=== PATIENT | male | born 1945 | race Asian ===

== ENCOUNTER 2019-07-21 16:15 | Inpatient (IN) | payer OTHER ==
--- NOTE | 2019-07-21 16:26 | PDOC ---
History of Present Illness - General Chief Complaint: Diarrhea Stated Complaint: DIARRHEA Time Seen by Provider: 07/21/19 16:25 Past History - Past Medical History Allergies/Adverse Reactions: Allergies Allergy/AdvReac Type Severity Reaction Status Date / Time No Known Allergies Allergy Verified 07/21/19 18:35 COPD: No CHF: No Dialysis: Yes - Psycho Social/Smoking Cessation Hx Smoking History: Unknown if ever smoked Hx Alcohol Use: No Drug/Substance Use Hx: No *Physical Exam - Vital Signs Last Vital Signs Temp Pulse Resp BP Pulse Ox 98.3 F 69 16 169/74 100 07/21/19 16:19 07/21/19 16:19 07/21/19 16:19 07/21/19 16:19 07/21/19 16:19 Medical Decision Making - Medical Decision Making 07/21/19 16:52 HPI: 73yo M hx DM, HTN, ESRD on HD, CAD s/p open heart surgery, and CVA, on 5 unknown meds, BIBA from home for 1wk decreased PO intake and constipation, and 1 day of diarrhea, vomiting, and abdominal pain, missing dialysis today. Pt knows his name but is otherwise poor historian. Pt seems to understand questions but responds with "I forget" or "I don't know". Endorses abdominal pain and states he needs to go to the bathroom. History per daughter Ros (sp?) at [phone]. Lives at home with pt. States pt speaks lao mostly but understands luxembourgish. States pt does not have dementia and is normally alert and fully oriented and fully conversational. Pt only ate a few spoons of rice today. Due to his poor PO intake and constipation x1wk, she called the PCP who gave him a laxative which he took last PM and this AM. After taking it this AM, he had "lots" of diarrhea and vomiting. Endorses 6mo generalized weakness, using wheelchair. Pt was scheduled for HD today but came here instead, last HD on . HD T//S at ?[facility] in [place] PCP - recent change from Dr Martina Chow to Silvina Shay(unknown last name) ROS: Unable to obtain 2/2 AMS PE: Gen: Alert, NAD, comfortable-appearing. HEENT: PERRL, EOMI, dry MM, NCAT. No conjunctival pallor. Sclera are non- icteric. CV: Regular rate and rhythm. No murmurs, rubs, or gallops. PULM: No resp distress. CTAB, no wheezes, rales, or rhonchi. ABD: soft, protuberant, diffusely tender, ND, no rebound tenderness or guarding, no CVA tenderness, wearing diaper BACK: No TTP of c/t/l-spine. No step-offs or deformities. MSK: No bony deformities. 2+ pulses in all extremities. NEURO: Alert, oriented to name only. PERRL. No gross CN deficits. Strength and sensation grossly intact throughout. EXTREMITIES: No cyanosis. No clubbing. PSYCH: Normal mood. SKIN: Warm and dry. Normal capillary refill. No rashes. No jaundice. MDM: 73yo M hx DM, HTN, ESRD on HD, CAD s/p open heart surgery, and CVA, on 5 unknown meds, BIBA from home for 1wk decreased PO intake and constipation, and 1 day of diarrhea, vomiting, and abdominal pain, missing dialysis today. Hemodynamically stable, afebrile, altered, diffuse abdominal TTP. Ddx: SAH, ICH, stroke, uremia, hyperammonemia, infection, metabolic derangement, anemia, thyroid pathology, ACS/KY, arrhythmia, GI pathology -EKG -CXR -CT head, chest, abdomen -CBC,CMP,Mg,Phos,Cardiac profile,TSH,UA/UC,ammonia,lipase,lact -Dispo: pending workup and reassessment, likely admit 07/21/19 18:32 EKG reviewed: Atrial fibrillation, vent rat 87bpm, QTc 474ms, no e/o acute ischemia CXR reviewed: cardiomegaly and mild bilateral increased interstitial markings. Cannot rule out mild pulmonary venous congestion for any superimposed infiltrates. Discharge - Discharge Information Problems reviewed: Yes Clinical Impression/Diagnosis: Atrial fibrillation, Missed dialysis, Abdominal pain, vomiting, and diarrhea, Altered mental status Condition: Fair - Admission Yes - Follow up/Referral - Patient Discharge Instructions - Post Discharge Activity
--- NOTE | 2019-07-21 17:02 | PDOC ---
Documentation entered by Otilia Tripp SCRIBE, acting as scribe for Mechelle Hua MD. Mechelle Hua MD: This documentation has been prepared by the scribe, Otilia Tripp SCRIBE, under my direction and personally reviewed by me in its entirety. I confirm that the documentation accurately reflects all work, treatment, procedures, and medical decision making performed by me. Attending Attestation - Resident Resident Name: Ashley Chapa - ED Attending Attestation I have performed the following: I have examined & evaluated the patient, The case was reviewed & discussed with the resident, I agree w/resident's findings & plan - HPI HPI: 07/21/19 16:48 Mr. Byrd is a 73 year old male with past medical history significant for DM, HTN, ESRD on HD (// at [facility] in [place]), CAD s/p open heart surgery, stroke on 5 unknown meds presenting with decreased appetite, "not hungry" x 1 week, constipation. Since yesterda, he has barely ate any food. This morning, started having multiple episodes of diarrhea and vomiting. Per Ems, pt took laxative earlier today. Last HD was [facility] [place] Baseline normal, no dementia, 6mo weakness using wheelchair, can't walk. The patients daughters were worried so they called EMS. 07/21/19 18:53 - Physicial Exam PE: 07/21/19 16:43 Agree with the resident's HPI and PE as documented in the electronic medical record. NAD, confused. EOMI, PERRL, dry mucus membranes, nl conjunctiva, anicteric; neck supple. midline sternotomy scar. lungs clear, irregularly irregular, abdomen soft distended, no rebound or guarding. mildy tender to palp. Back nontender. GOMEZ x4, no focal neuro deficits. No peripheral edema. normal color for ethnicity, WWP. no calf tenderness. 07/21/19 18:12 07/21/19 20:49 07/26/19 08:54 - Medical Decision Making 07/21/19 18:13 Vital Signs Temp Pulse Resp BP Pulse Ox 98.3 F 69 16 169/74 100 07/21/19 16:19 07/21/19 16:19 07/21/19 16:19 07/21/19 16:19 07/21/19 16:19 DDx AMS: infection, UTI, metabolic/electrolyte derangement, encephalopathy, dehydration, CVA, ACS, elevated ammonia, hepatic/uremic encephalopathy 07/21/19 18:51 Interpreted by ED Physician: CXR (1 view): Bilateral interstitial markings noted, appearing like pulmonary vascular congestion, cardiomegaly, bones appear intact and structures normal alignment, . no free air under diaphragm, no pneumothorax. labs and lytes covid 19 testing indicated IVF held due to pulmonary vascular congestion and HD dependent. There is significant cardiomegaly, bilateral interstitial thickening without evidence of infiltrates, there is right-sided pleural effusion. Large amount of free fluid/ascites, no evidence of obstruction. CT head encephalomalacia in the right supra lobe compatible with chronic infarct which is consistent with his prior stroke history pt does need HD, as fluid overloaded and altered. 07/21/19 18:52 07/21/19 19:56 Heart Score/ECG Review #1 ECG reviewed & interpreted by me at: 16:45 General ECG Interpretation: Normal Rate Compared to previous ECG there are: Previous ECG unavail 07/21/19 17:02 EKG atrial fibrillation at 87 bpm, no interval abnormalities, narrow QRS, ST and T wave segments and morphology normal. Nonspecific T wave abnormalities Discharge - Discharge Information Problems reviewed: Yes Clinical Impression/Diagnosis: Missed dialysis, Abdominal pain, vomiting, and diarrhea, Encephalopathy, NSTEMI (non-ST elevated myocardial infarction) Atrial fibrillation Qualifiers: Atrial fibrillation type: unspecified Qualified Code(s): I48.91 - Unspecified atrial fibrillation Altered mental status Qualifiers: Altered mental status type: unspecified Qualified Code(s): R41.82 - Altered mental status, unspecified Acute pancreatitis Qualifiers: Pancreatitis type: unspecified pancreatitis type Acute pancreatitis complication: unspecified Qualified Code(s): K85.90 - Acute pancreatitis without necrosis or infection, unspecified Pancreatitis Qualifiers: Chronicity: acute Pancreatitis type: unspecified pancreatitis type Acute pancreatitis complication: unspecified Qualified Code(s): K85.90 - Acute pancreatitis without necrosis or infection, unspecified Condition: Guarded - Admission Yes - Follow up/Referral - Patient Discharge Instructions - Post Discharge Activity
[2019-07-21 18:48] LABS: BASO % 0.2 % (0-2.0); EOS % 8.3 % (0-4.5); HEMATOCRIT 39.4 % (35.4-49); HEMOGLOBIN 13.3 GM/dL (11.7-16.9); LYMPH % 11.6 % (8-40); MCH 33.2 pg (25.7-33.7); MCHC 33.8 g/dl (32.0-35.9); MEAN CELL VOLUME 98.3 fl (80-96); MEAN PLT VOLUME 9.4 fl (7.5-11.1); NEUT % 66.9 % (42.8-82.8); PLATELET COUNT 155 K/MM3 (134-434); RBC 4.01 M/mm3 (4.00-5.60); RDW 15.6 % (11.9-15.9); WHITE BLOOD COUNT 7.6 K/mm3 (4.0-10.0)
[2019-07-21 18:57] LABS: INR 1.13 (0.83-1.09); PROTHROMBIN TIME (PATIENT) 13.4 SEC (9.7-13.0)
[2019-07-21 19:00] LABS: ACTIVATED PTT 32.2 SECONDS (25.2-36.5)
[2019-07-21 19:23] LABS: ALBUMIN 3.3 g/dl (3.4-5.0); BILIRUBIN,TOTAL 0.9 mg/dL (0.2-1); BLOOD UREA NITROGEN 45.7 mg/dL (7-18); CALCIUM 9.2 mg/dL (8.5-10.1); CREATININE 6.8 mg/dL (0.55-1.3); MAGNESIUM 2.1 mg/dL (1.8-2.4); PHOSPHOROUS 5.2 mg/dL (2.5-4.9); POTASSIUM 3.6 mmol/L (3.5-5.1); TOT PROT 7.3 g/dl (6.4-8.2)
[2019-07-21] MEDS ORDERED: ASPIRIN 81 MG CHEWABLE TABLETS PO ONE (19:31)
--- NOTE | 2019-07-21 19:35 | PDOC ---
*Physical Exam - Vital Signs Last Vital Signs Temp Pulse Resp BP Pulse Ox 98.3 F 69 16 169/74 100 07/21/19 16:19 07/21/19 16:19 07/21/19 16:19 07/21/19 16:19 07/21/19 16:19 ED Treatment Course - LABORATORY CBC & Chemistry Diagram: 07/21/19 18:20 07/21/19 18:20 - ADDITIONAL ORDERS Additional order review: Laboratory Results 07/21/19 07/21/19 07/21/19 18:30 18:20 18:20 PT with INR INR PTT (Actin FS) Sodium 137 Potassium 3.6 Chloride 100 Carbon Dioxide 29 Anion Gap 8 BUN 45.7 H Creatinine 6.8 H Est GFR (CKD-EPI)AfAm 8.37 Est GFR (CKD-EPI)NonAf 7.22 POC Glucometer Random Glucose 153 H Lactic Acid 1.4 Calcium 9.2 Phosphorus 5.2 H Magnesium 2.1 Total Bilirubin 0.9 AST 11 L ALT 11 L Alkaline Phosphatase 138 H Ammonia 24.40 Creatine Kinase 43 Troponin I 0.17 H Total Protein 7.3 Albumin 3.3 L Lipase 908 H TSH 3.99 H 07/21/19 07/21/19 18:20 16:39 PT with INR 13.40 H INR 1.13 H PTT (Actin FS) 32.2 Sodium Potassium Chloride Carbon Dioxide Anion Gap BUN Creatinine Est GFR (CKD-EPI)AfAm Est GFR (CKD-EPI)NonAf POC Glucometer 141 Random Glucose Lactic Acid Calcium Phosphorus Magnesium Total Bilirubin AST ALT Alkaline Phosphatase Ammonia Creatine Kinase Troponin I Total Protein Albumin Lipase TSH 07/21/19 07/21/19 18:20 16:39 RBC 4.01 MCV 98.3 H MCHC 33.8 RDW 15.6 MPV 9.4 Neutrophils % 66.9 Lymphocytes % 11.6 Monocytes % 13.0 H Eosinophils % 8.3 H Basophils % 0.2 POC Glucometer 141 Medical Decision Making - Medical Decision Making 07/21/19 19:34 Sign-out received from Dr. Chapa 73yo M hx DM, HTN, ESRD on HD, CAD s/p open heart surgery, and CVA, on 5 unknown meds, BIBA from home for 1wk decreased PO intake and constipation, and 1 day of diarrhea, vomiting, and abdominal pain, missing dialysis today. History limited by AMS, language barrier, daughter unable to provide much collateral, no prior visits here at [facility]. 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 Trace right pleural effusion. S/p cholecystectomy. Large amount of free fluid / ascites in nikki abdomen and pelvis. No SBO. No mass lesions. 07/21/19 20:[address] Goodwin, confirmed new afib on EKG, patient 74kg, 73yo, full dose eliquis eligible Awaiting callback from renal [employer] sent Dispo: Tele, HD bed - Encephalopathy (uremic?) - ?new a fib - NSTEMI - Pancreatitis 07/21/19 20:[address] Wells, renal, will arrange AM HD 07/21/19 21:04 Endorsed to inpatient team, admitted under Dr. Walker Discharge - Discharge Information Problems reviewed: Yes Clinical Impression/Diagnosis: Missed dialysis, Abdominal pain, vomiting, and diarrhea, Encephalopathy, NSTEMI (non-ST elevated myocardial infarction) Atrial fibrillation Qualifiers: Atrial fibrillation type: unspecified Qualified Code(s): I48.91 - Unspecified atrial fibrillation Altered mental status Qualifiers: Altered mental status type: unspecified Qualified Code(s): R41.82 - Altered mental status, unspecified Acute pancreatitis Qualifiers: Pancreatitis type: unspecified pancreatitis type Acute pancreatitis complication: unspecified Qualified Code(s): K85.90 - Acute pancreatitis without necrosis or infection, unspecified Pancreatitis Qualifiers: Chronicity: acute Pancreatitis type: unspecified pancreatitis type Acute pancreatitis complication: unspecified Qualified Code(s): K85.90 - Acute pancreatitis without necrosis or infection, unspecified Condition: Guarded - Admission Yes - Follow up/Referral - Patient Discharge Instructions - Post Discharge Activity
[2019-07-21] MEDS ORDERED: ASPIRIN 81 MG CHEWABLE TABLETS ONE (20:01)
--- NOTE | 2019-07-21 21:31 | HP ---
<Mae Weinstein - Last Filed: 07/22/19 00:14> CHIEF COMPLAINT: Abdominal pain, chest pain PCP: Unknown HISTORY OF PRESENT ILLNESS: History obtained from Daughter Bob [phone] 73M PMH DM, HTN, ESRD (HD T//Tue), CAD s/p open heart surgery, CVA, who presents today after having abdominal pain with vomiting and diarrhea, and subsequently beginning to have chest pain. Patient had 2 episodes of non bloody diarrhea, and one episode of NBNB emesis in the morning. Of note patient was having decreased PO intake and constipation for the entire week; patient was prescribed unknown laxatives by his PCP yesterday and began taking them. Patient described having worsening chest pain to his daughter after his abdominal pain started which prompted them to call EMS. Patient missed his dialysis today, last day he received dialysis was on . Patient currently does not endorse any pain, however he is not responding in coherent sentences to questioning. ER course was notable for: (1) EKG completed: Afib (2) CT Abdomen/Pelvis shows large amount of free fluid/ascites in abdomen (3) BUN/Creatinine of 45.7/6.8 Recent Travel: None PAST MEDICAL HISTORY:DM, HTN, ESRD (HD T//Tue), CAD s/p open heart surgery, CVA, PAST SURGICAL HISTORY: Unable to obtain FAMILY MEDICAL HISTORY: Unable to obtain Social History: Smoking:Unable to obtain Alcohol:Unable to obtain Drugs: Unable to obtain Lives at home with daughter, recently using wheelchair Allergies No Known Allergies Allergy (Verified 07/21/19 18:35) HOME MEDICATIONS: REVIEW OF SYSTEMS Patient not cooperating with ROS. CONSTITUTIONAL: Absent: fever, chills, diaphoresis, generalized weakness, malaise, loss of appetite, weight change HEENT: Absent: rhinorrhea, nasal congestion, throat pain, throat swelling, difficulty swallowing, mouth swelling, ear pain, eye pain, visual changes CARDIOVASCULAR: Absent: chest pain, syncope, palpitations, irregular heart rate, lightheadedness, peripheral edema RESPIRATORY: Absent: cough, shortness of breath, dyspnea with exertion, orthopnea, wheezing, stridor, hemoptysis GASTROINTESTINAL: Absent: abdominal pain, abdominal distension, nausea, vomiting, diarrhea, constipation, melena, hematochezia GENITOURINARY: Absent: dysuria, frequency, urgency, hesitancy, hematuria, flank pain, genital p ain MUSCULOSKELETAL: Absent: myalgia, arthralgia, joint swelling, back pain, neck pain SKIN: Absent: rash, itching, pallor HEMATOLOGIC/IMMUNOLOGIC: Absent: easy bleeding, easy bruising, lymphadenopathy, frequent infections ENDOCRINE: Absent: unexplained weight gain, unexplained weight loss, heat intolerance, cold intolerance NEUROLOGIC: Absent: headache, focal weakness or paresthesias, dizziness, unsteady gait, seizure, mental status changes, bladder or bowel incontinence PSYCHIATRIC: Absent: anxiety, depression, suicidal or homicidal ideation, hallucinations. PHYSICAL EXAMINATION Vital Signs - 24 hr 07/21/19 16:19 Temperature 98.3 F Pulse Rate 69 Respiratory 16 Rate Blood Pressure 169/74 O2 Sat by Pulse 100 Oximetry (%) GENERAL: Awake, alert. Not in distress HEAD: Normal with no signs of trauma. EYES: EOMI. Scleral icterus present b/l EARS, NOSE, THROAT: Moist mucous membranes. NECK: Normal range of motion, supple without lymphadenopathy, JVD, or masses. LUNGS: Breath sounds equal, clear to auscultation bilaterally. No wheezes, and no crackles. No accessory muscle use. HEART: irregularly irregular, S1 and S2 without murmur, rub or gallop. ABDOMEN: Soft, nontender, not distended, normoactive bowel sounds, no guarding, no rebound, no masses. fluid shift present. MUSCULOSKELETAL: Normal range of motion at all joints. No bony deformities or tenderness. No CVA tenderness. UPPER EXTREMITIES: 2+ pulses, warm, well-perfused. No cyanosis. No clubbing. No peripheral edema. LOWER EXTREMITIES: 2+ pulses, warm, well-perfused. No calf tenderness. No peripheral edema. NEUROLOGICAL: Does not follow command PSYCHIATRIC: Cooperative. Good eye contact. Appropriate mood and affect. SKIN: Warm, dry, normal turgor, no rashes or lesions noted, normal capillary refill. Laboratory Results - last 24 hr 07/21/19 07/21/19 07/21/19 16:39 18:20 18:20 WBC 7.6 RBC 4.01 Hgb 13.3 Hct 39.4 MCV 98.3 H MCH 33.2 MCHC 33.8 RDW 15.6 Plt Count 155 MPV 9.4 Absolute Neuts (auto) 5.1 Neutrophils % 66.9 Lymphocytes % 11.6 Monocytes % 13.0 H Eosinophils % 8.3 H Basophils % 0.2 Nucleated RBC % 0 PT with INR 13.40 H INR 1.13 H PTT (Actin FS) 32.2 Sodium Potassium Chloride Carbon Dioxide Anion Gap BUN Creatinine Est GFR (CKD-EPI)AfAm Est GFR (CKD-EPI)NonAf POC Glucometer 141 Random Glucose Lactic Acid Calcium Phosphorus Magnesium Total Bilirubin AST ALT Alkaline Phosphatase Ammonia Creatine Kinase Troponin I Total Protein Albumin Lipase TSH 07/21/19 07/21/19 07/21/19 18:20 18:20 18:30 WBC RBC Hgb Hct MCV MCH MCHC RDW Plt Count MPV Absolute Neuts (auto) Neutrophils % Lymphocytes % Monocytes % Eosinophils % Basophils % Nucleated RBC % PT with INR INR PTT (Actin FS) Sodium 137 Potassium 3.6 Chloride 100 Carbon Dioxide 29 Anion Gap 8 BUN 45.7 H Creatinine 6.8 H Est GFR (CKD-EPI)AfAm 8.37 Est GFR (CKD-EPI)NonAf 7.22 POC Glucometer Random Glucose 153 H Lactic Acid 1.4 Calcium 9.2 Phosphorus 5.2 H Magnesium 2.1 Total Bilirubin 0.9 AST 11 L ALT 11 L Alkaline Phosphatase 138 H Ammonia 24.40 Creatine Kinase 43 Troponin I 0.17 H Total Protein 7.3 Albumin 3.3 L Lipase 908 H TSH 3.99 H ASSESSMENT/PLAN: 73M PMH DM, HTN, ESRD (HD T//Tue), CAD s/p open heart surgery, CVA, who prese nts today after having abdominal pain and chest pain. 1) Chest Pain - Patient reported chest pain at home, no complaints while in ED. - EKG found to be in Afib, no ST changes. No hx of Afib as per daughter - Troponin 0.17, trending. - ASA 324 given in ED - Continue ASA 81 mg daily - Eliquis 5 mg PO BID - Echo ordered - Continuous cardiac monitoring - Cardiology consulted, appreciate recs 2) New onset Afib - Patient shown to be in Afib on EKG - No prior hx as per daughter - Eliquis 5 mg BID started after consulting cardiology - TSH elevated - Telemetry monitoring - Cardiology consulted, appreciate recs 3) Abdominal Pain- likely Pancreatitis - Patient presented with abdominal pain, lipase of 908. No pain on exam by me, however diffusely tender to palpation on ED exam - Tylenol for pain control, can give morphine as needed if patient complains of worsening pain - CT Abdomen shows no bowel obstruction 4) AMS - Patient not at baseline mental status- Daughter describes patient as being able to speak in both Argentine and Norwegian, A&Ox3. Was noted to be normal at home - Patient awake and alert, not coherent - Likely component of uremic encephalopathy as missed dialysis today - Head CT shows encephalomalacia, no acute pathology - Will continue to monitor - Unknown home medications, spoke with daughter about which pharmacy patient uses, however unable to find them on google search. Will follow up in morning 5) HTN - Hypertensive on presentation, unknown home medications. - Start on amlodipine 5mg, titrate as needed - Likely a component of fluid overload leading to HTN 6) ESRD - Missed dialysis today, will need HD tomorrow - Nephrology consulted, appreciate recs 7) TSH elevated - TSH of 3.99 - Free T4 in AM DVT: Eliquis 5 mg BID F: Oral hydration E: Monitor CMP N: NPO Dispo: Admit to telemetry ATTENDING PHYSICIAN STATEMENT I saw and evaluated the patient. I reviewed the resident's note and discussed the case with the resident. I agree with the resident's findings and plan as documented. SUBJECTIVE: OBJECTIVE: ASSESSMENT AND PLAN: <Cyndy Walker - Last Filed: 07/22/19 05:17> CHIEF COMPLAINT: PCP: HISTORY OF PRESENT ILLNESS: ER course was notable for: (1) (2) (3) Recent Travel: PAST MEDICAL HISTORY: PAST SURGICAL HISTORY: Social History: Smoking: Alcohol: Drugs: Allergies No Known Allergies Allergy (Verified 07/21/19 18:35) HOME MEDICATIONS: REVIEW OF SYSTEMS CONSTITUTIONAL: Absent: fever, chills, diaphoresis, generalized weakness, malaise, loss of appetite, weight change HEENT: Absent: rhinorrhea, nasal congestion, throat pain, throat swelling, difficulty swallowing, mouth swelling, ear pain, eye pain, visual changes CARDIOVASCULAR: Absent: chest pain, syncope, palpitations, irregular heart rate, lightheadedness, peripheral edema RESPIRATORY: Absent: cough, shortness of breath, dyspnea with exertion, orthopnea, wheezing, stridor, hemoptysis GASTROINTESTINAL: Absent: abdominal pain, abdominal distension, nausea, vomiting, diarrhea, constipation, melena, hematochezia GENITOURINARY: Absent: dysuria, frequency, urgency, hesitancy, hematuria, flank pain, genital pain MUSCULOSKELETAL: Absent: myalgia, arthralgia, joint swelling, back pain, neck pain SKIN: Absent: rash, itching, pallor HEMATOLOGIC/IMMUNOLOGIC: Absent: easy bleeding, easy bruising, lymphadenopathy, frequent infections ENDOCRINE: Absent: unexplained weight gain, unexplained weight loss, heat intolerance, cold intolerance NEUROLOGIC: Absent: headache, focal weakness or paresthesias, dizziness, unsteady gait, seizure, mental status changes, bladder or bowel incontinence PSYCHIATRIC: Absent: anxiety, depression, suicidal or homicidal ideation, hallucinations. PHYSICAL EXAMINATION Vital Signs - 24 hr 07/21/19 07/21/19 07/21/19 16:19 18:37 20:00 Temperature 98.3 F 97.9 F Pulse Rate 69 78 Pulse Rate [ 84 Right Radial] Respiratory 16 21 H 20 Rate Blood Pressure 169/74 157/70 Blood Pressure 149/74 [Right Arm] O2 Sat by Pulse 100 98 Oximetry (%) 07/21/19 07/22/19 22:41 02:00 Temperature 98.0 F Pulse Rate 78 Pulse Rate [ Right Radial] Respiratory 21 H 21 H Rate Blood Pressure 163/83 Blood Pressure [Right Arm] O2 Sat by Pulse 95 Oximetry (%) GENERAL: Awake, alert, and fully oriented, in no acute distress. HEAD: Normal with no signs of trauma. EYES: Pupils equal, round and reactive to light, extraocular movements intact, sclera anicteric, conjunctiva clear. No lid lag. EARS, NOSE, THROAT: Ears normal, nares patent, oropharynx clear without exudates. Moist mucous membranes. NECK: Normal range of motion, supple without lymphadenopathy, JVD, or masses. LUNGS: Breath sounds equal, clear to auscultation bilaterally. No wheezes, and no crackles. No accessory muscle use. HEART: Regular rate and rhythm, normal S1 and S2 without murmur, rub or gallop. ABDOMEN: Soft, nontender, not distended, normoactive bowel sounds, no guarding, no rebound, no masses. No hepatomegaly or splenomegaly. MUSCULOSKELETAL: Normal range of motion at all joints. No bony deformities or tenderness. No CVA tenderness. UPPER EXTREMITIES: 2+ pulses, warm, well-perfused. No cyanosis. No clubbing. No peripheral edema. LOWER EXTREMITIES: 2+ pulses, warm, well-perfused. No calf tenderness. No peripheral edema. NEUROLOGICAL: Cranial nerves II-XII intact. Normal speech. Normal gait. PSYCHIATRIC: Cooperative. Good eye contact. Appropriate mood and affect. SKIN: Warm, dry, normal turgor, no rashes or lesions noted, normal capillary refill. Laboratory Results - last 24 hr 07/21/19 07/21/19 07/21/19 16:39 18:20 18:20 WBC 7.6 RBC 4.01 Hgb 13.3 Hct 39.4 MCV 98.3 H MCH 33.2 MCHC 33.8 RDW 15.6 Plt Count 155 MPV 9.4 Absolute Neuts (auto) 5.1 Neutrophils % 66.9 Lymphocytes % 11.6 Monocytes % 13.0 H Eosinophils % 8.3 H Basophils % 0.2 Nucleated RBC % 0 PT with INR 13.40 H INR 1.13 H PTT (Actin FS) 32.2 Sodium Potassium Chloride Carbon Dioxide Anion Gap BUN Creatinine Est GFR (CKD-EPI)AfAm Est GFR (CKD-EPI)NonAf POC Glucometer 141 Random Glucose Lactic Acid Calcium Phosphorus Magnesium Total Bilirubin AST ALT Alkaline Phosphatase Ammonia Creatine Kinase Troponin I Total Protein Albumin Lipase TSH 07/21/19 07/21/19 07/21/19 18:20 18:20 18:30 WBC RBC Hgb Hct MCV MCH MCHC RDW Plt Count MPV Absolute Neuts (auto) Neutrophils % Lymphocytes % Monocytes % Eosinophils % Basophils % Nucleated RBC % PT with INR INR PTT (Actin FS) Sodium 137 Potassium 3.6 Chloride 100 Carbon Dioxide 29 Anion Gap 8 BUN 45.7 H Creatinine 6.8 H Est GFR (CKD-EPI)AfAm 8.37 Est GFR (CKD-EPI)NonAf 7.22 POC Glucometer Random Glucose 153 H Lactic Acid 1.4 Calcium 9.2 Phosphorus 5.2 H Magnesium 2.1 Total Bilirubin 0.9 AST 11 L ALT 11 L Alkaline Phosphatase 138 H Ammonia 24.40 Creatine Kinase 43 Troponin I 0.17 H Total Protein 7.3 Albumin 3.3 L Lipase 908 H TSH 3.99 H ASSESSMENT/PLAN: Visit type - Emergency Visit Emergency Visit: Yes ED Registration Date: 07/21/19 Care time: The patient presented to the Emergency Department on the above date and was hospitalized for further evaluation of their emergent condition. - New Patient This patient is new to me today: No - Critical Care Critical Care patient: No ATTENDING PHYSICIAN STATEMENT I saw and evaluated the patient. I reviewed the resident's note and discussed the case with the resident. I agree with the resident's findings and plan as documented. SUBJECTIVE: 73 year old Male with a PMH DM II HTN, ESRD (HD T/Th/Tue), CAD s/p open heart surgery, CVA, who presents today after having abdominal pain and chest pain. OBJECTIVE: CVS: RRR Lungs: CTA Abdomen: NABS ASSESSMENT AND PLAN: Chest pain - Elevated troponin with new onset Afib - trend ttroponin peak - cardiology eval in AM New onset Afib - No prior hx - Eliquis 5 mg BID started after consulting cardiology - TSH elevated
[2019-07-21] MEDS ORDERED: ACETAMINOPHEN 325 MG TABLET (FP) PO PRN (22:41)
[2019-07-21] MEDS: APIXABAN 5 MG TABLET PO SCH (23:49)
[2019-07-22] MEDS ORDERED: amLODIPine BESYLATE 5 MG TABLET (FP) PO ONE (00:13)
[2019-07-22] MEDS ORDERED: RAPID SEQUENCE INTUBATION KIT NR ONE (04:22)
[2019-07-22] MEDS: INSULIN SLIDING SCALE (NOVOLOG) 1 VIAL SQ SCH ×4 (06:54→21:31)
--- NOTE | 2019-07-22 07:43 | PN ---
Progress Note, Physician Chief Complaint: Seen and examined at bedside. Pt speaks minimal canadian. No abd pain reported overnight. On cardiac specialist in rate controlled AF. Hemodynamically stable History of Present Illness: 73M PMH DM, HTN, ESRD (HD T//Tue), CAD s/p open heart surgery, CVA, who presents today after having abdominal pain and chest pain. - Current Medication List Current Medications: Active Medications Acetaminophen (Tylenol -) 650 mg PO Q4H PRN PRN Reason: PAIN LEVEL 4 - 6 Apixaban (Eliquis -) 5 mg PO BID [facility] Last Admin: 07/21/19 23:49 Dose: 5 mg Documented by: Aspirin (Ecotrin -) 81 mg PO DAILY [facility] Insulin Aspart (Novolog Vial Sliding Scale -) 1 vial SQ ACHS [facility]; Protocol Last Admin: 07/22/19 06:54 Dose: Not Given Documented by: - Objective Vital Signs: Vital Signs Temperature 97.7 F 07/22/19 06:00 Pulse Rate 82 07/22/19 06:00 Respiratory Rate 16 07/22/19 06:00 Blood Pressure 165/70 07/22/19 06:00 O2 Sat by Pulse Oximetry (%) 95 07/21/19 22:41 Constitutional: Yes: No Distress, Calm, Thin Eyes: Yes: WNL, Conjunctiva Clear HENT: Yes: WNL, Atraumatic, Normocephalic Neck: Yes: WNL, Supple, Trachea Midline Cardiovascular: Yes: Pulse Irregular Respiratory: Yes: Regular, On Nasal O2, Rales Gastrointestinal: Yes: Soft, Ascites, Hypoactive Bowel Sounds ...Rectal Exam: Yes: Deferred Genitourinary: Yes: Oliguria Breast(s): Yes: WNL Musculoskeletal: Yes: WNL Extremities: Yes: WNL Edema: No Edema: LLE: Trace, RLE: Trace Peripheral Pulses WNL: Yes Peripheral Pulses: Left Radial: 2+, Right Radial: 2+, Left Doralis Pedis: 2+, Right Dorsalis Pedis: 2+, Left Femoral: 2+, Right Femoral: 2+ Integumentary: Yes: Other (AV fistula noted) Neurological: Yes: WNL, Alert ...Motor Strength: WNL Psychiatric: Yes: Alert Labs: INR, PTT INR 1.13 (0.83-1.09) H 07/21/19 18:20 - ....Imaging Cat Scan: Report Reviewed (HCT:chronnic infarcts,no acute pathology Chest CT:no infiltartes, right pleural effusion A/P:lg amt of free floating ascities, no SBO, no masses) Problem List - Problems (1) Acute metabolic encephalopathy Assessment/Plan: not as baseline as per family speaking minimal Croatian (daughter states he is fluent in vietamese/Croatian) no acute finding on HCT mostly likely d/t uremic state plan for HD today neuro checks c/t monitor Code(s): G93.41 - METABOLIC ENCEPHALOPATHY (2) HTN (hypertension) Assessment/Plan: Hypertensive on presentation, unknown home medications as per family c/w amlodipine 5mg, titrate as needed Likely a component of fluid overload leading to HTN Code(s): I10 - ESSENTIAL (PRIMARY) HYPERTENSION (3) Prophylactic measure Assessment/Plan: FEN Fluids: start clear diet, no additional fluids on HD Electrolytes: monitor & replete as needed Nutrition: clear diet DVT moderate risk c/w apixaban, asa Dispo Maintain as inpatient full code discharge planning Code(s): Z29.9 - ENCOUNTER FOR PROPHYLACTIC MEASURES, UNSPECIFIED (4) Hypothyroid Assessment/Plan: c/w synthroid Code(s): E03.9 - HYPOTHYROIDISM, UNSPECIFIED (5) Abdominal pain, vomiting, and diarrhea Assessment/Plan: resolved no finding on CT hep panel pending c/t karishma/lip Code(s): R10.9 - UNSPECIFIED ABDOMINAL PAIN; R11.10 - VOMITING, UNSPECIFIED; R19.7 - DIARRHEA, UNSPECIFIED (6) Atrial fibrillation Assessment/Plan: new onset c/w tele monitoring c/w apixaban c/w toprol c/w asa appreciate cardiology consultation Code(s): I48.91 - UNSPECIFIED ATRIAL FIBRILLATION Qualifiers: Atrial fibrillation type: unspecified Qualified Code(s): I48.91 - Unspecified atrial fibrillation (7) Missed dialysis Assessment/Plan: planned for HD today Code(s): BSW9111 - (8) NSTEMI (non-ST elevated myocardial infarction) Assessment/Plan: EKG with afib rates controlled, nonspecific ST-T abn (no prior) troponin 0.1, 0.1 CKD, trop will likely remain elevated Code(s): I21.4 - NON-ST ELEVATION (NSTEMI) MYOCARDIAL INFARCTION (9) Pancreatitis Assessment/Plan: karishma 903 c/t trend no findings on CT Code(s): K85.90 - ACUTE PANCREATITIS WITHOUT NECROSIS OR INFECTION, UNSP Qualifiers: Chronicity: acute Pancreatitis type: unspecified pancreatitis type Acute pancreatitis complication: unspecified Qualified Code(s): K85.90 - Acute pancreatitis without necrosis or infection, unspecified (10) Suspected COVID-19 virus infection Assessment/Plan: PCR pending no finding on CT will send inflammatory markers strict airborne/droplet precautions maintain SPO2 > 88% Code(s): Z20.828 - CONTACT W AND EXPOSURE TO OTH VIRAL COMMUNICABLE DISEASES Visit type - Emergency Visit Emergency Visit: Yes ED Registration Date: 07/21/19 Care time: The patient presented to the Emergency Department on the above date and was hospitalized for further evaluation of their emergent condition. - New Patient This patient is new to me today: Yes Date on this admission: 07/22/19 - Critical Care Critical Care patient: Yes Total Critical Care Time (in minutes): 45 Critical Care Statement: The care of this patient involved high complexity decision making to prevent further life threatening deterioration of the patient's condition and/or to evaluate & treat vital organ system(s) failure or risk of failure. - Discharge Referral Referred to [facility] Med [facility].: No
[2019-07-22 07:48] LABS: HEMOGLOBIN 12.4 GM/dL (11.7-16.9); MCH 33.5 pg (25.7-33.7); MCHC 34.5 g/dl (32.0-35.9); MEAN PLT VOLUME 9.5 fl (7.5-11.1); PLATELET COUNT 141 K/MM3 (134-434); RBC 3.71 M/mm3 (4.00-5.60); RDW 15.5 % (11.9-15.9); WHITE BLOOD COUNT 6.8 K/mm3 (4.0-10.0)
[2019-07-22 08:16] LABS: ALBUMIN 3.1 g/dl (3.4-5.0); BILIRUBIN,TOTAL 1.1 mg/dL (0.2-1); BLOOD UREA NITROGEN 48.8 mg/dL (7-18); CALCIUM 8.7 mg/dL (8.5-10.1); CREATININE 7.2 mg/dL (0.55-1.3); PHOSPHOROUS 5.3 mg/dL (2.5-4.9); POTASSIUM 3.7 mmol/L (3.5-5.1); TOT PROT 6.8 g/dl (6.4-8.2)
[2019-07-22] MEDS: ASPIRIN COATED 81 MG TABLET.EC PO SCH (09:15)
[2019-07-22] MEDS: APIXABAN 5 MG TABLET PO SCH ×2 (09:15→21:31)
--- NOTE | 2019-07-22 09:20 | CON.CARD ---
Consult Consult Specialty:: cardio - History of Present Illness Chief Complaint: abd pain History of Present Illness: 73M here with abdominal pain with vomiting and diarrhea. pt is poor historian: history obtained from ER notes in d/w family. 2 episodes of non bloody diarrhea, and one episode of NBNB emesis in the morning. has had decreased PO intake and constipation for the entire week--prescribed unknown laxatives by his PCP yesterday and began taking them. Subsequently developed chest pain which prompted them to call EMS. missed HD session on [facility] notable ER course: BP mildly elevated HR stable afebrile, normal sats on RA EKG with afib rates controlled, nonspecific ST-T abn (no prior) troponin 0.1, 0.1 at present: pt denies abd pain or cp denies sob, palp PMH: DM, HTN, ESRD (HD T//Sat), CAD s/p open heart surgery, CVA - Alcohol/Substance Use Hx Alcohol Use: No - Smoking History Smoking history: Unknown if ever smoked Have you smoked in the past 12 months: No Home Medications - Allergies Allergies/Adverse Reactions: Allergies Allergy/AdvReac Type Severity Reaction Status Date / Time No Known Allergies Allergy Verified 07/21/19 18:35 Family Medical History Family History: Unable to Obtain Review of Systems - Review of Systems Constitutional: denies: Chills, Fever Eyes: denies: Eye Pain HENT: denies: Nasal Congestion Neck: denies: Stiffness Cardiovascular: denies: Palpitations Respiratory: denies: Orthopnea, PND Gastrointestinal: denies: Diarrhea, Rectal Bleeding Genitourinary: denies: Burning, Hematuria Musculoskeletal: denies: Muscle Pain Integumentary: denies: Rash Neurological: denies: Numbness, Seizure, Syncope Endocrine: denies: Excessive Sweating Hematology/Lymphatic: denies: Excessive Bleeding Vital Signs: Vital Signs Temperature 97.7 F 07/22/19 06:00 Pulse Rate 82 07/22/19 06:00 Respiratory Rate 16 07/22/19 06:00 Blood Pressure 165/70 07/22/19 06:00 O2 Sat by Pulse Oximetry (%) 95 07/21/19 22:41 Constitutional: Yes: Well Nourished, No Distress Eyes: No: Ptosis, Sclera Icterus HENT: No: Nasal Congestion Neck: No: Decreased ROM Respiratory: No: Accessory Muscle Use Gastrointestinal: Yes: Normal Bowel Sounds. No: Distention, Hepatomegaly, Palpable Mass, Tenderness Cardiovascular: Yes: Regular Rate and Rhythm JVD: No Carotid Bruit: No PMI: Non-Displaced Heart Sounds: Yes: S1, S2. No: Gallop Murmur: No: Systolic Murmur, Diastolic Murmur Musculoskeletal: Yes: Other (No kyphosis) Extremities: No: Cool, Cyanosis Edema: No Peripheral Pulses: 2+ Left Carotid, 2+ Right Carotid, 2+ Left Doralis Pedis, 2+ Right Dorsalis Pedis Integumentary: No: Jaundice Neurological: Yes: Alert. No: Seizure Psychiatric: No: Agitated - Other Data Labs, Other Data: CBC, BMP 07/22/19 06:05 07/22/19 06:05 INR, PTT INR 1.13 (0.83-1.09) H 07/21/19 18:20 Troponin, BNP 07/21/19 07/22/19 18:20 06:05 Troponin I 0.17 H 0.16 H Troponin, BNP 07/21/19 07/22/19 18:20 06:05 Troponin I 0.17 H 0.16 H Assessment/Plan CT head: old infarct R occipital lobe, no blood CT chest (non-con): mild interstitial thickening, trace R effusion, + cardiomega ly. large free fluid/ascites, no other abdominal pathology EKG: afib, nonsp ST-Ts, no q's (no old) tele: AF, rates controlled abdominal pain-->chest pain, elevated troponin: -occurred in setting of taking new laxative -troponin 0.1 x 2 is indeterminate range, with flat trend is not c/w ACS (likely related to ESRD and/or CMP with chronic increased filling pressures given noted cardiomegaly on exam) -no further ischemia eval is warranted unless chest pain recurs -large ascites noted--volume mgmt per renal. -w/u of abd pain/ascites per hospitalist history of CAD, cardiomegaly: -check echo -recommend reconcile home med list re: anti-ischemia regimen including statin Afib: -new, incidental dx here -HR controlled -starting bb low dose -CHADS VASC 7 incl prior CVA--started Eliquis 5 BID here based on pt self- reported weight. bedscale wt is <60 kg--will repeat measurement to confirm not erroneous, and if same result, will need to decr dose to 2.5 mg BID HTN: -home meds need reconciliation -started amlodipine here -add metoprolol 25 qd (for AF and CAD as well) ESRD on HD: -dialysis per renal h/o CVA: -starting AC for AF -statin as above
[2019-07-22] MEDS: metoPROLOL SUCCINATE 25 MG TAB.SR.24H (FP) PO SCH (11:08)
[2019-07-22] MEDS: amLODIPine BESYLATE 5 MG TABLET (FP) PO SCH (11:08)
--- NOTE | 2019-07-22 11:25 | EKG ---
Test Reason : Blood Pressure : / mmHG Vent. Rate : 087 BPM Atrial Rate : 101 BPM P-R Int : 000 ms QRS Dur : 100 ms QT Int : 394 ms P-R-T Axes : 000 040 013 degrees QTc Int : 474 ms ATRIAL FIBRILLATION NONSPECIFIC ST ABNORMALITY ABNORMAL ECG NO PREVIOUS ECGS AVAILABLE Confirmed by MD GLENDA, LEX ([id number]) on 07/22/2019 11:24:57 AM Referred By: Confirmed By:LEX DOSHI MD
[2019-07-22] MEDS ORDERED: SODIUM CHLORIDE 250 ML IV PRN (12:19)
--- NOTE | 2019-07-22 12:27 | CON.NEP ---
Consult Consult Specialty:: NEPHROLOGY Referred by:: DR BENEDICT Reason for Consultation:: ESRD NEEDS HD - History of Present Illness Chief Complaint: ABD PAIN/CHEST PAIN History of Present Illness: ESRD ON HD TTS MISSED HD YESTERDAY NO SOB MILD FLUID OVERLOAD/PL EFFUSIONS AND ASCITES ON IMAGING GETTING CARDIAC EVAL FOR NEW AFIB PMHX MOTED- HTN - History Source History Provided By: Medical Record Limitations to Obtaining History: Language Barrier - Past Medical History REFERRAL RN: Yes: CVA - Alcohol/Substance Use Hx Alcohol Use: No - Smoking History Smoking history: Unknown if ever smoked Have you smoked in the past 12 months: No Home Medications - Allergies Allergies/Adverse Reactions: Allergies Allergy/AdvReac Type Severity Reaction Status Date / Time No Known Allergies Allergy Verified 07/21/19 18:35 Nephrology Consult - Height Height: 5 ft 8 in - Weight Weight: 124 lb 1.6 oz - BMI Body Mass Index (BMI): 18.8 - Lab Results CBC,BMP: CBC, BMP 07/22/19 06:05 07/22/19 06:05 Anion Gap: Anion Gap Anion Gap 11 MMOL/L (8-16) 07/22/19 06:05 - Physical Examination Vital Signs: Vital Signs Temperature 97.7 F 07/22/19 06:00 Pulse Rate 82 07/22/19 11:42 Respiratory Rate 16 07/22/19 11:42 Blood Pressure 139/60 07/22/19 11:42 O2 Sat by Pulse Oximetry (%) 96 07/22/19 09:00 Assessment/Plan ESRD ON HD TTS, LUE AVG ABD/CHEST PAIN BEING W/U HTN CAD AFIB ?NEW ONSET H/O CVA hEMODYNAMICALLY STABLE WILL DIALYZE TODAY ORDERS WRITTEN
[2019-07-23] MEDS: INSULIN SLIDING SCALE (NOVOLOG) 1 VIAL SQ SCH ×4 (06:29→22:37)
--- NOTE | 2019-07-23 07:40 | PN ---
Progress Note, Physician Chief Complaint: Seen and examined at bedside. Pt speech alternating between Burundian and Tanzanian. No abd pain when asked but TTP on exam. HD done yesterday. On bus monitor in rate controlled AF. Hemodynamically stable History of Present Illness: 73M PMH DM, HTN, ESRD (HD T/Th/Tue), CAD s/p open heart surgery, CVA, who presents today after having abdominal pain and chest pain. - Current Medication List Current Medications: Active Medications Acetaminophen (Tylenol -) 650 mg PO Q4H PRN PRN Reason: PAIN LEVEL 4 - 6 Amlodipine Besylate (Norvasc -) 5 mg PO DAILY [facility] Last Admin: 07/22/19 11:08 Dose: 5 mg Documented by: Apixaban (Eliquis -) 5 mg PO BID [facility] Last Admin: 07/22/19 21:31 Dose: 5 mg Documented by: Aspirin (Ecotrin -) 81 mg PO DAILY [facility] Last Admin: 07/22/19 09:15 Dose: 81 mg Documented by: Sodium Chloride (Normal Saline -) 250 mls @ 3,000 mls/hr IV PRN PRN PRN Reason: Hypotension during Dialysis Stop: 07/23/19 12:19 Insulin Aspart (Novolog Vial Sliding Scale -) 1 vial SQ ACHS [facility]; Protocol Last Admin: 07/23/19 06:29 Dose: Not Given Documented by: Metoprolol Succinate (Toprol Xl -) 25 mg PO DAILY [facility] Last Admin: 07/22/19 11:08 Dose: 25 mg Documented by: - Objective Vital Signs: Vital Signs Temperature 97.6 F 07/23/19 06:04 Pulse Rate 79 07/23/19 06:04 Respiratory Rate 21 H 07/23/19 06:04 Blood Pressure 144/68 07/23/19 06:04 O2 Sat by Pulse Oximetry (%) 98 07/22/19 21:00 Additional Findings/Remarks: PE Constitutional: Yes: No Distress, Calm, Thin Eyes: Yes: WNL, Conjunctiva Clear HENT: Yes: WNL, Atraumatic, Normocephalic Neck: Yes: WNL, Supple, Trachea Midline Cardiovascular: Yes: Pulse Irregular Respiratory: Yes: Regular, On Nasal O2, Rales Gastrointestinal: Yes: Soft, Ascites, Hypoactive Bowel Sounds ...Rectal Exam: Yes: Deferred Genitourinary: Yes: Oliguria Breast(s): Yes: WNL Musculoskeletal: Yes: WNL Extremities: Yes: WNL Edema: No Edema: LLE: Trace, RLE: Trace Peripheral Pulses WNL: Yes Peripheral Pulses: Left Radial: 2+, Right Radial: 2+, Left Doralis Pedis: 2+, Right Dorsalis Pedis: 2+, Left Femoral: 2+, Right Femoral: 2+ Integumentary: Yes: Other (AV fistula noted) Neurological: Yes: WNL, Alert ...Motor Strength: WNL Psychiatric: Yes: Alert Labs: CBC, BMP 07/22/19 06:05 07/22/19 06:05 INR, PTT INR 1.13 (0.83-1.09) H 07/21/19 18:20 - ....Imaging Chest X-ray: Image Reviewed Cat Scan: Report Reviewed Problem List - Problems (1) Acute metabolic encephalopathy Assessment/Plan: not as baseline as per family alternating between Tanzanian and Bur[place]ian) no acute finding on HCT mostly likely d/t uremic state c/w HD neuro checks c/t monitor Code(s): G93.41 - METABOLIC ENCEPHALOPATHY (2) HTN (hypertension) Assessment/Plan: Hypertensive on presentation better controlled onernight c/w amlodipine 5mg Likely a component of fluid overload leading to HTN Code(s): I10 - ESSENTIAL (PRIMARY) HYPERTENSION (3) Prophylactic measure Assessment/Plan: FEN Fluids: start clear diet, no additional fluids on HD Electrolytes: monitor & replete as needed Nutrition: clear diet DVT moderate risk c/w apixaban, asa Dispo Maintain as inpatient full code discharge planning Code(s): Z29.9 - ENCOUNTER FOR PROPHYLACTIC MEASURES, UNSPECIFIED (4) Hypothyroid Assessment/Plan: TSH elevated no one known synthroid will confirm with family re meds before starting Code(s): E03.9 - HYPOTHYROIDISM, UNSPECIFIED (5) Abdominal pain, vomiting, and diarrhea Assessment/Plan: resolved no finding on CT hep panel pending c/t karishma/lip Code(s): R10.9 - UNSPECIFIED ABDOMINAL PAIN; R11.10 - VOMITING, UNSPECIFIED; R19.7 - DIARRHEA, UNSPECIFIED (6) Atrial fibrillation Assessment/Plan: new onset c/w tele monitoring c/w apixaban c/w toprol c/w asa appreciate cardiology consultation Code(s): I48.91 - UNSPECIFIED ATRIAL FIBRILLATION Qualifiers: Atrial fibrillation type: unspecified Qualified Code(s): I48.91 - Unspecified atrial fibrillation (7) Missed dialysis Assessment/Plan: c/w T// Code(s): [id number] - (8) NSTEMI (non-ST elevated myocardial infarction) Assessment/Plan: EKG with afib rates controlled, nonspecific ST-T abn (no prior) troponin 0.1, 0.1 CKD, trop will likely remain elevated Code(s): I21.4 - NON-ST ELEVATION (NSTEMI) MYOCARDIAL INFARCTION (9) Pancreatitis Assessment/Plan: karishma 903 c/t trend no findings on CT Code(s): K85.90 - ACUTE PANCREATITIS WITHOUT NECROSIS OR INFECTION, UNSP Qualifiers: Chronicity: acute Pancreatitis type: unspecified pancreatitis type Acute pancreatitis complication: unspecified Qualified Code(s): K85.90 - Acute pancreatitis without necrosis or infection, unspecified (10) Suspected COVID-19 virus infection Assessment/Plan: PCR pending no finding on CT inflammatory markers pending strict airborne/droplet precautions maintain SPO2 > 88% Code(s): Z20.828 - CONTACT W AND EXPOSURE TO OTH VIRAL COMMUNICABLE DISEASES (11) Ascites Assessment/Plan: large amt of ascites in CT consultation for therapeutics/diagnostic paracentesis Code(s): R18.8 - OTHER ASCITES Visit type - Emergency Visit Emergency Visit: Yes ED Registration Date: 07/21/19 Care time: The patient presented to the Emergency Department on the above date and was hospitalized for further evaluation of their emergent condition. - New Patient This patient is new to me today: No - Critical Care Critical Care patient: No - Discharge Referral Referred to [facility] No
[2019-07-23] MEDS: metoPROLOL SUCCINATE 25 MG TAB.SR.24H (FP) PO SCH (10:41)
[2019-07-23] MEDS: amLODIPine BESYLATE 5 MG TABLET (FP) PO SCH (10:41)
[2019-07-23] MEDS: ASPIRIN COATED 81 MG TABLET.EC PO SCH (10:41)
[2019-07-23] MEDS: APIXABAN 5 MG TABLET PO SCH (10:41)
--- NOTE | 2019-07-23 15:27 | PN ---
Progress Note, Physician Chief Complaint: abd pain/cp History of Present Illness: pt not communicating clearly--including not answering if in pain anywhere appears comfortable, calm - Current Medication List Current Medications: Active Medications Acetaminophen (Tylenol -) 650 mg PO Q4H PRN PRN Reason: PAIN LEVEL 4 - 6 Amlodipine Besylate (Norvasc -) 5 mg PO DAILY [facility] Last Admin: 07/23/19 10:41 Dose: 5 mg Documented by: Apixaban (Eliquis -) 5 mg PO BID [facility] Last Admin: 07/23/19 10:41 Dose: 5 mg Documented by: Aspirin (Ecotrin -) 81 mg PO DAILY [facility] Last Admin: 07/23/19 10:41 Dose: 81 mg Documented by: Insulin Aspart (Novolog Vial Sliding Scale -) 1 vial SQ ACHS [facility]; Protocol Last Admin: 07/23/19 06:29 Dose: Not Given Documented by: Metoprolol Succinate (Toprol Xl -) 25 mg PO DAILY [facility] Last Admin: 07/23/19 10:41 Dose: 25 mg Documented by: - Objective Vital Signs: Vital Signs Temperature 97.6 F 07/23/19 06:04 Pulse Rate 79 07/23/19 06:04 Respiratory Rate 21 H 07/23/19 06:04 Blood Pressure 144/68 07/23/19 06:04 O2 Sat by Pulse Oximetry (%) 98 07/22/19 21:00 Constitutional: Yes: Well Nourished, No Distress, Calm Eyes: No: Ptosis, Sclera Icterus Cardiovascular: Yes: Pulse Irregular. No: JVD Respiratory: Yes: Regular. No: Accessory Muscle Use Extremities: No: Cold Edema: No Neurological: Yes: Alert. No: Seizure Psychiatric: No: Agitated Labs: CBC, BMP 07/22/19 06:05 07/22/19 06:05 INR, PTT INR 1.13 (0.83-1.09) H 07/21/19 18:20 Assessment/Plan CT head: old infarct R occipital lobe, no blood CT chest (non-con): mild interstitial thickening, trace R effusion, + cardiomegaly. large free fluid/ascites, no other abdominal pathology EKG: afib, nonsp ST-Ts, no q's (no old) tele: AF, rates controlled abdominal pain-->chest pain, elevated troponin: -occurred in setting of taking new laxative -troponin 0.1 x 2 is indeterminate range, with flat trend is not c/w ACS (likely related to ESRD and/or CMP with chronic increased filling pressures given noted cardiomegaly on exam) -no further ischemia eval is warranted unless chest pain recurs -large ascites noted--volume mgmt per renal. -w/u of abd pain/ascites per hospitalist history of CAD, cardiomegaly: -check echo -recommend reconcile home med list re: anti-ischemia regimen including statin Afib: -new, incidental dx here -HR controlled--cont metopr -CHADS VASC 7 incl prior CVA--started Eliquis 5 BID here based on pt self- reported weight. bedscale wt is <60 kg-- repeat measurement ordered to confirm not erroneous, and if same result, will need to decr dose to 2.5 mg BID HTN: -home meds need reconciliation -started amlodipine here -add metoprolol 25 qd (for AF and CAD as well) ESRD on HD: -dialysis per renal h/o CVA: -starting AC for AF -statin as above
--- NOTE | 2019-07-23 16:45 | PN ---
Progress Note, Physician History of Present Illness: Pt seen and examined at bedside. He appears comfortable. - Current Medication List Current Medications: Active Medications Acetaminophen (Tylenol -) 650 mg PO Q4H PRN PRN Reason: PAIN LEVEL 4 - 6 Amlodipine Besylate (Norvasc -) 5 mg PO DAILY [facility] Last Admin: 07/23/19 10:41 Dose: 5 mg Documented by: Apixaban (Eliquis -) 2.5 mg PO BID [facility] Aspirin (Ecotrin -) 81 mg PO DAILY [facility] Last Admin: 07/23/19 10:41 Dose: 81 mg Documented by: Insulin Aspart (Novolog Vial Sliding Scale -) 1 vial SQ ACHS [facility]; Protocol Last Admin: 07/23/19 06:29 Dose: Not Given Documented by: Metoprolol Succinate (Toprol Xl -) 25 mg PO DAILY [facility] Last Admin: 07/23/19 10:41 Dose: 25 mg Documented by: - Objective Vital Signs: Vital Signs Temperature 97.6 F 07/23/19 06:04 Pulse Rate 79 07/23/19 06:04 Respiratory Rate 21 H 07/23/19 06:04 Blood Pressure 144/68 07/23/19 06:04 O2 Sat by Pulse Oximetry (%) 98 07/22/19 21:00 Constitutional: Yes: Calm Eyes: Yes: Conjunctiva Clear HENT: Yes: Atraumatic Cardiovascular: Yes: S1, S2 Respiratory: Yes: CTA Bilaterally Gastrointestinal: Yes: Soft Edema: No Labs: CBC, BMP 07/22/19 06:05 07/22/19 06:05 INR, PTT INR 1.13 (0.83-1.09) H 07/21/19 18:20 Assessment/Plan Current Medications Generic Name Dose Route Start Last Admin Trade Name Freq PRN Reason Stop Dose Admin Acetaminophen 650 mg 07/21/19 22:41 Tylenol - PO Q4H PRN PAIN LEVEL 4 - 6 Amlodipine Besylate 5 mg 07/22/19 10:00 07/23/19 10:41 Norvasc - PO 5 mg DAILY [facility] Administration Apixaban 2.5 mg 07/24/19 10:00 Eliquis - PO BID [facility] Aspirin 81 mg 07/22/19 10:00 07/23/19 10:41 Ecotrin - PO 81 mg DAILY [facility] Administration Insulin Aspart 1 vial 07/22/19 07:00 07/23/19 06:29 Novolog Vial Sliding Scale - SQ Not Given ACHS [facility] Protocol Metoprolol Succinate 25 mg 07/22/19 10:00 07/23/19 10:41 Toprol Xl - PO 25 mg DAILY [facility] Administration Impression 1. esrd 2. r/o acs 3. htn 4. cad 5. a-fib 6. hx of cva Plan - HD tomorrow - cardio workup - renal diet - monitor bp - will follow
[2019-07-24 06:11] LABS: BASO % 0.4 % (0-2.0); EOS % 8.8 % (0-4.5); HEMATOCRIT 34.7 % (35.4-49); HEMOGLOBIN 11.9 GM/dL (11.7-16.9); LYMPH % 8.7 % (8-40); MCHC 34.4 g/dl (32.0-35.9); MEAN CELL VOLUME 95.7 fl (80-96); MEAN PLT VOLUME 8.7 fl (7.5-11.1); MONO % 10.3 % (3.8-10.2); NEUT % 71.8 % (42.8-82.8); PLATELET COUNT 149 K/MM3 (134-434); RBC 3.62 M/mm3 (4.00-5.60); WHITE BLOOD COUNT 9.3 K/mm3 (4.0-10.0)
[2019-07-24] MEDS: INSULIN SLIDING SCALE (NOVOLOG) 1 VIAL SQ SCH ×4 (06:21→21:47)
[2019-07-24] MEDS ORDERED: SODIUM CHLORIDE 250 ML IV PRN (06:35)
[2019-07-24 06:40] LABS: BLOOD UREA NITROGEN 37.4 mg/dL (7-18); CALCIUM 7.9 mg/dL (8.5-10.1); CREATININE 6.8 mg/dL (0.55-1.3); MAGNESIUM 1.7 mg/dL (1.8-2.4); PHOSPHOROUS 5.7 mg/dL (2.5-4.9); POTASSIUM 3.3 mmol/L (3.5-5.1)
[2019-07-24 06:42] LABS: TOT PROT 6.7 g/dl (6.4-8.2)
[2019-07-24] MEDS ORDERED: POTASSIUM CHLORIDE TABS 20 MEQ TABLET.ER (FP) PO ONE (08:08)
[2019-07-24] MEDS ORDERED: APIXABAN 5 MG TABLET PO SCH (10:00)
[2019-07-24] MEDS: metoPROLOL SUCCINATE 25 MG TAB.SR.24H (FP) PO SCH (10:39)
[2019-07-24] MEDS: amLODIPine BESYLATE 5 MG TABLET (FP) PO SCH (10:39)
[2019-07-24] MEDS: ASPIRIN COATED 81 MG TABLET.EC PO SCH (10:39)
--- NOTE | 2019-07-24 14:19 | PN ---
Progress Note (short form) - Note Progress Note: Chief Complaint: abd pain/cp History of Present Illness: appears comfortable, no chest pain,dyspnea Current Medications Generic Name Dose Route Start Last Admin Trade Name Dorian PRN Reason Stop Dose Admin Acetaminophen 650 mg 07/21/19 22:41 Tylenol - PO Q4H PRN PAIN LEVEL 4 - 6 Amlodipine Besylate 5 mg 07/22/19 10:00 07/24/19 10:39 Norvasc - PO 5 mg DAILY [facility] Administration Apixaban 2.5 mg 07/24/19 10:00 07/24/19 10:40 Eliquis - PO 2.5 mg BID [facility] Administration Aspirin 81 mg 07/22/19 10:00 07/24/19 10:39 Ecotrin - PO 81 mg DAILY [facility] Administration Sodium Chloride 250 mls @ 3,000 mls/hr 07/24/19 06:35 Normal Saline - IV 07/25/19 06:34 PRN PRN Hypotension during Dialysis Insulin Aspart 1 vial 07/22/19 07:00 07/24/19 11:06 Novolog Vial Sliding Scale - SQ Not Given ACHS [facility] Protocol Metoprolol Succinate 25 mg 07/22/19 10:00 07/24/19 10:39 Toprol Xl - PO 25 mg DAILY [facility] Administration Vital Signs Period Temp Pulse Resp BP Sys/Hicks Pulse Ox Last 24 Hr 97.6 F-98.6 F 79-104 17-25 130-158/57-80 86-98 Constitutional: Yes: Well Nourished, No Distress, Calm Eyes: No: Ptosis, Sclera Icterus Cardiovascular: Yes: Pulse Irregular. No: JVD Respiratory: Yes: Regular. No: Accessory Muscle Use Extremities: No: Cold Edema: No Neurological: Yes: Alert. No: Seizure Psychiatric: No: Agitated Assessment/Plan CT head: old infarct R occipital lobe, no blood CT chest (non-con): mild interstitial thickening, trace R effusion, + cardiomegaly. large free fluid/ascites, no other abdominal pathology EKG: afib, nonsp ST-Ts, no q's (no old) tele: AF, rates controlled abdominal pain-->chest pain, elevated troponin: -occurred in setting of taking new laxative -troponin 0.1 x 2 is indeterminate range, with flat trend is not c/w ACS (likely related to ESRD and/or CMP with chronic increased filling pressures given noted cardiomegaly on exam) -no further ischemia eval is warranted unless chest pain recurs -large ascites noted--volume mgmt per renal, on HD today -w/u of abd pain/ascites per hospitalist history of CAD, cardiomegaly: -check echo -recommend reconcile home med list re: anti-ischemia regimen including statin Afib: -new, incidental dx here -HR controlled--cont metopr -CHADS VASC 7 incl prior CVA - on low dose eliquis 2.5 mg BID for wt <60 kg, ESRD HTN: -home meds need reconciliation -started amlodipine here -add metoprolol 25 qd (for AF and CAD as well) ESRD on HD: -dialysis per renal h/o CVA: -starting AC for AF -statin as above
--- NOTE | 2019-07-24 16:38 | PN ---
Progress Note, Physician History of Present Illness: Pt seen and examined at bedside. He is awake and appears comfortable. - Current Medication List Current Medications: Active Medications Acetaminophen (Tylenol -) 650 mg PO Q4H PRN PRN Reason: PAIN LEVEL 4 - 6 Amlodipine Besylate (Norvasc -) 5 mg PO DAILY [facility] Last Admin: 07/24/19 10:39 Dose: 5 mg Documented by: Apixaban (Eliquis -) 2.5 mg PO BID [facility] Aspirin (Ecotrin -) 81 mg PO DAILY [facility] Last Admin: 07/24/19 10:39 Dose: 81 mg Documented by: Sodium Chloride (Normal Saline -) 250 mls @ 3,000 mls/hr IV PRN PRN PRN Reason: Hypotension during Dialysis Stop: 07/25/19 06:34 Insulin Aspart (Novolog Vial Sliding Scale -) 1 vial SQ ACHS [facility]; Protocol Last Admin: 07/24/19 11:06 Dose: Not Given Documented by: Metoprolol Succinate (Toprol Xl -) 25 mg PO DAILY [facility] Last Admin: 07/24/19 10:39 Dose: 25 mg Documented by: - Objective Vital Signs: Vital Signs Temperature 98.6 F 07/24/19 14:00 Pulse Rate 97 H 07/24/19 14:00 Respiratory Rate 23 H 07/24/19 14:00 Blood Pressure 136/71 07/24/19 14:41 O2 Sat by Pulse Oximetry (%) 98 07/24/19 14:00 Constitutional: Yes: Calm Eyes: Yes: Conjunctiva Clear HENT: Yes: Atraumatic Neck: Yes: Supple Cardiovascular: Yes: S1, S2 Respiratory: Yes: CTA Bilaterally Gastrointestinal: Yes: Soft Musculoskeletal: Yes: WNL Edema: No Integumentary: Yes: WNL Neurological: Yes: Oriented Labs: CBC, BMP 07/24/19 05:15 07/24/19 05:15 INR, PTT INR 1.13 (0.83-1.09) H 07/21/19 18:20 Assessment/Plan Current Medications Generic Name Dose Route Start Last Admin Trade Name Freq PRN Reason Stop Dose Admin Acetaminophen 650 mg 07/21/19 22:41 Tylenol - PO Q4H PRN PAIN LEVEL 4 - 6 Amlodipine Besylate 5 mg 07/22/19 10:00 07/24/19 10:39 Norvasc - PO 5 mg DAILY [facility] Administration Apixaban 2.5 mg 07/24/19 15:05 Eliquis - PO BID [facility] Aspirin 81 mg 07/22/19 10:00 07/24/19 10:39 Ecotrin - PO 81 mg DAILY [facility] Administration Sodium Chloride 250 mls @ 3,000 mls/hr 07/24/19 06:35 Normal Saline - IV 07/25/19 06:34 PRN PRN Hypotension during Dialysis Insulin Aspart 1 vial 07/22/19 07:00 07/24/19 11:06 Novolog Vial Sliding Scale - SQ Not Given ACHS [facility] Protocol Metoprolol Succinate 25 mg 07/22/19 10:00 07/24/19 10:39 Toprol Xl - PO 25 mg DAILY [facility] Administration Impression 1. esrd 2. r/o acs 3. htn 4. cad 5. a-fib 6. hx of cva Plan - HD today - cont renal diet - discussed with cardio at bedside - bp is stable - will follow
[2019-07-24 17:09] LABS: HEP B CORE AB, TOT Positive (Negative)
--- NOTE | 2019-07-24 17:57 | PN ---
Physical Exam: SUBJECTIVE: Patient seen and examined at the bedside. In no acute distress. primarily speaks viatenamese OBJECTIVE: Seen and examined at bedside. Pt speaks primarily [place]. No abd pain when asked, calm at rest. On secured entrance monitor in rate controlled AF. Hemodynamically stable. patient for paracentesis today. ------- Patient is a 73 year old male with a significant past medical history of diabetes, hypertension, ESRD (HD T//Tue), CAD s/p open heart surgery, CVA. Patient presents to the ED on 07/21/2019 with abdominal pain and chest pain. Vital Signs Period Temp Pulse Resp BP Sys/Hicks Pulse Ox Last 24 Hr 97.6 F-98.6 F 79-104 17-25 130-158/56-80 86-98 GENERAL: The patient is awake, alert, in no acute distress. thin appearing HEAD: Normal with no signs of trauma. EYES: PERRL, extraocular movements intact, sclera anicteric, conjunctiva clear. No ptosis. ENT: Ears normal, nares patent, oropharynx clear without exudates NECK: Trachea midline, full range of motion, supple. LUNGS: Breath sounds equal, clear to auscultation bilaterally HEART: Regular rate and rhythm ABDOMEN: Soft, nontender, nondistended, normoactive bowel sounds EXTREMITIES: no edema. NEUROLOGICAL: gait not observed. PSYCH: Normal mood, normal affect. SKIN: Warm, dry, normal turgor, no rashes or lesions noted Laboratory Results - last 24 hr 07/21/19 07/22/19 07/23/19 20:10 13:30 22:32 WBC RBC Hgb Hct MCV MCH MCHC RDW Plt Count MPV Absolute Neuts (auto) Neutrophils % Lymphocytes % Monocytes % Eosinophils % Basophils % Nucleated RBC % D-Dimer Sodium Potassium Chloride Carbon Dioxide Anion Gap BUN Creatinine Est GFR (CKD-EPI)AfAm Est GFR (CKD-EPI)NonAf POC Glucometer 158 Random Glucose Calcium Phosphorus Magnesium Ferritin Total Bilirubin AST ALT Alkaline Phosphatase LD Total C-Reactive Protein Total Protein Albumin COVID-19 ([facility]) Not detected Hep A IgM Ab Confirm Negative Hepatitis A Ab Total Positive H Hep Bs Antigen Negative Hep Bs Antibody Reactive Hep B Core Total Ab Positive H Hep B Core IgM Ab Negative Hepatitis Be Antibody Positive H Hepatitis Be Antigen Negative Hep C Ab Diagnostic 0.1 07/24/19 07/24/19 07/24/19 05:15 05:15 05:15 WBC 9.3 RBC 3.62 L Hgb 11.9 Hct 34.7 L MCV 95.7 MCH 33.0 MCHC 34.4 RDW 15.0 Plt Count 149 MPV 8.7 Absolute Neuts (auto) 6.7 Neutrophils % 71.8 Lymphocytes % 8.7 D Monocytes % 10.3 H Eosinophils % 8.8 H Basophils % 0.4 Nucleated RBC % 0 D-Dimer 8107 H Sodium 133 L Potassium 3.3 L Chloride 95 L Carbon Dioxide 27 Anion Gap 12 BUN 37.4 H Creatinine 6.8 H Est GFR (CKD-EPI)AfAm 8.37 Est GFR (CKD-EPI)NonAf 7.22 POC Glucometer Random Glucose 102 Calcium 7.9 L Phosphorus 5.7 H Magnesium 1.7 L Ferritin Total Bilirubin 1.0 AST 10 L ALT 8 L Alkaline Phosphatase 125 H LD Total 143 C-Reactive Protein Total Protein 6.7 Albumin 3.0 L COVID-19 ([facility]) Hep A IgM Ab Confirm Hepatitis A Ab Total Hep Bs Antigen Hep Bs Antibody Hep B Core Total Ab Hep B Core IgM Ab Hepatitis Be Antibody Hepatitis Be Antigen Hep C Ab Diagnostic 07/24/19 07/24/19 07/24/19 06:00 06:17 11:00 WBC RBC Hgb Hct MCV MCH MCHC RDW Plt Count MPV Absolute Neuts (auto) Neutrophils % Lymphocytes % Monocytes % Eosinophils % Basophils % Nucleated RBC % D-Dimer Sodium Potassium Chloride Carbon Dioxide Anion Gap BUN Creatinine Est GFR (CKD-EPI)AfAm Est GFR (CKD-EPI)NonAf POC Glucometer 100 81 Random Glucose Calcium Phosphorus Magnesium Ferritin 908.1 H Total Bilirubin AST ALT Alkaline Phosphatase LD Total C-Reactive Protein 5.9 H Total Protein Albumin COVID-19 ([facility]) Hep A IgM Ab Confirm Hepatitis A Ab Total Hep Bs Antigen Hep Bs Antibody Hep B Core Total Ab Hep B Core IgM Ab Hepatitis Be Antibody Hepatitis Be Antigen Hep C Ab Diagnostic 07/24/19 17:03 WBC RBC Hgb Hct MCV MCH MCHC RDW Plt Count MPV Absolute Neuts (auto) Neutrophils % Lymphocytes % Monocytes % Eosinophils % Basophils % Nucleated RBC % D-Dimer Sodium Potassium Chloride Carbon Dioxide Anion Gap BUN Creatinine Est GFR (CKD-EPI)AfAm Est GFR (CKD-EPI)NonAf POC Glucometer 195 Random Glucose Calcium Phosphorus Magnesium Ferritin Total Bilirubin AST ALT Alkaline Phosphatase LD Total C-Reactive Protein Total Protein Albumin COVID-19 ([facility]) Hep A IgM Ab Confirm Hepatitis A Ab Total Hep Bs Antigen Hep Bs Antibody Hep B Core Total Ab Hep B Core IgM Ab Hepatitis Be Antibody Hepatitis Be Antigen Hep C Ab Diagnostic Active Medications Generic Name Dose Route Start Last Admin Trade Name Freq PRN Reason Stop Dose Admin Acetaminophen 650 mg 07/21/19 22:41 Tylenol - PO Q4H PRN PAIN LEVEL 4 - 6 Amlodipine Besylate 5 mg 07/22/19 10:00 07/24/19 10:39 Norvasc - PO 5 mg DAILY [facility]G Administration Apixaban 2.5 mg 07/24/19 15:05 Eliquis - PO BID TRUNG Aspirin 81 mg 07/22/19 10:00 07/24/19 10:39 Ecotrin - PO 81 mg DAILY [facility]G Administration Sodium Chloride 250 mls @ 3,000 mls/hr 07/24/19 06:35 Normal Saline - IV 07/25/19 06:34 PRN PRN Hypotension during Dialysis Insulin Aspart 1 vial 07/22/19 07:00 07/24/19 17:22 Novolog Vial Sliding Scale - SQ 2 units ACHS TRUNG Administration Protocol Metoprolol Succinate 25 mg 07/22/19 10:00 07/24/19 10:39 Toprol Xl - PO 25 mg DAILY TR[facility]G Administration ASSESSMENT/PLAN: Problem List - Problems (1) Abdominal pain, vomiting, and diarrhea Assessment/Plan: resolved no finding on CT hep panel pending c/t karishma/lipase Code(s): R10.9 - UNSPECIFIED ABDOMINAL PAIN; R11.10 - VOMITING, UNSPECIFIED; R19.7 - DIARRHEA, UNSPECIFIED (2) Acute metabolic encephalopathy Assessment/Plan: not as baseline as per family alternating between Par[place]ayan and Syriac) no acute finding on HCT mostly likely d/t uremic state c/w HD neuro checks c/t monitor Code(s): G93.41 - METABOLIC ENCEPHALOPATHY (3) Acute pancreatitis Assessment/Plan: karishma 903 c/t trend no findings on CT Code(s): K85.90 - ACUTE PANCREATITIS WITHOUT NECROSIS OR INFECTION, UNSP Qualifiers: Pancreatitis type: unspecified pancreatitis type Acute pancreatitis complication: unspecified Qualified Code(s): K85.90 - Acute pancreatitis without necrosis or infection, unspecified (4) Ascites Assessment/Plan: large amt of ascites in CT s/p 3 liter removal per IR Code(s): R18.8 - OTHER ASCITES (5) Atrial fibrillation Assessment/Plan: new onset c/w tele monitoring c/w apixaban c/w toprol c/w asa Code(s): I48.91 - UNSPECIFIED ATRIAL FIBRILLATION Qualifiers: Atrial fibrillation type: unspecified Qualified Code(s): I48.91 - Unspecified atrial fibrillation (6) Encephalopathy Code(s): G93.40 - ENCEPHALOPATHY, UNSPECIFIED (7) HTN (hypertension) Assessment/Plan: controlled on toprol 25 xl Code(s): I10 - ESSENTIAL (PRIMARY) HYPERTENSION (8) Hyperkalemia Assessment/Plan: within normal limits. monitor daily Code(s): E87.5 - HYPERKALEMIA (9) Hypothyroid Assessment/Plan: TSH/t4 to be repeated Code(s): E03.9 - HYPOTHYROIDISM, UNSPECIFIED (10) Missed dialysis Assessment/Plan: dialysis on t, th, sat Code(s): QDY9198 - (11) NSTEMI (non-ST elevated myocardial infarction) Assessment/Plan: EKG with afib rates controlled, nonspecific ST-T abn (no prior) troponin 0.1, 0.1 CKD, trop will likely remain elevated cardiology following Code(s): I21.4 - NON-ST ELEVATION (NSTEMI) MYOCARDIAL INFARCTION (12) Pancreatitis Code(s): K85.90 - ACUTE PANCREATITIS WITHOUT NECROSIS OR INFECTION, UNSP Qualifiers: Chronicity: acute Pancreatitis type: unspecified pancreatitis type Acute pancreatitis complication: unspecified Qualified Code(s): K85.90 - Acute pancreatitis without necrosis or infection, unspecified (13) Suspected COVID-19 virus infection Assessment/Plan: not detected Code(s): Z20.828 - CONTACT W AND EXPOSURE TO OTH VIRAL COMMUNICABLE DISEASES (14) Prophylactic measure Assessment/Plan: FEN Fluids: start clear diet, no additional fluids on HD Electrolytes: monitor & replete as needed Nutrition: clear diet DVT moderate risk c/w apixaban, asa Dispo Maintain as inpatient full code Code(s): Z29.9 - ENCOUNTER FOR PROPHYLACTIC MEASURES, UNSPECIFIED Visit type - Emergency Visit Emergency Visit: Yes ED Registration Date: 07/21/19 Care time: The patient presented to the Emergency Department on the above date and was hospitalized for further evaluation of their emergent condition. - New Patient This patient is new to me today: No - Critical Care Critical Care patient: No - Discharge Referral Referred to [facility] No
[2019-07-24] MEDS: APIXABAN 2.5 MG TABLET PO SCH (21:47)
[2019-07-25 06:37] LABS: BASO % 0.4 % (0-2.0); EOS % 14.8 % (0-4.5); HEMATOCRIT 32.7 % (35.4-49); HEMOGLOBIN 11.3 GM/dL (11.7-16.9); LYMPH % 12.6 % (8-40); MCH 33.2 pg (25.7-33.7); MCHC 34.5 g/dl (32.0-35.9); MEAN CELL VOLUME 96.5 fl (80-96); MEAN PLT VOLUME 9.9 fl (7.5-11.1); MONO % 13.3 % (3.8-10.2); NEUT % 58.9 % (42.8-82.8); PLATELET COUNT 167 K/MM3 (134-434); RBC 3.39 M/mm3 (4.00-5.60); RDW 15.4 % (11.9-15.9); WHITE BLOOD COUNT 7.7 K/mm3 (4.0-10.0)
[2019-07-25] MEDS: INSULIN SLIDING SCALE (NOVOLOG) 1 VIAL SQ SCH ×4 (06:53→21:16)
[2019-07-25 07:07] LABS: ALBUMIN 2.6 g/dl (3.4-5.0); BLOOD UREA NITROGEN 22.5 mg/dL (7-18); MAGNESIUM 1.6 mg/dL (1.8-2.4); PHOSPHOROUS 4.4 mg/dL (2.5-4.9); POTASSIUM 4.4 mmol/L (3.5-5.1); TOT PROT 6.3 g/dl (6.4-8.2)
[2019-07-25 09:03] LABS: BF WBC & OTHER NUCLEATED CELLS 988 /mm3
--- NOTE | 2019-07-25 09:30 | ECHO ---
Version: 1 Name: LELE HUSTON Exam: Adult Echocardiogram Study Date: 07/25/2019, 7:51 AM Age: 73 Years MMode/2D Measurements & Calculations IVSd: 1.31 cm LVIDs: 3.1 cm LVIDd: 4.1 cm LVPWd: 1.23 cm LAV (MOD-bp): 69.8 ml LVOT diam: 2.04 cm Ao root diam: 3.2 cm LA dimension: 3.3 cm Doppler Measurements & Calculations MV E max nj: 138.0 cm/sec Med E/e': 17.9 MV A max nj: 25.7 cm/sec Med Peak E' Nj: 7.7 cm/sec MV E/A: 5.4 Lat E/e': 11.8 Lat Peak E' Nj: 11.7 cm/sec MR max P.5 mmHg Ao max P.9 mmHg KAREN(I,D): 0.80 cm Ao mean P.7 mmHg LV V1 mean: 48.8 cm/sec Ao V2 max: 249.6 cm/sec LV V1 mean P.09 mmHg TR max nj: 223.7 cm/sec TR max P.1 mmHg Left Ventricle There is mild concentric left ventricular hypertrophy. The left ventricular ejection fraction is nor mal. Ejection Fraction = 65%. The transmitral spectral Doppler flow pattern is suggestive of impaired LV relaxation. Right Ventricle The right ventricle is normal in size and function. Atria The left atrial size is normal. The right atrium is moderately dilated. Mitral Valve There is mild mitral annular calcification. There is mild to moderate mitral regurgitation. Tricuspid Valve There is moderate tricuspid valve thickening. The tricuspid regurgitant jet is eccentrically directe d. There is severe tricuspid regurgitation. Aortic Valve Moderate to severe valvular aortic stenosis. Mild aortic regurgitation. Pulmonic Valve The pulmonic valve is not well seen, but is grossly normal. Mild pulmonic valvular regurgitation. Great Vessels The aortic root is normal size. Normal aortic arch, descending and ascending aorta. Pericardium/Pleura There is no pericardial effusion. Summary Statements The left ventricular ejection fraction is normal. Ejection Fraction = 65%. There is mild concentric left ventricular hypertrophy. The transmitral spectral Doppler flow pattern is suggestive of impaired LV relaxation. The right ventricle is normal in size and function. The left atrial size is normal. The right atrium is moderately dilated. There is mild mitral annular calcification. There is mild to moderate mitral regurgitation. There is moderate tricuspid valve thickening. The tricuspid regurgitant jet is eccentrically directed. There is severe tricuspid regurgitation. Moderate to severe valvular aortic stenosis. Mild aortic regurgitation. The pulmonic valve is not well seen, but is grossly normal. Mild pulmonic valvular regurgitation. The aortic root is normal size. Normal aortic arch, descending and ascending aorta There is no pericardial effusion. Dewey Mujicaemberg 07/25/2019, 9:29 AM Ordering Physician: Mae Weinstein Performed By: Amanda Saini
[2019-07-25] MEDS ORDERED: MAGNESIUM OXIDE 400 MG TABLET (FP) PO ONE (09:53)
[2019-07-25] MEDS: metoPROLOL SUCCINATE 25 MG TAB.SR.24H (FP) PO SCH (10:30)
[2019-07-25] MEDS: APIXABAN 2.5 MG TABLET PO SCH ×2 (10:30→21:16)
[2019-07-25] MEDS: ASPIRIN COATED 81 MG TABLET.EC PO SCH (10:30)
[2019-07-25] MEDS: amLODIPine BESYLATE 5 MG TABLET (FP) PO SCH (10:30)
[2019-07-25 11:39] LABS: BODY FLUID MACROPHAGES 50 %; BODY FLUID MONOCYTE 20 %
--- NOTE | 2019-07-25 13:46 | PN ---
Progress Note (short form) - Note Progress Note: Chief Complaint: abd pain/cp History of Present Illness: appears comfortable, no chest pain, palps, dyspnea Current Medications Generic Name Dose Route Start Last Admin Trade Name Dorian PRN Reason Stop Dose Admin Acetaminophen 650 mg 07/21/19 22:41 Tylenol - PO Q4H PRN PAIN LEVEL 4 - 6 Amlodipine Besylate 5 mg 07/22/19 10:00 07/25/19 10:30 Norvasc - PO 5 mg DAILY TRUNG Administration Apixaban 2.5 mg 07/24/19 15:05 07/25/19 10:30 Eliquis - PO 2.5 mg BID TRUNG Administration Aspirin 81 mg 07/22/19 10:00 07/25/19 10:30 Ecotrin - PO 81 mg DAILY TRUNG Administration Insulin Aspart 1 vial 07/22/19 07:00 07/25/19 11:14 Novolog Vial Sliding Scale - SQ 2 units ACHS TRUNG Administration Protocol Metoprolol Succinate 25 mg 07/22/19 10:00 07/25/19 10:30 Toprol Xl - PO 25 mg DAILY TRUNG Administration Vital Signs Period Temp Pulse Resp BP Sys/Hicks Pulse Ox Last 24 Hr 97.8 F-98.7 F 74-97 19-26 119-145/52-96 98-99 Constitutional: Yes: Well Nourished, No Distress, Calm Eyes: No: Ptosis, Sclera Icterus Cardiovascular: Yes: Pulse Irregular. No: JVD Respiratory: Yes: Regular. No: Accessory Muscle Use Extremities: No: Cold Edema: No Neurological: Yes: Alert. No: Seizure Psychiatric: No: Agitated Assessment/Plan CT head: old infarct R occipital lobe, no blood CT chest (non-con): mild interstitial thickening, trace R effusion, + cardiomegaly. large free fluid/ascites, no other abdominal pathology EKG: afib, nonsp ST-Ts, no q's (no old) echo 06/2019 nl LV function, mild conc LVH, impaired relaxation, RV nl,, RA mod dilated, mild to mod MR, mod TR, severe TR, mod to severe , mild AR tele: AF, rates controlled abdominal pain, chest pain, elevated troponin: -occurred in setting of taking new laxative -troponin 0.1 x 2 is indeterminate range, with flat trend is not c/w ACS (likely related to ESRD and/or CMP with chronic increased filling pressures given noted cardiomegaly on exam) -no further ischemia eval is warranted unless chest pain recurs -large ascites noted--volume mgmt per renal, on HD today -w/u of abd pain/ascites per hospitalist history of CAD, cardiomegaly: - cont aspirin, bb -recommend reconcile home med list re: anti-ischemia regimen including statin Afib: -new, incidental dx here -HR controlled--cont metoprolol -CHADS VASC 7 incl prior CVA - on low dose eliquis 2.5 mg BID for wt <60 kg, ESRD HTN: -home meds need reconciliation -started amlodipine here -add metoprolol 25 qd (for AF and CAD as well) ESRD on HD: -dialysis per renal h/o CVA: -starting AC for AF -statin as above - moderate to severe on echo here - outpatient follow up
[2019-07-25] MEDS ORDERED: SODIUM CHLORIDE 250 ML IV PRN (13:59)
--- NOTE | 2019-07-25 13:59 | PN ---
Progress Note, Physician History of Present Illness: Pt seen and examined at bedside. He is awake and appears comfortable. - Current Medication List Current Medications: Active Medications Acetaminophen (Tylenol -) 650 mg PO Q4H PRN PRN Reason: PAIN LEVEL 4 - 6 Amlodipine Besylate (Norvasc -) 5 mg PO DAILY [facility] Last Admin: 07/25/19 10:30 Dose: 5 mg Documented by: Apixaban (Eliquis -) 2.5 mg PO BID [facility] Last Admin: 07/25/19 10:30 Dose: 2.5 mg Documented by: Aspirin (Ecotrin -) 81 mg PO DAILY [facility] Last Admin: 07/25/19 10:30 Dose: 81 mg Documented by: Insulin Aspart (Novolog Vial Sliding Scale -) 1 vial SQ ACHS [facility]; Protocol Last Admin: 07/25/19 11:14 Dose: 2 units Documented by: Metoprolol Succinate (Toprol Xl -) 25 mg PO DAILY [facility] Last Admin: 07/25/19 10:30 Dose: 25 mg Documented by: - Objective Vital Signs: Vital Signs Temperature 98.4 F 07/25/19 13:16 Pulse Rate 74 07/25/19 13:16 Respiratory Rate 19 07/25/19 13:16 Blood Pressure 139/83 07/25/19 13:16 O2 Sat by Pulse Oximetry (%) 99 07/24/19 21:00 Constitutional: Yes: Calm Eyes: Yes: Conjunctiva Clear HENT: Yes: Atraumatic Cardiovascular: Yes: S1, S2 Respiratory: Yes: CTA Bilaterally Gastrointestinal: Yes: Soft Genitourinary: Yes: WNL Musculoskeletal: Yes: WNL Edema: No Labs: CBC, BMP 07/25/19 05:30 07/25/19 05:30 INR, PTT INR 1.13 (0.83-1.09) H 07/21/19 18:20 Assessment/Plan Current Medications Generic Name Dose Route Start Last Admin Trade Name Freq PRN Reason Stop Dose Admin Acetaminophen 650 mg 07/21/19 22:41 Tylenol - PO Q4H PRN PAIN LEVEL 4 - 6 Amlodipine Besylate 5 mg 07/22/19 10:00 07/25/19 10:30 Norvasc - PO 5 mg DAILY [facility] Administration Apixaban 2.5 mg 07/24/19 15:05 07/25/19 10:30 Eliquis - PO 2.5 mg BID TRUNG Administration Aspirin 81 mg 07/22/19 10:00 07/25/19 10:30 Ecotrin - PO 81 mg DAILY TRUNG Administration Insulin Aspart 1 vial 07/22/19 07:00 07/25/19 11:14 Novolog Vial Sliding Scale - SQ 2 units ACHS TRUNG Administration Protocol Metoprolol Succinate 25 mg 07/22/19 10:00 07/25/19 10:30 Toprol Xl - PO 25 mg DAILY TRUNG Administration Impression 1. esrd 2. r/o acs 3. htn 4. cad 5. a-fib 6. hx of cva Plan - will arrange for HD tomorrow - orders written - renal diet - monitor bp - cardio follow up - will follow
[2019-07-25 15:05] VITALS: BMI 18.7
--- NOTE | 2019-07-25 16:42 | PN ---
Progress Note (short form) - Note Progress Note: GI CONSULT DICTATED - MRCP - HBV QUANT - F/U ASCITES FLUID CHEMISTRY AND CULTURE - ADVANCE DIET TO LOW FAT DIET SEE FULL CONSULT DICTATED
--- NOTE | 2019-07-25 18:24 | CONS ---
DATE OF CONSULTATION: DATE OF DICTATION: 07/25/2019 GASTROENTEROLOGY CONSULTATION HISTORY OF PRESENT ILLNESS: The patient is a 73-year-old male with a past medical history of diabetes, hypertension, end-stage renal disease on hemodialysis, CAD status post open heart surgery, CVA, who was admitted to the hospital on the with complaints of abdominal pain, nausea, vomiting, with associated loose bowel movements. At the time, he developed also some chest pain. Apparently, he had decreased p.o. intake during the week prior to this hospitalization and was prescribed laxatives by his primary care doctor for constipation. His symptoms worsened, prompting him to come to the emergency room for further evaluation. He was admitted to the hospital with the diagnosis of new-onset atrial fibrillation, also with abnormal pancreatic enzymes with lipase of 900 and new onset ascites. Patient denies any abdominal pain, nausea, or vomiting at this time, and is doing better. He has not had a recent endoscopic evaluation. There is no history of any liver disease. PAST MEDICAL AND SURGICAL HISTORY: As listed in the HPI. ALLERGIES: No known drug allergies. HOME MEDICATIONS: Reviewed. FAMILY HISTORY: No history of GI or gynecological malignancy. SOCIAL HISTORY: No smoking, drinking, or drug abuse. PHYSICAL EXAMINATION: Vital Signs: Temperature 98, pulse 70, blood pressure 116/56, respiratory rate 12, oxygen saturation 99% on room air. General: In no acute distress. HEENT: Anicteric sclerae. Cardiovascular: S1, S2, regular rate and rhythm. Lungs: Bilaterally clear to auscultation. Abdomen: Soft, nontender. Extremities: Without edema. LABORATORY: White blood cell count 7.7, hemoglobin and hematocrit 11/32, MCV 96, platelet count 167. INR 1.1, D-dimer 8107. Chemistry: sodium 136, potassium 4.4, BUN over creatinine 22/5, glucose 98, total bilirubin 1, AST 17, ALT 10, alkaline phosphatase 116. Pancreatic lipase was 900 on admission and not repeated. Ascites fluid is pending result. Serology for COVID-19 is negative. Serologies for hepatitis B core antibody is positive. Core IGM is negative. Hepatitis B e-antibodies positive. He had CT scan of the abdomen and pelvis which was without contrast and revealed significant cardiomegaly, mild bilateral interstitial thickening without gross evidence of infiltrates, right pleural effusion status post cholecystectomy, large amount of free ascites, no bowel obstruction, and no discrete mass. IMPRESSION: 1. Abdominal pain and diarrhea most likely secondary to his laxative prior to coming to the hospital. Resolving pancreatitis is also included in the differential diagnosis considering his abnormal lipase. Noncontrast imaging studies do not reveal any abnormality in the pancreas. 2. New-onset ascites and serologies which may indicate chronic hepatitis B. RECOMMENDATION: 1. Follow up ascites fluid chemistry and cultures to further evaluate the etiology of the ascites. 2. MRCP to further reevaluate the biliary tree/pancreas. 3. Hepatitis B virus DNA quant to further evaluate his chronic HBV. 4. Bowel regimen. 5. Diet can be advanced as tolerated to a fat controlled diet. 6. Repeat lipase level. Will follow. DO DEMARCUS GIBSON/[id number] MTDD
--- NOTE | 2019-07-25 18:40 | PN ---
Physical Exam: SUBJECTIVE: Patient seen and examined at the bedside. In no acute distress. primarily speaks viatenamese OBJECTIVE: Seen and examined at bedside. Pt speaks primarily Syrian. No abd pain when asked, calm at rest. On sleeve wheel maker in rate controlled AF. Hemodynamically stable. patient s/p paracentesis on 07/24/2019 ------- Patient is a 73 year old male with a significant past medical history of diabetes, hypertension, ESRD (HD T//Tue), CAD s/p open heart surgery, CVA. Patient presents to the ED on 07/21/2019 with abdominal pain and chest pain. Vital Signs Period Temp Pulse Resp BP Sys/Hicks Pulse Ox Last 24 Hr 97.8 F-98.7 F 70-92 19-25 116-139/52-83 99-99 GENERAL: The patient is awake, alert, in no acute distress. thin appearing HEAD: Normal with no signs of trauma. EYES: PERRL, extraocular movements intact, sclera anicteric, conjunctiva clear. No ptosis. ENT: Ears normal, nares patent, oropharynx clear without exudates NECK: Trachea midline, full range of motion, supple. LUNGS: Breath sounds equal, clear to auscultation bilaterally HEART: Regular rate and rhythm ABDOMEN: Soft, nontender, nondistended, normoactive bowel sounds EXTREMITIES: no edema. NEUROLOGICAL: gait not observed. PSYCH: Normal mood, normal affect. SKIN: Warm, dry, normal turgor, no rashes or lesions noted Laboratory Results - last 24 hr 07/24/19 07/24/19 07/25/19 13:40 21:29 05:30 WBC 7.7 RBC 3.39 L Hgb 11.3 L Hct 32.7 L MCV 96.5 H MCH 33.2 MCHC 34.5 RDW 15.4 Plt Count 167 MPV 9.9 D Absolute Neuts (auto) 4.6 Neutrophils % 58.9 Lymphocytes % 12.6 D Monocytes % 13.3 H Eosinophils % 14.8 H Basophils % 0.4 Nucleated RBC % 0 Sodium Potassium Chloride Carbon Dioxide Anion Gap BUN Creatinine Est GFR (CKD-EPI)AfAm Est GFR (CKD-EPI)NonAf POC Glucometer 155 Random Glucose Calcium Phosphorus Magnesium Total Bilirubin AST ALT Alkaline Phosphatase LD Total Total Protein Albumin TSH Free T4 Fluid Source Peritoneal Fluid WBC 988 Fluid RBC 2357 Fluid Neutrophils 13 Fluid Lymphocytes 12 Pleural Monocytes 20 Pleural Macrophages 50 07/25/19 07/25/19 07/25/19 05:30 06:25 10:25 WBC RBC Hgb Hct MCV MCH MCHC RDW Plt Count MPV Absolute Neuts (auto) Neutrophils % Lymphocytes % Monocytes % Eosinophils % Basophils % Nucleated RBC % Sodium 136 Potassium 4.4 Chloride 97 L Carbon Dioxide 30 Anion Gap 9 BUN 22.5 H Creatinine 5.0 H Est GFR (CKD-EPI)AfAm 12.14 Est GFR (CKD-EPI)NonAf 10.47 POC Glucometer 98 161 Random Glucose 98 Calcium 8.0 L Phosphorus 4.4 Magnesium 1.6 L Total Bilirubin 1.0 AST 17 ALT 10 L Alkaline Phosphatase 116 LD Total 229 Total Protein 6.3 L Albumin 2.6 L TSH 2.64 D Free T4 1.38 H Fluid Source Fluid WBC Fluid RBC Fluid Neutrophils Fluid Lymphocytes Pleural Monocytes Pleural Macrophages 07/25/19 17:38 WBC RBC Hgb Hct MCV MCH MCHC RDW Plt Count MPV Absolute Neuts (auto) Neutrophils % Lymphocytes % Monocytes % Eosinophils % Basophils % Nucleated RBC % Sodium Potassium Chloride Carbon Dioxide Anion Gap BUN Creatinine Est GFR (CKD-EPI)AfAm Est GFR (CKD-EPI)NonAf POC Glucometer 126 Random Glucose Calcium Phosphorus Magnesium Total Bilirubin AST ALT Alkaline Phosphatase LD Total Total Protein Albumin TSH Free T4 Fluid Source Fluid WBC Fluid RBC Fluid Neutrophils Fluid Lymphocytes Pleural Monocytes Pleural Macrophages Active Medications Generic Name Dose Route Start Last Admin Trade Name Freq PRN Reason Stop Dose Admin Acetaminophen 650 mg 07/21/19 22:41 Tylenol - PO Q4H PRN PAIN LEVEL 4 - 6 Amlodipine Besylate 5 mg 07/22/19 10:00 07/25/19 10:30 Norvasc - PO 5 mg DAILY [facility] Administration Apixaban 2.5 mg 07/24/19 15:05 07/25/19 10:30 Eliquis - PO 2.5 mg BID [facility] Administration Aspirin 81 mg 07/22/19 10:00 07/25/19 10:30 Ecotrin - PO 81 mg DAILY [facility] Administration Sodium Chloride 250 mls @ 3,000 mls/hr 07/25/19 13:59 Normal Saline - IV 07/26/19 14:00 PRN PRN Hypotension during Dialysis Insulin Aspart 1 vial 07/22/19 07:00 07/25/19 17:56 Novolog Vial Sliding Scale - SQ Not Given ACHS [facility] Protocol Metoprolol Succinate 25 mg 07/22/19 10:00 07/25/19 10:30 Toprol Xl - PO 25 mg DAILY [facility] Administration ASSESSMENT/PLAN: Problem List - Problems (1) Abdominal pain, vomiting, and diarrhea Assessment/Plan: resolved no finding on CT hep panel results noted Code(s): R10.9 - UNSPECIFIED ABDOMINAL PAIN; R11.10 - VOMITING, UNSPECIFIED; R19.7 - DIARRHEA, UNSPECIFIED (2) Acute metabolic encephalopathy Assessment/Plan: not as baseline as per family alternating between Syrian and Greek no acute finding on HCT mostly likely d/t uremic state c/w HD neuro checks c/t monitor Code(s): G93.41 - METABOLIC ENCEPHALOPATHY (3) Acute pancreatitis Assessment/Plan: amylase 903 c/t trend no findings on CT Code(s): K85.90 - ACUTE PANCREATITIS WITHOUT NECROSIS OR INFECTION, UNSP Qualifiers: Pancreatitis type: unspecified pancreatitis type Acute pancreatitis complication: unspecified Qualified Code(s): K85.90 - Acute pancreatitis without necrosis or infection, unspecified (4) Ascites Assessment/Plan: large amt of ascites in CT s/p 3 liter removal per IR Code(s): R18.8 - OTHER ASCITES (5) Atrial fibrillation Assessment/Plan: new onset c/w tele monitoring c/w apixaban c/w toprol c/w asa Code(s): I48.91 - UNSPECIFIED ATRIAL FIBRILLATION Qualifiers: Atrial fibrillation type: unspecified Qualified Code(s): I48.91 - Unspecified atrial fibrillation (6) Encephalopathy Code(s): G93.40 - ENCEPHALOPATHY, UNSPECIFIED (7) HTN (hypertension) Assessment/Plan: controlled on toprol 25 xl Code(s): I10 - ESSENTIAL (PRIMARY) HYPERTENSION (8) Hyperkalemia Assessment/Plan: within normal limits. monitor daily Code(s): E87.5 - HYPERKALEMIA (9) Hypothyroid Assessment/Plan: TSH normalized, t4 slightly elevated. Code(s): E03.9 - HYPOTHYROIDISM, UNSPECIFIED (10) Missed dialysis Assessment/Plan: dialysis on t, , sat Code(s): VRI7840 - (11) NSTEMI (non-ST elevated myocardial infarction) Assessment/Plan: EKG with afib rates controlled, nonspecific ST-T abn (no prior) troponin 0.1, 0.1 CKD, trop will likely remain elevated cardiology following Code(s): I21.4 - NON-ST ELEVATION (NSTEMI) MYOCARDIAL INFARCTION (12) Pancreatitis Assessment/Plan: GI consulted Code(s): K85.90 - ACUTE PANCREATITIS WITHOUT NECROSIS OR INFECTION, UNSP Qualifiers: Chronicity: acute Pancreatitis type: unspecified pancreatitis type Acute pancreatitis complication: unspecified Qualified Code(s): K85.90 - Acute pancreatitis without necrosis or infection, unspecified (13) Suspected COVID-19 virus infection Assessment/Plan: not detected Code(s): Z20.828 - CONTACT W AND EXPOSURE TO OTH VIRAL COMMUNICABLE DISEASES (14) Prophylactic measure Assessment/Plan: FEN Fluids: start clear diet, no additional fluids on HD Electrolytes: monitor & replete as needed Nutrition: clear diet DVT moderate risk c/w apixaban, asa Dispo Maintain as inpatient full code Code(s): Z29.9 - ENCOUNTER FOR PROPHYLACTIC MEASURES, UNSPECIFIED Visit type - Emergency Visit Emergency Visit: Yes ED Registration Date: 07/21/19 Care time: The patient presented to the Emergency Department on the above date and was hospitalized for further evaluation of their emergent condition. - New Patient This patient is new to me today: No - Critical Care Critical Care patient: No - Discharge Referral Referred to [facility] Med P.C.: No
[2019-07-26] MEDS: INSULIN SLIDING SCALE (NOVOLOG) 1 VIAL SQ SCH ×4 (06:10→22:17)
[2019-07-26] MEDS: ASPIRIN COATED 81 MG TABLET.EC PO SCH (09:36)
[2019-07-26] MEDS: APIXABAN 2.5 MG TABLET PO SCH ×2 (09:36→22:17)
[2019-07-26 12:07] LABS: BODY FLUID ALBUMIN 2.2 g/dL (Not Estab.)
--- NOTE | 2019-07-26 12:41 | PN ---
Progress Note (short form) - Note Progress Note: Chief Complaint: abd pain/cp History of Present Illness: appears comfortable, no chest pain, palps, dyspnea Current Medications Generic Name Dose Route Start Last Admin Trade Name Dorian PRN Reason Stop Dose Admin Acetaminophen 650 mg 07/21/19 22:41 Tylenol - PO Q4H PRN PAIN LEVEL 4 - 6 Amlodipine Besylate 5 mg 07/22/19 10:00 07/25/19 10:30 Norvasc - PO 5 mg DAILY [facility] Administration Apixaban 2.5 mg 07/24/19 15:05 07/26/19 09:36 Eliquis - PO 2.5 mg BID [facility] Administration Aspirin 81 mg 07/22/19 10:00 07/26/19 09:36 Ecotrin - PO 81 mg DAILY [facility] Administration Sodium Chloride 250 mls @ 3,000 mls/hr 07/25/19 13:59 Normal Saline - IV 07/26/19 14:00 PRN PRN Hypotension during Dialysis Insulin Aspart 1 vial 07/22/19 07:00 07/26/19 06:10 Novolog Vial Sliding Scale - SQ Not Given ACHS [facility] Protocol Metoprolol Succinate 25 mg 07/22/19 10:00 07/25/19 10:30 Toprol Xl - PO 25 mg DAILY [facility] Administration Vital Signs Period Temp Pulse Resp BP Sys/Hicks Pulse Ox Last 24 Hr 97.4 F-98.6 F 70-95 19-24 116-139/52-83 96-98 Constitutional: Yes: Well Nourished, No Distress, Calm Eyes: No: Ptosis, Sclera Icterus Cardiovascular: Yes: Pulse Irregular. No: JVD Respiratory: Yes: Regular. No: Accessory Muscle Use Extremities: No: Cold Edema: No Neurological: Yes: Alert. No: Seizure Psychiatric: No: Agitated Assessment/Plan CT head: old infarct R occipital lobe, no blood CT chest (non-con): mild interstitial thickening, trace R effusion, + cardiomegaly. large free fluid/ascites, no other abdominal pathology EKG: afib, nonsp ST-Ts, no q's (no old) echo 06/2019 nl LV function, mild conc LVH, impaired relaxation, RV nl,, RA mod dilated, mild to mod MR, mod TR, severe TR, mod to severe , mild AR tele: AF, rates controlled abdominal pain, chest pain, elevated troponin: -occurred in setting of taking new laxative -troponin 0.1 x 2 is indeterminate range, with flat trend is not c/w ACS (likely related to ESRD and/or CMP with chronic increased filling pressures given noted cardiomegaly on exam) -no further ischemia eval is warranted unless chest pain recurs -large ascites noted--volume mgmt per renal -w/u of abd pain/ascites per hospitalist history of CAD, cardiomegaly: -cont aspirin, bb Afib: -new, incidental dx here -HR controlled--cont metoprolol -CHADS VASC 7 incl prior CVA - on low dose eliquis 2.5 mg BID for wt <60 kg, ESRD HTN: -cont current meds ESRD on HD: -dialysis per renal h/o CVA: -started AC for AF - moderate to severe on echo here - outpatient follow up
--- NOTE | 2019-07-26 14:03 | PN.GI ---
GI Progress Note Subjective: No acute events No abdominal pain - Objective Vital Signs: Vital Signs Temperature 97.6 F 07/26/19 12:00 Pulse Rate 90 07/26/19 12:00 Respiratory Rate 14 07/26/19 12:00 Blood Pressure 142/56 L 07/26/19 12:00 O2 Sat by Pulse Oximetry (%) 100 07/26/19 12:00 Constitutional: Calm Eyes: No: Sclera Icterus Cardiovascular: Yes: Regular Rate and Rhythm Respiratory: Yes: Diminished (at bases bilaterally, poor insp. effort) Gastrointestinal Inspection: No: Distention ...Auscultate: Yes: Normoactive Bowel Sounds ...Palpate: Yes: Soft. No: Hepatomegaly, Splenomegaly, Tenderness ...Percussion: No: Tympanitic Edema: No (No LE) Neurological: Yes: Alert Labs: CBC, BMP 07/25/19 05:30 07/25/19 05:30 INR, PTT INR 1.13 (0.83-1.09) H 07/21/19 18:20 Laboratory Tests 07/24/19 07/24/19 13:40 13:40 Fluid Source Peritoneal Fluid WBC 988 Fluid RBC 2357 Fluid Neutrophils 13 Fluid Lymphocytes 12 Fluid Glucose 177 Fluid Total Protein 4.1 Fluid Albumin 2.2 Body Fluid LDH Source 130 Fluid Amylase 53 Fluid Cholesterol Pending Fluid Triglycerides 30 Pleural Monocytes 20 Pleural Macrophages 50 SAA.4 Problem List - Problems (1) Ascites Assessment/Plan: Low SAAG 0.4 and high total fluid protein not c/w portal hypertensive etiology. High SAAG high protein picture would be more consistent with cardiac etiology. Will need to consider alternate etiologies: Renal disease, malignancy. Patient with Abnormal thyroid labs findings. ? hypothyroidism Further evaluation per primary team Await cytology Evaluation of macrocytosis per primary team Code(s): R18.8 - OTHER ASCITES
[2019-07-26] MEDS: amLODIPine BESYLATE 5 MG TABLET (FP) PO SCH (16:37)
[2019-07-26] MEDS: metoPROLOL SUCCINATE 25 MG TAB.SR.24H (FP) PO SCH (16:37)
--- NOTE | 2019-07-26 17:04 | PN ---
Progress Note, Physician History of Present Illness: Pt seen and examined at bedside. He tolerated HD. - Current Medication List Current Medications: Active Medications Acetaminophen (Tylenol -) 650 mg PO Q4H PRN PRN Reason: PAIN LEVEL 4 - 6 Amlodipine Besylate (Norvasc -) 5 mg PO DAILY [facility] Last Admin: 07/26/19 16:37 Dose: 5 mg Documented by: Apixaban (Eliquis -) 2.5 mg PO BID [facility] Last Admin: 07/26/19 09:36 Dose: 2.5 mg Documented by: Aspirin (Ecotrin -) 81 mg PO DAILY [facility] Last Admin: 07/26/19 09:36 Dose: 81 mg Documented by: Sodium Chloride (Normal Saline -) 250 mls @ 3,000 mls/hr IV PRN PRN PRN Reason: Hypotension during Dialysis Stop: 07/26/19 14:00 Insulin Aspart (Novolog Vial Sliding Scale -) 1 vial SQ ACHS [facility]; Protocol Last Admin: 07/26/19 16:38 Dose: Not Given Documented by: Metoprolol Succinate (Toprol Xl -) 25 mg PO DAILY [facility] Last Admin: 07/26/19 16:37 Dose: 25 mg Documented by: - Objective Vital Signs: Vital Signs Temperature 97.7 F 07/26/19 15:15 Pulse Rate 103 H 07/26/19 15:30 Respiratory Rate 19 07/26/19 15:30 Blood Pressure 151/59 L 07/26/19 15:30 O2 Sat by Pulse Oximetry (%) 100 07/26/19 14:00 Constitutional: Yes: Calm Eyes: Yes: Conjunctiva Clear HENT: Yes: Atraumatic Cardiovascular: Yes: S1, S2 Respiratory: Yes: CTA Bilaterally Gastrointestinal: Yes: Soft Genitourinary: Yes: Incontinence Musculoskeletal: Yes: WNL Edema: No Integumentary: Yes: WNL Labs: CBC, BMP 07/25/19 05:30 07/25/19 05:30 INR, PTT INR 1.13 (0.83-1.09) H 07/21/19 18:20 Assessment/Plan Current Medications Generic Name Dose Route Start Last Admin Trade Name Freq PRN Reason Stop Dose Admin Acetaminophen 650 mg 07/21/19 22:41 Tylenol - PO Q4H PRN PAIN LEVEL 4 - 6 Amlodipine Besylate 5 mg 07/22/19 10:00 07/26/19 16:37 Norvasc - PO 5 mg DAILY [facility] Administration Apixaban 2.5 mg 07/24/19 15:05 07/26/19 09:36 Eliquis - PO 2.5 mg BID [facility] Administration Aspirin 81 mg 07/22/19 10:00 07/26/19 09:36 Ecotrin - PO 81 mg DAILY [facility] Administration Sodium Chloride 250 mls @ 3,000 mls/hr 07/25/19 13:59 Normal Saline - IV 07/26/19 14:00 PRN PRN Hypotension during Dialysis Insulin Aspart 1 vial 07/22/19 07:00 07/26/19 16:38 Novolog Vial Sliding Scale - SQ Not Given ACHS [facility] Protocol Metoprolol Succinate 25 mg 07/22/19 10:00 07/26/19 16:37 Toprol Xl - PO 25 mg DAILY [facility] Administration Impression 1. esrd 2. r/o acs 3. htn 4. cad 5. a-fib 6. hx of cva Plan - HD today - renal diet - monitor bp - cardio follow up - will follow
--- NOTE | 2019-07-26 18:14 | PN ---
Physical Exam: SUBJECTIVE: Patient seen and examined. in no acute distress. getting dialysis. OBJECTIVE: Seen and examined at bedside. Pt speaks primarily Georgian. No abd pain when asked, calm at rest. getting dialysis. bp stable. patient s/p paracentesis on 07/24/2019 ------- Patient is a 73 year old male with a significant past medical history of diabetes, hypertension, ESRD (HD T//Tue), CAD s/p open heart surgery, CVA. Patient presents to the ED on 07/21/2019 with abdominal pain and chest pain. Vital Signs Period Temp Pulse Resp BP Sys/Hicks Pulse Ox Last 24 Hr 97.4 F-98.6 F 72-107 14-27 116-154/50-74 94-100 GENERAL: The patient is awake, alert, in no acute distress. thin appearing HEAD: Normal with no signs of trauma. EYES: PERRL, extraocular movements intact, sclera anicteric, conjunctiva clear. No ptosis. ENT: Ears normal, nares patent, oropharynx clear without exudates NECK: Trachea midline, full range of motion, supple. LUNGS: Breath sounds equal, clear to auscultation bilaterally HEART: Regular rate and rhythm ABDOMEN: Soft, nontender, nondistended, normoactive bowel sounds EXTREMITIES: no edema. NEUROLOGICAL: gait not observed. PSYCH: Normal mood, normal affect. SKIN: Warm, dry, normal turgor, no rashes or lesions noted Laboratory Results - last 24 hr 07/24/19 07/25/19 07/26/19 13:40 21:08 05:30 POC Glucometer 242 113 Fluid Glucose 177 Fluid Total Protein 4.1 Fluid Albumin 2.2 Body Fluid LDH Source 130 Fluid Amylase 53 Fluid Triglycerides 30 07/26/19 07/26/19 11:23 16:42 POC Glucometer 124 121 Fluid Glucose Fluid Total Protein Fluid Albumin Body Fluid LDH Source Fluid Amylase Fluid Triglycerides Active Medications Generic Name Dose Route Start Last Admin Trade Name Freq PRN Reason Stop Dose Admin Acetaminophen 650 mg 07/21/19 22:41 Tylenol - PO Q4H PRN PAIN LEVEL 4 - 6 Amlodipine Besylate 5 mg 07/22/19 10:00 07/26/19 16:37 Norvasc - PO 5 mg DAILY [facility] Administration Apixaban 2.5 mg 07/24/19 15:05 07/26/19 09:36 Eliquis - PO 2.5 mg BID [facility] Administration Aspirin 81 mg 07/22/19 10:00 07/26/19 09:36 Ecotrin - PO 81 mg DAILY [facility] Administration Sodium Chloride 250 mls @ 3,000 mls/hr 07/25/19 13:59 Normal Saline - IV 07/26/19 14:00 PRN PRN Hypotension during Dialysis Insulin Aspart 1 vial 07/22/19 07:00 07/26/19 16:38 Novolog Vial Sliding Scale - SQ Not Given ACHS [facility] Protocol Metoprolol Succinate 25 mg 07/22/19 10:00 07/26/19 16:37 Toprol Xl - PO 25 mg DAILY [facility] Administration ASSESSMENT/PLAN: Problem List - Problems (1) Abdominal pain, vomiting, and diarrhea Assessment/Plan: resolved no finding on CT hep panel results noted Code(s): R10.9 - UNSPECIFIED ABDOMINAL PAIN; R11.10 - VOMITING, UNSPECIFIED; R19.7 - DIARRHEA, UNSPECIFIED (2) Acute metabolic encephalopathy Assessment/Plan: not as baseline as per family alternating between Georgian and Maltese no acute finding on HCT mostly likely d/t uremic state c/w HD neuro checks c/t monitor Code(s): G93.41 - METABOLIC ENCEPHALOPATHY (3) Acute pancreatitis Assessment/Plan: amylase 903 c/t trend no findings on CT Code(s): K85.90 - ACUTE PANCREATITIS WITHOUT NECROSIS OR INFECTION, UNSP Qualifiers: Pancreatitis type: unspecified pancreatitis type Acute pancreatitis complication: unspecified Qualified Code(s): K85.90 - Acute pancreatitis without necrosis or infection, unspecified (4) Ascites Assessment/Plan: large amt of ascites in CT s/p 3 liter removal per IR, primary cause of abdominal ascites renal vs cardiac cause? Code(s): R18.8 - OTHER ASCITES (5) Atrial fibrillation Assessment/Plan: new onset. heart rate controlled on metoprolol. on eliquis 2.5mg bid. Code(s): I48.91 - UNSPECIFIED ATRIAL FIBRILLATION Qualifiers: Atrial fibrillation type: unspecified Qualified Code(s): I48.91 - Unspecified atrial fibrillation (6) Encephalopathy Code(s): G93.40 - ENCEPHALOPATHY, UNSPECIFIED (7) HTN (hypertension) Assessment/Plan: controlled on toprol 25 xl Code(s): I10 - ESSENTIAL (PRIMARY) HYPERTENSION (8) Hyperkalemia Assessment/Plan: within normal limits. monitor daily Code(s): E87.5 - HYPERKALEMIA (9) Hypothyroid Assessment/Plan: TSH normalized, t4 slightly elevated. awaiting re peat t 4 Code(s): E03.9 - HYPOTHYROIDISM, UNSPECIFIED (10) Missed dialysis Assessment/Plan: dialysis on t, th, sat Code(s): [id number] - (11) NSTEMI (non-ST elevated myocardial infarction) Assessment/Plan: EKG with afib rates controlled, nonspecific ST-T abn (no prior) troponin 0.1, 0.1 CKD, trop will likely remain elevated cardiology following Code(s): I21.4 - NON-ST ELEVATION (NSTEMI) MYOCARDIAL INFARCTION (12) Pancreatitis Assessment/Plan: GI consulted Code(s): K85.90 - ACUTE PANCREATITIS WITHOUT NECROSIS OR INFECTION, UNSP Qualifiers: Chronicity: acute Pancreatitis type: unspecified pancreatitis type Acute pancreatitis complication: unspecified Qualified Code(s): K85.90 - Acute pancreatitis without necrosis or infection, unspecified (13) Suspected COVID-19 virus infection Assessment/Plan: not detected Code(s): Z20.828 - CONTACT W AND EXPOSURE TO OTH VIRAL COMMUNICABLE DISEASES (14) Prophylactic measure Assessment/Plan: FEN Fluids: start clear diet, no additional fluids on HD Electrolytes: monitor & replete as needed Nutrition: clear diet DVT moderate risk c/w apixaban, asa Dispo Maintain as inpatient full code Code(s): Z29.9 - ENCOUNTER FOR PROPHYLACTIC MEASURES, UNSPECIFIED Visit type - Emergency Visit Emergency Visit: Yes ED Registration Date: 07/21/19 Care time: The patient presented to the Emergency Department on the above date and was hospitalized for further evaluation of their emergent condition. - New Patient This patient is new to me today: No - Critical Care Critical Care patient: No - Discharge Referral Referred to [facility] Med P.C.: No
[2019-07-26] MEDS ORDERED: PT OWN MED DRAWER 7, Y5N ONE (22:07)
[2019-07-27] MEDS: INSULIN SLIDING SCALE (NOVOLOG) 1 VIAL SQ SCH ×4 (06:56→22:11)
[2019-07-27] MEDS: metoPROLOL SUCCINATE 25 MG TAB.SR.24H (FP) PO SCH (10:27)
[2019-07-27] MEDS: amLODIPine BESYLATE 5 MG TABLET (FP) PO SCH (10:27)
[2019-07-27] MEDS: APIXABAN 2.5 MG TABLET PO SCH ×2 (10:27→22:11)
[2019-07-27] MEDS: ASPIRIN COATED 81 MG TABLET.EC PO SCH (10:27)
[2019-07-27 10:37] LABS: BASO % 0.7 % (0-2.0); EOS % 21.2 % (0-4.5); HEMATOCRIT 37.4 % (35.4-49); HEMOGLOBIN 12.5 GM/dL (11.7-16.9); MCH 32.9 pg (25.7-33.7); MCHC 33.5 g/dl (32.0-35.9); MEAN CELL VOLUME 98.2 fl (80-96); MEAN PLT VOLUME 8.9 fl (7.5-11.1); MONO % 11.3 % (3.8-10.2); NEUT % 51.8 % (42.8-82.8); PLATELET COUNT 187 K/MM3 (134-434); RDW 14.9 % (11.9-15.9); WHITE BLOOD COUNT 7.3 K/mm3 (4.0-10.0)
--- NOTE | 2019-07-27 10:39 | PN ---
Physical Exam: SUBJECTIVE: Patient seen and examined. spoke to his daughter who informed me that patient is mostly turkmen speaking and speaks very little serbian. daughter updated on POC. meds reconciled with her as noted below. OBJECTIVE: reconciled home med list: atorvastain 40mg qd metoprolol 100 qd januvia 25mg daily montelukast 10mg plavix 75mg qd Seen and examined at bedside. Pt speaks primarily Armenian. No abd pain when asked, calm at rest. bp stable. more awake and alert. patient s/p paracentesis on 07/24/2019 ------- Patient is a 73 year old male with a significant past medical history of diabetes, hypertension, ESRD (HD //Tue), CAD s/p open heart surgery - 7 years ago, CVA. Patient presents to the ED on 07/21/2019 with abdominal pain and chest pain. Vital Signs Period Temp Pulse Resp BP Sys/Hicks Pulse Ox Last 24 Hr 97 F-98 F 76-107 14-27 116-154/50-73 94-100 GENERAL: The patient is awake, alert, in no acute distress. thin appearing HEAD: Normal with no signs of trauma. EYES: PERRL, extraocular movements intact, sclera anicteric, conjunctiva clear. No ptosis. ENT: Ears normal, nares patent, oropharynx clear without exudates NECK: Trachea midline, full range of motion, supple. LUNGS: Breath sounds equal, clear to auscultation bilaterally HEART: Regular rate and rhythm ABDOMEN: Soft, nontender, nondistended, normoactive bowel sounds EXTREMITIES: no edema. NEUROLOGICAL: gait not observed. PSYCH: Normal mood, normal affect. SKIN: Warm, dry, normal turgor, no rashes or lesions noted Laboratory Results - last 24 hr 07/24/19 07/26/19 07/26/19 13:40 11:23 16:42 POC Glucometer 124 121 Fluid Glucose 177 Fluid Total Protein 4.1 Fluid Albumin 2.2 Body Fluid LDH Source 130 Fluid Amylase 53 Fluid Triglycerides 30 07/26/19 07/27/19 22:14 06:54 POC Glucometer 165 98 Fluid Glucose Fluid Total Protein Fluid Albumin Body Fluid LDH Source Fluid Amylase Fluid Triglycerides Active Medications Generic Name Dose Route Start Last Admin Trade Name Freq PRN Reason Stop Dose Admin Acetaminophen 650 mg 07/21/19 22:41 Tylenol - PO Q4H PRN PAIN LEVEL 4 - 6 Amlodipine Besylate 5 mg 07/22/19 10:00 07/27/19 10:27 Norvasc - PO 5 mg DAILY [facility]UNG Administration Apixaban 2.5 mg 07/24/19 15:05 07/27/19 10:27 Eliquis - PO 2.5 mg BID TRUNG Administration Aspirin 81 mg 07/22/19 10:00 07/27/19 10:27 Ecotrin - PO 81 mg DAILY TRUNG Administration Sodium Chloride 250 mls @ 3,000 mls/hr 07/25/19 13:59 Normal Saline - IV 07/26/19 14:00 PRN PRN Hypotension during Dialysis Insulin Aspart 1 vial 07/22/19 07:00 07/27/19 06:56 Novolog Vial Sliding Scale - SQ Not Given ACHS [facility] Protocol Metoprolol Succinate 25 mg 07/22/19 10:00 07/27/19 10:27 Toprol Xl - PO 25 mg DAILY TRUNG Administration ASSESSMENT/PLAN: Problem List - Problems (1) Abdominal pain, vomiting, and diarrhea Assessment/Plan: resolved no finding on CT hep panel results noted Code(s): R10.9 - UNSPECIFIED ABDOMINAL PAIN; R11.10 - VOMITING, UNSPECIFIED; R19.7 - DIARRHEA, UNSPECIFIED (2) Acute metabolic encephalopathy Assessment/Plan: not as baseline as per family on admission. patient more awake and alert. alternating between Armenian and Divehi no acute finding on HCT mostly likely d/t uremic state c/w HD neuro checks c/t monitor Code(s): G93.41 - METABOLIC ENCEPHALOPATHY (3) Acute pancreatitis Assessment/Plan: amylase [address] Code(s): K85.90 - ACUTE PANCREATITIS WITHOUT NECROSIS OR INFECTION, UNSP Qualifiers: Pancreatitis type: unspecified pancreatitis type Acute pancreatitis complication: unspecified Qualified Code(s): K85.90 - Acute pancreatitis without necrosis or infection, unspecified (4) Ascites Assessment/Plan: large amt of ascites in CT s/p 3 liter removal per IR, primary cause of abdominal ascites renal vs cardiac cause? Code(s): R18.8 - OTHER ASCITES (5) Atrial fibrillation Assessment/Plan: new onset. heart rate controlled on metoprolol. on eliquis 2.5mg bid. Code(s): I48.91 - UNSPECIFIED ATRIAL FIBRILLATION Qualifiers: Atrial fibrillation type: unspecified Qualified Code(s): I48.91 - Unspecified atrial fibrillation (6) Encephalopathy Code(s): G93.40 - ENCEPHALOPATHY, UNSPECIFIED (7) HTN (hypertension) Assessment/Plan: controlled on toprol 25 xl Code(s): I10 - ESSENTIAL (PRIMARY) HYPERTENSION (8) Hyperkalemia Assessment/Plan: within normal limits. monitor daily Code(s): E87.5 - HYPERKALEMIA (9) Hypothyroid Assessment/Plan: TSH normalized, t4 slightly elevated. awaiting re peat t 4 Code(s): E03.9 - HYPOTHYROIDISM, UNSPECIFIED (10) Missed dialysis Assessment/Plan: dialysis on t, th, sat Code(s): [id number] - (11) NSTEMI (non-ST elevated myocardial infarction) Assessment/Plan: EKG with afib rates controlled, nonspecific ST-T abn (no prior) troponin 0.1, 0.1 CKD, trop will likely remain elevated cardiology following Code(s): I21.4 - NON-ST ELEVATION (NSTEMI) MYOCARDIAL INFARCTION (12) Pancreatitis Assessment/Plan: GI consulted Code(s): K85.90 - ACUTE PANCREATITIS WITHOUT NECROSIS OR INFECTION, UNSP Qualifiers: Chronicity: acute Pancreatitis type: unspecified pancreatitis type Acute pancreatitis complication: unspecified Qualified Code(s): K85.90 - Acute pancreatitis without necrosis or infection, unspecified (13) Suspected COVID-19 virus infection Assessment/Plan: not detected Code(s): Z20.828 - CONTACT W AND EXPOSURE TO OTH VIRAL COMMUNICABLE DISEASES (14) Subclinical hypothyroidism Assessment/Plan: tsh normal, mildly increased T4. per daughter, patient not on synthoid at home. TSH to be repeated as an outpatient. Code(s): E03.9 - HYPOTHYROIDISM, UNSPECIFIED (15) Prophylactic measure Assessment/Plan: FEN Fluids: start clear diet, no additional fluids on HD Electrolytes: monitor & replete as needed Nutrition: clear diet DVT moderate risk c/w apixaban, asa Dispo Maintain as inpatient full code Code(s): Z29.9 - ENCOUNTER FOR PROPHYLACTIC MEASURES, UNSPECIFIED Visit type - Emergency Visit Emergency Visit: Yes ED Registration Date: 07/21/19 Care time: The patient presented to the Emergency Department on the above date and was hospitalized for further evaluation of their emergent condition. - New Patient This patient is new to me today: No - Critical Care Critical Care patient: No - Discharge Referral Referred to [facility] Med P.C.: No
[2019-07-27 11:03] LABS: ALBUMIN 2.7 g/dl (3.4-5.0); BILIRUBIN,TOTAL 0.6 mg/dL (0.2-1); BLOOD UREA NITROGEN 17.9 mg/dL (7-18); CALCIUM 8.1 mg/dL (8.5-10.1); CREATININE 4.9 mg/dL (0.55-1.3); MAGNESIUM 1.9 mg/dL (1.8-2.4); POTASSIUM 3.7 mmol/L (3.5-5.1); TOT PROT 6.8 g/dl (6.4-8.2)
--- NOTE | 2019-07-27 11:12 | PN ---
Progress Note, Physician Chief Complaint: TELE: AF, controlled, PVCS no acute events History of Present Illness: Ascites New AF ESRD Moderate - Current Medication List Current Medications: Active Medications Acetaminophen (Tylenol -) 650 mg PO Q4H PRN PRN Reason: PAIN LEVEL 4 - 6 Amlodipine Besylate (Norvasc -) 5 mg PO DAILY [facility] Last Admin: 07/27/19 10:27 Dose: 5 mg Documented by: Apixaban (Eliquis -) 2.5 mg PO BID [facility] Last Admin: 07/27/19 10:27 Dose: 2.5 mg Documented by: Aspirin (Ecotrin -) 81 mg PO DAILY [facility] Last Admin: 07/27/19 10:27 Dose: 81 mg Documented by: Sodium Chloride (Normal Saline -) 250 mls @ 3,000 mls/hr IV PRN PRN PRN Reason: Hypotension during Dialysis Stop: 07/26/19 14:00 Insulin Aspart (Novolog Vial Sliding Scale -) 1 vial SQ [facility]; Protocol Last Admin: 07/27/19 06:56 Dose: Not Given Documented by: Metoprolol Succinate (Toprol Xl -) 25 mg PO DAILY [facility] Last Admin: 07/27/19 10:27 Dose: 25 mg Documented by: - Objective Vital Signs: Vital Signs Temperature 97.2 F L 07/27/19 06:00 Pulse Rate 82 07/27/19 06:00 Respiratory Rate 16 07/27/19 06:00 Blood Pressure 140/66 07/27/19 06:00 O2 Sat by Pulse Oximetry (%) 97 07/26/19 20:28 Constitutional: Yes: No Distress, Calm Eyes: Yes: Conjunctiva Clear Cardiovascular: Yes: Pulse Irregular Respiratory: Yes: CTA Bilaterally (no wheezing or rales) Gastrointestinal: Yes: Soft (NT) Edema: No Labs: CBC, BMP 07/27/19 10:00 07/27/19 10:00 INR, PTT INR 1.13 (0.83-1.09) H 07/21/19 18:20 - ....Imaging EKG: Image Reviewed Assessment/Plan Assessment/Plan CT head: old infarct R occipital lobe, no blood CT chest (non-con): mild interstitial thickening, trace R effusion, + cardiomegaly. large free fluid/ascites, no other abdominal pathology EKG: afib, nonsp ST-Ts, no q's (no old) echo 06/2019 nl LV function, mild conc LVH, impaired relaxation, RV nl,, RA mod dilated, mild to mod MR, mod TR, severe TR, mod to severe , mild AR tele: AF, rates controlled abdominal pain, chest pain, elevated troponin: -occurred in setting of taking new laxative -troponin 0.1 x 2 is indeterminate range, with flat trend is not c/w ACS (likely related to ESRD and/or CMP with chronic increased filling pressures given noted cardiomegaly on exam) -no further ischemia eval is warranted unless chest pain recurs -large ascites noted--volume mgmt per renal -w/u of abd pain/ascites per hospitalist history of CAD, cardiomegaly: -cont bb Afib: -new, incidental dx here -HR controlled--cont metoprolol -CHADS VASC 7 incl prior CVA - on low dose eliquis 2.5 mg BID for wt <60 kg, ESRD HTN: -cont current meds ESRD on HD: -dialysis per renal h/o CVA: -started AC for AF - moderate to severe on echo here - outpatient follow up
[2019-07-27 12:04] LABS: ANISOCYTOSIS 1+; MACROCYTOSIS 0; OVALOCYTE 1+; PLATELET ESTIMATE NORMAL
--- NOTE | 2019-07-27 13:13 | PN.GI ---
GI Progress Note Subjective: No acute events overnight Appears comfortable - Objective Vital Signs: Vital Signs Temperature 97.4 F L 07/27/19 10:00 Pulse Rate 94 H 07/27/19 10:00 Respiratory Rate 20 07/27/19 10:00 Blood Pressure 125/62 07/27/19 10:00 O2 Sat by Pulse Oximetry (%) 97 07/26/19 20:28 Constitutional: Calm Eyes: No: Sclera Icterus Cardiovascular: Yes: Regular Rate and Rhythm, Murmur (2/6 Systolic murmur) Respiratory: Yes: CTA Bilaterally Gastrointestinal Inspection: Yes: Ascites (softly protuberant) ...Auscultate: Yes: Normoactive Bowel Sounds ...Palpate: No: Tenderness (No grimacing upon palpation) ...Percussion: No: Tympanitic Edema: No (No LE edema) Neurological: Yes: Alert Labs: CBC, BMP 07/27/19 10:00 07/27/19 10:00 INR, PTT INR 1.13 (0.83-1.09) H 07/21/19 18:20 Hepatic Panel Total Bilirubin 0.6 mg/dL (0.2-1) 07/27/19 10:00 AST 10 U/L (15-37) L 07/27/19 10:00 ALT 9 U/L (13-61) L 07/27/19 10:00 Alkaline Phosphatase 131 U/L (45-117) H 07/27/19 10:00 Albumin 2.7 g/dl (3.4-5.0) L 07/27/19 10:00 Problem List - Problems (1) Ascites Assessment/Plan: Fluid not consistent with portal hypertensive etiology. ? if related to renal disease. No SBP noted on fluid analysis. Hepatitis B surface, core and e antobody +, antigen negative. serologies c/w previous exposure with conversion to e antibody and with immunity. Can check HBV DNA ID to f/u regarding leukocytosis in peritoneal fluid Await cytology F/U AFB Culture/Smear Abnormal thyroid blood work on admission. Further eval. per primary team Further evaluation of Low SAAG / High Protein ascites per primary team Peripheral Eosinophilia. Unclear etiology: Heme evaluation. Strongyloides IgG Ab / Stool for O&P x 3 ordered Code(s): R18.8 - OTHER ASCITES
--- NOTE | 2019-07-27 15:18 | CON.ID ---
Consult Consult Specialty:: infectious diseases Referred by:: Reason for Consultation:: sbp,and increasing eosinophis - History of Present Illness Chief Complaint: abd pain History of Present Illness: 73M PMH DM, HTN, ESRD (HD //Tue), CAD s/p open heart surgery, CVA, admitted because of abdominal pain with vomiting and diarrhea, and subsequently beginning to have chest pain. Patient had 2 episodes of non bloody diarrhea, and one episode of NBNB emesis in the morning. Of note patient was having decreased PO intake and constipation for the entire week; patient was prescribed unknown laxatives by his PCP yesterday and began taking them. Patient described having worsening chest pain to his daughter after his abdominal pain started which prompted them to call EMS. Patient missed his dialysis today, last day he received dialysis was on . currently patient is awake but slightly lethargic,but according to the nursing staff has been doing well hernandez not look to be in obvious discomfort patient also has ascites and underwent diagnostic abd tap and pleural fluid - History Source History Provided By: Medical Record, Caregiver (daughter) Limitations to Obtaining History: Language Barrier - Past Medical History PAY PER CLICK STRATEGIST: Yes: CVA - Alcohol/Substance Use Hx Alcohol Use: No - Smoking History Smoking history: Unknown if ever smoked Have you smoked in the past 12 months: No Home Medications - Allergies Allergies/Adverse Reactions: Allergies Allergy/AdvReac Type Severity Reaction Status Date / Time No Known Allergies Allergy Verified 07/21/19 18:35 Review of Systems - Review of Systems Constitutional: reports: No Symptoms Eyes: reports: No Symptoms HENT: reports: No Symptoms Neck: reports: No Symptoms Cardiovascular: reports: No Symptoms Respiratory: reports: No Symptoms Gastrointestinal: reports: Abdominal Pain Genitourinary: reports: No Symptoms Musculoskeletal: reports: No Symptoms Integumentary: reports: No Symptoms Neurological: reports: No Symptoms Endocrine: reports: No Symptoms Hematology/Lymphatic: reports: No Symptoms Psychiatric: reports: No Symptoms Physical Exam Vital Signs: Vital Signs Temperature 97.4 F L 07/27/19 10:00 Pulse Rate 94 H 07/27/19 10:00 Respiratory Rate 07/27/19 10:00 Blood Pressure 125/62 07/27/19 10:00 O2 Sat by Pulse Oximetry (%) 97 07/26/19 20:28 Constitutional: Yes: Well Nourished, No Distress, Calm Eyes: Yes: Conjunctiva Clear HENT: Yes: Atraumatic, Normocephalic Neck: Yes: Supple, Trachea Midline Cardiovascular: Yes: Regular Rate and Rhythm Respiratory: Yes: Regular, CTA Bilaterally Gastrointestinal: Yes: Normal Bowel Sounds, Soft, Ascites Musculoskeletal: Yes: WNL Extremities: Yes: WNL Neurological: Yes: Alert Psychiatric: Yes: Alert Labs: CBC, BMP 07/27/19 10:00 07/27/19 10:00 Imaging - Results Chest X-ray: Report Reviewed Cat Scan: Report Reviewed, Image Reviewed Assessment/Plan Problem List - Problems (1) Abdominal pain, vomiting, and diarrhea Code(s): R10.9 - UNSPECIFIED ABDOMINAL PAIN; R11.10 - VOMITING, UNSPECIFIED; R19.7 - DIARRHEA, UNSPECIFIED (2) Acute metabolic encephalopathy Code(s): G93.41 - METABOLIC ENCEPHALOPATHY (3) Acute pancreatitis Code(s): K85.90 - ACUTE PANCREATITIS WITHOUT NECROSIS OR INFECTION, UNSP Qualifiers: Pancreatitis type: unspecified pancreatitis type Acute pancreatitis com plication: unspecified Qualified Code(s): K85.90 - Acute pancreatitis without necrosis or infection, unspecified (4) Ascites Code(s): R18.8 - OTHER ASCITES (5) Atrial fibrillation Code(s): I48.91 - UNSPECIFIED ATRIAL FIBRILLATION Qualifiers: Atrial fibrillation type: unspecified Qualified Code(s): I48.91 - Unspecified atrial fibrillation (6) Encephalopathy Code(s): G93.40 - ENCEPHALOPATHY, UNSPECIFIED (7) HTN (hypertension) Code(s): I10 - ESSENTIAL (PRIMARY) HYPERTENSION (8) Hyperkalemia Code(s): E87.5 - HYPERKALEMIA (9) Hypothyroid Code(s): E03.9 - HYPOTHYROIDISM, UNSPECIFIED (10) Missed dialysis Code(s): [id number] - (11) NSTEMI (non-ST elevated myocardial infarction) Code(s): I21.4 - NON-ST ELEVATION (NSTEMI) MYOCARDIAL INFARCTION (12) Pancreatitis Code(s): K85.90 - ACUTE PANCREATITIS WITHOUT NECROSIS OR INFECTION, UNSP Qualifiers: Chronicity: acute Pancreatitis type: unspecified pancreatitis type Acute pancreatitis complication: unspecified Qualified Code(s): K85.90 - Acute pancreatitis without necrosis or infection, unspecified (13) Suspected COVID-19 virus infection Code(s): Z20.828 - CONTACT W AND EXPOSURE TO H VIRAL COMMUNICABLE DISEASES plan stool for ova and parasite strongylodosis work up peritoneal fluid findings noted rest as per the team
[2019-07-27] MEDS ORDERED: SODIUM CHLORIDE 250 ML IV PRN (18:22)
--- NOTE | 2019-07-27 18:22 | PN ---
Progress Note, Physician History of Present Illness: Pt seen and examined at bedside. He appears comfortable. - Current Medication List Current Medications: Active Medications Acetaminophen (Tylenol -) 650 mg PO Q4H PRN PRN Reason: PAIN LEVEL 4 - 6 Amlodipine Besylate (Norvasc -) 5 mg PO DAILY [facility] Last Admin: 07/27/19 10:27 Dose: 5 mg Documented by: Apixaban (Eliquis -) 2.5 mg PO BID [facility] Last Admin: 07/27/19 10:27 Dose: 2.5 mg Documented by: Aspirin (Ecotrin -) 81 mg PO DAILY [facility] Last Admin: 07/27/19 10:27 Dose: 81 mg Documented by: Sodium Chloride (Normal Saline -) 250 mls @ 3,000 mls/hr IV PRN PRN PRN Reason: Hypotension during Dialysis Stop: 07/26/19 14:00 Insulin Aspart (Novolog Vial Sliding Scale -) 1 vial SQ ACHS [facility]; Protocol Last Admin: 07/27/19 17:44 Dose: 2 units Documented by: Metoprolol Succinate (Toprol Xl -) 25 mg PO DAILY [facility] Last Admin: 07/27/19 10:27 Dose: 25 mg Documented by: - Objective Vital Signs: Vital Signs Temperature 97.4 F L 07/27/19 10:00 Pulse Rate 35 L 07/27/19 14:00 Respiratory Rate 21 H 07/27/19 14:00 Blood Pressure 128/72 07/27/19 14:00 O2 Sat by Pulse Oximetry (%) 97 07/26/19 20:28 Constitutional: Yes: Calm Eyes: Yes: Conjunctiva Clear HENT: Yes: Atraumatic Cardiovascular: Yes: S1, S2 Respiratory: Yes: CTA Bilaterally Gastrointestinal: Yes: Soft Genitourinary: Yes: WNL Musculoskeletal: Yes: WNL Edema: No Integumentary: Yes: WNL Labs: CBC, BMP 07/27/19 10:00 07/27/19 10:00 INR, PTT INR 1.13 (0.83-1.09) H 07/21/19 18:20 Assessment/Plan Current Medications Generic Name Dose Route Start Last Admin Trade Name Freq PRN Reason Stop Dose Admin Acetaminophen 650 mg 07/21/19 22:41 Tylenol - PO Q4H PRN PAIN LEVEL 4 - 6 Amlodipine Besylate 5 mg 07/22/19 10:00 07/27/19 10:27 Norvasc - PO 5 mg DAILY [facility] Administration Apixaban 2.5 mg 07/24/19 15:05 07/27/19 10:27 Eliquis - PO 2.5 mg BID [facility] Administration Aspirin 81 mg 07/22/19 10:00 07/27/19 10:27 Ecotrin - PO 81 mg DAILY [facility] Administration Sodium Chloride 250 mls @ 3,000 mls/hr 07/25/19 13:59 Normal Saline - IV 07/26/19 14:00 PRN PRN Hypotension during Dialysis Insulin Aspart 1 vial 07/22/19 07:00 07/27/19 17:44 Novolog Vial Sliding Scale - SQ 2 units ACHS [facility] Administration Protocol Metoprolol Succinate 25 mg 07/22/19 10:00 07/27/19 10:27 Toprol Xl - PO 25 mg DAILY [facility] Administration Impression 1. esrd 2. r/o acs 3. htn 4. cad 5. a-fib 6. hx of cva Plan - will arrange for HD tomorrow - renal diet - monitor bp - cardio follow up - will follow
[2019-07-28] MEDS: INSULIN SLIDING SCALE (NOVOLOG) 1 VIAL SQ SCH ×4 (06:20→21:42)
--- NOTE | 2019-07-28 08:03 | PN.GI ---
GI Progress Note Subjective: NO NEW COMPLAINTS STATUS UNCHANGED - Objective Vital Signs: Vital Signs Temperature 97.4 F L 07/28/19 06:00 Pulse Rate 84 07/28/19 06:00 Respiratory Rate 18 07/28/19 06:00 Blood Pressure 110/72 07/28/19 06:00 O2 Sat by Pulse Oximetry (%) 94 L 07/27/19 20:22 Constitutional: No Distress Cardiovascular: Yes: WNL Respiratory: Yes: WNL, Regular, CTA Bilaterally Gastrointestinal Inspection: Yes: WNL ...Auscultate: Yes: Normoactive Bowel Sounds Musculoskeletal: Yes: WNL Extremities: Yes: WNL Labs: CBC, BMP 07/27/19 10:00 07/27/19 10:00 INR, PTT INR 1.13 (0.83-1.09) H 07/21/19 18:20 Problem List - Problems (1) Abdominal pain, vomiting, and diarrhea Assessment/Plan: - F/U HBV DNA - FURTHER EVALUATION OF ASCITES PER PRIMARY MEDICAL TEAM -- SAAG IS NOT CONSISTENT WITH PORTAL HTN -STRONGLOIDES IGG PENDING - F/U CULTURES Code(s): R10.9 - UNSPECIFIED ABDOMINAL PAIN; R11.10 - VOMITING, UNSPECIFIED; R19.7 - DIARRHEA, UNSPECIFIED (2) Ascites Code(s): R18.8 - OTHER ASCITES
[2019-07-28 08:48] LABS: BASO % 0.7 % (0-2.0); EOS % 23.7 % (0-4.5); HEMATOCRIT 34.4 % (35.4-49); HEMOGLOBIN 11.7 GM/dL (11.7-16.9); LYMPH % 12.2 % (8-40); MEAN PLT VOLUME 8.8 fl (7.5-11.1); MONO % 12.8 % (3.8-10.2); NEUT % 50.6 % (42.8-82.8); PLATELET COUNT 185 K/MM3 (134-434); RBC 3.55 M/mm3 (4.00-5.60); RDW 14.8 % (11.9-15.9); WHITE BLOOD COUNT 7.4 K/mm3 (4.0-10.0)
[2019-07-28 08:51] LABS: ALBUMIN 2.6 g/dl (3.4-5.0); BILIRUBIN,TOTAL 0.6 mg/dL (0.2-1); BLOOD UREA NITROGEN 29.8 mg/dL (7-18); CALCIUM 7.9 mg/dL (8.5-10.1); CREATININE 6.3 mg/dL (0.55-1.3); MAGNESIUM 1.8 mg/dL (1.8-2.4); POTASSIUM 3.9 mmol/L (3.5-5.1); TOT PROT 6.3 g/dl (6.4-8.2)
--- NOTE | 2019-07-28 09:52 | PN ---
Physical Exam: SUBJECTIVE: Patient seen and examined at the bedside. getting dialysis. comfortable and awake. tolerating room air. OBJECTIVE: Seen and examined at bedside. Pt speaks primarily Estonian. No abd pain when asked, calm at rest. bp stable. patient s/p paracentesis on 07/24/2019, abdomen soft, non distended. ------- Patient is a 73 year old male with a significant past medical history of diabetes, hypertension, ESRD (HD T//Tue), CAD s/p open heart surgery - 7 years ago, CVA. Patient presents to the ED on 07/21/2019 with abdominal pain and chest pain. patient on plavix 75mg at home. continue here? per cardiology. Vital Signs Period Temp Pulse Resp BP Sys/Hicks Pulse Ox Last 24 Hr 97.4 F-97.9 F 35-97 18-24 110-145/52-72 94-97 GENERAL: The patient is awake, alert, in no acute distress. thin appearing HEAD: Normal with no signs of trauma. EYES: PERRL, extraocular movements intact, sclera anicteric, conjunctiva clear. No ptosis. ENT: Ears normal, nares patent, oropharynx clear without exudates NECK: Trachea midline, full range of motion, supple. LUNGS: Breath sounds equal, clear to auscultation bilaterally HEART: Regular rate and rhythm ABDOMEN: Soft, nontender, nondistended, normoactive bowel sounds EXTREMITIES: no edema. NEUROLOGICAL: gait not observed. PSYCH: Normal mood, normal affect. SKIN: Warm, dry, normal turgor, no rashes or lesions noted Laboratory Results - last 24 hr 07/27/19 07/27/19 07/27/19 10:00 10:00 10:58 WBC 7.3 RBC 3.80 L Hgb 12.5 Hct 37.4 MCV 98.2 H MCH 32.9 MCHC 33.5 RDW 14.9 Plt Count 187 MPV 8.9 D Absolute Neuts (auto) 3.8 Neutrophils % 51.8 Neutrophils % (Manual) 55.0 Band Neutrophils % 0.0 Lymphocytes % 15.0 Lymphocytes % (Manual) 17.0 Monocytes % 11.3 H Monocytes % (Manual) 8 Eosinophils % 21.2 H* Eosinophils % (Manual) 20.0 H Basophils % 0.7 Basophils % (Manual) 0.0 Myelocytes % (Man) 0 Promyelocytes % (Man) 0 Blast Cells % (Manual) 0 Nucleated RBC % 1 H Metamyelocytes 0 Hypochromia 0 Platelet Estimate Normal Polychromasia 1+ Poikilocytosis 1+ Anisocytosis 1+ Microcytosis 1+ Macrocytosis 0 Ovalocytes 1+ Stringer Cells 1+ Sodium 137 Potassium 3.7 Chloride 98 Carbon Dioxide 29 Anion Gap 9 BUN 17.9 Creatinine 4.9 H Est GFR (CKD-EPI)AfAm 12.44 Est GFR (CKD-EPI)NonAf 10.73 POC Glucometer 229 Random Glucose 203 H Calcium 8.1 L Magnesium 1.9 Total Bilirubin 0.6 AST 10 L ALT 9 L Alkaline Phosphatase 131 H Total Protein 6.8 Albumin 2.7 L Free T4 1.29 H 07/27/19 07/27/19 07/28/19 16:34 22:06 06:15 WBC 7.4 RBC 3.55 L Hgb 11.7 Hct 34.4 L MCV 97.0 H MCH 33.0 MCHC 34.0 RDW 14.8 Plt Count 185 MPV 8.8 Absolute Neuts (auto) 3.8 Neutrophils % 50.6 Neutrophils % (Manual) Band Neutrophils % Lymphocytes % 12.2 Lymphocytes % (Manual) Monocytes % 12.8 H Monocytes % (Manual) Eosinophils % 23.7 H* Eosinophils % (Manual) Basophils % 0.7 Basophils % (Manual) Myelocytes % (Man) Promyelocytes % (Man) Blast Cells % (Manual) Nucleated RBC % 0 Metamyelocytes Hypochromia Platelet Estimate Polychromasia Poikilocytosis Anisocytosis Microcytosis Macrocytosis Ovalocytes Se Cells Sodium Potassium Chloride Carbon Dioxide Anion Gap BUN Creatinine Est GFR (CKD-EPI)AfAm Est GFR (CKD-EPI)NonAf POC Glucometer 159 123 Random Glucose Calcium Magnesium Total Bilirubin AST ALT Alkaline Phosphatase Total Protein Albumin Free T4 07/28/19 07/28/19 06:15 06:19 WBC RBC Hgb Hct MCV MCH MCHC RDW Plt Count MPV Absolute Neuts (auto) Neutrophils % Neutrophils % (Manual) Band Neutrophils % Lymphocytes % Lymphocytes % (Manual) Monocytes % Monocytes % (Manual) Eosinophils % Eosinophils % (Manual) Basophils % Basophils % (Manual) Myelocytes % (Man) Promyelocytes % (Man) Blast Cells % (Manual) Nucleated RBC % Metamyelocytes Hypochromia Platelet Estimate Polychromasia Poikilocytosis Anisocytosis Microcytosis Macrocytosis Ovalocytes Stringer Cells Sodium 136 Potassium 3.9 Chloride 99 Carbon Dioxide 27 Anion Gap 10 BUN 29.8 H Creatinine 6.3 H Est GFR (CKD-EPI)AfAm 9.18 Est GFR (CKD-EPI)NonAf 7.92 POC Glucometer 110 Random Glucose 114 H Calcium 7.9 L Magnesium 1.8 Total Bilirubin 0.6 AST 11 L ALT 11 L Alkaline Phosphatase 127 H Total Protein 6.3 L Albumin 2.6 L Free T4 Active Medications Generic Name Dose Route Start Last Admin Trade Name Freq PRN Reason Stop Dose Admin Acetaminophen 650 mg 07/21/19 22:41 Tylenol - PO Q4H PRN PAIN LEVEL 4 - 6 Amlodipine Besylate 5 mg 07/22/19 10:00 07/27/19 10:27 Norvasc - PO 5 mg DAILY [facility] Administration Apixaban 2.5 mg 07/24/19 15:05 07/27/19 22:11 Eliquis - PO 2.5 mg BID [facility] Administration Aspirin 81 mg 07/22/19 10:00 07/27/19 10:27 Ecotrin - PO 81 mg DAILY [facility] Administration Sodium Chloride 250 mls @ 3,000 mls/hr 07/27/19 18:22 Normal Saline - IV 07/28/19 18:22 PRN PRN Hypotension during Dialysis Insulin Aspart 1 vial 07/22/19 07:00 07/28/19 06:20 Novolog Vial Sliding Scale - SQ Not Given ACHS [facility] Protocol Metoprolol Succinate 25 mg 07/22/19 10:00 07/27/19 10:27 Toprol Xl - PO 25 mg DAILY TRUNG Administration ASSESSMENT/PLAN: Problem List - Problems (1) Abdominal pain, vomiting, and diarrhea Assessment/Plan: resolved no finding on CT hep panel results noted Code(s): R10.9 - UNSPECIFIED ABDOMINAL PAIN; R11.10 - VOMITING, UNSPECIFIED; R19.7 - DIARRHEA, UNSPECIFIED (2) Acute metabolic encephalopathy Assessment/Plan: not as baseline as per family on admission. patient more awake and alert. alternating between Estonian and Luxembourgish no acute finding on HCT mostly likely d/t uremic state c/w HD neuro checks c/t monitor Code(s): G93.41 - METABOLIC ENCEPHALOPATHY (3) Acute pancreatitis Assessment/Plan: amylase [address] Code(s): K85.90 - ACUTE PANCREATITIS WITHOUT NECROSIS OR INFECTION, UNSP Qualifiers: Pancreatitis type: unspecified pancreatitis type Acute pancreatitis complication: unspecified Qualified Code(s): K85.90 - Acute pancreatitis without necrosis or infection, unspecified (4) Ascites Assessment/Plan: large amt of ascites in CT s/p 3 liter removal per IR, primary cause of abdominal ascites renal vs cardiac cause? Code(s): R18.8 - OTHER ASCITES (5) Atrial fibrillation Assessment/Plan: new onset. heart rate controlled on metoprolol. on eliquis 2.5mg bid. Code(s): I48.91 - UNSPECIFIED ATRIAL FIBRILLATION Qualifiers: Atrial fibrillation type: unspecified Qualified Code(s): I48.91 - Unspecified atrial fibrillation (6) Encephalopathy Code(s): G93.40 - ENCEPHALOPATHY, UNSPECIFIED (7) HTN (hypertension) Assessment/Plan: controlled on toprol 25 xl Code(s): I10 - ESSENTIAL (PRIMARY) HYPERTENSION (8) Hyperkalemia Assessment/Plan: within normal limits. monitor daily Code(s): E87.5 - HYPERKALEMIA (9) Hypothyroid Assessment/Plan: TSH normalized, t4 slightly elevated. awaiting re peat t 4 Code(s): E03.9 - HYPOTHYROIDISM, UNSPECIFIED (10) Missed dialysis Assessment/Plan: dialysis on t, th, sat Code(s): [id number] - (11) NSTEMI (non-ST elevated myocardial infarction) Assessment/Plan: EKG with afib rates controlled, nonspecific ST-T abn (no prior) troponin 0.1, 0.1 CKD, trop will likely remain elevated cardiology following Code(s): I21.4 - NON-ST ELEVATION (NSTEMI) MYOCARDIAL INFARCTION (12) Pancreatitis Assessment/Plan: GI consulted Code(s): K85.90 - ACUTE PANCREATITIS WITHOUT NECROSIS OR INFECTION, UNSP Qualifiers: Chronicity: acute Pancreatitis type: unspecified pancreatitis type Acute pancreatitis complication: unspecified Qualified Code(s): K85.90 - Acute pancreatitis without necrosis or infection, unspecified (13) Suspected COVID-19 virus infection Assessment/Plan: not detected Code(s): Z20.828 - CONTACT W AND EXPOSURE TO OTH VIRAL COMMUNICABLE DISEASES (14) Subclinical hypothyroidism Assessment/Plan: tsh normal, mildly increased T4. per daughter, patient not on synthoid at home. TSH to be repeated as an outpatient. Code(s): E03.9 - HYPOTHYROIDISM, UNSPECIFIED (15) Prophylactic measure Assessment/Plan: FEN Fluids: start clear diet, no additional fluids on HD Electrolytes: monitor & replete as needed Nutrition: renal diet DVT moderate risk c/w apixaban, asa Dispo Maintain as inpatient full code Code(s): Z29.9 - ENCOUNTER FOR PROPHYLACTIC MEASURES, UNSPECIFIED Visit type - Emergency Visit Emergency Visit: Yes ED Registration Date: 07/21/19 Care time: The patient presented to the Emergency Department on the above date and was hospitalized for further evaluation of their emergent condition. - New Patient This patient is new to me today: No - Critical Care Critical Care patient: No - Discharge Referral Referred to [facility] No
[2019-07-28] MEDS: amLODIPine BESYLATE 5 MG TABLET (FP) PO SCH (10:39)
[2019-07-28] MEDS: APIXABAN 2.5 MG TABLET PO SCH ×2 (10:39→21:42)
[2019-07-28] MEDS: ASPIRIN COATED 81 MG TABLET.EC PO SCH (10:39)
[2019-07-28] MEDS: metoPROLOL SUCCINATE 25 MG TAB.SR.24H (FP) PO SCH (10:39)
--- NOTE | 2019-07-28 13:50 | PN ---
Progress Note, Physician History of Present Illness: stable s/p paracentesis eosino has increased - Current Medication List Current Medications: Active Medications Acetaminophen (Tylenol -) 650 mg PO Q4H PRN PRN Reason: PAIN LEVEL 4 - 6 Amlodipine Besylate (Norvasc -) 5 mg PO DAILY [facility] Last Admin: 07/28/19 10:39 Dose: 5 mg Documented by: Apixaban (Eliquis -) 2.5 mg PO BID [facility] Last Admin: 07/28/19 10:39 Dose: 2.5 mg Documented by: Aspirin (Ecotrin -) 81 mg PO DAILY [facility] Last Admin: 07/28/19 10:39 Dose: 81 mg Documented by: Sodium Chloride (Normal Saline -) 250 mls @ 3,000 mls/hr IV PRN PRN PRN Reason: Hypotension during Dialysis Stop: 07/28/19 18:22 Insulin Aspart (Novolog Vial Sliding Scale -) 1 vial SQ ACHS [facility]; Protocol Last Admin: 07/28/19 12:00 Dose: Not Given Documented by: Metoprolol Succinate (Toprol Xl -) 25 mg PO DAILY [facility] Last Admin: 07/28/19 10:39 Dose: 25 mg Documented by: - Objective Vital Signs: Vital Signs Temperature 98.8 F 07/28/19 12:00 Pulse Rate 98 H 07/28/19 12:00 Respiratory Rate 20 07/28/19 12:00 Blood Pressure 138/78 07/28/19 12:00 O2 Sat by Pulse Oximetry (%) 97 07/28/19 12:00 Constitutional: Yes: No Distress, Calm Cardiovascular: Yes: S1, S2 Respiratory: Yes: Regular, CTA Bilaterally Gastrointestinal: Yes: Normal Bowel Sounds, Soft Musculoskeletal: Yes: WNL Extremities: Yes: WNL Neurological: Yes: Alert Psychiatric: Yes: Alert Labs: CBC, BMP 07/28/19 06:15 07/28/19 06:15 INR, PTT INR 1.13 (0.83-1.09) H 07/21/19 18:20 Assessment/Plan roblem List - Problems (1) Abdominal pain, vomiting, and diarrhea Code(s): R10.9 - UNSPECIFIED ABDOMINAL PAIN; R11.10 - VOMITING, UNSPECIFIED; R19.7 - DIARRHEA, UNSPECIFIED (2) Acute metabolic encephalopathy Code(s): G93.41 - METABOLIC ENCEPHALOPATHY (3) Acute pancreatitis Code(s): K85.90 - ACUTE PANCREATITIS WITHOUT NECROSIS OR INFECTION, UNSP Qualifiers: Pancreatitis type: unspecified pancreatitis type Acute pancreatitis complication: unspecified Qualified Code(s): K85.90 - Acute pancreatitis without necrosis or infection, unspecified (4) Ascites Code(s): R18.8 - OTHER ASCITES (5) Atrial fibrillation Code(s): I48.91 - UNSPECIFIED ATRIAL FIBRILLATION Qualifiers: Atrial fibrillation type: unspecified Qualified Code(s): I48.91 - Unspecified atrial fibrillation (6) Encephalopathy Code(s): G93.40 - ENCEPHALOPATHY, UNSPECIFIED (7) HTN (hypertension) Code(s): I10 - ESSENTIAL (PRIMARY) HYPERTENSION (8) Hyperkalemia Code(s): E87.5 - HYPERKALEMIA (9) Hypothyroid Code(s): E03.9 - HYPOTHYROIDISM, UNSPECIFIED (10) Missed dialysis Code(s): [id number] - (11) NSTEMI (non-ST elevated myocardial infarction) Assessment/Plan: Code(s): I21.4 - NON-ST ELEVATION (NSTEMI) MYOCARDIAL INFARCTION (12) Pancreatitis Code(s): K85.90 - ACUTE PANCREATITIS WITHOUT NECROSIS OR INFECTION, UNSP Qualifiers: Chronicity: acute Pancreatitis type: unspecified pancreatitis type Acute pancreatitis complication: unspecified Qualified Code(s): K85.90 - Acute pancreatitis without necrosis or infection, unspecified (14) Subclinical hypothyroidism Assessment/Plan: tsh normal, mildly increased T4. per daughter, patient not on synthoid at home. TSH to be repeated as an outpatient. Code(s): E03.9 - HYPOTHYROIDISM, UNSPECIFIED eosiniphilia plan awaiting for results follow results of strongylo awaiting urine cx rest as per the team
[2019-07-28 14:44] LABS: ANISOCYTOSIS 1+; MACROCYTOSIS 1+; PLATELET ESTIMATE NORMAL
--- NOTE | 2019-07-28 14:48 | PN ---
Progress Note (short form) - Note Progress Note: cc: abd pain HPI: no chest pain, palps, dizziness, dyspnea Current Medications Generic Name Dose Route Start Last Admin Trade Name Dorian PRN Reason Stop Dose Admin Acetaminophen 650 mg 07/21/19 22:41 Tylenol - PO Q4H PRN PAIN LEVEL 4 - 6 Amlodipine Besylate 5 mg 07/22/19 10:00 07/28/19 10:39 Norvasc - PO 5 mg DAILY [facility] Administration Apixaban 2.5 mg 07/24/19 15:05 07/28/19 10:39 Eliquis - PO 2.5 mg BID [facility] Administration Aspirin 81 mg 07/22/19 10:00 07/28/19 10:39 Ecotrin - PO 81 mg DAILY [facility] Administration Sodium Chloride 250 mls @ 3,000 mls/hr 07/27/19 18:22 Normal Saline - IV 07/28/19 18:22 PRN PRN Hypotension during Dialysis Insulin Aspart 1 vial 07/22/19 07:00 07/28/19 12:00 Novolog Vial Sliding Scale - SQ Not Given ACHS [facility] Protocol Metoprolol Succinate 25 mg 07/22/19 10:00 07/28/19 10:39 Toprol Xl - PO 25 mg DAILY [facility] Administration Vital Signs Period Temp Pulse Resp BP Sys/Hicks Pulse Ox Last 24 Hr 97.4 F-98.8 F 83-104 18-24 110-159/52-78 94-97 Constitutional: Yes: No Distress, Calm Eyes: Yes: Conjunctiva Clear Cardiovascular: Yes: Pulse Irregular, nl s1 s2 Respiratory: Yes: CTA Bilaterally (no wheezing or rales) Gastrointestinal: Yes: Soft (NT) Edema: No no jaundice, diaphoresis not agitated alert Assessment/Plan CT head: old infarct R occipital lobe, no blood CT chest (non-con): mild interstitial thickening, trace R effusion, + cardiomegaly. large free fluid/ascites, no other abdominal pathology EKG: afib, nonsp ST-Ts, no q's (no old) echo 06/2019 nl LV function, mild conc LVH, impaired relaxation, RV nl,, RA mod dilated, mild to mod MR, mod TR, severe TR, mod to severe , mild AR tele: AF, rates controlled abdominal pain, chest pain, elevated troponin: -occurred in setting of taking new laxative -troponin 0.1 x 2 is indeterminate range, with flat trend is not c/w ACS (likely related to ESRD and/or CMP with chronic increased filling pressures given noted cardiomegaly on exam) -no further ischemia eval is warranted unless chest pain recurs -large ascites noted--volume mgmt per renal -w/u of abd pain/ascites per hospitalist history of CAD, cardiomegaly: -cont bb Afib: -new, incidental dx here -HR controlled--cont metoprolol -CHADS VASC 7 incl prior CVA - on low dose eliquis 2.5 mg BID for wt <60 kg, ESRD HTN: -cont current meds ESRD on HD: -dialysis per renal h/o CVA: -started AC for AF - moderate to severe on echo here - outpatient follow up
--- NOTE | 2019-07-28 15:54 | PN ---
Progress Note, Physician History of Present Illness: Pt seen and examined at bedside. He tolerated HD. - Current Medication List Current Medications: Active Medications Acetaminophen (Tylenol -) 650 mg PO Q4H PRN PRN Reason: PAIN LEVEL 4 - 6 Amlodipine Besylate (Norvasc -) 5 mg PO DAILY [facility] Last Admin: 07/28/19 10:39 Dose: 5 mg Documented by: Apixaban (Eliquis -) 2.5 mg PO BID [facility] Last Admin: 07/28/19 10:39 Dose: 2.5 mg Documented by: Aspirin (Ecotrin -) 81 mg PO DAILY [facility] Last Admin: 07/28/19 10:39 Dose: 81 mg Documented by: Sodium Chloride (Normal Saline -) 250 mls @ 3,000 mls/hr IV PRN PRN PRN Reason: Hypotension during Dialysis Stop: 07/28/19 18:22 Insulin Aspart (Novolog Vial Sliding Scale -) 1 vial SQ ACHS [facility]; Protocol Last Admin: 07/28/19 12:00 Dose: Not Given Documented by: Metoprolol Succinate (Toprol Xl -) 25 mg PO DAILY [facility] Last Admin: 07/28/19 10:39 Dose: 25 mg Documented by: - Objective Vital Signs: Vital Signs Temperature 98.2 F 07/28/19 14:00 Pulse Rate 92 H 07/28/19 14:00 Respiratory Rate 18 07/28/19 14:00 Blood Pressure 116/54 L 07/28/19 14:00 O2 Sat by Pulse Oximetry (%) 96 07/28/19 14:00 Constitutional: Yes: Calm Eyes: Yes: Conjunctiva Clear HENT: Yes: Atraumatic Cardiovascular: Yes: S1, S2 Respiratory: Yes: CTA Bilaterally Gastrointestinal: Yes: Soft Genitourinary: Yes: WNL Musculoskeletal: Yes: WNL Edema: No Integumentary: Yes: WNL Labs: CBC, BMP 07/28/19 06:15 07/28/19 06:15 INR, PTT INR 1.13 (0.83-1.09) H 07/21/19 18:20 Assessment/Plan Current Medications Generic Name Dose Route Start Last Admin Trade Name Freq PRN Reason Stop Dose Admin Acetaminophen 650 mg 07/21/19 22:41 Tylenol - PO Q4H PRN PAIN LEVEL 4 - 6 Amlodipine Besylate 5 mg 07/22/19 10:00 07/28/19 10:39 Norvasc - PO 5 mg DAILY [facility] Administration Apixaban 2.5 mg 07/24/19 15:05 07/28/19 10:39 Eliquis - PO 2.5 mg BID [facility] Administration Aspirin 81 mg 07/22/19 10:00 07/28/19 10:39 Ecotrin - PO 81 mg DAILY [facility] Administration Sodium Chloride 250 mls @ 3,000 mls/hr 07/27/19 18:22 Normal Saline - IV 07/28/19 18:22 PRN PRN Hypotension during Dialysis Insulin Aspart 1 vial 07/22/19 07:00 07/28/19 12:00 Novolog Vial Sliding Scale - SQ Not Given ACHS [facility] Protocol Metoprolol Succinate 25 mg 07/22/19 10:00 07/28/19 10:39 Toprol Xl - PO 25 mg DAILY [facility] Administration Impression 1. esrd 2. r/o acs 3. htn 4. cad 5. a-fib 6. hx of cva 7. ascites Plan - HD today - monitor volume status - cont UF with HD as tolerated - renal diet - monitor bp - cardio follow up - will follow
[2019-07-29] MEDS: INSULIN SLIDING SCALE (NOVOLOG) 1 VIAL SQ SCH ×4 (06:15→21:56)
--- NOTE | 2019-07-29 06:50 | PN.GI ---
GI Progress Note Subjective: NO NEW COMPLAINTS - STATUS UNCHANGED - Objective Vital Signs: Vital Signs Temperature 98.4 F 07/28/19 22:00 Pulse Rate 95 H 07/29/19 02:00 Respiratory Rate 23 H 07/29/19 02:00 Blood Pressure 137/49 L 07/29/19 02:00 O2 Sat by Pulse Oximetry (%) 97 07/28/19 21:00 Constitutional: No Distress, Calm Eyes: Yes: WNL Cardiovascular: Yes: WNL, Regular Rate and Rhythm Respiratory: Yes: WNL, Regular, CTA Bilaterally Gastrointestinal Inspection: Yes: WNL ...Auscultate: Yes: Normoactive Bowel Sounds Edema: No Labs: CBC, BMP 07/28/19 06:15 07/28/19 06:15 INR, PTT INR 1.13 (0.83-1.09) H 07/21/19 18:20 Problem List - Problems (1) Abdominal pain, vomiting, and diarrhea Assessment/Plan: - F/U HBV DNA - FURTHER EVALUATION OF ASCITES PER PRIMARY MEDICAL TEAM -- SAAG IS NOT CONSISTENT WITH PORTAL HTN -STRONGLOIDES IGG PENDING - F/U CULTURES Code(s): R10.9 - UNSPECIFIED ABDOMINAL PAIN; R11.10 - VOMITING, UNSPECIFIED; R19.7 - DIARRHEA, UNSPECIFIED (2) Ascites Code(s): R18.8 - OTHER ASCITES
[2019-07-29 08:32] LABS: BASO % 0.7 % (0-2.0); HEMATOCRIT 37.2 % (35.4-49); HEMOGLOBIN 12.6 GM/dL (11.7-16.9); LYMPH % 18.4 % (8-40); MCHC 33.9 g/dl (32.0-35.9); MEAN CELL VOLUME 97.3 fl (80-96); MEAN PLT VOLUME 8.3 fl (7.5-11.1); MONO % 12.8 % (3.8-10.2); NEUT % 47.1 % (42.8-82.8); PLATELET COUNT 182 K/MM3 (134-434); RBC 3.83 M/mm3 (4.00-5.60); RDW 14.9 % (11.9-15.9); WHITE BLOOD COUNT 7.8 K/mm3 (4.0-10.0)
[2019-07-29 08:58] LABS: ALBUMIN 2.8 g/dl (3.4-5.0); BILIRUBIN,TOTAL 0.7 mg/dL (0.2-1); BLOOD UREA NITROGEN 29.6 mg/dL (7-18); CALCIUM 8.2 mg/dL (8.5-10.1); CREATININE 5.5 mg/dL (0.55-1.3); MAGNESIUM 1.8 mg/dL (1.8-2.4); POTASSIUM 4.4 mmol/L (3.5-5.1); TOT PROT 6.9 g/dl (6.4-8.2)
[2019-07-29] MEDS: APIXABAN 2.5 MG TABLET PO SCH ×2 (09:21→21:57)
[2019-07-29] MEDS: ASPIRIN COATED 81 MG TABLET.EC PO SCH (09:21)
[2019-07-29] MEDS: amLODIPine BESYLATE 5 MG TABLET (FP) PO SCH (09:22)
[2019-07-29] MEDS: metoPROLOL SUCCINATE 25 MG TAB.SR.24H (FP) PO SCH (09:22)
--- NOTE | 2019-07-29 11:27 | PN ---
Progress Note (short form) - Note Progress Note: Chief Complaint: abd pain/cp History of Present Illness: appears comfortable, no chest pain, palps, dyspnea Current Medications Generic Name Dose Route Start Last Admin Trade Name Dorian PRN Reason Stop Dose Admin Acetaminophen 650 mg 07/21/19 22:41 Tylenol - PO Q4H PRN PAIN LEVEL 4 - 6 Amlodipine Besylate 5 mg 07/22/19 10:00 07/29/19 09:22 Norvasc - PO 5 mg DAILY [facility] Administration Apixaban 2.5 mg 07/24/19 15:05 07/29/19 09:21 Eliquis - PO 2.5 mg BID [facility] Administration Aspirin 81 mg 07/22/19 10:00 07/29/19 09:21 Ecotrin - PO 81 mg DAILY [facility] Administration Sodium Chloride 250 mls @ 3,000 mls/hr 07/27/19 18:22 Normal Saline - IV 07/28/19 18:22 PRN PRN Hypotension during Dialysis Insulin Aspart 1 vial 07/22/19 07:00 07/29/19 06:15 Novolog Vial Sliding Scale - SQ Not Given ACHS [facility] Protocol Metoprolol Succinate 25 mg 07/22/19 10:00 07/29/19 09:22 Toprol Xl - PO 25 mg DAILY [facility] Administration Vital Signs Period Temp Pulse Resp BP Sys/Hicks Pulse Ox Last 24 Hr 98.2 F-98.8 F 82-98 18-25 116-138/47-78 92-97 Constitutional: Yes: Well Nourished, No Distress, Calm Eyes: No: Ptosis, Sclera Icterus Cardiovascular: Yes: Pulse Irregular. No: JVD Respiratory: Yes: Regular. No: Accessory Muscle Use Extremities: No: Cold Edema: No Neurological: Yes: Alert. No: Seizure Psychiatric: No: Agitated CBC, BMP 07/29/19 08:05 07/29/19 08:05 Assessment/Plan CT head: old infarct R occipital lobe, no blood CT chest (non-con): mild interstitial thickening, trace R effusion, + cardiomegaly. large free fluid/ascites, no other abdominal pathology EKG: afib, nonsp ST-Ts, no q's (no old) echo 06/2019 nl LV function, mild conc LVH, impaired relaxation, RV nl,, RA mod dilated, mild to mod MR, mod TR, severe TR, mod to severe , mild AR tele: AF, rates controlled abdominal pain, chest pain, elevated troponin: -occurred in setting of taking new laxative -troponin 0.1 x 2 is indeterminate range, with flat trend is not c/w ACS (likely related to ESRD and/or CMP with chronic increased filling pressures given noted cardiomegaly on exam) -no further ischemia eval is warranted unless chest pain recurs -large ascites noted--volume mgmt per renal -w/u of abd pain/ascites per hospitalist history of CAD, cardiomegaly: -cont bb Afib: -new, incidental dx here -HR controlled--cont metoprolol -CHADS VASC 7 incl prior CVA - on low dose eliquis 2.5 mg BID for wt <60 kg, ESRD HTN: -cont current meds ESRD on HD: -dialysis per renal h/o CVA: -started AC for AF - moderate to severe on echo here - outpatient follow up
[2019-07-29 12:25] LABS: ANISOCYTOSIS 1+; MACROCYTOSIS 0; OVALOCYTE 1+; PLATELET ESTIMATE NORMAL
--- NOTE | 2019-07-29 13:09 | PN ---
Progress Note, Physician History of Present Illness: stable eosinophisl still high trending down - Current Medication List Current Medications: Active Medications Acetaminophen (Tylenol -) 650 mg PO Q4H PRN PRN Reason: PAIN LEVEL 4 - 6 Amlodipine Besylate (Norvasc -) 5 mg PO DAILY [facility] Last Admin: 07/29/19 09:22 Dose: 5 mg Documented by: Apixaban (Eliquis -) 2.5 mg PO BID [facility] Last Admin: 07/29/19 09:21 Dose: 2.5 mg Documented by: Aspirin (Ecotrin -) 81 mg PO DAILY [facility] Last Admin: 07/29/19 09:21 Dose: 81 mg Documented by: Sodium Chloride (Normal Saline -) 250 mls @ 3,000 mls/hr IV PRN PRN PRN Reason: Hypotension during Dialysis Stop: 07/28/19 18:22 Insulin Aspart (Novolog Vial Sliding Scale -) 1 vial SQ ACHS [facility]; Protocol Last Admin: 07/29/19 11:38 Dose: Not Given Documented by: Metoprolol Succinate (Toprol Xl -) 25 mg PO DAILY [facility] Last Admin: 07/29/19 09:22 Dose: 25 mg Documented by: - Objective Vital Signs: Vital Signs Temperature 98.6 F 07/29/19 12:00 Pulse Rate 82 07/29/19 12:00 Respiratory Rate 18 07/29/19 12:00 Blood Pressure 124/52 L 07/29/19 12:00 O2 Sat by Pulse Oximetry (%) 97 07/29/19 07:58 Constitutional: Yes: No Distress, Calm Cardiovascular: Yes: S1, S2 Respiratory: Yes: Regular, CTA Bilaterally Gastrointestinal: Yes: Normal Bowel Sounds, Soft Musculoskeletal: Yes: WNL Extremities: Yes: WNL Neurological: Yes: Alert Labs: CBC, BMP 07/29/19 08:05 07/29/19 08:05 INR, PTT INR 1.13 (0.83-1.09) H 07/21/19 18:20 Assessment/Plan roblem List - Problems (1) Abdominal pain, vomiting, and diarrhea Code(s): R10.9 - UNSPECIFIED ABDOMINAL PAIN; R11.10 - VOMITING, UNSPECIFIED; R19 .7 - DIARRHEA, UNSPECIFIED (2) Acute metabolic encephalopathy Code(s): G93.41 - METABOLIC ENCEPHALOPATHY (3) Acute pancreatitis Code(s): K85.90 - ACUTE PANCREATITIS WITHOUT NECROSIS OR INFECTION, UNSP Qualifiers: Pancreatitis type: unspecified pancreatitis type Acute pancreatitis complication: unspecified Qualified Code(s): K85.90 - Acute pancreatitis without necrosis or infection, unspecified (4) Ascites Code(s): R18.8 - OTHER ASCITES (5) Atrial fibrillation Code(s): I48.91 - UNSPECIFIED ATRIAL FIBRILLATION Qualifiers: Atrial fibrillation type: unspecified Qualified Code(s): I48.91 - Unspecified atrial fibrillation (6) Encephalopathy Code(s): G93.40 - ENCEPHALOPATHY, UNSPECIFIED (7) HTN (hypertension) Code(s): I10 - ESSENTIAL (PRIMARY) HYPERTENSION (8) Hyperkalemia Code(s): E87.5 - HYPERKALEMIA (9) Hypothyroid Code(s): E03.9 - HYPOTHYROIDISM, UNSPECIFIED (10) Missed dialysis Code(s): [id number] - (11) NSTEMI (non-ST elevated myocardial infarction) Assessment/Plan: Code(s): I21.4 - NON-ST ELEVATION (NSTEMI) MYOCARDIAL INFARCTION (12) Pancreatitis Code(s): K85.90 - ACUTE PANCREATITIS WITHOUT NECROSIS OR INFECTION, UNSP Qualifiers: Chronicity: acute Pancreatitis type: unspecified pancreatitis type Acute pancreatitis complication: unspecified Qualified Code(s): K85.90 - Acute pancreatitis without necrosis or infection, unspecified (14) Subclinical hypothyroidism Assessment/Plan: tsh normal, mildly increased T4. per daughter, patient not on synthoid at home. TSH to be repeated as an outpatient. Code(s): E03.9 - HYPOTHYROIDISM, UNSPECIFIED eosiniphilia plan awaiting for results continue current mgmt
--- NOTE | 2019-07-29 15:22 | PN ---
Progress Note, Physician History of Present Illness: Pt seen and examined at bedside. He is awake and appears comfortable. - Current Medication List Current Medications: Active Medications Acetaminophen (Tylenol -) 650 mg PO Q4H PRN PRN Reason: PAIN LEVEL 4 - 6 Amlodipine Besylate (Norvasc -) 5 mg PO DAILY [facility] Last Admin: 07/29/19 09:22 Dose: 5 mg Documented by: Apixaban (Eliquis -) 2.5 mg PO BID [facility] Last Admin: 07/29/19 09:21 Dose: 2.5 mg Documented by: Aspirin (Ecotrin -) 81 mg PO DAILY [facility] Last Admin: 07/29/19 09:21 Dose: 81 mg Documented by: Sodium Chloride (Normal Saline -) 250 mls @ 3,000 mls/hr IV PRN PRN PRN Reason: Hypotension during Dialysis Stop: 07/28/19 18:22 Insulin Aspart (Novolog Vial Sliding Scale -) 1 vial SQ [facility]; Protocol Last Admin: 07/29/19 11:38 Dose: Not Given Documented by: Metoprolol Succinate (Toprol Xl -) 25 mg PO DAILY [facility] Last Admin: 07/29/19 09:22 Dose: 25 mg Documented by: - Objective Vital Signs: Vital Signs Temperature 98.6 F 07/29/19 12:00 Pulse Rate 82 07/29/19 12:00 Respiratory Rate 18 07/29/19 12:00 Blood Pressure 124/52 L 07/29/19 12:00 O2 Sat by Pulse Oximetry (%) 97 07/29/19 07:58 Constitutional: Yes: Calm Eyes: Yes: Conjunctiva Clear HENT: Yes: Atraumatic Neck: Yes: Supple Cardiovascular: Yes: S1, S2 Respiratory: Yes: CTA Bilaterally Gastrointestinal: Yes: Soft Genitourinary: Yes: WNL Musculoskeletal: Yes: WNL Edema: No Labs: CBC, BMP 07/29/19 08:05 07/29/19 08:05 INR, PTT INR 1.13 (0.83-1.09) H 07/21/19 18:20 Assessment/Plan Current Medications Generic Name Dose Route Start Last Admin Trade Name Freq PRN Reason Stop Dose Admin Acetaminophen 650 mg 07/21/19 22:41 Tylenol - PO Q4H PRN PAIN LEVEL 4 - 6 Amlodipine Besylate 5 mg 07/22/19 10:00 07/29/19 09:22 Norvasc - PO 5 mg DAILY [facility] Administration Apixaban 2.5 mg 07/24/19 15:05 07/29/19 09:21 Eliquis - PO 2.5 mg BID [facility] Administration Aspirin 81 mg 07/22/19 10:00 07/29/19 09:21 Ecotrin - PO 81 mg DAILY [facility] Administration Sodium Chloride 250 mls @ 3,000 mls/hr 07/27/19 18:22 Normal Saline - IV 07/28/19 18:22 PRN PRN Hypotension during Dialysis Insulin Aspart 1 vial 07/22/19 07:00 07/29/19 11:38 Novolog Vial Sliding Scale - SQ Not Given ACHS [facility] Protocol Metoprolol Succinate 25 mg 07/22/19 10:00 07/29/19 09:22 Toprol Xl - PO 25 mg DAILY [facility] Administration Impression 1. esrd 2. r/o acs 3. htn 4. cad 5. a-fib 6. hx of cva 7. ascites Plan - pt tolerated HD yesterday - repeat labs in am - next HD on Tuesday - renal diet - monitor bp - cardio follow up - will follow
--- NOTE | 2019-07-29 16:34 | PN ---
Physical Exam: SUBJECTIVE: Patient seen and examined at the bedside. tells me that he wants to go home. OBJECTIVE: Seen and examined at bedside. Pt speaks primarily [place]. No abd pain when asked, calm at rest. bp stable. patient s/p paracentesis on 07/24/2019, abdomen soft, non distended. ------- Patient is a 73 year old male with a significant past medical history of diabetes, hypertension, ESRD (HD T//Tue), CAD s/p open heart surgery - 7 years ago, CVA. Patient presents to the ED on 07/21/2019 with abdominal pain and chest pain. Vital Signs Period Temp Pulse Resp BP Sys/Hicks Pulse Ox Last 24 Hr 98.4 F-98.6 F 78-95 18-25 118-137/47-77 97-97 GENERAL: The patient is awake, alert, in no acute distress. thin appearing HEAD: Normal with no signs of trauma. EYES: PERRL, extraocular movements intact, sclera anicteric, conjunctiva clear. No ptosis. ENT: Ears normal, nares patent, oropharynx clear without exudates NECK: Trachea midline, full range of motion, supple. LUNGS: Breath sounds equal, clear to auscultation bilaterally HEART: Regular rate and rhythm ABDOMEN: Soft, nontender, nondistended, normoactive bowel sounds EXTREMITIES: no edema. NEUROLOGICAL: gait not observed. PSYCH: Normal mood, normal affect. SKIN: Warm, dry, normal turgor, no rashes or lesions noted Laboratory Results - last 24 hr 07/28/19 07/28/19 07/29/19 17:06 21:35 06:09 WBC RBC Hgb Hct MCV MCH MCHC RDW Plt Count MPV Absolute Neuts (auto) Neutrophils % Neutrophils % (Manual) Band Neutrophils % Lymphocytes % Lymphocytes % (Manual) Monocytes % Monocytes % (Manual) Eosinophils % Eosinophils % (Manual) Basophils % Basophils % (Manual) Myelocytes % (Man) Promyelocytes % (Man) Blast Cells % (Manual) Nucleated RBC % Metamyelocytes Hypochromia Platelet Estimate Polychromasia Poikilocytosis Anisocytosis Microcytosis Macrocytosis Ovalocytes Sodium Potassium Chloride Carbon Dioxide Anion Gap BUN Creatinine Est GFR (CKD-EPI)AfAm Est GFR (CKD-EPI)NonAf POC Glucometer 171 198 117 Random Glucose Calcium Magnesium Total Bilirubin AST ALT Alkaline Phosphatase Total Protein Albumin 07/29/19 07/29/19 08:05 08:05 WBC 7.8 RBC 3.83 L Hgb 12.6 Hct 37.2 MCV 97.3 H MCH 33.0 MCHC 33.9 RDW 14.9 Plt Count 182 MPV 8.3 Absolute Neuts (auto) 3.7 Neutrophils % 47.1 Neutrophils % (Manual) 55.0 Band Neutrophils % 0.0 Lymphocytes % 18.4 D Lymphocytes % (Manual) 17.0 D Monocytes % 12.8 H Monocytes % (Manual) 9 Eosinophils % 21.0 H* Eosinophils % (Manual) 19.0 H Basophils % 0.7 Basophils % (Manual) 0.0 Myelocytes % (Man) 0 Promyelocytes % (Man) 0 Blast Cells % (Manual) 0 Nucleated RBC % 0 Metamyelocytes 0 Hypochromia 0 Platelet Estimate Normal Polychromasia 1+ Poikilocytosis 0 Anisocytosis 1+ Microcytosis 1+ Macrocytosis 0 Ovalocytes 1+ Sodium 138 Potassium 4.4 Chloride 100 Carbon Dioxide 30 Anion Gap 8 BUN 29.6 H Creatinine 5.5 H Est GFR (CKD-EPI)AfAm 10.82 Est GFR (CKD-EPI)NonAf 9.33 POC Glucometer Random Glucose 115 H Calcium 8.2 L Magnesium 1.8 Total Bilirubin 0.7 AST 11 L ALT 10 L Alkaline Phosphatase 138 H Total Protein 6.9 Albumin 2.8 L Active Medications Generic Name Dose Route Start Last Admin Trade Name Freq PRN Reason Stop Dose Admin Acetaminophen 650 mg 07/21/19 22:41 Tylenol - PO Q4H PRN PAIN LEVEL 4 - 6 Amlodipine Besylate 5 mg 07/22/19 10:00 07/29/19 09:22 Norvasc - PO 5 mg DAILY [facility] Administration Apixaban 2.5 mg 07/24/19 15:05 07/29/19 09:21 Eliquis - PO 2.5 mg BID [facility] Administration Aspirin 81 mg 07/22/19 10:00 07/29/19 09:21 Ecotrin - PO 81 mg DAILY [facility] Administration Sodium Chloride 250 mls @ 3,000 mls/hr 07/27/19 18:22 Normal Saline - IV 07/28/19 18:22 PRN PRN Hypotension during Dialysis Insulin Aspart 1 vial 07/22/19 07:00 07/29/19 11:38 Novolog Vial Sliding Scale - SQ Not Given ACHS [facility] Protocol Metoprolol Succinate 25 mg 07/22/19 10:00 07/29/19 09:22 Toprol Xl - PO 25 mg DAILY [facility] Administration ASSESSMENT/PLAN: Problem List - Problems (1) Abdominal pain, vomiting, and diarrhea Assessment/Plan: resolved no finding on CT hep panel results noted Code(s): R10.9 - UNSPECIFIED ABDOMINAL PAIN; R11.10 - VOMITING, UNSPECIFIED; R19.7 - DIARRHEA, UNSPECIFIED (2) Acute metabolic encephalopathy Assessment/Plan: not as baseline as per family on admission. patient more awake and alert. alternating between [place] and [place]an no acute finding on HCT mostly likely d/t uremic state c/w HD neuro checks c/t monitor Code(s): G93.41 - METABOLIC ENCEPHALOPATHY (3) Acute pancreatitis Assessment/Plan: amylase [address] Code(s): K85.90 - ACUTE PANCREATITIS WITHOUT NECROSIS OR INFECTION, UNSP Qualifiers: Pancreatitis type: unspecified pancreatitis type Acute pancreatitis complication: unspecified Qualified Code(s): K85.90 - Acute pancreatitis without necrosis or infection, unspecified (4) Ascites Assessment/Plan: large amt of ascites in CT s/p 3 liter removal per IR, primary cause of abdominal ascites renal vs cardiac cause? Code(s): R18.8 - OTHER ASCITES (5) Atrial fibrillation Assessment/Plan: new onset. heart rate controlled on metoprolol. on eliquis 2.5mg bid. Code(s): I48.91 - UNSPECIFIED ATRIAL FIBRILLATION Qualifiers: Atrial fibrillation type: unspecified Qualified Code(s): I48.91 - Unspecified atrial fibrillation (6) Encephalopathy Code(s): G93.40 - ENCEPHALOPATHY, UNSPECIFIED (7) HTN (hypertension) Assessment/Plan: controlled on toprol 25 xl Code(s): I10 - ESSENTIAL (PRIMARY) HYPERTENSION (8) Hyperkalemia Assessment/Plan: within normal limits. monitor daily Code(s): E87.5 - HYPERKALEMIA (9) Missed dialysis Assessment/Plan: dialysis on t, th, sat Code(s): [id number] - (10) NSTEMI (non-ST elevated myocardial infarction) Assessment/Plan: EKG with afib rates controlled, nonspecific ST-T abn (no prior) troponin 0.1, 0.1 CKD, trop will likely remain elevated cardiology following Code(s): I21.4 - NON-ST ELEVATION (NSTEMI) MYOCARDIAL INFARCTION (11) Pancreatitis Assessment/Plan: GI consulted Code(s): K85.90 - ACUTE PANCREATITIS WITHOUT NECROSIS OR INFECTION, UNSP Qualifiers: Chronicity: acute Pancreatitis type: unspecified pancreatitis type Acute pancreatitis complication: unspecified Qualified Code(s): K85.90 - Acute pancreatitis without necrosis or infection, unspecified (12) Suspected COVID-19 virus infection Assessment/Plan: not detected Code(s): Z20.828 - CONTACT W AND EXPOSURE TO OTH VIRAL COMMUNICABLE DISEASES (13) Subclinical hypothyroidism Assessment/Plan: tsh normal, mildly increased T4. per daughter, patient not on synthoid at home. TSH to be repeated as an outpatient. Code(s): E03.9 - HYPOTHYROIDISM, UNSPECIFIED (14) Prophylactic measure Assessment/Plan: FEN Fluids: start clear diet, no additional fluids on HD Electrolytes: monitor & replete as needed Nutrition: renal diet DVT moderate risk c/w apixaban, asa Dispo Maintain as inpatient full code Code(s): Z29.9 - ENCOUNTER FOR PROPHYLACTIC MEASURES, UNSPECIFIED Visit type - Emergency Visit Emergency Visit: Yes ED Registration Date: 07/21/19 Care time: The patient presented to the Emergency Department on the above date and was hospitalized for further evaluation of their emergent condition. - New Patient This patient is new to me today: No - Critical Care Critical Care patient: No - Discharge Referral Referred to [facility] No
[2019-07-30] MEDS: INSULIN SLIDING SCALE (NOVOLOG) 1 VIAL SQ SCH ×3 (06:28→16:29)
[2019-07-30 09:18] LABS: BASO % 0.6 % (0-2.0); EOS % 19.3 % (0-4.5); HEMATOCRIT 37.9 % (35.4-49); HEMOGLOBIN 12.8 GM/dL (11.7-16.9); LYMPH % 18.6 % (8-40); MCH 33.2 pg (25.7-33.7); MCHC 33.9 g/dl (32.0-35.9); MEAN CELL VOLUME 97.9 fl (80-96); MEAN PLT VOLUME 8.7 fl (7.5-11.1); MONO % 10.5 % (3.8-10.2); PLATELET COUNT 204 K/MM3 (134-434); RBC 3.87 M/mm3 (4.00-5.60); RDW 15.3 % (11.9-15.9); WHITE BLOOD COUNT 8.8 K/mm3 (4.0-10.0)
[2019-07-30 09:46] LABS: BILIRUBIN,TOTAL 0.6 mg/dL (0.2-1); BLOOD UREA NITROGEN 48.5 mg/dL (7-18); CALCIUM 8.5 mg/dL (8.5-10.1); MAGNESIUM 1.9 mg/dL (1.8-2.4); POTASSIUM 4.3 mmol/L (3.5-5.1); TOT PROT 7.3 g/dl (6.4-8.2)
[2019-07-30 09:54] LABS: CREATININE 7.4 mg/dL (0.55-1.3)
[2019-07-30] MEDS: ASPIRIN COATED 81 MG TABLET.EC PO SCH (10:02)
[2019-07-30] MEDS: APIXABAN 2.5 MG TABLET PO SCH (10:03)
[2019-07-30] MEDS: metoPROLOL SUCCINATE 25 MG TAB.SR.24H (FP) PO SCH (10:03)
[2019-07-30] MEDS: amLODIPine BESYLATE 5 MG TABLET (FP) PO SCH (10:03)
--- NOTE | 2019-07-30 12:20 | PN ---
Progress Note (short form) - Note Progress Note: Chief Complaint: abd pain/cp History of Present Illness: appears comfortable, not communicating much, asking to go home Current Medications Generic Name Dose Route Start Last Admin Trade Name Dorian PRN Reason Stop Dose Admin Acetaminophen 650 mg 07/21/19 22:41 Tylenol - PO Q4H PRN PAIN LEVEL 4 - 6 Amlodipine Besylate 5 mg 07/22/19 10:00 07/30/19 10:03 Norvasc - PO 5 mg DAILY [facility] Administration Apixaban 2.5 mg 07/24/19 15:05 07/30/19 10:03 Eliquis - PO 2.5 mg BID [facility] Administration Aspirin 81 mg 07/22/19 10:00 07/30/19 10:02 Ecotrin - PO 81 mg DAILY [facility] Administration Sodium Chloride 250 mls @ 3,000 mls/hr 07/27/19 18:22 Normal Saline - IV 07/28/19 18:22 PRN PRN Hypotension during Dialysis Insulin Aspart 1 vial 07/22/19 07:00 07/30/19 06:28 Novolog Vial Sliding Scale - SQ Not Given ACHS [facility] Protocol Metoprolol Succinate 25 mg 07/22/19 10:00 07/30/19 10:03 Toprol Xl - PO 25 mg DAILY [facility] Administration Vital Signs Period Temp Pulse Resp BP Sys/Hicks Pulse Ox Last 24 Hr 97.4 F-98.1 F 78-98 16-29 121-147/62-77 83-99 Constitutional: Yes: Well Nourished, No Distress, Calm Eyes: No: Ptosis, Sclera Icterus Cardiovascular: Yes: Pulse Irregular. No: JVD Respiratory: Yes: Regular. No: Accessory Muscle Use Extremities: No: Cold Edema: No Neurological: Yes: Alert. No: Seizure Psychiatric: No: Agitated CBC, BMP 07/30/19 08:50 07/30/19 08:50 Assessment/Plan CT head: old infarct R occipital lobe, no blood CT chest (non-con): mild interstitial thickening, trace R effusion, + cardiomegaly. large free fluid/ascites, no other abdominal pathology EKG: afib, nonsp ST-Ts, no q's (no old) echo 06/2019 nl LV function, mild conc LVH, impaired relaxation, RV nl,, RA mod dilated, mild to mod MR, mod TR, severe TR, mod to severe , mild AR tele: AF, rates controlled abdominal pain, chest pain, elevated troponin: -occurred in setting of taking new laxative -troponin 0.1 x 2 is indeterminate range, with flat trend is not c/w ACS (likely related to ESRD and/or CMP with chronic increased filling pressures given noted cardiomegaly on exam) -no further ischemia eval is warranted unless chest pain recurs -large ascites noted--volume mgmt per renal -w/u of abd pain/ascites per hospitalist history of CAD, cardiomegaly: -cont bb Afib: -new, incidental dx here -HR controlled--cont metoprolol -CHADS VASC 7 incl prior CVA - on low dose eliquis 2.5 mg BID for wt <60 kg, ESRD HTN: -cont current meds ESRD on HD: -dialysis per renal h/o CVA: -started AC for AF - moderate to severe on echo here - outpatient follow up
--- NOTE | 2019-07-30 14:49 | PN ---
Progress Note, Physician History of Present Illness: stable eosinophisl still high trending down - Current Medication List Current Medications: Active Medications Acetaminophen (Tylenol -) 650 mg PO Q4H PRN PRN Reason: PAIN LEVEL 4 - 6 Amlodipine Besylate (Norvasc -) 5 mg PO DAILY [facility] Last Admin: 07/30/19 10:03 Dose: 5 mg Documented by: Apixaban (Eliquis -) 2.5 mg PO BID [facility] Last Admin: 07/30/19 10:03 Dose: 2.5 mg Documented by: Aspirin (Ecotrin -) 81 mg PO DAILY [facility] Last Admin: 07/30/19 10:02 Dose: 81 mg Documented by: Sodium Chloride (Normal Saline -) 250 mls @ 3,000 mls/hr IV PRN PRN PRN Reason: Hypotension during Dialysis Stop: 07/28/19 18:22 Insulin Aspart (Novolog Vial Sliding Scale -) 1 vial SQ ACHS [facility]; Protocol Last Admin: 07/30/19 12:33 Dose: Not Given Documented by: Metoprolol Succinate (Toprol Xl -) 25 mg PO DAILY [facility] Last Admin: 07/30/19 10:03 Dose: 25 mg Documented by: - Objective Vital Signs: Vital Signs Temperature 97.4 F L 07/30/19 12:00 Pulse Rate 88 07/30/19 12:00 Respiratory Rate 17 07/30/19 12:00 Blood Pressure 147/70 07/30/19 12:00 O2 Sat by Pulse Oximetry (%) 99 07/30/19 12:00 Constitutional: Yes: No Distress, Calm Cardiovascular: Yes: S1, S2 Respiratory: Yes: Regular, CTA Bilaterally Gastrointestinal: Yes: Normal Bowel Sounds, Soft, Ascites Musculoskeletal: Yes: WNL Extremities: Yes: WNL Neurological: Yes: Alert Psychiatric: Yes: Alert Labs: CBC, BMP 07/30/19 08:50 07/30/19 08:50 INR, PTT INR 1.13 (0.83-1.09) H 07/21/19 18:20 Assessment/Plan roble List - Problems (1) Abdominal pain, vomiting, and diarrhea Code(s): R10.9 - UNSPECIFIED ABDOMINAL PAIN; R11.10 - VOMITING, UNSPECIFIED; R19.7 - DIARRHEA, UNSPECIFIED (2) Acute metabolic encephalopathy Code(s): G93.41 - METABOLIC ENCEPHALOPATHY (3) Acute pancreatitis Code(s): K85.90 - ACUTE PANCREATITIS WITHOUT NECROSIS OR INFECTION, UNSP Qualifiers: Pancreatitis type: unspecified pancreatitis type Acute pancreatitis complication: unspecified Qualified Code(s): K85.90 - Acute pancreatitis without necrosis or infection, unspecified (4) Ascites Code(s): R18.8 - OTHER ASCITES (5) Atrial fibrillation Code(s): I48.91 - UNSPECIFIED ATRIAL FIBRILLATION Qualifiers: Atrial fibrillation type: unspecified Qualified Code(s): I48.91 - Unspecified atrial fibrillation (6) Encephalopathy Code(s): G93.40 - ENCEPHALOPATHY, UNSPECIFIED (7) HTN (hypertension) Code(s): I10 - ESSENTIAL (PRIMARY) HYPERTENSION (8) Hyperkalemia Code(s): E87.5 - HYPERKALEMIA (9) Hypothyroid Code(s): E03.9 - HYPOTHYROIDISM, UNSPECIFIED (10) Missed dialysis Code(s): [id number] - (11) NSTEMI (non-ST elevated myocardial infarction) Assessment/Plan: Code(s): I21.4 - NON-ST ELEVATION (NSTEMI) MYOCARDIAL INFARCTION (12) Pancreatitis Code(s): K85.90 - ACUTE PANCREATITIS WITHOUT NECROSIS OR INFECTION, UNSP Qualifiers: Chronicity: acute Pancreatitis type: unspecified pancreatitis type Acute pancreatitis complication: unspecified Qualified Code(s): K85.90 - Acute pancreatitis without necrosis or infection, unspecified (14) Subclinical hypothyroidism Assessment/Plan: tsh normal, mildly increased T4. per daughter, patient not on synthoid at home. TSH to be repeated as an outpatient. Code(s): E03.9 - HYPOTHYROIDISM, UNSPECIFIED eosiniphilia plan awaiting for results follow results of strongylo awaiting urine cx rest as per the team results need to be followed
--- NOTE | 2019-07-30 15:58 | DS ---
Physical Exam: SUBJECTIVE: Patient seen and examined. asking to go home. OBJECTIVE: Seen and examined at bedside. Pt speaks primarily Swiss. No abd pain when asked, calm at rest. bp stable. patient s/p paracentesis on 07/24/2019, abdomen soft, non distended. ------- Patient is a 73 year old male with a significant past medical history of diabetes, hypertension, ESRD (HD T//Tue), CAD s/p open heart surgery - 7 years ago, CVA. Patient presents to the ED on 07/21/2019 with abdominal pain and chest pain. Vital Signs Period Temp Pulse Resp BP Sys/Hicks Pulse Ox Last 24 Hr 97.4 F-98.1 F 78-98 16-29 121-147/62-77 83-99 PHYSICAL EXAM GENERAL: The patient is awake, alert, in no acute distress. thin appearing HEAD: Normal with no signs of trauma. EYES: PERRL, extraocular movements intact, sclera anicteric, conjunctiva clear. No ptosis. ENT: Ears normal, nares patent, oropharynx clear without exudates NECK: Trachea midline, full range of motion, supple. LUNGS: Breath sounds equal, clear to auscultation bilaterally HEART: Regular rate and rhythm ABDOMEN: Soft, nontender, nondistended, normoactive bowel sounds EXTREMITIES: no edema. NEUROLOGICAL: gait not observed. PSYCH: Normal mood, normal affect. SKIN: Warm, dry, normal turgor, no rashes or lesions noted LABS Laboratory Results - last 24 hr 07/29/19 07/29/19 07/29/19 11:31 16:36 21:49 WBC RBC Hgb Hct MCV MCH MCHC RDW Plt Count MPV Absolute Neuts (auto) Neutrophils % Lymphocytes % Monocytes % Eosinophils % Basophils % Nucleated RBC % Sodium Potassium Chloride Carbon Dioxide Anion Gap BUN Creatinine Est GFR (CKD-EPI)AfAm Est GFR (CKD-EPI)NonAf POC Glucometer 126 146 117 Random Glucose Calcium Magnesium Total Bilirubin AST ALT Alkaline Phosphatase Total Protein Albumin 07/30/19 07/30/19 07/30/19 06:25 08:50 08:50 WBC 8.8 RBC 3.87 L Hgb 12.8 Hct 37.9 MCV 97.9 H MCH 33.2 MCHC 33.9 RDW 15.3 Plt Count 204 MPV 8.7 Absolute Neuts (auto) 4.5 Neutrophils % 51.0 Lymphocytes % 18.6 Monocytes % 10.5 H Eosinophils % 19.3 H Basophils % 0.6 Nucleated RBC % 0 Sodium 138 Potassium 4.3 Chloride 100 Carbon Dioxide 28 Anion Gap 10 BUN 48.5 H Creatinine 7.4 H* Est GFR (CKD-EPI)AfAm 7.56 Est GFR (CKD-EPI)NonAf 6.52 POC Glucometer 120 Random Glucose 132 H Calcium 8.5 Magnesium 1.9 Total Bilirubin 0.6 AST 11 L ALT 12 L Alkaline Phosphatase 167 H Total Protein 7.3 Albumin 3.0 L 07/30/19 12:32 WBC RBC Hgb Hct MCV MCH MCHC RDW Plt Count MPV Absolute Neuts (auto) Neutrophils % Lymphocytes % Monocytes % Eosinophils % Basophils % Nucleated RBC % Sodium Potassium Chloride Carbon Dioxide Anion Gap BUN Creatinine Est GFR (CKD-EPI)AfAm Est GFR (CKD-EPI)NonAf POC Glucometer 139 Random Glucose Calcium Magnesium Total Bilirubin AST ALT Alkaline Phosphatase Total Protein Albumin HOSPITAL COURSE: Date of Admission:07/21/19 Date of Discharge: 07/30/19 Minutes to complete discharge: 45 Discharge Summary Problems reviewed: Yes Reason For Visit: MISSED DIALYSIS, ATRIAL FIBRILLATION, COMBINED Current Active Problems Abdominal pain, vomiting, and diarrhea (Acute) Acute metabolic encephalopathy (Acute) Acute pancreatitis (Acute) Altered mental status (Acute) Ascites (Acute) Ascites (Acute) Atrial fibrillation (Acute) Encephalopathy (Acute) HTN (hypertension) (Acute) Hyperkalemia (Acute) Hypothyroid (Acute) Missed dialysis (Acute) Missed dialysis (Acute) NSTEMI (non-ST elevated myocardial infarction) (Acute) Pancreatitis (Acute) Prophylactic measure (Acute) Subclinical hypothyroidism (Acute) Suspected COVID-19 virus infection (Acute) Condition: Improved - Instructions Diet, Activity, Other Instructions: Mr. Byrd: You were admitted to [facility] for abdominal pain and chest pain. During your stay, you were evaluated by internal audit manager and by a assistant program director. Here are our discharge instructions. Abdominal pain You are tolerating your diet and you have had no further pain in your abdomen. We have removed 3 liters of fluid from your abdomen. This fluid is called ascites. Please follow up with the internal audit manager by calling their office to make an appointment for the results of the ascites fluid test as we sent samples to the lab. Atrial fibrillation What is atrial fibrillation? During your stay, we found that you have an irregular heart rate called atrial fibrillation. This heart rate puts you at risk for strokes. We have controlled your heart rate with a medication called metoprolol. Please take this medication along with a medication called Eliquis. Eliquis is a blood thinner that will prevent strokes. Dialysis Continue your dialysis as your we doing in your home dialysis center. Diabetes: Continue your home Januvia medications and keep track of your blood sugars. FOLLOW UPS: It is important that you follow up with your primary care doctor on discharge for post hospital follow up and to repeat your blood work including your thyroid function tests as your tests here were elevated. We have not started you on medications for this during your hospital stay. You will need a repeat of your thyroid blood tests with your primary care doctor. Please follow up with the assistant program director as you will need further workup for your heart. HERE IS YOUR NEW MEDICATION LIST CONTINUE TAKING atorvastain 40mg ONCE PER DAY STOP TAKING metoprolol 100 MG ONCE PER DAY AND START METOPROLOL 25MG ONCE PER DAY CONTINUE TAKING THE januvia 25mg daily CONTINUE TAKING montelukast 10mg STOP TAKING plavix 75mg qd BUT FIRST CHECK WITH YOUR PRIMARY CARE DOCTOR START TAKING Eliquis 2.5mg TWICE PER DAY START TAKING Amlodopine 5mg once per day Referrals: Selwyn Goodwin MD [Staff Physician] - Callie Burgos DO [Staff Physician] - Disposition: HOME - Home Medications Comprehensive Discharge Medication List: Ambulatory Orders Amlodipine Besylate [Norvasc -] 5 mg PO DAILY #90 tablet 07/30/19 Apixaban [Eliquis -] 2.5 mg PO BID #90 tablet 07/30/19 Aspirin Coated [Ecotrin -] 81 mg PO DAILY #90 tablet.ec 07/30/19 Metoprolol Succinate [Toprol XL -] 25 mg PO DAILY #90 tab.sr.24h 07/30/19 Problem List - Problems (1) Abdominal pain, vomiting, and diarrhea Assessment/Plan: resolved no finding on CT hep panel results noted Code(s): R10.9 - UNSPECIFIED ABDOMINAL PAIN; R11.10 - VOMITING, UNSPECIFIED; R19.7 - DIARRHEA, UNSPECIFIED (2) Acute metabolic encephalopathy Assessment/Plan: resolved. patient more awake and alert. alternating between Swiss and Czech no acute finding on HCT mostly likely d/t uremic state c/w HD neuro checks c/t monitor Code(s): G93.41 - METABOLIC ENCEPHALOPATHY (3) Acute pancreatitis Assessment/Plan: amylase [address] Code(s): K85.90 - ACUTE PANCREATITIS WITHOUT NECROSIS OR INFECTION, UNSP Qualifiers: Pancreatitis type: unspecified pancreatitis type Acute pancreatitis complication: unspecified Qualified Code(s): K85.90 - Acute pancreatitis without necrosis or infection, unspecified (4) Ascites Assessment/Plan: large amt of ascites in CT s/p 3 liter removal per IR as per GI, ascites likely secondary to chronic hepatitis b. Code(s): R18.8 - OTHER ASCITES (5) Atrial fibrillation Assessment/Plan: new onset. heart rate controlled on metoprolol. on eliquis 2.5mg bid. Code(s): I48.91 - UNSPECIFIED ATRIAL FIBRILLATION Qualifiers: Atrial fibrillation type: unspecified Qualified Code(s): I48.91 - Unspecified atrial fibrillation (6) Encephalopathy Code(s): G93.40 - ENCEPHALOPATHY, UNSPECIFIED (7) HTN (hypertension) Assessment/Plan: controlled on toprol 25 xl Code(s): I10 - ESSENTIAL (PRIMARY) HYPERTENSION (8) Hyperkalemia Assessment/Plan: within normal limits. Code(s): E87.5 - HYPERKALEMIA (9) Missed dialysis Assessment/Plan: dialysis on t, th, sat Code(s): QTG8553 - (10) NSTEMI (non-ST elevated myocardial infarction) Assessment/Plan: EKG with afib rates controlled, nonspecific ST-T abn (no prior) troponin 0.1, 0.1 CKD, trop will likely remain elevated cardiology following Code(s): I21.4 - NON-ST ELEVATION (NSTEMI) MYOCARDIAL INFARCTION (11) Pancreatitis Assessment/Plan: GI consulted Code(s): K85.90 - ACUTE PANCREATITIS WITHOUT NECROSIS OR INFECTION, UNSP Qualifiers: Chronicity: acute Pancreatitis type: unspecified pancreatitis type Acute pancreatitis complication: unspecified Qualified Code(s): K85.90 - Acute pancreatitis without necrosis or infection, unspecified (12) Suspected COVID-19 virus infection Assessment/Plan: not detected Code(s): Z20.828 - CONTACT W AND EXPOSURE TO OTH VIRAL COMMUNICABLE DISEASES (13) Subclinical hypothyroidism Assessment/Plan: tsh normal, mildly increased T4. per daughter, patient not on synthoid at home. TSH to be repeated as an outpatient. Code(s): E03.9 - HYPOTHYROIDISM, UNSPECIFIED (14) Prophylactic measure Assessment/Plan: Code(s): Z29.9 - ENCOUNTER FOR PROPHYLACTIC MEASURES, UNSPECIFIED This patient is new to me today: Yes Date on this admission: 08/07/19 Emergency Visit: Yes ED Registration Date: 07/21/19 Care time: The patient presented to the Emergency Department on the above date and was hospitalized for further evaluation of their emergent condition. Critical Care patient: No - Discharge Referral Referred to [facility] No
[2019-07-30 16:23] VITALS: BP 119/58; PULSE 76; TEMP 97.5
--- NOTE | 2019-07-30 17:44 | PN ---
Progress Note, Physician History of Present Illness: Pt seen and examined at bedside. He is awake and appears comfortable. - Current Medication List Current Medications: Active Medications Acetaminophen (Tylenol -) 650 mg PO Q4H PRN PRN Reason: PAIN LEVEL 4 - 6 Amlodipine Besylate (Norvasc -) 5 mg PO DAILY [facility] Last Admin: 07/30/19 10:03 Dose: 5 mg Documented by: Apixaban (Eliquis -) 2.5 mg PO BID [facility] Last Admin: 07/30/19 10:03 Dose: 2.5 mg Documented by: Aspirin (Ecotrin -) 81 mg PO DAILY [facility] Last Admin: 07/30/19 10:02 Dose: 81 mg Documented by: Sodium Chloride (Normal Saline -) 250 mls @ 3,000 mls/hr IV PRN PRN PRN Reason: Hypotension during Dialysis Stop: 07/28/19 18:22 Insulin Aspart (Novolog Vial Sliding Scale -) 1 vial SQ [facility]; Protocol Last Admin: 07/30/19 16:29 Dose: 2 units Documented by: Metoprolol Succinate (Toprol Xl -) 25 mg PO DAILY [facility] Last Admin: 07/30/19 10:03 Dose: 25 mg Documented by: - Objective Vital Signs: Vital Signs Temperature 97.5 F L 07/30/19 16:00 Pulse Rate 76 07/30/19 16:00 Respiratory Rate 17 07/30/19 16:00 Blood Pressure 119/58 L 07/30/19 16:00 O2 Sat by Pulse Oximetry (%) 99 07/30/19 12:00 Constitutional: Yes: Calm Eyes: Yes: Conjunctiva Clear HENT: Yes: Atraumatic Neck: Yes: Supple Cardiovascular: Yes: S1, S2 Respiratory: Yes: CTA Bilaterally Gastrointestinal: Yes: Soft Musculoskeletal: Yes: Muscle Weakness Edema: No Integumentary: Yes: WNL Labs: CBC, BMP 07/30/19 08:50 07/30/19 08:50 INR, PTT INR 1.13 (0.83-1.09) H 07/21/19 18:20 Assessment/Plan Current Medications Generic Name Dose Route Start Last Admin Trade Name Freq PRN Reason Stop Dose Admin Acetaminophen 650 mg 07/21/19 22:41 Tylenol - PO Q4H PRN PAIN LEVEL 4 - 6 Amlodipine Besylate 5 mg 07/22/19 10:00 07/30/19 10:03 Norvasc - PO 5 mg DAILY TRUNG Administration Apixaban 2.5 mg 07/24/19 15:05 07/30/19 10:03 Eliquis - PO 2.5 mg BID TRUNG Administration Aspirin 81 mg 07/22/19 10:00 07/30/19 10:02 Ecotrin - PO 81 mg DAILY TRUNG Administration Sodium Chloride 250 mls @ 3,000 mls/hr 07/27/19 18:22 Normal Saline - IV 07/28/19 18:22 PRN PRN Hypotension during Dialysis Insulin Aspart 1 vial 07/22/19 07:00 07/30/19 16:29 Novolog Vial Sliding Scale - SQ 2 units ACHS TRUNG Administration Protocol Metoprolol Succinate 25 mg 07/22/19 10:00 07/30/19 10:03 Toprol Xl - PO 25 mg DAILY TRUNG Administration Impression 1. esrd 2. r/o acs 3. htn 4. cad 5. a-fib 6. hx of cva 7. ascites Plan - next HD tomorrow - cont current meds - d/c planning per primary team - cont renal diet - monitor bp - cardio follow up - will follow
--- NOTE | 2019-08-02 11:42 | PATH ---
Cytology Non-Gynecological Report Patient Name: LELE HUSTON Med. Rec. 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 NEGATIVE FOR MALIGNANT CELLS. MESOTHELIAL CELLS, MACROPHAGES AND LYMPHOCYTES PRESENT. Electronically Signed Lenora Oliver M.D. Gross Description A. Approximately 50cc of yellow fluid received fixed in 50% alcohol. One cytospin and one cellblock prepared. B. Approximately 3000cc of yellow fluid received fresh. One cytospin and one cellblock prepared.
== END 2019-07-30 17:50 | disposition home or self-care (01) | DRG 441 ==
LOC: JER 16:15 → JERBED 18:37 → JICU 23:27
PROVIDERS: ADMIT Internal Medicine; ATTEND Nurse Practitioner Family
PROC: 0W9G3ZX Drainage of Peritoneal Cavity, Percutaneous Approach, Diagnostic (ICD-10-PCS; principal; 2019-07-24)
DX: B18.1 Chronic viral hepatitis B without delta-agent (principal); N18.6 End stage renal disease; I21.4 Non-ST elevation (NSTEMI) myocardial infarction; K85.90 Acute pancreatitis without necrosis or infection, unspecified; G93.41 Metabolic encephalopathy; K52.1 Toxic gastroenteritis and colitis; R18.8 Other ascites; I12.0 Hypertensive chronic kidney disease with stage 5 chronic kidney disease or end stage renal disease; J90 Pleural effusion, not elsewhere classified; I25.10 Atherosclerotic heart disease of native coronary artery without angina pectoris; R41.82 Altered mental status, unspecified; E13.22 Other specified diabetes mellitus with diabetic chronic kidney disease; I48.91 Unspecified atrial fibrillation; R07.9 Chest pain, unspecified; R10.9 Unspecified abdominal pain; I51.7 Cardiomegaly; T47.4X5A Adverse effect of other laxatives, initial encounter; E03.9 Hypothyroidism, unspecified; R11.10 Vomiting, unspecified; E87.5 Hyperkalemia; I35.0 Nonrheumatic aortic (valve) stenosis; Z99.2 Dependence on renal dialysis; Z95.1 Presence of aortocoronary bypass graft; Z86.73 Personal history of transient ischemic attack (TIA), and cerebral infarction without residual deficits
CPT/HCPCS: 36415; 70450-TC; 71045-TC-FY; 71250-TC; 74176-TC; 76942-TC; 80053; 82042; 82140; 82150; 82465; 82550; 82728; 82945; 82962; 83605; 83615; 83690; 83735; 84100; 84157; 84439; 84443; 84478; 84484; 85025; 85027; 85379; 85610; 85730; 86140; 86682; 86704; 86706; 86707; 86708; 86709; 86803; 87070; 87075; 87102; 87116; 87177; 87205; 87206; 87209; 87210; 87340; 88108; 88305-TC; 93005; 93010; 93306-TC; 97116-GP; 97162-GP; 99285-25; U0003

== ENCOUNTER 2019-10-21 16:47 | Inpatient (IN) | payer OTHER ==
--- NOTE | 2019-10-21 17:23 | PDOC ---
History of Present Illness - General Chief Complaint: Pain Stated Complaint: GENERALIZED WEAKNESS Time Seen by Provider: 10/21/19 17:21 Past History - Medical History Allergies/Adverse Reactions: Allergies Allergy/AdvReac Type Severity Reaction Status Date / Time No Known Allergies Allergy Verified 10/21/19 17:09 Home Medications: Ambulatory Orders Amlodipine Besylate [Norvasc -] 5 mg PO DAILY #90 tablet 07/30/19 Apixaban [Eliquis -] 2.5 mg PO BID #90 tablet 07/30/19 Aspirin Coated [Ecotrin -] 81 mg PO DAILY #90 tablet.ec 07/30/19 Metoprolol Succinate [Toprol XL -] 25 mg PO DAILY #90 tab.sr.24h 07/30/19 Anemia: No Asthma: No Cancer: No Cardiac Disorders: Yes CVA: Yes COPD: No CHF: No Dementia: No Diabetes: Yes Dialysis: Yes GI Disorders: No Disorders: No HTN: Yes Hypercholesterolemia: No Liver Disease: No Seizures: No Thyroid Disease: No - Surgical History Abdominal Surgery: No Appendectomy: No Cardiac Surgery: Yes Cholecystectomy: Yes Lung Surgery: No Neurologic Surgery: No Orthopedic Surgery: No - Psycho-Social/Smoking History Smoking History: Never smoked Have you smoked in the past 12 months: No Information on smoking cessation initiated: No - Substance Abuse Hx (Audit-C & DAST Scrn) How often the patient has a drink containing alcohol: Never Score: In Men: 4 or > Positive; In Women: 3 or > Positive: 0 Screen Result (Pos requires Nsg. Audit-10AR): Negative In the last yr the pt used illegal drug/Rx for NonMed reason: No Score: Yes response is considered Positive: 0 Screen Result (Positive result requires Nsg. DAST-10): Negative *Physical Exam - Vital Signs Last Vital Signs Temp Pulse Resp BP Pulse Ox 99.0 F 77 16 117/55 L 100 10/21/19 17:00 10/21/19 17:00 10/21/19 17:00 10/21/19 17:00 10/21/19 17:00 ED Treatment Course - LABORATORY CBC & Chemistry Diagram: 10/26/19 06:34 10/26/19 06:34 Medical Decision Making - Medical Decision Making 10/21/19 17:38 HPI: 74yo M hx diabetes, hypertension, ESRD (HD T/Th/Sat; hx ascites and paracentesis), Afib, CAD s/p open heart surgery 7 years ago, and CVA presents to ED c/o constipation (LBM 1 wk ago), abdominal pain and distension, decreased PO intake, and generalized weakness x1wk. Pt's abdomen increasing in size despite decreased PO intake, so daughter believes not enough fluid being taken off. Pt speaks sri lankan only and is significantly hard of hearing so cannot even hear phone for translation. Pt states "pain" and points to distended abdomen. Remaining hx and complaints per daughter on phone. Last HD yesterday. ROS: Constitutional: Positive for generalized weakness. Negative for chills, fever, diaphoresis. HENT: Negative for sore throat, rhinorrhea, congestion. Eyes: Negative for visual disturbance. Respiratory: Negative for shortness of breath, cough, and wheezing. Cardiovascular: Negative for chest pain, palpitations, and leg swelling. Gastrointestinal: Positive for constipation, abdominal pain, decreased PO intake. Negative for blood in stool, diarrhea, nausea, and vomiting. Genitourinary: Negative for dysuria, flank pain, and hematuria. Musculoskeletal: Negative for myalgias, back pain, and neck pain. Skin: Negative for rash. Neurological: Negative for light-headedness, dizziness, vertigo, syncope, weakness, numbness and headaches. Psychiatric/Behavioral: Negative for behavioral problems and confusion. PE: Gen: Alert, NAD, comfortable-appearing. HEENT: PERRL, EOMI, MMM, NCAT. No conjunctival pallor. Sclera are non-icteric. Oropharynx is clear. CV: Regular rate and rhythm. No murmurs, rubs, or gallops. PULM: No resp distress. +crackles diffuse b/l lungs, no wheezes, or rhonchi. ABD: soft, nontender ascites, no rebound tenderness or guarding, no CVA tenderne ss. BACK: No TTP of c/t/l-spine. No step-offs or deformities. MSK: No bony deformities. 2+ pulses in all extremities. NEURO: AAOx3. PERRL. No gross CN deficits. Strength and sensation grossly intact throughout. EXTREMITIES: No cyanosis. No clubbing. No edema. No calf tenderness. PSYCH: Normal mood and thought pattern. SKIN: Warm and dry. Normal capillary refill. No rashes. No jaundice. MDM: 74yo M hx diabetes, hypertension, ESRD (HD T/Th/Sat; hx ascites and paracentesis), Afib, CAD s/p open heart surgery 7 years ago, and CVA presents to ED c/o constipation (LBM 1 wk ago), abdominal pain and distension, decreased PO intake, and generalized weakness x1wk. Hemodynamically stable, afebrile, neurologically intact. Ddx: Afib, ACS/CA, ARF/CKD, constipation, gastritis, UTI, SBP, infection, metab olic derangement, anemia -Consult called to [facility] EKG: Afib w/PVCs, vent rate 72bpm, QTc 440ms, new TWIs in III/V3, new TW flattening in II/V6 CXR: large heart, vascular congestion Labs. CKD, no concerning findings 10/21/19 18:57 Trop 6.32 Pt denies chest pain. -Aspirin 325 -Consult called to [facility] -Repeat EKG 10/21/19 19:[address] De La Vega. -Give home doses of metoprolol and eliquis -No heparin protocol -Admit tele 10/21/19 19:09 Dr Lacy spoke with Renal - wants admission for immediate dialysis. -Admit tele 10/21/19 19:23 CTAP reviewed: abdominal pelvic ascites, no acute pathology Signed out to night team. []urine, lact, repeat EKG, admit dialysis Discharge - Discharge Information Problems reviewed: Yes Clinical Impression/Diagnosis: Ascites, Abdominal pain, Elevated troponin Atrial fibrillation Qualifiers: Atrial fibrillation type: longstanding persistent Qualified Code(s): I48.11 - Longstanding persistent atrial fibrillation Condition: Stable Disposition: HOME - Admission Yes - Follow up/Referral - Patient Discharge Instructions - Post Discharge Activity
[2019-10-21 17:42] LABS: BASO % 0.7 % (0-2.0); EOS % 15.4 % (0-4.5); HEMATOCRIT 32.8 % (35.4-49); HEMOGLOBIN 11.1 GM/dL (11.7-16.9); MCH 32.5 pg (25.7-33.7); MCHC 33.9 g/dl (32.0-35.9); MEAN CELL VOLUME 96.1 fl (80-96); MEAN PLT VOLUME 7.9 fl (7.5-11.1); MONO % 13.6 % (3.8-10.2); NEUT % 57.3 % (42.8-82.8); PLATELET COUNT 262 K/MM3 (134-434); RBC 3.42 M/mm3 (4.00-5.60); RDW 14.8 % (11.9-15.9)
[2019-10-21 17:55] LABS: INR 1.14 (0.83-1.09); PROTHROMBIN TIME (PATIENT) 13.5 SEC (9.7-13.0)
[2019-10-21 17:58] LABS: ACTIVATED PTT 33.7 SECONDS (25.2-36.5)
[2019-10-21 18:26] LABS: BILIRUBIN,TOTAL 0.5 mg/dL (0.2-1); BLOOD UREA NITROGEN 37.1 mg/dL (7-18); CALCIUM 8.9 mg/dL (8.5-10.1); CREATININE 4.8 mg/dL (0.55-1.3); MAGNESIUM 2.1 mg/dL (1.8-2.4); PHOSPHOROUS 2.5 mg/dL (2.5-4.9); TOT PROT 7.9 g/dl (6.4-8.2)
--- NOTE | 2019-10-21 18:46 | PDOC ---
Documentation entered by Anders Fine SCRIBE, acting as scribe for Beth Lacy MD. Beth Lacy MD: This documentation has been prepared by the Deisi saez inAndesr SCRIBE, under my direction and personally reviewed by me in its entirety. I confirm that the documentation accurately reflects all work, treatment, procedures, and medical decision making performed by me. Attending Attestation - Resident Resident Name: Ashley Chapa - ED Attending Attestation I have performed the following: I have examined & evaluated the patient, The case was reviewed & discussed with the resident, I agree w/resident's findings & plan, Exceptions are as noted - HPI HPI: 10/21/19 18:49 The patient is a 74 year old male with a significant past medical history of DM, HTN, ESRD (HD T//Tue), CAD s/p open heart surgery - 7 years ago, CVA who presents to ED for evaluation of constipation that began one week ago. The patient reports his LBM was one week ago. He endorses abdominal pain and distension, decreased appetite, and generalized weakness. Last HD yesterday. The patient denies chest/back pain, cough, and shortness of breath. Denies fever, chills, nausea, vomiting, and/or any symptoms. Denies any other symptoms. Allergies: NKDA - Physicial Exam PE: 10/21/19 18:49 GENERAL: Awake, alert, and fully oriented, in no acute distress HEAD: No signs of trauma EYES: PERRLA, EOMI, sclera anicteric, conjunctiva clear ENT: Auricles normal inspection, hearing grossly normal, nares patent, oropharynx clear without exudates. Moist mucosa NECK: Normal ROM, supple, no lymphadenopathy, JVD, or masses LUNGS: Breath sounds equal, clear to auscultation bilaterally. No wheezes, and no crackles HEART: Regular rate and rhythm, normal S1 and S2, no murmurs, rubs or gallops ABDOMEN: +abdominal distension with ascites. Soft, nontender, normoactive bowel sounds. No guarding, no rebound. No masses EXTREMITIES: Normal range of motion, no edema. No clubbing or cyanosis. No cords, erythema, or tenderness NEUROLOGICAL: Cranial nerves II through XII grossly intact. Normal speech, normal gait SKIN: Warm, Dry, normal turgor, no rashes or lesions noted. - Medical Decision Making 10/23/19 08:53 Pt presents to the ED with increasing abdominal distention, constipation and decreased appetite. Troponin 6. Patient speaks only telugu and is extremely hard of hearing, so communication is difficult, but seems to deny chest pain. EKG shows flattened t waves but no evidence of acute ischemia. Cardiology recommends home meds and serial enzymes. Will admit to medicine. Given abdominal pain, will check CT abdomen pelvis. Discharge - Discharge Information Problems reviewed: Yes Clinical Impression/Diagnosis: Atrial fibrillation, Ascites, Abdominal pain, Elevated troponin Condition: Stable - Follow up/Referral - Patient Discharge Instructions - Post Discharge Activity
[2019-10-21] MEDS ORDERED: ASPIRIN 81 MG CHEWABLE TABLETS PO ONE (18:56)
[2019-10-21] MEDS ORDERED: APIXABAN 2.5 MG TABLET PO ONE (19:07)
[2019-10-21] MEDS ORDERED: metoPROLOL SUCCINATE 25 MG TAB.SR.24H (FP) PO ONE (19:07)
--- NOTE | 2019-10-21 19:24 | PDOC ---
*Physical Exam - Vital Signs Last Vital Signs Temp Pulse Resp BP Pulse Ox 99.0 F 77 16 117/55 L 100 10/21/19 17:00 10/21/19 17:00 10/21/19 17:00 10/21/19 17:00 10/21/19 17:00 ED Treatment Course - LABORATORY CBC & Chemistry Diagram: 10/24/19 06:25 10/24/19 06:25 - ADDITIONAL ORDERS Additional order review: Laboratory Results 10/21/19 10/21/19 10/21/19 17:01 17:01 17:01 PT with INR 13.50 H INR 1.14 H PTT (Actin FS) 33.7 Sodium 137 Potassium 4.0 Chloride 100 Carbon Dioxide 27 Anion Gap 9 BUN 37.1 H Creatinine 4.8 H Est GFR (CKD-EPI)AfAm 12.66 Est GFR (CKD-EPI)NonAf 10.93 Random Glucose 158 H Calcium 8.9 Phosphorus 2.5 Magnesium 2.1 Total Bilirubin 0.5 AST 16 ALT 12 L Alkaline Phosphatase 171 H Creatine Kinase 49 Troponin I 6.32 H* Total Protein 7.9 Albumin 3.0 L Lipase 345 TSH 3.52 D Free T4 1.37 H 10/21/19 17:01 RBC 3.42 L MCV 96.1 H MCHC 33.9 RDW 14.8 MPV 7.9 Neutrophils % 57.3 Lymphocytes % 13.0 D Monocytes % 13.6 H Eosinophils % 15.4 H Basophils % 0.7 Medical Decision Making - Medical Decision Making Pt signed out by day team - Dr. Chapa 74yo M hx diabetes, hypertension, ESRD (HD T//Tue; hx ascites and paracentesis), Afib, CAD s/p open heart surgery 7 years ago, and CVA presents to ED c/o constipation (LBM 1 wk ago), abdominal pain and distension, decreased PO intake, and generalized weakness x1wk. PE notable for crackles diffuse b/l lungs, nontender ascites Trop 6.32, given aspirin, discussed case w/ Dr De La Vega, given home doses of metoprolol and eliquis, No heparin protocol Dr Lacy spoke with Renal - wants admission for immediate dialysis. CTAP: abdominal pelvic ascites, no acute pathology pending urine, lact, repeat EKG, admit dialysis EKG: Afib, HR 73bpm, QRS 98ms, QTc 464ms Lactate: 6.32 Disposition Admit Spoke with Renal who stated that patient will not be dialyzed until tomorrow. Discharge - Discharge Information Problems reviewed: Yes Clinical Impression/Diagnosis: Ascites, Abdominal pain, Elevated troponin Atrial fibrillation Qualifiers: Atrial fibrillation type: longstanding persistent Qualified Code(s): I48.11 - Longstanding persistent atrial fibrillation Condition: Stable - Follow up/Referral - Patient Discharge Instructions - Post Discharge Activity
[2019-10-21] MEDS ORDERED: ASPIRIN 81 MG CHEWABLE TABLETS ONE (19:26)
[2019-10-21] MEDS ORDERED: APIXABAN 2.5 MG TABLET ONE (19:26)
[2019-10-21] MEDS ORDERED: metoPROLOL SUCCINATE 25 MG TAB.SR.24H (FP) ONE (19:26)
--- NOTE | 2019-10-21 19:43 | PN ---
<Rosario Fuchs - Last Filed: 10/23/19 17:18> Teaching Attending Note ATTENDING PHYSICIAN STATEMENT I saw and evaluated the patient. I reviewed the resident's note and discussed the case with the resident. I agree with the resident's findings and plan as documented. SUBJECTIVE: OBJECTIVE: ASSESSMENT AND PLAN: <Sy Keita - Last Filed: 10/24/19 19:29> Teaching Attending Note Name of Resident: Rosario Fuchs ATTENDING PHYSICIAN STATEMENT I saw and evaluated the patient. I reviewed the resident's note and discussed the case with the resident. I agree with the resident's findings and plan as documented. SUBJECTIVE: Patient is a 74 year old man with a PMH of NIDDM, Hypertension, Hearing impairment, Pancreatitis, ESRD on hemodialysis (//Tue), Ascites (s/p paracentesis), Afib (on Eliquis), CVA and CAD (s/p open heart surgery 7 years ago) presents to ER with complaint of constipation for 1 week, abdominal pain and distension. He has associated decreased oral intake and generalized weakness for 1 week. Patient's abdomen has been increasing in size despite decreased PO intake, so daughter believes not enough fluid is being taken off during dialysis. Most of the information was obtained from the daughter. Patient is hearing impaired and speaks German only so cannot even use the phone for translation. Patient states "pain" and points to distended abdomen. Patient was hemodialyzed yesterday. There is no reported chest pain, shortness of breath, headache, palpitations, dizziness, fever, chills, nausea, vomiting, diarrhea, dysuria, frequency, urgency, melena, hematochezia or hematuria. No reported history of alcohol, tobacco or illicit drug use. No sick contacts or recent travels. Family history is unremarkable. OBJECTIVE: Alert Vital Signs Period Temp Pulse Resp BP Sys/Hicks Pulse Ox Last 24 Hr 99.0 F 77 16 117/55 100-100 HEENT: No Jaundice, eye redness or discharge, PERRLA, EOMI. Normocephalic, atraumatic. External ears are normal and hearing is impaired. No nasal discharge. Neck: Supple, nontender. No palpable adenopathy or thyromegaly. No JVD Chest: Good effort. Clear to auscultation and percussion. Heart: Regular. No S3, rub or murmur Abdomen: Distended, +Ascites; soft, nontender and no HSM. No rebound or guarding. Normal bowel sounds. Ext: Peripheral pulses intact. No leg edema. Left upper arm AV fistula. Skin: Warm and dry. No petechiae, rash or ecchymosis. Neuro: Alert. Oriented to person. No tremors or asterexis; CN 2-12 grossly intact. Sensation grossly intact in all four extremities and DTR are symmetric. Psych: Appropriate mood and affect. Good insight. Home Medications Medication Instructions Recorded Amlodipine Besylate [Norvasc -] 5 mg PO DAILY #90 tablet 07/30/19 Apixaban [Eliquis -] 2.5 mg PO BID #90 tablet 07/30/19 Aspirin Coated [Ecotrin -] 81 mg PO DAILY #90 tablet.ec 07/30/19 Metoprolol Succinate [Toprol XL -] 25 mg PO DAILY #90 tab.sr.24h 07/30/19 Abnormal Lab Results 10/21/19 10/21/19 10/21/19 17:01 17:01 17:01 RBC 3.42 L Hgb 11.1 L Hct 32.8 L MCV 96.1 H Monocytes % 13.6 H Eosinophils % 15.4 H PT with INR 13.50 H INR 1.14 H BUN 37.1 H Creatinine 4.8 H Random Glucose 158 H ALT 12 L Alkaline Phosphatase 171 H Troponin I 6.32 H* Albumin 3.0 L Free T4 10/21/19 10/21/19 17:01 21:10 RBC Hgb Hct MCV Monocytes % Eosinophils % PT with INR INR BUN Creatinine Random Glucose ALT Alkaline Phosphatase Troponin I 6.75 H* Albumin Free T4 1.37 H Current Medications Generic Name Dose Route Start Last Admin Trade Name Freq PRN Reason Stop Dose Admin Acetaminophen 1,000 mg 10/21/19 21:42 Ofirmev Injection - IVPB Q8H PRN PAIN LEVEL 1-5 Sodium Chloride 250 mls @ 3,000 mls/hr 10/21/19 20:11 Normal Saline - IV 10/22/19 20:11 PRN PRN Hypotension during Dialysis Cefotaxime Sodium 2,000 mg/ 50 mls @ 100 mls/hr 10/21/19 22:15 Dextrose IVPB Q8H TRUNG Protocol Insulin Aspart 1 vial 10/22/19 07:00 Novolog Vial Sliding Scale - SQ ACHS [facility] Protocol ASSESSMENT AND PLAN: 1. NSTEMI/Rule out Peritonitis/ESRD - No active chest pain. EKG shows Afib at 73/minute and QTc 464 with new T wave inversion in III, V3 and T wave flattening in II and V6. Changed compared to prior EKG from 07/21/2019. Initial troponin is 6.32. CXR shows thoracotomy kimberli, cardiomegaly with no evidence of acute lung disease but obscured left costophrenic angle. CT abdomen/pelvis shows ascites but no other acute abnormality. ER staff prescribed Eliquis, Toprol XL, Aspirin 324 mg and IV NS for the patient. Cardiology being consulted. Will admit to telemetry, trend troponin, repeat EKG, get ECHO, fasting lipids, diagnostic/therapeutic paracentesis, treat empirically for peritonitis with IV Cefotaxime 2 gm q 8hrs, give saline enema and consult Nephrology for ESRD care. Consult ID. If peritonitis is ruled out will explore portal vein thrombosis. Viral testing for COVID-19 ordered and patient placed on airborne, droplet and contact isolation. Will continue comprehensive care for all of patients comorbid conditions. 2. DM For now, we will hold the home diabetes drugs and implement sliding scale insulin regimen. Provide comprehensive diabetes care with patient teaching and counseling about the importance of adherence to prescribed diabetes regimen, euglycemia, eye care and foot care. 3. Anemia Likely partly due to ESRD. Will do basic anemia work up including serial stool guaiacs, reticulocyte count and iron studies. 4. Hypoalbuminemia - Possibly due to combined effects of malnutrition and inflammation associated with comorbid conditions. Will ensure adequate dietary protein intake and also consult pharmaceutical sales representative. Urinalysis pending. 5. Hypertension Will restart suitable outpatient antihypertensive drugs when clinically appropriate. Subsequently, will revise regimen to ensure [id number] excellent BP control. Patient counseled on the injurious effects of uncontrolled hypertension. Nonpharmacologic measures to control hypertension like weight loss, salt restriction and exercise stressed. Importance of adherence to treatment regimen and attainment of normotension emphasized. 6. DVT prophylaxis - On Eliquis. 7. Advance directives - Full code
--- NOTE | 2019-10-21 19:51 | HP ---
CHIEF COMPLAINT: Constipation and abdominal pain x 03/06 Informant: Daughter by phone PCP: HISTORY OF PRESENT ILLNESS: The patient is a 74 year old male with a significant past medical history of DM, HTN, ESRD on dialysis 3x weekly, CAD with CABG, CVA who presents to ED for evaluation of constipation that began about one week ago. Patient's LBM was a week ago. He also has abdominal pain of similar duration with loss of appetite, early satiety, generalized weakness and SOB only on ambulation and is able take only about 10-15 steps daily. He denies nausea, vomiting, diarrhea, fever,chills chest pain, wheezing, cough, dysuria, urgency and hematuria. Last HD yesterday. ER course was notable for: (1)N/S (2)Apixaban, Aspirin,, metoprolol (3) REVIEW OF SYSTEMS Negative except as above Recent Travel:None PAST SURGICAL HISTORY:CABG, Cholecystectomy Social History: Smoking: Stopped more than 15yrs ago. Smoked 1/2PPD for more than 30yrs Alcohol:Occasionally previously, none anymore Drugs: None Allergies: No Known Allergies Allergy (Verified 10/21/19 17:09) HOME MEDICATIONS: Home Medications Medication Instructions Recorded Amlodipine Besylate [Norvasc -] 5 mg PO DAILY #90 tablet 07/30/19 Apixaban [Eliquis -] 2.5 mg PO BID #90 tablet 07/30/19 Aspirin Coated [Ecotrin -] 81 mg PO DAILY #90 tablet.ec 07/30/19 Metoprolol Succinate [Toprol XL -] 25 mg PO DAILY #90 tab.sr.24h 07/30/19 HEENT: Mildly pale. Normocephalic, atraumatic. Neck: Supple, nontender. No palpable adenopathy. No JVD Chest: Vesicular breathsounds on all lung zone Heart: S1 S2, Systolic murmur, no rub or gallop Abdomen: Distended, +Ascites; soft, nontender and no HSM. No rebound or guarding. Ext: A-V shunt on medial Rt arm. Peripheral pulses intact. No pedal edema. Skin: Warm and dry. No petechiae, rash or ecchymosis. Neuro: Alert and oriented to person. No tremors or asterexis; Sensation grossly intact in all four extremities and DTR are symmetric. Psych: Appropriate mood and affect. Laboratory Results - last 24 hr 10/21/19 10/21/19 10/21/19 17:01 17:01 17:01 WBC 7.0 RBC 3.42 L Hgb 11.1 L Hct 32.8 L MCV 96.1 H MCH 32.5 MCHC 33.9 RDW 14.8 Plt Count 262 D MPV 7.9 Absolute Neuts (auto) 4.0 Neutrophils % 57.3 Lymphocytes % 13.0 D Monocytes % 13.6 H Eosinophils % 15.4 H Basophils % 0.7 Nucleated RBC % 0 PT with INR 13.50 H INR 1.14 H PTT (Actin FS) 33.7 Sodium 137 Potassium 4.0 Chloride 100 Carbon Dioxide 27 Anion Gap 9 BUN 37.1 H Creatinine 4.8 H Est GFR (CKD-EPI)AfAm 12.66 Est GFR (CKD-EPI)NonAf 10.93 Random Glucose 158 H Calcium 8.9 Phosphorus 2.5 Magnesium 2.1 Total Bilirubin 0.5 AST 16 ALT 12 L Alkaline Phosphatase 171 H Creatine Kinase 49 Troponin I 6.32 H* Total Protein 7.9 Albumin 3.0 L Lipase 345 TSH Free T4 10/21/19 17:01 WBC RBC Hgb Hct MCV MCH MCHC RDW Plt Count MPV Absolute Neuts (auto) Neutrophils % Lymphocytes % Monocytes % Eosinophils % Basophils % Nucleated RBC % PT with INR INR PTT (Actin FS) Sodium Potassium Chloride Carbon Dioxide Anion Gap BUN Creatinine Est GFR (CKD-EPI)AfAm Est GFR (CKD-EPI)NonAf Random Glucose Calcium Phosphorus Magnesium Total Bilirubin AST ALT Alkaline Phosphatase Creatine Kinase Troponin I Total Protein Albumin Lipase TSH 3.52 D Free T4 1.37 H ASSESSMENT/PLAN: The patient is a 74 year old male with a significant past medical history of DM, HTN, ESRD on dialysis 3x weekly, CAD with CABG, CVA who presents to ED for evaluation of constipation that began about one week ago. Patient's LBM was a week ago. #ABDOMINAL PAIN/DISTENTION -Dialysis dependent ESRD -Ascites with + shifting dullness -Renal consulted for dialysis in AM -Paracentesis for peritoneal drain and SAAG assessment; Patient has history of SAAG < 1.1 with unknown cause likely due to ESRD vs maligancy -Patient has hx of Hep B exposure 2/2 to blood product -Daily weight -Strict I/O with water restriction -UA if patient makes urine -Ceftriaxone 2g daily for SBP prophylaxis - No indication for albumin at this time given low suspicion for SBP #NSTEMI: -Troponin 6.32 -Left arm pain but of 3 weeks -Hx of NM with CABG -Consult [employer] [facility] who recommended that we continue patient on Metoprolol, aspirin, eliquis and repeat/trend troponins. The machine erector also said there thre is no need for transfer or plavix at this time as and she is not worried about the ekg and troponin since troponin can be inflated in ESRD. #Afib, rate controlled: -Patient was diagnosed of Afib recently -On Metoprolol for rate control -On Eliquis for clot prevention #LEFT HAND PAIN: -Painful cord btw left thumb and index finger -Ofirmev IV prescribed #THYROID: -Raised T4 -Normal TSH -F/U with fingerprint expert #FEN: -Implement strict I/O -Monitor and Replete Electrolyte prn -Sodium restricted #DISPOSITION: -Admit and monitor in Tele -Continue meds as prescribed -Follow cardiology recommendation -DVT: On patient eliquis Family Medical History Family History: Unremarkable Visit type - Medication Review Med list reviewed for High Risk Meds patients 65 and older: Yes - Emergency Visit Emergency Visit: Yes ED Registration Date: 10/21/19 Care time: The patient presented to the Emergency Department on the above date and was hospitalized for further evaluation of their emergent condition. - New Patient This patient is new to me today: Yes Date on this admission: 10/21/19 - Critical Care Critical Care patient: No ATTENDING PHYSICIAN STATEMENT I saw and evaluated the patient. I reviewed the resident's note and discussed the case with the resident. I agree with the resident's findings and plan as documented. SUBJECTIVE: OBJECTIVE: ASSESSMENT AND PLAN:
[2019-10-21] MEDS ORDERED: SODIUM CHLORIDE 250 ML IV PRN (20:11)
--- NOTE | 2019-10-21 20:16 | CON.NEP ---
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: CVA - Alcohol/Substance Use Hx Alcohol Use: No - Smoking History Smoking history: Never smoked Have you smoked in the past 12 months: No Home Medications - Allergies Allergies/Adverse Reactions: Allergies Allergy/AdvReac Type Severity Reaction Status Date / Time No Known Allergies Allergy Verified 10/21/19 17:09 - Home Medications Home Medications: Ambulatory Orders Amlodipine Besylate [Norvasc -] 5 mg PO DAILY #90 tablet 07/30/19 Apixaban [Eliquis -] 2.5 mg PO BID #90 tablet 07/30/19 Aspirin Coated [Ecotrin -] 81 mg PO DAILY #90 tablet.ec 07/30/19 Metoprolol Succinate [Toprol XL -] 25 mg PO DAILY #90 tab.sr.24h 07/30/19 Nephrology Consult - Height Height: 5 ft 8 in - Weight Weight: 185 lb - BMI Body Mass Index (BMI): 28.1 - Lab Results CBC,BMP: CBC, BMP 10/21/19 17:01 10/21/19 17:01 Anion Gap: Anion Gap Anion Gap 9 MMOL/L (8-16) 10/21/19 17:01 - Physical Examination Vital Signs: Vital Signs Temperature 99.0 F 10/21/19 17:00 Pulse Rate 77 10/21/19 17:00 Respiratory Rate 16 10/21/19 17:00 Blood Pressure 117/55 L 10/21/19 17:00 O2 Sat by Pulse Oximetry (%) 100 10/21/19 17:00 Constitutional: Yes: Well Nourished, No Distress, Calm Eyes: Yes: WNL, Conjunctiva Clear, EOM Intact HENT: Yes: WNL, Atraumatic, Normocephalic Neck: Yes: WNL, Supple, Trachea Midline Cardiovascular: Yes: WNL, Regular Rate and Rhythm Respiratory: Yes: WNL, Regular, CTA Bilaterally, Rales (left base) Gastrointestinal: Yes: WNL, Normal Bowel Sounds Renal/: Yes: WNL Access for Hemodialysis: AV Fistula Musculoskeletal: Yes: WNL Extremities: Yes: WNL Edema: No Peripheral Pulses WNL: No Integumentary: Yes: WNL Neurological: Yes: Alert Psychiatric: Yes: WNL, Alert Assessment/Plan ESRD ON HD TTS S/P ABD CT W CONTRAST NO SYMPTOM OF PULM CONGESTION PENDING ADMISSION TO MONITORED BED FOR ELEVATED TNI PLAN- HD ORDERS ENTERED
[2019-10-21] MEDS ORDERED: ACETAMINOPHEN 1000 MG/100 ML VIAL (NON FORMULARY) IVPB PRN (21:42)
[2019-10-21] MEDS ORDERED: CEFOTAXIME SODIUM 2,000 MG in DEXTROSE 5%-WATER - 50 ML IVPB SCH (22:15)
[2019-10-22 00:50] LABS: N-TERMINAL BNP 46893.7 pg/ml (5-450)
[2019-10-22] MEDS ORDERED: cefTRIAXone 2 GM/100 ML BAG (PRE-DOCKED) IVPB SCH (01:15)
[2019-10-22] MEDS ORDERED: CEFTRIAXONE 2 GM/100 ML BAG IVPB ONE (01:39)
[2019-10-22] MEDS ORDERED: METOPROLOL TARTRATE 25 MG TABLET (FP) PO ONE (05:30)
[2019-10-22] MEDS: INSULIN SLIDING SCALE (NOVOLOG) 1 VIAL SQ SCH ×4 (06:14→21:54)
[2019-10-22 07:32] LABS: BASO % 0.7 % (0-2.0); EOS % 15.5 % (0-4.5); HEMATOCRIT 30.4 % (35.4-49); HEMOGLOBIN 10.5 GM/dL (11.7-16.9); LYMPH % 15.4 % (8-40); MCH 32.5 pg (25.7-33.7); MCHC 34.5 g/dl (32.0-35.9); MEAN CELL VOLUME 94.2 fl (80-96); MEAN PLT VOLUME 8.1 fl (7.5-11.1); MONO % 12.4 % (3.8-10.2); PLATELET COUNT 254 K/MM3 (134-434); RBC 3.23 M/mm3 (4.00-5.60); RDW 14.7 % (11.9-15.9); WHITE BLOOD COUNT 7.4 K/mm3 (4.0-10.0)
[2019-10-22 07:54] LABS: ALBUMIN 2.7 g/dl (3.4-5.0); BLOOD UREA NITROGEN 41.2 mg/dL (7-18); CALCIUM 8.6 mg/dL (8.5-10.1); CREATININE 5.1 mg/dL (0.55-1.3); MAGNESIUM 1.9 mg/dL (1.8-2.4); POTASSIUM 3.7 mmol/L (3.5-5.1)
[2019-10-22 07:58] LABS: BILIRUBIN,TOTAL 0.4 mg/dL (0.2-1); PHOSPHOROUS 2.9 mg/dL (2.5-4.9)
[2019-10-22 09:29] LABS: ALBUMIN 2.7 g/dl (3.4-5.0); BILIRUBIN,TOTAL 0.6 mg/dL (0.2-1); BLOOD UREA NITROGEN 43.3 mg/dL (7-18); CALCIUM 8.4 mg/dL (8.5-10.1); CREATININE 5.3 mg/dL (0.55-1.3); MAGNESIUM 1.9 mg/dL (1.8-2.4); POTASSIUM 3.7 mmol/L (3.5-5.1)
--- NOTE | 2019-10-22 09:52 | CON.CARD ---
Consult Consult Specialty:: Cardiology Referred by:: Hospitalist Service Reason for Consultation:: Cardiac evaluation - History of Present Illness Chief Complaint: Generalized weakness, abdominal discomfort, constipation and elevated troponin History of Present Illness: Patient is a 74 year old male ([place] descent) with underlying history of ESRD on HD, HTN, Diabetes Mellitus, CAD s/p CABG, angina pectoris, CVA and AF on DOAC/Eliquis who presented with complaints of constipation, decreased PO intake, abdominal pain and generalized weakness. Currently he is awake with language barrier and is being dialyzed this morning. He does not appear to be having chest pain, shortness of breath or palpitations. No fever or chills. Troponin was elevated and peaked at 7.0 and now 6.29. He has not complained of chest pain or other heart symptoms according to his daughter. No headache. 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: CVA Cardio/Vascular: Yes: AFIB, CAD (CABG), HTN Renal/: Yes: Renal Failure (HD) Endocrine: Yes: Diabetes Mellitus - Past Surgical History Past Surgical History: Yes: CABG - Alcohol/Substance Use Hx Alcohol Use: Yes (Previously) - Smoking History Smoking history: Former smoker Have you smoked in the past 12 months: No If you are a former smoker, when did you quit?: about 15 years ago Home Medications - Allergies Allergies/Adverse Reactions: Allergies Allergy/AdvReac Type Severity Reaction Status Date / Time No Known Allergies Allergy Verified 10/21/19 17:09 - Home Medications Home Medications: Ambulatory Orders Amlodipine Besylate [Norvasc -] 5 mg PO DAILY #90 tablet 07/30/19 Apixaban [Eliquis -] 2.5 mg PO BID #90 tablet 07/30/19 Aspirin Coated [Ecotrin -] 81 mg PO DAILY #90 tablet.ec 07/30/19 Metoprolol Succinate [Toprol XL -] 25 mg PO DAILY #90 tab.sr.24h 07/30/19 Family Medical History Family History: Unable to Obtain Review of Systems - Review of Systems Cardiovascular: denies: Chest Pain, Palpitations, Shortness of Breath Gastrointestinal: reports: Abdominal Pain, Constipation Neurological: denies: Headache, Seizure, Syncope Vital Signs: Vital Signs Temperature 98.4 F 10/22/19 07:45 Pulse Rate 68 10/22/19 08:15 Respiratory Rate 18 10/22/19 08:15 Blood Pressure 115/55 L 10/22/19 08:15 O2 Sat by Pulse Oximetry (%) 96 10/22/19 06:00 Neck: Yes: Supple Respiratory: Yes: Diminished Gastrointestinal: Yes: Normal Bowel Sounds, Soft. No: Tenderness Cardiovascular: Yes: Pulse Irregular JVD: No PMI: Non-Displaced Heart Sounds: Yes: S1, S2 Murmur: Yes: Systolic Murmur, Grade 1 Edema: No - Other Data Labs, Other Data: CBC, BMP 10/22/19 05:48 10/22/19 07:45 INR, PTT INR 1.14 (0.83-1.09) H 10/21/19 17:01 Troponin, BNP 10/21/19 10/21/19 10/21/19 17:01 21:10 23:44 Troponin I 6.32 H* 6.75 H* B-Natriuretic Peptide 27347.7 H 10/22/19 10/22/19 02:41 05:48 Troponin I 7.02 H* 6.29 H* B-Natriuretic Peptide Troponin, BNP Laboratory Results - last 24 hr 10/21/19 10/21/19 10/21/19 17:01 17:01 17:01 WBC 7.0 RBC 3.42 L Hgb 11.1 L Hct 32.8 L MCV 96.1 H MCH 32.5 MCHC 33.9 RDW 14.8 Plt Count 262 D MPV 7.9 Absolute Neuts (auto) 4.0 Neutrophils % 57.3 Lymphocytes % 13.0 D Monocytes % 13.6 H Eosinophils % 15.4 H Basophils % 0.7 Nucleated RBC % 0 Retic Count PT with INR 13.50 H INR 1.14 H PTT (Actin FS) 33.7 Sodium 137 Potassium 4.0 Chloride 100 Carbon Dioxide 27 Anion Gap 9 BUN 37.1 H Creatinine 4.8 H Est GFR (CKD-EPI)AfAm 12.66 Est GFR (CKD-EPI)NonAf 10.93 POC Glucometer Random Glucose 158 H Hemoglobin A1c % Lactic Acid Calcium 8.9 Phosphorus 2.5 Magnesium 2.1 Iron TIBC Iron Saturation Unsaturated IBC Ferritin Total Bilirubin 0.5 AST 16 ALT 12 L Alkaline Phosphatase 171 H Creatine Kinase 49 Troponin I 6.32 H* B-Natriuretic Peptide Total Protein 7.9 Albumin 3.0 L Triglycerides Cholesterol Total LDL Cholesterol HDL Cholesterol Lipase 345 Vitamin B12 Serum Folate TSH Free T4 10/21/19 10/21/19 10/21/19 17:01 19:50 21:08 WBC RBC Hgb Hct MCV MCH MCHC RDW Plt Count MPV Absolute Neuts (auto) Neutrophils % Lymphocytes % Monocytes % Eosinophils % Basophils % Nucleated RBC % Retic Count PT with INR INR PTT (Actin FS) Sodium Potassium Chloride Carbon Dioxide Anion Gap BUN Creatinine Est GFR (CKD-EPI)AfAm Est GFR (CKD-EPI)NonAf POC Glucometer 124 Random Glucose Hemoglobin A1c % Lactic Acid 1.1 Calcium Phosphorus Magnesium Iron TIBC Iron Saturation Unsaturated IBC Ferritin Total Bilirubin AST ALT Alkaline Phosphatase Creatine Kinase Troponin I B-Natriuretic Peptide Total Protein Albumin Triglycerides Cholesterol Total LDL Cholesterol HDL Cholesterol Lipase Vitamin B12 Serum Folate TSH 3.52 D Free T4 1.37 H 10/21/19 10/21/19 10/22/19 21:10 23:44 02:41 WBC RBC Hgb Hct MCV MCH MCHC RDW Plt Count MPV Absolute Neuts (auto) Neutrophils % Lymphocytes % Monocytes % Eosinophils % Basophils % Nucleated RBC % Retic Count PT with INR INR PTT (Actin FS) Sodium Potassium Chloride Carbon Dioxide Anion Gap BUN Creatinine Est GFR (CKD-EPI)AfAm Est GFR (CKD-EPI)NonAf POC Glucometer Random Glucose Hemoglobin A1c % Lactic Acid Calcium Phosphorus Magnesium Iron 42 L TIBC Iron Saturation Unsaturated IBC Ferritin Total Bilirubin AST ALT Alkaline Phosphatase Creatine Kinase Troponin I 6.75 H* 7.02 H* B-Natriuretic Peptide 28848.7 H Total Protein Albumin Triglycerides Cholesterol Total LDL Cholesterol HDL Cholesterol Lipase Vitamin B12 771 Serum Folate 6 TSH 3.28 D Free T4 1.48 H 10/22/19 10/22/19 10/22/19 05:39 05:48 05:48 WBC 7.4 RBC 3.23 L Hgb 10.5 L Hct 30.4 L MCV 94.2 MCH 32.5 MCHC 34.5 RDW 14.7 Plt Count 254 MPV 8.1 Absolute Neuts (auto) 4.2 Neutrophils % 56.0 Lymphocytes % 15.4 Monocytes % 12.4 H Eosinophils % 15.5 H Basophils % 0.7 Nucleated RBC % 0 Retic Count PT with INR INR PTT (Actin FS) Sodium 136 Potassium 3.7 Chloride 100 Carbon Dioxide 25 Anion Gap 11 BUN 41.2 H Creatinine 5.1 H Est GFR (CKD-EPI)AfAm 11.77 Est GFR (CKD-EPI)NonAf 10.15 POC Glucometer 111 Random Glucose 116 H Hemoglobin A1c % Lactic Acid Calcium 8.6 Phosphorus 2.9 Magnesium 1.9 Iron TIBC Iron Saturation Unsaturated IBC Ferritin Total Bilirubin 0.4 AST 10 L ALT 10 L Alkaline Phosphatase 149 H Creatine Kinase Troponin I B-Natriuretic Peptide Total Protein 7.0 Albumin 2.7 L Triglycerides 72 Cholesterol 69 Total LDL Cholesterol 35 HDL Cholesterol 22 L Lipase Vitamin B12 Serum Folate TSH Free T4 10/22/19 10/22/19 10/22/19 05:48 05:48 05:48 WBC RBC Hgb Hct MCV MCH MCHC RDW Plt Count MPV Absolute Neuts (auto) Neutrophils % Lymphocytes % Monocytes % Eosinophils % Basophils % Nucleated RBC % Retic Count 1.39 PT with INR INR PTT (Actin FS) Sodium Potassium Chloride Carbon Dioxide Anion Gap BUN Creatinine Est GFR (CKD-EPI)AfAm Est GFR (CKD-EPI)NonAf POC Glucometer Random Glucose Hemoglobin A1c % 5.8 Lactic Acid Calcium Phosphorus Magnesium Iron 42 L TIBC 139 L Iron Saturation 30 Unsaturated IBC 97 L Ferritin 1252.3 H Total Bilirubin AST ALT Alkaline Phosphatase Creatine Kinase Troponin I B-Natriuretic Peptide Total Protein Albumin Triglycerides Cholesterol Total LDL Cholesterol HDL Cholesterol Lipase Vitamin B12 Serum Folate TSH Free T4 10/22/19 10/22/19 05:48 07:45 WBC RBC Hgb Hct MCV MCH MCHC RDW Plt Count MPV Absolute Neuts (auto) Neutrophils % Lymphocytes % Monocytes % Eosinophils % Basophils % Nucleated RBC % Retic Count PT with INR INR PTT (Actin FS) Sodium 136 Potassium 3.7 Chloride 101 Carbon Dioxide 22 Anion Gap 13 BUN 43.3 H Creatinine 5.3 H Est GFR (CKD-EPI)AfAm 11.23 Est GFR (CKD-EPI)NonAf 9.69 POC Glucometer Random Glucose 118 H Hemoglobin A1c % Lactic Acid Calcium 8.4 L Phosphorus Magnesium 1.9 Iron TIBC Iron Saturation Unsaturated IBC Ferritin Total Bilirubin 0.6 AST 11 L ALT 11 L Alkaline Phosphatase 147 H Creatine Kinase Troponin I 6.29 H* B-Natriuretic Peptide Total Protein 7.0 Albumin 2.7 L Triglycerides Cholesterol Total LDL Cholesterol HDL Cholesterol Lipase Vitamin B12 Serum Folate TSH Free T4 Atrial fibrillation, T abnormality, ?anterior infarct Imaging - Results Chest X-ray: Report Reviewed (Elevated right hemidiaphram) Cat Scan: Report Reviewed (Abdominal CT shows large volume ascites, pleural effusion and cardiomegaly) EKG: Report Reviewed Problem List - Problems (1) Ascites Code(s): R18.8 - OTHER ASCITES (2) Atrial fibrillation Code(s): I48.91 - UNSPECIFIED ATRIAL FIBRILLATION Qualifiers: Atrial fibrillation type: longstanding persistent Qualified Code(s): I48.11 - Longstanding persistent atrial fibrillation (3) Elevated troponin Code(s): R79.89 - OTHER SPECIFIED ABNORMAL FINDINGS OF BLOOD CHEMISTRY (4) HTN (hypertension) Code(s): I10 - ESSENTIAL (PRIMARY) HYPERTENSION Qualifiers: Hypertension type: essential hypertension Qualified Code(s): I10 - Essential (primary) hypertension (5) Hypothyroid Code(s): E03.9 - HYPOTHYROIDISM, UNSPECIFIED (6) NSTEMI (non-ST elevated myocardial infarction) Code(s): I21.4 - NON-ST ELEVATION (NSTEMI) MYOCARDIAL INFARCTION (7) Diabetes mellitus Code(s): E11.9 - TYPE 2 DIABETES MELLITUS WITHOUT COMPLICATIONS Qualifiers: Diabetes mellitus type: type 2 Diabetes mellitus alf insulin use: without alf use Diabetes mellitus complication status: without complication Qualified Code(s): E11.9 - Type 2 diabetes mellitus without complications Assessment/Plan 1. Generalized weakness 2. ESRD on HD 3. Elevated troponin suggests NSTEMI in the presence of CAD s/p CABG, angina pectoris 4. HTN 5. DM 6. Persistent AF on DOAC/Eliquis 7. CVA PLAN: 1. Continue Metoprolol Succinate 25 mg QD and Amlodipine 5 mg QD 2. Eliquis 2.5 mg BID and ASA 81 mg QD 3. HD as per Renal service and monitor renal function and electrolytes 4. Trend troponin (peaked at 7.02) 5. Echocardiography to assess LV/RV and valvular function 6. Further cardiac evaluation to follow Engagement Mgr: Judd Hernandez MD at [facility] Roni Mack MD, [facility]
--- NOTE | 2019-10-22 10:36 | PN ---
Physical Exam: SUBJECTIVE: Patient seen and examined, he is primarily welsh speaking, can say some words in ukrainian. He points to his left hand and appears that he is having pain of this left hand. hand xray ordered. OBJECTIVE: Seen and examined at bedside. Pt speaks primarily Korean. No abd pain when asked, calm at rest. bp stable. patient s/p paracentesis on 07/24/2019 on last admission. abdomen soft, non distended. for a paracentesis tomorrow 10/22 for large amt of ascites found on ct/abdomen. patient does not have to be NPO for paracentesis. ------- Patient is a 74 year old male with a significant past medical history of diabetes, hypertension, ESRD (HD T//Tue), CAD s/p open heart surgery - 7 years ago, CVA. Patient presents to the ED on 10/21/2019 with constipation that began about one week ago. Patient's LBM was a week ago. He also has abdominal pain of similar duration with loss of appetite, early satiety, generalized weakness and SOB only on ambulation and is able take only about 10-15 steps daily. He denies nausea, vomiting, diarrhea, fever,chills chest pain, wheezing, cough, dysuria, urgency and hematuria. HD today at the bedside. Period Temp Pulse Resp BP Sys/Hicks Pulse Ox Last 24 Hr 97.5 F-99.0 F 66-83 16-18 115-137/55-68 96-100 GENERAL: The patient is awake, alert, in no acute distress. thin appearing HEAD: Normal with no signs of trauma. EYES: PERRL, extraocular movements intact, sclera anicteric, conjunctiva clear. No ptosis. ENT: Ears normal, nares patent, oropharynx clear without exudates NECK: Trachea midline, full range of motion, supple. LUNGS: Breath sounds equal, clear to auscultation bilaterally HEART: Regular rate and rhythm ABDOMEN: Soft, nontender, nondistended, normoactive bowel sounds EXTREMITIES: no edema. left hand pain on soft tissue between thumb and 2nd digit - for hand xray NEUROLOGICAL: gait not observed. PSYCH: Normal mood, normal affect. SKIN: Warm, dry, normal turgor, no rashes or lesions noted Laboratory Results - last 24 hr 10/21/19 10/21/1920 17:01 17:01 17:01 WBC 7.0 RBC 3.42 L Hgb 11.1 L Hct 32.8 L MCV 96.1 H MCH 32.5 MCHC 33.9 RDW 14.8 Plt Count 262 D MPV 7.9 Absolute Neuts (auto) 4.0 Neutrophils % 57.3 Lymphocytes % 13.0 D Monocytes % 13.6 H Eosinophils % 15.4 H Basophils % 0.7 Nucleated RBC % 0 Retic Count PT with INR 13.50 H INR 1.14 H PTT (Actin FS) 33.7 Sodium 137 Potassium 4.0 Chloride 100 Carbon Dioxide 27 Anion Gap 9 BUN 37.1 H Creatinine 4.8 H Est GFR (CKD-EPI)AfAm 12.66 Est GFR (CKD-EPI)NonAf 10.93 POC Glucometer Random Glucose 158 H Hemoglobin A1c % Lactic Acid Calcium 8.9 Phosphorus 2.5 Magnesium 2.1 Iron TIBC Iron Saturation Unsaturated IBC Ferritin Total Bilirubin 0.5 AST 16 ALT 12 L Alkaline Phosphatase 171 H Creatine Kinase 49 Troponin I 6.32 H* B-Natriuretic Peptide Total Protein 7.9 Albumin 3.0 L Triglycerides Cholesterol Total LDL Cholesterol HDL Cholesterol Lipase 345 Vitamin B12 Serum Folate TSH Free T4 10/21/19 10/21/19 10/21/19 17:01 19:50 21:08 WBC RBC Hgb Hct MCV MCH MCHC RDW Plt Count MPV Absolute Neuts (auto) Neutrophils % Lymphocytes % Monocytes % Eosinophils % Basophils % Nucleated RBC % Retic Count PT with INR INR PTT (Actin FS) Sodium Potassium Chloride Carbon Dioxide Anion Gap BUN Creatinine Est GFR (CKD-EPI)AfAm Est GFR (CKD-EPI)NonAf POC Glucometer 124 Random Glucose Hemoglobin A1c % Lactic Acid 1.1 Calcium Phosphorus Magnesium Iron TIBC Iron Saturation Unsaturated IBC Ferritin Total Bilirubin AST ALT Alkaline Phosphatase Creatine Kinase Troponin I B-Natriuretic Peptide Total Protein Albumin Triglycerides Cholesterol Total LDL Cholesterol HDL Cholesterol Lipase Vitamin B12 Serum Folate TSH 3.52 D Free T4 1.37 H 10/21/19 10/21/19 10/22/19 21:10 23:44 02:41 WBC RBC Hgb Hct MCV MCH MCHC RDW Plt Count MPV Absolute Neuts (auto) Neutrophils % Lymphocytes % Monocytes % Eosinophils % Basophils % Nucleated RBC % Retic Count PT with INR INR PTT (Actin FS) Sodium Potassium Chloride Carbon Dioxide Anion Gap BUN Creatinine Est GFR (CKD-EPI)AfAm Est GFR (CKD-EPI)NonAf POC Glucometer Random Glucose Hemoglobin A1c % Lactic Acid Calcium Phosphorus Magnesium Iron 42 L TIBC Iron Saturation Unsaturated IBC Ferritin Total Bilirubin AST ALT Alkaline Phosphatase Creatine Kinase Troponin I 6.75 H* 7.02 H* B-Natriuretic Peptide 26857.7 H Total Protein Albumin Triglycerides Cholesterol Total LDL Cholesterol HDL Cholesterol Lipase Vitamin B12 771 Serum Folate 6 TSH 3.28 D Free T4 1.48 H 10/22/19 10/22/19 10/22/19 05:39 05:48 05:48 WBC 7.4 RBC 3.23 L Hgb 10.5 L Hct 30.4 L MCV 94.2 MCH 32.5 MCHC 34.5 RDW 14.7 Plt Count 254 MPV 8.1 Absolute Neuts (auto) 4.2 Neutrophils % 56.0 Lymphocytes % 15.4 Monocytes % 12.4 H Eosinophils % 15.5 H Basophils % 0.7 Nucleated RBC % 0 Retic Count PT with INR INR PTT (Actin FS) Sodium 136 Potassium 3.7 Chloride 100 Carbon Dioxide 25 Anion Gap 11 BUN 41.2 H Creatinine 5.1 H Est GFR (CKD-EPI)AfAm 11.77 Est GFR (CKD-EPI)NonAf 10.15 POC Glucometer 111 Random Glucose 116 H Hemoglobin A1c % Lactic Acid Calcium 8.6 Phosphorus 2.9 Magnesium 1.9 Iron TIBC Iron Saturation Unsaturated IBC Ferritin Total Bilirubin 0.4 AST 10 L ALT 10 L Alkaline Phosphatase 149 H Creatine Kinase Troponin I B-Natriuretic Peptide Total Protein 7.0 Albumin 2.7 L Triglycerides 72 Cholesterol 69 Total LDL Cholesterol 35 HDL Cholesterol 22 L Lipase Vitamin B12 Serum Folate TSH Free T4 10/22/19 10/22/19 10/22/19 05:48 05:48 05:48 WBC RBC Hgb Hct MCV MCH MCHC RDW Plt Count MPV Absolute Neuts (auto) Neutrophils % Lymphocytes % Monocytes % Eosinophils % Basophils % Nucleated RBC % Retic Count 1.39 PT with INR INR PTT (Actin FS) Sodium Potassium Chloride Carbon Dioxide Anion Gap BUN Creatinine Est GFR (CKD-EPI)AfAm Est GFR (CKD-EPI)NonAf POC Glucometer Random Glucose Hemoglobin A1c % 5.8 Lactic Acid Calcium Phosphorus Magnesium Iron 42 L TIBC 139 L Iron Saturation 30 Unsaturated IBC 97 L Ferritin 1252.3 H Total Bilirubin AST ALT Alkaline Phosphatase Creatine Kinase Troponin I B-Natriuretic Peptide Total Protein Albumin Triglycerides Cholesterol Total LDL Cholesterol HDL Cholesterol Lipase Vitamin B12 Serum Folate TSH Free T4 10/22/19 10/22/19 05:48 07:45 WBC RBC Hgb Hct MCV MCH MCHC RDW Plt Count MPV Absolute Neuts (auto) Neutrophils % Lymphocytes % Monocytes % Eosinophils % Basophils % Nucleated RBC % Retic Count PT with INR INR PTT (Actin FS) Sodium 136 Potassium 3.7 Chloride 101 Carbon Dioxide 22 Anion Gap 13 BUN 43.3 H Creatinine 5.3 H Est GFR (CKD-EPI)AfAm 11.23 Est GFR (CKD-EPI)NonAf 9.69 POC Glucometer Random Glucose 118 H Hemoglobin A1c % Lactic Acid Calcium 8.4 L Phosphorus Magnesium 1.9 Iron TIBC Iron Saturation Unsaturated IBC Ferritin Total Bilirubin 0.6 AST 11 L ALT 11 L Alkaline Phosphatase 147 H Creatine Kinase Troponin I 6.29 H* B-Natriuretic Peptide Total Protein 7.0 Albumin 2.7 L Triglycerides Cholesterol Total LDL Cholesterol HDL Cholesterol Lipase Vitamin B12 Serum Folate TSH Free T4 Active Medications Generic Name Dose Route Start Last Admin Trade Name Freq PRN Reason Stop Dose Admin Acetaminophen 1,000 mg 10/21/19 21:42 Ofirmev Injection - IVPB Q8H PRN PAIN LEVEL 1-5 Amlodipine Besylate 5 mg 10/22/19 10:00 Norvasc - PO DAILY [facility] Apixaban 2.5 mg 10/22/19 10:00 Eliquis - PO BID [facility] Aspirin 81 mg 10/22/19 10:00 Ecotrin - PO DAILY [facility] Ceftriaxone Sodium 2 gm 10/22/19 01:15 10/22/19 01:46 Rocephin 2gm Ivpb (Pre-Docked) IVPB 2 gm DAILY [facility] Administration Sodium Chloride 250 mls @ 3,000 mls/hr 10/21/19 20:11 Normal Saline - IV 10/22/19 20:11 PRN PRN Hypotension during Dialysis Insulin Aspart 1 vial 10/22/19 07:00 10/22/19 06:14 Novolog Vial Sliding Scale - SQ Not Given ACHS [facility] Protocol Metoprolol Succinate 25 mg 10/22/19 10:00 Toprol Xl - PO DAILY [facility] ASSESSMENT/PLAN: Problem List - Problems (1) NSTEMI (non-ST elevated myocardial infarction) Assessment/Plan: troponins elevated and peaked at 7.02 patient with a history of MA with CABG Cardiology following continue on Metoprolol, aspirin, eliquis and trend troponinsm to document peak Monitor on tele Code(s): I21.4 - NON-ST ELEVATION (NSTEMI) MYOCARDIAL INFARCTION (2) Abdominal pain Assessment/Plan: large volume ascites seen on abd/pelvis CT, no abdominal pain for parcentesis tomorrow 10/23/2019, unknown cause of large amt of ascites, but can be due to ESRD s/p paracentesis on 07/24/2019 where 3100 cc was removed Patient has hx of Hep B exposure 2/2 to blood product Daily weight, monitor intake/output Strict I/O with water restriction Ceftriaxone 2g daily for SBP prophylaxis Code(s): R10.9 - UNSPECIFIED ABDOMINAL PAIN (3) Atrial fibrillation Assessment/Plan: rate controlled patient diagnosed with afib on last admission 06/2019 on Metoprolol and eliquis Code(s): I48.91 - UNSPECIFIED ATRIAL FIBRILLATION Qualifiers: Atrial fibrillation type: longstanding persistent Qualified Code(s): I48.11 - Longstanding persistent atrial fibrillation (4) Diabetes mellitus Assessment/Plan: monitor bgms, maintain fasting glucose<180 BGMs currently not elevated Code(s): E11.9 - TYPE 2 DIABETES MELLITUS WITHOUT COMPLICATIONS Qualifiers: Diabetes mellitus type: type 2 Diabetes mellitus senior care insulin use: without termite helper use Diabetes mellitus complication status: without complication Qualified Code(s): E11.9 - Type 2 diabetes mellitus without complications (5) ESRD (end stage renal disease) Assessment/Plan: had dialysis today via left arm fistula Code(s): N18.6 - END STAGE RENAL DISEASE (6) Elevated troponin Assessment/Plan: peaked at 7.02 NSTEMI on metoprolol, asa, eliquis bid cardiology following Code(s): R79.89 - OTHER SPECIFIED ABNORMAL FINDINGS OF BLOOD CHEMISTRY (7) Pain in left hand Assessment/Plan: hand xray show small foreign metallic object in soft tissue between thumb and 2nd digit for ortho evaluation Code(s): M79.642 - PAIN IN LEFT HAND (8) HTN (hypertension) Assessment/Plan: bp stable, monitor on beta luz maria Code(s): I10 - ESSENTIAL (PRIMARY) HYPERTENSION Qualifiers: Hypertension type: essential hypertension Qualified Code(s): I10 - Essential (primary) hypertension (9) Prophylactic measure Assessment/Plan: on eliquis Code(s): Z29.9 - ENCOUNTER FOR PROPHYLACTIC MEASURES, UNSPECIFIED Visit type - Emergency Visit Emergency Visit: Yes ED Registration Date: 10/21/19 Care time: The patient presented to the Emergency Department on the above date and was hospitalized for further evaluation of their emergent condition. - New Patient This patient is new to me today: Yes Date on this admission: 10/22/19 - Critical Care Critical Care patient: No - Discharge Referral Referred to [facility] No - Medication Review Med list reviewed for High Risk Meds patients 65 and older: Yes
[2019-10-22] MEDS: ASPIRIN COATED 81 MG TABLET.EC PO SCH (11:40)
[2019-10-22] MEDS: metoPROLOL SUCCINATE 25 MG TAB.SR.24H (FP) PO SCH (11:40)
[2019-10-22] MEDS: amLODIPine BESYLATE 5 MG TABLET (FP) PO SCH (11:41)
[2019-10-22] MEDS: APIXABAN 2.5 MG TABLET PO SCH ×2 (11:41→21:48)
--- NOTE | 2019-10-22 12:17 | EKG ---
Test Reason : Blood Pressure : / mmHG Vent. Rate : 073 BPM Atrial Rate : 087 BPM P-R Int : 000 ms QRS Dur : 098 ms QT Int : 422 ms P-R-T Axes : 000 031 -36 degrees QTc Int : 464 ms ATRIAL FIBRILLATION POSSIBLE ANTERIOR INFARCT , AGE UNDETERMINED ABNORMAL ECG WHEN COMPARED WITH ECG OF 21-OCT-2019 17:15, PREMATURE VENTRICULAR COMPLEX IS NOT SEEN Confirmed by SULEMAN TUCKER MD ([id number]) on 10/22/2019 12:16:25 PM Referred By: Confirmed By:SULEMAN TUCKER MD
--- NOTE | 2019-10-22 14:25 | CON.GI ---
Consult Consult Specialty:: GI Referred by:: Hospitalist Service Reason for Consultation:: Ascites - History of Present Illness Chief Complaint: Ascites History of Present Illness: History obtained from daughter 74M admitted for evaluation of shortness of breath. Noted to have ascites. Noted to have ascites /20 during his last admission. has an elevated tropinin. Had significant tricuspid regurgitation from echo on previous admission. Had a paracentesis then. At that time, it was noted that the Low SAAG/High protein ascites Fluid analysis was not consistent with portal hypertensive etiology. I questioned if it was related to renal disease. Cytology was negatrive as well. Advised further evaluation of ascites per primary team. Ascites cytology and AFB culture/smear were negative. He also has a persistent peripheral eosinophilia of unclear etiology. Strongyloides Ab was negative last admission. Per his daughter, Mr. Byrd was a social drinker when he was younger. On last admission he was noted Hepatitis B surface, core and e antobody +, antigen negative. I felt this serologic pattern was c/w prior exposure with conversion to e antibody with immunity. Has never had EGD or colonoscopy. 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: CVA Cardio/Vascular: Yes: AFIB, CAD (CABG), HTN Renal/: Yes: Renal Failure (HD) Endocrine: Yes: Diabetes Mellitus - Past Surgical History Past Surgical History: Yes: CABG Additional Surgical History: AV fistula - Alcohol/Substance Use Hx Alcohol Use: Yes (Previously, social) History of Substance Use: reports: None - Smoking History Smoking history: Former smoker Have you smoked in the past 12 months: No If you are a former smoker, when did you quit?: about 15 years ago - Social History Usual Living Arrangement: With Child ADL: Independent Occupation: Retired: worked in [employer] Place of : Other ([place]) Came to [place]year[place] 1992 History of Recent Travel: No Home Medications - Allergies Allergies/Adverse Reactions: Allergies Allergy/AdvReac Type Severity Reaction Status Date / Time No Known Allergies Allergy Verified 10/21/19 17:09 - Home Medications Home Medications: Ambulatory Orders Amlodipine Besylate [Norvasc -] 5 mg PO DAILY #90 tablet 07/30/19 Apixaban [Eliquis -] 2.5 mg PO BID #90 tablet 07/30/19 Aspirin Coated [Ecotrin -] 81 mg PO DAILY #90 tablet.ec 07/30/19 Metoprolol Succinate [Toprol XL -] 25 mg PO DAILY #90 tab.sr.24h 07/30/19 Family Medical History Family History: Unable to Obtain Other Family History: No family history of cancer Review of Systems - Review of Systems Constitutional: denies: Chills Cardiovascular: denies: Chest Pain Respiratory: reports: SOB Gastrointestinal: reports: Bloating Physical Exam-GI Vital Signs: Vital Signs Temperature 97.7 F 10/22/19 11:35 Pulse Rate 81 10/22/19 11:35 Respiratory Rate 18 10/22/19 11:35 Blood Pressure 139/70 10/22/19 11:35 O2 Sat by Pulse Oximetry (%) 99 10/22/19 11:35 Constitutional: Yes: Calm Eyes: No: Sclera Icterus Cardiovascular: Yes: Regular Rate and Rhythm, Murmur (2/6 holosystolic murmur at the LSB) Respiratory: Yes: CTA Bilaterally Gastrointestinal Inspection: Yes: Distention. No: Scars ...Auscultate: Yes: Normoactive Bowel Sounds ...Palpate: Yes: Soft. No: Hepatomegaly, Splenomegaly, Tenderness ...Percussion: No: Tympanitic Extremities: Yes: Other (Left arm AV-Fistula) Edema: No (No LE edema) Neurological: Yes: Alert Labs: CBC, BMP 10/22/19 05:48 10/22/19 07:45 INR, PTT INR 1.14 (0.83-1.09) H 10/21/19 17:01 Hepatic Panel Total Bilirubin 0.6 mg/dL (0.2-1) 10/22/19 07:45 AST 11 U/L (15-37) L 10/22/19 07:45 ALT 11 U/L (13-61) L 10/22/19 07:45 Alkaline Phosphatase 147 U/L (45-117) H 10/22/19 07:45 Albumin 2.7 g/dl (3.4-5.0) L 10/22/19 07:45 Problem List - Problems (1) Ascites Assessment/Plan: Had a paracentesis 07/17. At that time, it was noted that he had a Low SAAG/High protein ascites. This fluid analysis was not consistent with portal hypertensive etiology / cardiac etiology. I questioned if it was related to renal disease / mixed with component of cardiac dysfunction or alternate etiology. Cytology was negative as well. Advise further evaluation of ascites per primary team. Having repeat diagnostic/therapeutic paracentesis. Fluid should be sent for total protein, albumin, fluid cell count with differential, AFB culture/smear, cytology. Check hepatic panel same day of paracentesis Renal evaluating Consider heme evaluation to assess etiology of persistent eosinophilia Code(s): R18.8 - OTHER ASCITES
--- NOTE | 2019-10-22 15:34 | PN ---
Progress Note, Physician History of Present Illness: Pt seen and examined at bedside. He tolerated HD. I called and discussed his care with his family. - Current Medication List Current Medications: Active Medications Acetaminophen (Ofirmev Injection -) 1,000 mg IVPB Q8H PRN PRN Reason: PAIN LEVEL 1-5 Amlodipine Besylate (Norvasc -) 5 mg PO DAILY [facility] Last Admin: 10/22/19 11:41 Dose: 5 mg Documented by: Apixaban (Eliquis -) 2.5 mg PO BID [facility] Last Admin: 10/22/19 11:41 Dose: 2.5 mg Documented by: Aspirin (Ecotrin -) 81 mg PO DAILY [facility] Last Admin: 10/22/19 11:40 Dose: 81 mg Documented by: Ceftriaxone Sodium (Rocephin 2gm Ivpb (Pre-Docked)) 2 gm IVPB DAILY [facility] Last Admin: 10/22/19 01:46 Dose: 2 gm Documented by: Sodium Chloride (Normal Saline -) 250 mls @ 3,000 mls/hr IV PRN PRN PRN Reason: Hypotension during Dialysis Stop: 10/22/19 20:11 Insulin Aspart (Novolog Vial Sliding Scale -) 1 vial SQ ACHS [facility]; Protocol Last Admin: 10/22/19 11:41 Dose: Not Given Documented by: Metoprolol Succinate (Toprol Xl -) 25 mg PO DAILY [facility] Last Admin: 10/22/19 11:40 Dose: 25 mg Documented by: - Objective Vital Signs: Vital Signs Temperature 97.7 F 10/22/19 11:35 Pulse Rate 81 10/22/19 11:35 Respiratory Rate 18 10/22/19 11:35 Blood Pressure 139/70 10/22/19 11:35 O2 Sat by Pulse Oximetry (%) 99 10/22/19 11:35 Constitutional: Yes: Calm Eyes: Yes: Conjunctiva Clear HENT: Yes: Atraumatic Cardiovascular: Yes: S1, S2 Respiratory: Yes: CTA Bilaterally Gastrointestinal: Yes: Ascites Genitourinary: Yes: WNL Extremities: Yes: Other Edema: No Neurological: Yes: Oriented Labs: CBC, BMP 10/22/19 05:48 10/22/19 07:45 INR, PTT INR 1.14 (0.83-1.09) H 10/21/19 17:01 Problem List - Problems (1) ESRD (end stage renal disease) Code(s): N18.6 - END STAGE RENAL DISEASE (2) Ascites Code(s): R18.8 - OTHER ASCITES Assessment/Plan Current Medications Generic Name Dose Route Start Last Admin Trade Name Dorian PRN Reason Stop Dose Admin Acetaminophen 1,000 mg 10/21/19 21:42 Ofirmev Injection - IVPB Q8H PRN PAIN LEVEL 1-5 Amlodipine Besylate 5 mg 10/22/19 10:00 10/22/19 11:41 Norvasc - PO 5 mg DAILY [facility] Administration Apixaban 2.5 mg 10/22/19 10:00 10/22/19 11:41 Eliquis - PO 2.5 mg BID [facility] Administration Aspirin 81 mg 10/22/19 10:00 10/22/19 11:40 Ecotrin - PO 81 mg DAILY [facility] Administration Ceftriaxone Sodium 2 gm 10/22/19 01:15 10/22/19 01:46 Rocephin 2gm Ivpb (Pre-Docked) IVPB 2 gm DAILY [facility] Administration Sodium Chloride 250 mls @ 3,000 mls/hr 10/21/19 20:11 Normal Saline - IV 10/22/19 20:11 PRN PRN Hypotension during Dialysis Insulin Aspart 1 vial 10/22/19 07:00 10/22/19 11:41 Novolog Vial Sliding Scale - SQ Not Given ACHS [facility] Protocol Metoprolol Succinate 25 mg 10/22/19 10:00 10/22/19 11:40 Toprol Xl - PO 25 mg DAILY [facility] Administration Impression 1. esrd 2. r/o acs 3. htn 4. cad 5. a-fib 6. hx of cva 7. ascites Plan - HD today - GI workup in progress - cont renal diet - monitor bp - cardio follow up - will follow
--- NOTE | 2019-10-22 15:42 | ECHO ---
Name: LELE HUSTON Exam:Adult Echocardiogram Study Date: 10/22/2019 02:23 PM Age: 74 yrs Reason For Study: NSTEVA Height: 64 in Weight: 122 lb BSA: 1.6 m2 MMode/2D Measurements & Calculations RVDd: 4.4 cm Ao root diam: 3.1 cm IVSd: 1.1 cm LA dimension: 4.3 cm LVIDd: 4.6 cm ACS: 1.2 cm LVIDs: 2.9 cm LVPWd: 1.0 cm EDV(Teich): 97.9 ml LVOT diam: 2.0 cm ESV(Teich): 33.6 ml LAV (MOD-bp): 99.0 ml TAPSE: 2.0 cm RV S Nj: 13.1 cm/sec Doppler Measurements & Calculations MV E max nj: 99.7 cm/sec Ao V2 max: 248.4 cm/sec MV dec time: 0.17 sec Ao max P.1 mmHg Ao V2 mean: 164.7 cm/sec Ao mean P.4 mmHg Ao V2 VTI: 49.1 cm KAREN(I,D): 1.00 cm2 KAREN(V,D): 1.1 cm2 LV V1 max P.3 mmHg MR max nj: 443.8 cm/sec LV V1 mean P.5 mmHg MR max P.9 mmHg LV V1 max: 90.7 cm/sec LV V1 mean: 55.9 cm/sec LV V1 VTI: 16.3 cm SV(LVOT): 48.9 ml TR max nj: 200.5 cm/sec TR max P.3 mmHg PA V2 max: 93.7 cm/sec PI end-d nj: 126.4 cm/sec PA max P.5 mmHg PA acc slope: 560.7 cm/sec2 PA acc time: 0.08 sec Med Peak E' Nj: 6.5 cm/sec PA pr(Accel): 41.0 mmHg Med E/e': 15.3 Lat Peak E' Nj: 16.4 cm/sec Lat E/e': 6.1 Pulm Sys Nj: 72.1 cm/sec Pulm Hicks Nj: 36.5 cm/sec Pulm S/D: 2.0 Procedure A complete two-dimensional transthoracic echocardiogram was performed (2D, M-mode, Doppler and color flow Doppler). Left Ventricle The left ventricle is normal in size. Left ventricular systolic function is normal. Ejection Fraction = 55- 60%. There is mid inferoseptal wall mild hypokinesis. There is apical septal wall mild hypokinesis. T here are regional wall motion abnormalities as specified. Right Ventricle The right ventricle is normal size. The right ventricular systolic function is normal. Atria The left atrium is mildly dilated. The right atrium is mildly dilated. Mitral Valve There is mild to moderate mitral annular calcification. There is moderate mitral regurgitation. Tricuspid Valve The tricuspid valve is normal in structure and function. There is moderate to severe tricuspid regurg itation. Aortic Valve There is mild aortic valve thickening. There is mild to moderate aortic sclerosis.;. Mild to moderate valvular aortic stenosis. The calculated aortic valve area using the continuity equation is 0.9 cm2. Aortic me an pressure gradient= 15 mmHg. DI (dimensionless index) is 0.29. Mild aortic regurgitation. Pulmonic Valve The pulmonic valve is not well seen, but is grossly normal. Mild pulmonic valvular regurgitation. Great Vessels The aortic root is normal size. Pericardium/Pleura There is no pericardial effusion. Interpretation Summary The left ventricle is normal in size. Left ventricular systolic function is normal. There are regional wall motion abnormalities as specified. Ejection Fraction = 55-60%. The right ventricular systolic function is normal. The left atrium is mildly dilated. The right atrium is mildly dilated. There is mild to moderate mitral annular calcification. There is moderate mitral regurgitation. There is moderate to severe tricuspid regurgitation. There is mild aortic valve thickening. There is mild to moderate aortic sclerosis. Mild to moderate valvular aortic stenosis. The calculated aortic valve area using the continuity equation is 0.9 cm2. Aortic mean pressure gradient= 15 mmHg DI (dimensionless index) is 0.29 LVOT VTI 16.4 cm, AV VTI 57 cm) Mild aortic regurgitation. Mild pulmonic valvular regurgitation. There is no pericardial effusion. Roni Mack MD 10/22/2019 03:41 PM
[2019-10-22] MEDS ORDERED: ACETAMINOPHEN 500 MG TABLET (FP) PO PRN (16:33)
[2019-10-22] MEDS ORDERED: DEXTROSE 5%-WATER 100 ML IVPB ONE (17:52)
[2019-10-22] MEDS: CEFTRIAXONE 2 GM in DEXTROSE 5%-WATER 100 ML IVPB SCH (17:53)
--- NOTE | 2019-10-22 18:24 | EKG ---
Test Reason : Blood Pressure : / mmHG Vent. Rate : 072 BPM Atrial Rate : 089 BPM P-R Int : 000 ms QRS Dur : 094 ms QT Int : 402 ms P-R-T Axes : 000 028 -38 degrees QTc Int : 440 ms ATRIAL FIBRILLATION WITH PREMATURE VENTRICULAR OR ABERRANTLY CONDUCTED COMPLEXES NONSPECIFIC T WAVE ABNORMALITY ABNORMAL ECG WHEN COMPARED WITH ECG OF 21-JUL-2019 16:45, SINUS RHYTHM IS NOW T WAVE VARIATION Confirmed by SULEMAN TUCKER MD ([id number]) on 10/22/2019 6:23:50 PM Referred By: Confirmed By:SULEMAN TUCKER MD
--- NOTE | 2019-10-23 06:30 | PN ---
Progress Note (short form) - Note Progress Note: Chief Complaint: Events noted, notes reviewed, resting in bed, in no distress, patient is hard of hearing and able to communicate History of Present Illness: Seen and examined on telemetry. Events noted, notes reviewed, resting in bed, in no distress, patient is hard of hearing and able to communicate Echocardiography study noted, normal left ventricle size and systolic function, LVEF between 55-60%, bi-atrial dilatation, moderate mitral valve regurgitation, moderate to severe tricuspid valve regurgitation, mild to moderate aortic valve stenosis with calculated aortic valve area of 0.9 cm with a mean transvalvular gradient of 15 mmHg Medications: Current Medications Generic Name Dose Route Start Last Admin Trade Name Freq PRN Reason Stop Dose Admin Amlodipine Besylate 5 mg 10/22/19 10:00 10/22/19 11:41 Norvasc - PO 5 mg DAILY TRUNG Administration Apixaban 2.5 mg 10/22/19 10:00 10/22/19 21:48 Eliquis - PO 2.5 mg BID TRUNG Administration Aspirin 81 mg 10/22/19 10:00 10/22/19 11:40 Ecotrin - PO 81 mg DAILY TRUNG Administration Sodium Chloride 250 mls @ 3,000 mls/hr 10/21/19 20:11 Normal Saline - IV 10/22/19 20:11 PRN PRN Hypotension during Dialysis Ceftriaxone Sodium 2 gm/ 100 mls @ 200 mls/hr 10/22/19 17:15 10/22/19 17:53 Dextrose IVPB 10/27/19 10:29 200 mls/hr DAILY TRUNG Administration Insulin Aspart 1 vial 10/22/19 07:00 10/22/19 21:54 Novolog Vial Sliding Scale - SQ Not Given ACHS [facility] Protocol Metoprolol Succinate 25 mg 10/22/19 10:00 10/22/19 11:40 Toprol Xl - PO 25 mg DAILY TRUNG Administration Review of Systems Unable to obtain/communication issue as noted above Vital Signs: Last Vital Signs Temp Pulse Resp BP Pulse Ox 97.8 F 87 18 121/54 L 95 10/23/19 03:28 10/23/19 03:28 10/23/19 03:28 10/23/19 03:28 10/23/19 03:28 Intake & Output 10/20/19 10/21/19 10/22/19 10/23/19 23:59 23:59 23:59 23:59 Intake Total 1050 Output Total 6508 Balance -5458 Weight 185 lb 122 lb 8 oz Neck: Supple Negative JVD Respiratory: Diminished Breath Sounds at the Bases Cardiovascular: S1 S2 Irregularly irregular, grade 2-3/6 systolic ejection murmur, grade 3/6 systolic apical murmur Gastrointestinal: Soft Benign Normal Bowel Sounds Ext: Negative Edema Labs: Troponin, BNP 10/22/19 05:48 Troponin I 6.29 H* CBC, BMP 10/22/19 05:48 10/22/19 07:45 Hepatic Panel Total Bilirubin 0.6 mg/dL (0.2-1) 10/22/19 07:45 AST 11 U/L (15-37) L 10/22/19 07:45 ALT 11 U/L (13-61) L 10/22/19 07:45 Alkaline Phosphatase 147 U/L (45-117) H 10/22/19 07:45 Albumin 2.7 g/dl (3.4-5.0) L 10/22/19 07:45 INR, PTT INR 1.14 (0.83-1.09) H 10/21/19 17:01 Assessment/Plan ASSESSMENT: 1. Coronary artery disease post coronary artery bypass grafting with evidence of non-ST segment elevation myocardial infarction angina pectoris 2. Diastolic left ventricular dysfunction with clinical class 0-I [place] [employer] classification left ventricular failure, clinically compensated/euvolemic 3. Persistent atrial fibrillation [id number] score of 6 on anticoagulation t herapy with DOAC's/Eliquis 4. Aortic stenosis, moderate in severity 5. Mitral valve regurgitation/moderate in severity 6. Tricuspid valve regurgitation moderate to severe in severity 7. Hypertensive cardiovascular disease 8. Diabetes mellitus 9. Hypercholesterolemia 10. History of cerebrovascular disease 11. End-stage renal disease on hemodialysis 12. Anemia PLAN: 1. Continue Toprol-XL therapy and dose titration hemodynamics permitting 2. Continue Norvasc therapy 3. Ideally recommend the addition of EMILE inhibitor or angiotensin receptor luz maria therapy unless it is absolutely contraindicated 4. Continue Eliquis and ASA therapies with caution and close monitoring of hemoglobin level 5. Recommend the addition of statin therapy unless it is absolutely contraindicated 6. Plan is to optimize patient's medical therapy and additional evaluation can be performed on outpatient basis with his corporate quality manager at [facility] 7. Hemodialysis as per the renal service Kathryn Ames MD
[2019-10-23] MEDS: INSULIN SLIDING SCALE (NOVOLOG) 1 VIAL SQ SCH ×4 (07:07→21:59)
--- NOTE | 2019-10-23 08:06 | PN ---
Progress Note, Physician History of Present Illness: Patient is a 74 year old male with a significant past medical history of diabetes, hypertension, ESRD (HD T//Tue), CAD s/p open heart surgery - 7 years ago, CVA. Patient presents to the ED on 10/21/2019 with constipation that began about one week ago. Patient's last BM was a week ago. He also has abdominal pain of similar duration with loss of appetite, early satiety, generalized weakness and SOB only on ambulation and is able take only about 10-15 steps daily. He denies nausea, vomiting, diarrhea, fever,chills chest pain, wheezing, cough, dysuria, urgency and hematuria. - Current Medication List Current Medications: Active Medications Amlodipine Besylate (Norvasc -) 5 mg PO DAILY COUNTS INCLUDE 234 BEDS AT THE [facility] Last Admin: 10/22/19 11:41 Dose: 5 mg Documented by: Apixaban (Eliquis -) 2.5 mg PO BID COUNTS INCLUDE 234 BEDS AT THE [facility] Last Admin: 10/22/19 21:48 Dose: 2.5 mg Documented by: Aspirin (Ecotrin -) 81 mg PO DAILY COUNTS INCLUDE 234 BEDS AT THE [facility] Last Admin: 10/22/19 11:40 Dose: 81 mg Documented by: Sodium Chloride (Normal Saline -) 250 mls @ 3,000 mls/hr IV PRN PRN PRN Reason: Hypotension during Dialysis Stop: 10/22/19 20:11 Ceftriaxone Sodium 2 gm/ (Dextrose) 100 mls @ 200 mls/hr IVPB DAILY COUNTS INCLUDE 234 BEDS AT THE [facility] Stop: 10/27/19 10:29 Last Admin: 10/22/19 17:53 Dose: 200 mls/hr Documented by: Insulin Aspart (Novolog Vial Sliding Scale -) 1 vial SQ ACHS COUNTS INCLUDE 234 BEDS AT THE [facility]; Protocol Last Admin: 10/23/19 07:07 Dose: Not Given Documented by: Metoprolol Succinate (Toprol Xl -) 25 mg PO DAILY COUNTS INCLUDE 234 BEDS AT THE [facility] Last Admin: 10/22/19 11:40 Dose: 25 mg Documented by: - Objective Vital Signs: Vital Signs Temperature 97.6 F 10/23/19 06:00 Pulse Rate 54 L 10/23/19 06:00 Respiratory Rate 18 10/23/19 06:00 Blood Pressure 184/71 H 10/23/19 06:00 O2 Sat by Pulse Oximetry (%) 100 10/23/19 06:00 Constitutional: Yes: Well Nourished, No Distress, Calm Eyes: Yes: WNL, Conjunctiva Clear HENT: Yes: WNL, Atraumatic, Normocephalic Neck: Yes: WNL, Supple, Trachea Midline Cardiovascular: Yes: WNL, Regular Rate and Rhythm Respiratory: Yes: WNL, Regular, CTA Bilaterally Gastrointestinal: Yes: Normal Bowel Sounds, Soft, Ascites ...Rectal Exam: Yes: Deferred Genitourinary: Yes: WNL Breast(s): Yes: WNL Musculoskeletal: Yes: WNL Extremities: Yes: WNL, Other (left AVF) Edema: No Peripheral Pulses WNL: Yes Peripheral Pulses: Left Radial: 2+, Right Radial: 2+, Left Doralis Pedis: 2+, Right Dorsalis Pedis: 2+, Left Femoral: 2+, Right Femoral: 2+ Integumentary: Yes: WNL Neurological: Yes: WNL, Alert, Oriented ...Motor Strength: LLE, RLE (generalized weakness) Labs: CBC, BMP 10/22/19 05:48 10/22/19 07:45 INR, PTT INR 1.14 (0.83-1.09) H 10/21/19 17:01 - ....Imaging X-ray: Report Reviewed (right hand xray revealed metallic foreign body at web space of left hand on imaging) Other: Report Reviewed (TTE: normal left ventricle size and systolic function, LVEF between 55-60%, bi-atrial dilatation, moderate mitral valve regurgitation, moderate to severe tricuspid valve regurgitation, mild to moderate aortic valve stenosis with calculated aortic valve area of 0.9 cm with a mean transvalvular gradient of 15 mmHg) Problem List - Problems (1) ESRD on hemodialysis Assessment/Plan: HD as per renal Code(s): N18.6 - END STAGE RENAL DISEASE; Z99.2 - DEPENDENCE ON RENAL DIALYSIS (2) Abdominal pain Code(s): R10.9 - UNSPECIFIED ABDOMINAL PAIN (3) Ascites Assessment/Plan: recent paracentesis 07/17 seen by GI and noted to have Low SAAG/High protein ascites. fluid analysis was not consistent with portal hypertensive etiology / cardiac etiology. pending repeat paracentesis with IR Fluid should be sent for total protein, albumin, fluid cell count with differential, AFB culture/smear, cytology. Code(s): R18.8 - OTHER ASCITES (4) Atrial fibrillation Assessment/Plan: rate controlled patient diagnosed with afib on last admission 06/2019 on Metoprolol and eliquis Code(s): I48.91 - UNSPECIFIED ATRIAL FIBRILLATION Qualifiers: Atrial fibrillation type: longstanding persistent Qualified Code(s): I48.11 - Longstanding persistent atrial fibrillation (5) Diabetes mellitus Assessment/Plan: BGM AC/HS with novolog sliding scale diabetic diet Code(s): E11.9 - TYPE 2 DIABETES MELLITUS WITHOUT COMPLICATIONS Qualifiers: Diabetes mellitus type: type 2 Diabetes mellitus predatory animal exterminator insulin use: without predatory animal exterminator use Diabetes mellitus complication status: without complication Qualified Code(s): E11.9 - Type 2 diabetes mellitus without complications (6) Pain in left hand Assessment/Plan: right hand xray revealed metallic foreign body at web space of left hand on imaging family states no know trauma to hand seen by ortho no acute intervention recommend patient be seen as outpatient for present issue elevate and warm conmpressess Code(s): M79.642 - PAIN IN LEFT HAND (7) HTN (hypertension) Assessment/Plan: normotensive c/w metoprolol, norvasc Code(s): I10 - ESSENTIAL (PRIMARY) HYPERTENSION Qualifiers: Hypertension type: essential hypertension Qualified Code(s): I10 - Essential (primary) hypertension (8) NSTEMI (non-ST elevated myocardial infarction) Assessment/Plan: troponins remain elevated elevated 8.24 given ESRD troponins will remain high patient with a history of SC with CABG Cardiology following continue on Metoprolol, aspirin, eliquis and trend troponins Monitor on tele Code(s): I21.4 - NON-ST ELEVATION (NSTEMI) MYOCARDIAL INFARCTION (9) Prophylactic measure Assessment/Plan: FEN Fluids: adequate PO intake Electrolytes: monitor & replete as needed Nutrition: renal diet DVT moderate risk c/w apixaban, asa Dispo Maintain as inpatient full code discharge planning Code(s): Z29.9 - ENCOUNTER FOR PROPHYLACTIC MEASURES, UNSPECIFIED (10) Troponin level elevated Assessment/Plan: remains elevated c/t trend Code(s): R79.89 - OTHER SPECIFIED ABNORMAL FINDINGS OF BLOOD CHEMISTRY (11) Foreign body Assessment/Plan: right hand xray revealed metallic foreign body at web space of left hand on imaging Ortho following no acute interventioon elevate and warm compresses Code(s): DSQ3163 - (12) COVID-19 ruled out by laboratory testing Assessment/Plan: negative PCR Code(s): Z03.818 - ENCNTR FOR OBS FOR SUSP EXPSR TO OTH BIOLG AGENTS RULED OUT (13) Acquired eosinophilia Assessment/Plan: pending heme evaluation trend cbc Code(s): D72.1 - EOSINOPHILIA Visit type - Emergency Visit Emergency Visit: Yes ED Registration Date: 10/21/19 Care time: The patient presented to the Emergency Department on the above date and was hospitalized for further evaluation of their emergent condition. - New Patient This patient is new to me today: Yes Date on this admission: 10/23/19 - Critical Care Critical Care patient: No - Discharge Referral Referred to [facility] Med [facility] No - Medication Review Med list reviewed for High Risk Meds patients 65 and older: Yes
[2019-10-23 08:12] LABS: ALBUMIN 2.8 g/dl (3.4-5.0); BILIRUBIN,DIRECT 0.3 mg/dL (0.0-0.2); BILIRUBIN,TOTAL 0.7 mg/dL (0.2-1); TOT PROT 7.2 g/dl (6.4-8.2)
--- NOTE | 2019-10-23 08:35 | CON.ORTH ---
Consult Consult Specialty:: Orthopedic Surgery Reason for Consultation:: Foreign body found on imaging of left hand - History of Present Illness History of Present Illness: This is a 74 year old male with a PMHx of DM, HTN, ESRD, CAD and CVA who was admitted on 10/21/19 for evaluation of constipation. Patient is primarily Hebrew speaking and hard of hearing, wears hearing aids at home but does not have them with him. During his stay, patient began pointing to left hand. Rad iographs of left hand taken yesterday, 10/22/19, showed metallic foreign body at web space. Use of donor services technician phone was attempted (donor services technician#: [phone]), however, patient was unable to hear donor services technician through headset. Spoke with patient's daughter over the phone who stated she does not know of any previous injury or complaint of left hand pain. Notes patient was complaining of left upper arm pain after most recent dialysis treatment 3 weeks ago but has not had any complaints since. - History Source History Provided By: Patient, Family Member, Medical Record Limitations to Obtaining History: Language Barrier - Past Medical History DIRECTOR SCRIPT: Yes: CVA Cardio/Vascular: Yes: AFIB, CAD (CABG), HTN Renal/: Yes: Renal Failure (HD) Endocrine: Yes: Diabetes Mellitus - Past Surgical History Past Surgical History: Yes: CABG Additional Surgical History: AV fistula - Alcohol/Substance Use Hx Alcohol Use: Yes (Previously, social) History of Substance Use: reports: None - Smoking History Smoking history: Former smoker Have you smoked in the past 12 months: No If you are a former smoker, when did you quit?: about 15 years ago - Social History Usual Living Arrangement: With Child ADL: Independent Occupation: Retired: worked in [employer] History of Recent Travel: No Home Medications - Allergies Allergies/Adverse Reactions: Allergies Allergy/AdvReac Type Severity Reaction Status Date / Time No Known Allergies Allergy Verified 10/21/19 17:09 - Home Medications Home Medications: Ambulatory Orders Amlodipine Besylate [Norvasc -] 5 mg PO DAILY #90 tablet 07/30/19 Apixaban [Eliquis -] 2.5 mg PO BID #90 tablet 07/30/19 Aspirin Coated [Ecotrin -] 81 mg PO DAILY #90 tablet.ec 07/30/19 Metoprolol Succinate [Toprol XL -] 25 mg PO DAILY #90 tab.sr.24h 07/30/19 Family Medical History Family History: Unable to Obtain Other Family History: No family history of cancer Review of Systems - Review of Systems Musculoskeletal: reports: Other (Left hand discomfort) Physical Exam for Ortho Vital Signs: Vital Signs Temperature 97.6 F 10/23/19 06:00 Pulse Rate 54 L 10/23/19 06:00 Respiratory Rate 18 10/23/19 06:00 Blood Pressure 184/71 H 10/23/19 06:00 O2 Sat by Pulse Oximetry (%) 100 10/23/19 06:00 Labs: CBC, BMP 10/22/19 05:48 10/22/19 07:45 INR, PTT INR 1.14 (0.83-1.09) H 10/21/19 17:01 - Upper Extremity Hand: Yes: Left (No erythema, swelling, increased warmth or lesion. Small nonmobile hard bump palpated at dorsal aspect of web space. Patient groans when palpating bump. Full painfree ROM of fingers and wrist. NVID. 2+ radial pulses. Dialysis fistula on same arm.) Imaging - Results X-ray: Report Reviewed, Image Reviewed (3 views of left hand shows metallic foriegn body seen in soft tissue seen at distal end of first metacarpal.) Assessment/Plan 74 year old male with a PMHx of DM, HTN, ESRD, CAD and CVA who was admitted on 10/21/19 for evaluation of constipation found to have metallic foreign body at web space of left hand on imaging. -area of retained foreign body does not show any lesion, erythema or swelling -no evidence of acute infection to same area -there is little indication for any inpatient intervention at this time -recommend patient be seen as outpatient for present issue -please re-consult as needed
[2019-10-23] MEDS ORDERED: DEXTROSE 5%-WATER 100 ML IVPB ONE (10:35)
[2019-10-23] MEDS: metoPROLOL SUCCINATE 25 MG TAB.SR.24H (FP) PO SCH (10:37)
[2019-10-23] MEDS: APIXABAN 2.5 MG TABLET PO SCH (10:37)
[2019-10-23] MEDS: ASPIRIN COATED 81 MG TABLET.EC PO SCH (10:37)
[2019-10-23] MEDS: amLODIPine BESYLATE 5 MG TABLET (FP) PO SCH (10:37)
[2019-10-23] MEDS: CEFTRIAXONE 2 GM in DEXTROSE 5%-WATER 100 ML IVPB SCH (10:37)
[2019-10-23] MEDS ORDERED: SODIUM CHLORIDE 250 ML IV PRN (11:57)
--- NOTE | 2019-10-23 11:57 | PN ---
Progress Note, Physician History of Present Illness: Pt seen and examined at bedside. He is awake and appears comfortable. - Current Medication List Current Medications: Active Medications Amlodipine Besylate (Norvasc -) 5 mg PO DAILY [facility] Last Admin: 10/23/19 10:37 Dose: 5 mg Documented by: Apixaban (Eliquis -) 2.5 mg PO BID [facility] Last Admin: 10/23/19 10:37 Dose: 2.5 mg Documented by: Aspirin (Ecotrin -) 81 mg PO DAILY [facility] Last Admin: 10/23/19 10:37 Dose: 81 mg Documented by: Sodium Chloride (Normal Saline -) 250 mls @ 3,000 mls/hr IV PRN PRN PRN Reason: Hypotension during Dialysis Stop: 10/22/19 20:11 Ceftriaxone Sodium 2 gm/ (Dextrose) 100 mls @ 200 mls/hr IVPB DAILY [facility] Stop: 10/27/19 10:29 Last Admin: 10/23/19 10:37 Dose: 200 mls/hr Documented by: Insulin Aspart (Novolog Vial Sliding Scale -) 1 vial SQ ACHS [facility]; Protocol Last Admin: 10/23/19 07:07 Dose: Not Given Documented by: Metoprolol Succinate (Toprol Xl -) 25 mg PO DAILY [facility] Last Admin: 10/23/19 10:37 Dose: 25 mg Documented by: - Objective Vital Signs: Vital Signs Temperature 98 F 10/23/19 09:45 Pulse Rate 96 H 10/23/19 09:45 Respiratory Rate 18 10/23/19 09:45 Blood Pressure 118/70 10/23/19 09:45 O2 Sat by Pulse Oximetry (%) 97 10/23/19 09:45 Constitutional: Yes: Calm Eyes: Yes: Conjunctiva Clear HENT: Yes: Atraumatic Neck: Yes: Supple Cardiovascular: Yes: S1, S2 Respiratory: Yes: CTA Bilaterally Gastrointestinal: Yes: Ascites Genitourinary: Yes: WNL Musculoskeletal: Yes: WNL Edema: No Neurological: Yes: Oriented Labs: CBC, BMP 10/22/19 05:48 10/22/19 07:45 INR, PTT INR 1.14 (0.83-1.09) H 10/21/19 17:01 Problem List - Problems (1) ESRD (end stage renal disease) Code(s): N18.6 - END STAGE RENAL DISEASE (2) Ascites Code(s): R18.8 - OTHER ASCITES Assessment/Plan Current Medications Generic Name Dose Route Start Last Admin Trade Name Freq PRN Reason Stop Dose Admin Amlodipine Besylate 5 mg 10/22/19 10:00 10/23/19 10:37 Norvasc - PO 5 mg DAILY TRUNG Administration Apixaban 2.5 mg 10/22/19 10:00 10/23/19 10:37 Eliquis - PO 2.5 mg BID TRUNG Administration Aspirin 81 mg 10/22/19 10:00 10/23/19 10:37 Ecotrin - PO 81 mg DAILY TRUNG Administration Sodium Chloride 250 mls @ 3,000 mls/hr 10/21/19 20:11 Normal Saline - IV 10/22/19 20:11 PRN PRN Hypotension during Dialysis Ceftriaxone Sodium 2 gm/ 100 mls @ 200 mls/hr 10/22/19 17:15 10/23/19 10:37 Dextrose IVPB 10/27/19 10:29 200 mls/hr DAILY TRUNG Administration Insulin Aspart 1 vial 10/22/19 07:00 10/23/19 07:07 Novolog Vial Sliding Scale - SQ Not Given ACHS [facility] Protocol Metoprolol Succinate 25 mg 10/22/19 10:00 10/23/19 10:37 Toprol Xl - PO 25 mg DAILY TRUNG Administration Impression 1. esrd 2. r/o acs 3. htn 4. cad 5. a-fib 6. hx of cva 7. ascites Plan - pt had HD yesterday - will arrange for HD tomorrow - repeat labs in am - GI follow up - cont renal diet - monitor bp - cardio follow up
--- NOTE | 2019-10-23 12:55 | CONSULT ---
Consultation: Heme Onc Resident note CONSULT REQUEST: We have been asked to medically evaluate this patient for eosinophilia. HISTORY OF PRESENT ILLNESS: Patient is a 74 year old male with past medical history of DM, HTN, ESRD, CAD s/p CABG, CVA, Afib, was admitted to the hospital for constipation. 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 Patient keeps on pointing to his left hand. No redness, swelling or TTP noted. We were consulted for further evaluation of persistent eosinophilia. Patient was admitted back in June for abdominal pain. He was found to have ascites, underwent paracentesis which showed low SAAG/high protein. At that time, patient was already noted to have eosinophilia. Strongyloides Ab was negative. Patient's daughter provided, that patient does not take any over the counter medications or supplements. Has not had any recent illness where he had to take antibiotics. She also reported that patient underwent LHC and CABG 7 years ago for CAD, and soon after was started on dialysis. She is not sure about the cause of the renal failure, follows up with Dr. Binh Tirado. Patient also noted to have HBV Ab on previous admission. CT AP done showed large ascites, trace right pleural effusion, aortocaval adenopathy. PMHx:DM, HTN, ESRD, CAD s/p CABG, CVA, Afib PSHx:CABG, Cholecystectomy Allergies:NKDA SHx: previous smoker and etoh drinker, denies illicit drug use REVIEW OF SYSTEMS: CONSTITUTIONAL: Absent: fever, chills, diaphoresis, generalized weakness, malaise, loss of appetite, weight change HEENT: Absent: rhinorrhea, nasal congestion, throat pain, throat swelling, difficulty swallowing, mouth swelling, ear pain, eye pain, visual changes CARDIOVASCULAR: Absent: chest pain, syncope, palpitations, irregular heart rate, lightheadedness, peripheral edema RESPIRATORY: Absent: cough, shortness of breath, dyspnea with exertion, orthopnea, wheezing, stridor, hemoptysis GASTROINTESTINAL: Absent: abdominal pain, abdominal distension, nausea, vomiting, diarrhea, constipation, melena, hematochezia GENITOURINARY: Absent: dysuria, frequency, urgency, hesitancy, hematuria, flank pain, genital pain MUSCULOSKELETAL: Left hand pain Absent: myalgia, arthralgia, joint swelling, back pain, neck pain SKIN: Absent: rash, itching, pallor HEMATOLOGIC/IMMUNOLOGIC: Absent: easy bleeding, easy bruising, lymphadenopathy, frequent infections ENDOCRINE: Absent: unexplained weight gain, unexplained weight loss, heat intolerance, cold intolerance NEUROLOGIC: Absent: headache, focal weakness or paresthesias, dizziness, unsteady gait, seizure, mental status changes, bladder or bowel incontinence PSYCHIATRIC: Absent: anxiety, depression, suicidal or homicidal ideation, hallucinations. PHYSICAL EXAMINATION Vital Signs - 24 hr 10/22/19 10/22/19 10/22/19 18:00 21:00 22:00 Temperature 98.2 F 98.4 F Pulse Rate 65 83 Respiratory 18 18 Rate Blood Pressure 140/65 137/57 L O2 Sat by Pulse 97 96 96 Oximetry (%) 10/23/19 10/23/19 10/23/19 03:28 06:00 09:45 Temperature 97.8 F 97.6 F 98 F Pulse Rate 87 54 L 96 H Respiratory 18 18 18 Rate Blood Pressure 121/54 L 184/71 H 118/70 O2 Sat by Pulse 95 100 97 Oximetry (%) GENERAL: Awake, alert, and fully oriented, in no acute distress. NECK: Normal range of motion, supple LUNGS: decreased breath sounds on bilateral bases HEART: irregularly irregular, +holosystolic murmur ABDOMEN: Soft, nontender, + distended, normoactive bowel sounds. UPPER EXTREMITIES: 2+ pulses, warm, well-perfused. LUE : no tenderness, erythema or swelling LOWER EXTREMITIES: 2+ pulses, warm, well-perfused. No calf tenderness. No peripheral edema. SKIN: Warm, dry, normal turgor Laboratory Results - last 24 hr 10/23/19 10/23/19 05:41 05:41 Total Bilirubin 0.7 Direct Bilirubin 0.3 H AST 15 ALT 11 L Alkaline Phosphatase 154 H Creatine Kinase 86 Troponin I 8.64 H* Total Protein 7.2 Albumin 2.8 L Active Medications Generic Name Dose Route Start Last Admin Trade Name Freq PRN Reason Stop Dose Admin Amlodipine Besylate 5 mg 10/22/19 10:00 10/23/19 10:37 Norvasc - PO 5 mg DAILY TRUNG Administration Apixaban 2.5 mg 10/22/19 10:00 10/23/19 10:37 Eliquis - PO 2.5 mg BID TRUNG Administration Aspirin 81 mg 10/22/19 10:00 10/23/19 10:37 Ecotrin - PO 81 mg DAILY TRUNG Administration Sodium Chloride 250 mls @ 3,000 mls/hr 10/21/19 20:11 Normal Saline - IV 10/22/19 20:11 PRN PRN Hypotension during Dialysis Ceftriaxone Sodium 2 gm/ 100 mls @ 200 mls/hr 10/22/19 17:15 10/23/19 10:37 Dextrose IVPB 10/27/19 10:29 200 mls/hr DAILY TRUNG Administration Insulin Aspart 1 vial 10/22/19 07:00 10/23/19 07:07 Novolog Vial Sliding Scale - SQ Not Given ACHS TRUNG Protocol Metoprolol Succinate 25 mg 10/22/19 10:00 10/23/19 10:37 Toprol Xl - PO 25 mg DAILY TRUNG Administration ASSESSMENT/PLAN: Patient is a 74 year old male with past medical history of DM, HTN, ESRD, CAD s/p CABG, CVA, Afib, was admitted to the hospital for constipation. We were consulted for further evaluation of persistent eosinophilia. 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 -can benefit from a bone marrow biopsy and aspirate to investigate these mutations as well and to rule out primary hematologic disorders like AML,CML, MDS/MPN, Chronic eosinophilic leukemia (elevated B12), lymphomas or other #Anemia -likely 2/2 anemia of chronic disease in setting of ESRD -iron studies, B12, folate, TSH normal Dispo: We will continue to follow the patient. Thank you for this consultative opportunity. Visit type - Medication Review Med list reviewed for High Risk Meds patients 65 and older: Yes - Emergency Visit Emergency Visit: Yes ED Registration Date: 10/21/19 Care time: The patient presented to the Emergency Department on the above date and was hospitalized for further evaluation of their emergent condition. - New Patient This patient is new to me today: Yes Date on this admission: 10/23/19 - Critical Care Critical Care patient: No ATTENDING PHYSICIAN STATEMENT I saw and evaluated the patient. I reviewed the resident's note and discussed the case with the resident. I agree with the resident's findings and plan as documented. SUBJECTIVE: OBJECTIVE: ASSESSMENT AND PLAN:
[2019-10-23 15:21] VITALS: BMI 19.6
--- NOTE | 2019-10-23 17:22 | PN ---
Teaching Attending Note Name of Resident: Lian Arreaga ATTENDING PHYSICIAN STATEMENT I saw and evaluated the patient. I reviewed the resident's note and discussed the case with the resident. I agree with the resident's findings and plan as documented. SUBJECTIVE: Pt seen and examined. Complained of pain in L hand OBJECTIVE: 10/22/19 05:48 10/22/19 07:45 ASSESSMENT AND PLAN: 74 year old gentleman with past medical history of DM, HTN, ESRD, CAD s/p CABG, CVA, Afib, was admitted to the hospital for constipation. We were consulted for further evaluation of persistent eosinophilia. 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 Has 2 values of AEC above 1500 at least one month apart (last one in June), however is unclear if there is a reactive component. Elevated troponin may also indicate end organ damage if true HES (at the same time pt on HD, etc) 2) Recommend ID evaluation to r/o parasitic infections, other unique infections that need investigation. 3) Consider Rheumatology evaluation for autoimmune disorders evaluation 4) Hematologic malignancy cannot be ruled out. Will obtain Flow cytometry analysis, peripheral blood pathology review, serum tryptase, mutational analysis to evaluate for: [id number] fusion by FISH to the CHIC2 locus (or as indicated by [facility] pathology team), BCR-ABL, JAK2 V617F, KIT D816V, T Cell Receptor clonality studies. He can benefit from a bone marrow biopsy and aspirate to investigate these mutations as well and to rule out primary hematologic disorders like AML,CML, MDS/MPN, Chronic eosinophilic leukemia (elevated B12), lymphomas or other 5) Thank you very much for this consultation.
[2019-10-23 19:06] LABS: HEP B CORE AB, TOT Positive (Negative)
[2019-10-24 01:01] LABS: HEMATOCRIT 29.8 % (35.4-49); HEMOGLOBIN 10.1 GM/dL (11.7-16.9); MCH 32.4 pg (25.7-33.7); MCHC 33.8 g/dl (32.0-35.9); MEAN CELL VOLUME 95.7 fl (80-96); PLATELET COUNT 248 K/MM3 (134-434); RBC 3.11 M/mm3 (4.00-5.60); RDW 14.8 % (11.9-15.9); WHITE BLOOD COUNT 8.5 K/mm3 (4.0-10.0)
--- NOTE | 2019-10-24 06:24 | PN ---
Progress Note (short form) - Note Progress Note: Chief Complaint: Events noted, notes reviewed, resting in bed, in no distress, no reported chest discomfort or dyspnea History of Present Illness: Seen and examined on telemetry. Events noted, notes reviewed, resting in bed, in no distress, no reported chest discomfort or dyspnea Echocardiography revealed normal left ventricle size and systolic function, LVEF between 55-60%, bi-atrial dilatation, moderate mitral valve regurgitation, moderate to severe tricuspid valve regurgitation, mild to moderate aortic valve stenosis with calculated aortic valve area of 0.9 cm with a mean transvalvular gradient of 15 mmHg Medications: Current Medications Generic Name Dose Route Start Last Admin Trade Name Freq PRN Reason Stop Dose Admin Amlodipine Besylate 5 mg 10/22/19 10:00 10/23/19 10:37 Norvasc - PO 5 mg DAILY TRUNG Administration Apixaban 2.5 mg 10/22/19 10:00 10/23/19 10:37 Eliquis - PO 2.5 mg BID TRUNG Administration Aspirin 81 mg 10/22/19 10:00 10/23/19 10:37 Ecotrin - PO 81 mg DAILY TRUNG Administration Ceftriaxone Sodium 2 gm/ 100 mls @ 200 mls/hr 10/22/19 17:15 10/23/19 10:37 Dextrose IVPB 10/27/19 10:29 200 mls/hr DAILY TRUNG Administration Sodium Chloride 250 mls @ 3,000 mls/hr 10/23/19 11:57 Normal Saline - IV 10/24/19 11:57 PRN PRN Hypotension during Dialysis Insulin Aspart 1 vial 10/22/19 07:00 10/23/19 21:59 Novolog Vial Sliding Scale - SQ 2 units ACHS TRUNG Administration Protocol Metoprolol Succinate 25 mg 10/22/19 10:00 10/23/19 10:37 Toprol Xl - PO 25 mg DAILY TRUNG Administration Review of Systems Unable to obtain/communication issue as noted above Vital Signs: Last Vital Signs Temp Pulse Resp BP Pulse Ox 98.1 F 91 H 19 103/68 96 10/24/19 02:00 10/24/19 02:00 10/24/19 02:00 10/24/19 02:00 10/23/19 21:00 Intake & Output 10/21/19 10/22/19 10/23/19 10/24/19 23:59 23:59 23:59 23:59 Intake Total 1050 430 Output Total 6502 Balance -5458 430 Weight 185 lb 122 lb 8 oz 118 lb Neck: Supple Negative JVD Respiratory: Diminished Breath Sounds at the Bases Cardiovascular: S1 S2 Irregularly irregular, grade 2-3/6 systolic ejection murmur, grade 3/6 systolic apical murmur Gastrointestinal: Soft Benign Normal Bowel Sounds Ext: Negative Edema Labs: CBC, BMP 10/24/19 00:40 10/22/19 07:45 Hepatic Panel Total Bilirubin 0.7 mg/dL (0.2-1) 10/23/19 05:41 Direct Bilirubin 0.3 mg/dL (0.0-0.2) H 10/23/19 05:41 AST 15 U/L (15-37) 10/23/19 05:41 ALT 11 U/L (13-61) L 10/23/19 05:41 Alkaline Phosphatase 154 U/L (45-117) H 10/23/19 05:41 Albumin 2.8 g/dl (3.4-5.0) L 10/23/19 05:41 INR, PTT INR 1.14 (0.83-1.09) H 10/21/19 17:01 Assessment/Plan ASSESSMENT: 1. Coronary artery disease post coronary artery bypass grafting with evidence of non-ST segment elevation myocardial infarction angina pectoris 2. Diastolic left ventricular dysfunction with clinical class 0-I [place] [employer] classification left ventricular failure, clinically compen sated/euvolemic 3. Persistent atrial fibrillation [id number] score of 6 on anticoagulation therapy with DOAC's/Eliquis 4. Aortic stenosis, moderate in severity 5. Mitral valve regurgitation/moderate in severity 6. Tricuspid valve regurgitation moderate to severe in severity 7. Hypertensive cardiovascular disease 8. Diabetes mellitus 9. Hypercholesterolemia 10. History of cerebrovascular disease 11. End-stage renal disease on hemodialysis 12. Anemia PLAN: 1. Continue Toprol-XL therapy and dose titration hemodynamics permitting 2. Continue Norvasc therapy 3. Ideally recommend the addition of EMILE inhibitor or angiotensin receptor luz maria therapy unless it is absolutely contraindicated 4. Continue Eliquis and ASA therapies with caution and close monitoring of hemoglobin level 5. Recommend the addition of statin therapy unless it is absolutely contr aindicated 6. As outlined in yesterday's note plan is to optimize patient's medical therapy and additional evaluation can be performed on outpatient basis with his intel analyst at [facility] 7. Hemodialysis as per the renal service Kathryn Ames MD
[2019-10-24] MEDS: INSULIN SLIDING SCALE (NOVOLOG) 1 VIAL SQ SCH ×4 (06:31→21:25)
--- NOTE | 2019-10-24 07:11 | PN.GI ---
GI Progress Note Subjective: ON HD - NO NEW COMPLAINTS DOING OKAY - Objective Vital Signs: Vital Signs Temperature 98.1 F 10/24/19 02:00 Pulse Rate 91 H 10/24/19 02:00 Respiratory Rate 19 10/24/19 02:00 Blood Pressure 103/68 10/24/19 02:00 O2 Sat by Pulse Oximetry (%) 96 10/23/19 21:00 Constitutional: Well Nourished, No Distress, Calm Eyes: Yes: WNL HENT: Yes: WNL Cardiovascular: Yes: WNL, Regular Rate and Rhythm Respiratory: Yes: WNL, Regular, CTA Bilaterally Gastrointestinal Inspection: Yes: WNL ...Auscultate: Yes: Normoactive Bowel Sounds ...Palpate: Yes: Other (NOT TENDER , NOT DISTENDED) Extremities: Yes: WNL Edema: No Labs: CBC, BMP 10/24/19 00:40 10/22/19 07:45 INR, PTT INR 1.14 (0.83-1.09) H 10/21/19 17:01 Problem List - Problems (1) Ascites Assessment/Plan: ASCITES FLUID CHEMISTRY PENDING RESULTS PREVIOUS PARACENTESIS NOT CONSISTENT WITH PORTAL HTN ; ASCITES MOST LIKELY SECONDARY TO UNDERLYING RENAL DZ Code(s): R18.8 - OTHER ASCITES (2) ESRD (end stage renal disease) Code(s): N18.6 - END STAGE RENAL DISEASE
[2019-10-24 07:58] LABS: BASO % 0.4 % (0-2.0); EOS % 10.9 % (0-4.5); HEMATOCRIT 30.9 % (35.4-49); HEMOGLOBIN 10.4 GM/dL (11.7-16.9); LYMPH % 14.1 % (8-40); MCH 32.1 pg (25.7-33.7); MCHC 33.7 g/dl (32.0-35.9); MEAN CELL VOLUME 95.2 fl (80-96); MEAN PLT VOLUME 7.9 fl (7.5-11.1); MONO % 8.6 % (3.8-10.2); PLATELET COUNT 244 K/MM3 (134-434); RBC 3.24 M/mm3 (4.00-5.60); RDW 14.8 % (11.9-15.9); WHITE BLOOD COUNT 7.5 K/mm3 (4.0-10.0)
[2019-10-24 08:16] LABS: INR 1.37 (0.83-1.09); PROTHROMBIN TIME (PATIENT) 16.2 SEC (9.7-13.0)
[2019-10-24 08:34] LABS: ALBUMIN 2.5 g/dl (3.4-5.0); BILIRUBIN,TOTAL 0.4 mg/dL (0.2-1); BLOOD UREA NITROGEN 29.8 mg/dL (7-18); CALCIUM 8.4 mg/dL (8.5-10.1); CREATININE 5.4 mg/dL (0.55-1.3); POTASSIUM 3.7 mmol/L (3.5-5.1); TOT PROT 6.6 g/dl (6.4-8.2)
[2019-10-24 08:49] LABS: BF WBC & OTHER NUCLEATED CELLS 514 /mm3
[2019-10-24 09:17] LABS: BODY FLUID MACROPHAGES 74 %
--- NOTE | 2019-10-24 10:33 | CON.ID ---
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 PROFESSOR: Yes: CVA Cardio/Vascular: Yes: AFIB, CAD (CABG), HTN Renal/: Yes: Renal Failure (HD) Endocrine: Yes: Diabetes Mellitus - Past Surgical History Past Surgical History: Yes: CABG Additional Surgical History: AV fistula - Alcohol/Substance Use Hx Alcohol Use: Yes (Previously, social) History of Substance Use: reports: None - Smoking History Smoking history: Former smoker Have you smoked in the past 12 months: No If you are a former smoker, when did you quit?: about 15 years ago - Social History Usual Living Arrangement: With Child ADL: Independent Occupation: Retired: worked in [employer] History of Recent Travel: No Home Medications - Allergies Allergies/Adverse Reactions: Allergies Allergy/AdvReac Type Severity Reaction Status Date / Time No Known Allergies Allergy Verified 10/21/19 17:09 - Home Medications Home Medications: Ambulatory Orders Amlodipine Besylate [Norvasc -] 5 mg PO DAILY #90 tablet 07/30/19 Apixaban [Eliquis -] 2.5 mg PO BID #90 tablet 07/30/19 Aspirin Coated [Ecotrin -] 81 mg PO DAILY #90 tablet.ec 07/30/19 Metoprolol Succinate [Toprol XL -] 25 mg PO DAILY #90 tab.sr.24h 07/30/19 Family Medical History Family History: Unable to Obtain Other Family History: No family history of cancer Physical Exam Vital Signs: Vital Signs Temperature 98.1 F 10/24/19 06:00 Pulse Rate 90 10/24/19 09:45 Respiratory Rate 18 10/24/19 09:45 Blood Pressure 115/90 10/24/19 09:45 O2 Sat by Pulse Oximetry (%) 96 10/23/19 21:00 Labs: CBC, BMP 10/24/19 06:25 10/24/19 06:25
--- NOTE | 2019-10-24 10:48 | PN ---
Progress Note, Physician History of Present Illness: Pt seen and examined at bedside. He is tolerating HD. - Current Medication List Current Medications: Active Medications Amlodipine Besylate (Norvasc -) 5 mg PO DAILY [facility] Last Admin: 10/23/19 10:37 Dose: 5 mg Documented by: Apixaban (Eliquis -) 2.5 mg PO BID [facility] Last Admin: 10/23/19 10:37 Dose: 2.5 mg Documented by: Aspirin (Ecotrin -) 81 mg PO DAILY [facility] Last Admin: 10/23/19 10:37 Dose: 81 mg Documented by: Ceftriaxone Sodium 2 gm/ (Dextrose) 100 mls @ 200 mls/hr IVPB DAILY [facility] Stop: 10/27/19 10:29 Last Admin: 10/23/19 10:37 Dose: 200 mls/hr Documented by: Sodium Chloride (Normal Saline -) 250 mls @ 3,000 mls/hr IV PRN PRN PRN Reason: Hypotension during Dialysis Stop: 10/24/19 11:57 Insulin Aspart (Novolog Vial Sliding Scale -) 1 vial SQ ACHS [facility]; Protocol Last Admin: 10/24/19 06:31 Dose: Not Given Documented by: Metoprolol Succinate (Toprol Xl -) 25 mg PO DAILY [facility] Last Admin: 10/23/19 10:37 Dose: 25 mg Documented by: - Objective Vital Signs: Vital Signs Temperature 98.1 F 10/24/19 06:00 Pulse Rate 90 10/24/19 09:45 Respiratory Rate 18 10/24/19 09:45 Blood Pressure 115/90 10/24/19 09:45 O2 Sat by Pulse Oximetry (%) 96 10/23/19 21:00 Constitutional: Yes: Calm Eyes: Yes: Conjunctiva Clear HENT: Yes: Atraumatic Neck: Yes: Supple Cardiovascular: Yes: S1, S2 Respiratory: Yes: CTA Bilaterally Gastrointestinal: Yes: Normal Bowel Sounds, Soft Genitourinary: Yes: WNL Musculoskeletal: Yes: WNL Edema: No Neurological: Yes: Oriented Labs: CBC, BMP 10/24/19 06:25 10/24/19 06:25 INR, PTT INR 1.37 (0.83-1.09) H 10/24/19 06:25 Problem List - Problems (1) ESRD (end stage renal disease) Code(s): N18.6 - END STAGE RENAL DISEASE (2) Ascites Code(s): R18.8 - OTHER ASCITES Assessment/Plan Current Medications Generic Name Dose Route Start Last Admin Trade Name Dorian PRN Reason Stop Dose Admin Amlodipine Besylate 5 mg 10/22/19 10:00 10/23/19 10:37 Norvasc - PO 5 mg DAILY TRUNG Administration Apixaban 2.5 mg 10/22/19 10:00 10/23/19 10:37 Eliquis - PO 2.5 mg BID TRUNG Administration Aspirin 81 mg 10/22/19 10:00 10/23/19 10:37 Ecotrin - PO 81 mg DAILY TRUNG Administration Ceftriaxone Sodium 2 gm/ 100 mls @ 200 mls/hr 10/22/19 17:15 10/23/19 10:37 Dextrose IVPB 10/27/19 10:29 200 mls/hr DAILY RTUNG Administration Sodium Chloride 250 mls @ 3,000 mls/hr 10/23/19 11:57 Normal Saline - IV 10/24/19 11:57 PRN PRN Hypotension during Dialysis Insulin Aspart 1 vial 10/22/19 07:00 10/24/19 06:31 Novolog Vial Sliding Scale - SQ Not Given ACHS TRUNG Protocol Metoprolol Succinate 25 mg 10/22/19 10:00 10/23/19 10:37 Toprol Xl - PO 25 mg DAILY TRUNG Administration Impression 1. esrd 2. r/o acs 3. htn 4. cad 5. a-fib 6. hx of cva 7. ascites Plan - cont HD as scheduled - HD today - GI follow up - hg stable - renal diet
[2019-10-24] MEDS ORDERED: DEXTROSE 5%-WATER 100 ML IVPB ONE (12:17)
[2019-10-24] MEDS: amLODIPine BESYLATE 5 MG TABLET (FP) PO SCH (12:29)
[2019-10-24] MEDS: ASPIRIN COATED 81 MG TABLET.EC PO SCH (12:30)
[2019-10-24] MEDS: metoPROLOL SUCCINATE 25 MG TAB.SR.24H (FP) PO SCH (12:30)
[2019-10-24] MEDS: CEFTRIAXONE 2 GM in DEXTROSE 5%-WATER 100 ML IVPB SCH (12:30)
--- NOTE | 2019-10-24 15:39 | PN ---
Progress Note, Physician Chief Complaint: Seen and examined in bed on HD. S/p parcentesis last night. No c/o pain to hand today. Rheumotological/hemeatological w/u in progress History of Present Illness: Patient is a 74 year old male with a significant past medical history of diabetes, hypertension, ESRD (HD T//Tue), CAD s/p open heart surgery - 7 years ago, CVA. Patient presents to the ED on 10/21/2019 with constipation that began about one week ago. Patient's last BM was a week ago. He also has abdominal pain of similar duration with loss of appetite, early satiety, generalized weakness and SOB only on ambulation and is able take only about 10-15 steps daily. He denies nausea, vomiting, diarrhea, fever,chills chest pain, wheezing, cough, dysuria, urgency and hematuria. - Current Medication List Current Medications: Active Medications Amlodipine Besylate (Norvasc -) 5 mg PO DAILY [facility] Last Admin: 10/24/19 12:29 Dose: 5 mg Documented by: Apixaban (Eliquis -) 2.5 mg PO BID [facility] Last Admin: 10/23/19 10:37 Dose: 2.5 mg Documented by: Aspirin (Ecotrin -) 81 mg PO DAILY [facility] Last Admin: 10/24/19 12:30 Dose: 81 mg Documented by: Ceftriaxone Sodium 2 gm/ (Dextrose) 100 mls @ 200 mls/hr IVPB DAILY [facility] Stop: 10/27/19 10:29 Last Admin: 10/24/19 12:30 Dose: 200 mls/hr Documented by: Sodium Chloride (Normal Saline -) 250 mls @ 3,000 mls/hr IV PRN PRN PRN Reason: Hypotension during Dialysis Stop: 10/24/19 11:57 Insulin Aspart (Novolog Vial Sliding Scale -) 1 vial SQ ACHS [facility]; Protocol Last Admin: 10/24/19 12:29 Dose: 2 units Documented by: Metoprolol Succinate (Toprol Xl -) 25 mg PO DAILY [facility] Last Admin: 10/24/19 12:30 Dose: 25 mg Documented by: - Objective Vital Signs: Vital Signs Temperature 96.6 F L 10/24/19 14:50 Pulse Rate 88 10/24/19 14:50 Respiratory Rate 18 10/24/19 14:50 Blood Pressure 108/46 L 10/24/19 14:50 O2 Sat by Pulse Oximetry (%) 98 10/24/19 10:00 Additional Findings/Remarks: Constitutional: Yes: Well Nourished, No Distress, Calm Eyes: Yes: WNL, Conjunctiva Clear HENT: Yes: WNL, Atraumatic, Normocephalic Neck: Yes: WNL, Supple, Trachea Midline Cardiovascular: Yes: WNL, Regular Rate and Rhythm Respiratory: Yes: WNL, Regular, CTA Bilaterally Gastrointestinal: Yes: Normal Bowel Sounds, Soft, no ascites noted ...Rectal Exam: Yes: Deferred Genitourinary: Yes: WNL Breast(s): Yes: WNL Musculoskeletal: Yes: WNL Extremities: Yes: WNL, Other (left AVF) Edema: No Peripheral Pulses WNL: Yes Peripheral Pulses: Left Radial: 2+, Right Radial: 2+, Left Doralis Pedis: 2+, Right Dorsalis Pedis: 2+, Left Femoral: 2+, Right Femoral: 2+ Integumentary: Yes: WNL Neurological: Yes: WNL, Alert, Oriented ...Motor Strength: LLE, RLE (generalized weakness) Labs: CBC, BMP 10/24/19 06:25 10/24/19 06:25 INR, PTT INR 1.37 (0.83-1.09) H 10/24/19 06:25 Problem List - Problems (1) ESRD on hemodialysis Assessment/Plan: HD done today with 1.8L removal HD as per renal Code(s): N18.6 - END STAGE RENAL DISEASE; Z99.2 - DEPENDENCE ON RENAL DIALYSIS (2) Abdominal pain Assessment/Plan: resolved Code(s): R10.9 - UNSPECIFIED ABDOMINAL PAIN (3) Ascites Assessment/Plan: paracentesis done yesterday fluid analysis pending GI following Code(s): R18.8 - OTHER ASCITES (4) Atrial fibrillation Assessment/Plan: rate controlled patient diagnosed with afib on last admission 06/2019 on Metoprolol and eliquis Code(s): I48.91 - UNSPECIFIED ATRIAL FIBRILLATION Qualifiers: Atrial fibrillation type: longstanding persistent Qualified Code(s): I48.11 - Longstanding persistent atrial fibrillation (5) Diabetes mellitus Assessment/Plan: [facility] AC/HS with novolog sliding scale diabetic diet Code(s): E11.9 - TYPE 2 DIABETES MELLITUS WITHOUT COMPLICATIONS Qualifiers: Diabetes mellitus type: type 2 Diabetes mellitus senior living insulin use: without keno terminal operator use Diabetes mellitus complication status: without complication Qualified Code(s): E11.9 - Type 2 diabetes mellitus without complications (6) Pain in left hand Assessment/Plan: right hand xray revealed metallic foreign body at web space of left hand on imaging family states no know trauma to hand seen by ortho no acute intervention pain resolving elevate and warm conmpressess Code(s): M79.642 - PAIN IN LEFT HAND (7) HTN (hypertension) Assessment/Plan: normotensive c/w metoprolol, norvasc Code(s): I10 - ESSENTIAL (PRIMARY) HYPERTENSION Qualifiers: Hypertension type: essential hypertension Qualified Code(s): I10 - Essential (primary) hypertension (8) NSTEMI (non-ST elevated myocardial infarction) Assessment/Plan: troponins remain elevated elevated 8.24 given ESRD troponins will remain high patient with a history of UT with CABG Cardiology following continue on Metoprolol, aspirin, eliquis and trend troponins Monitor on tele Code(s): I21.4 - NON-ST ELEVATION (NSTEMI) MYOCARDIAL INFARCTION (9) Prophylactic measure Assessment/Plan: FEN Fluids: adequate PO intake Electrolytes: monitor & replete as needed Nutrition: renal diet DVT moderate risk c/w apixaban, asa Dispo Maintain as inpatient full code discharge planning Code(s): Z29.9 - ENCOUNTER FOR PROPHYLACTIC MEASURES, UNSPECIFIED (10) Troponin level elevated Assessment/Plan: remains elevated cardiology following c/t trend Code(s): R79.89 - OTHER SPECIFIED ABNORMAL FINDINGS OF BLOOD CHEMISTRY (11) Foreign body Assessment/Plan: right hand xray revealed metallic foreign body at web space of left hand on imaging Ortho following no acute interventioon elevate and warm compresses Code(s): [id number] - (12) COVID-19 ruled out by laboratory testing Assessment/Plan: negative PCR Code(s): Z03.818 - ENCNTR FOR OBS FOR SUSP EXPSR TO OTH BIOLG AGENTS RULED OUT (13) Acquired eosinophilia Assessment/Plan: heme w/u in progress Hematologic malignancy cannot be ruled out. ID to see to r/o parascites infections Rheum to see pt to evalute for autoimmune disorders trend cbc Code(s): D72.1 - EOSINOPHILIA (14) Bleeding Assessment/Plan: bleeding noted last night from paracentesis site hemostatis achieved with pressure dressing cbc stable will hold apixaban until tomorrow and restart Code(s): R58 - HEMORRHAGE, NOT ELSEWHERE CLASSIFIED Visit type - Emergency Visit Emergency Visit: Yes ED Registration Date: 10/21/19 Care time: The patient presented to the Emergency Department on the above date and was hospitalized for further evaluation of their emergent condition. - New Patient This patient is new to me today: No - Critical Care Critical Care patient: No - Discharge Referral Referred to [facility] Med P.C.: No - Medication Review Med list reviewed for High Risk Meds patients 65 and older: Yes
[2019-10-24] MEDS: APIXABAN 2.5 MG TABLET PO SCH (21:25)
[2019-10-25] MEDS: INSULIN SLIDING SCALE (NOVOLOG) 1 VIAL SQ SCH ×4 (07:04→22:13)
--- NOTE | 2019-10-25 07:30 | PN ---
Progress Note, Physician Chief Complaint: Seen and examined ambultaing in hallway with PT. S/p parcentesis. Hand pain resolved. Rheumotological/hemeatological w/u in progress for esinophilia History of Present Illness: Patient is a 74 year old male with a significant past medical history of diabetes, hypertension, ESRD (HD T//Tue), CAD s/p open heart surgery - 7 years ago, CVA. Patient presents to the ED on 10/21/2019 with constipation that began about one week ago. Patient's last BM was a week ago. He also has abdominal pain of similar duration with loss of appetite, early satiety, generalized weakness and SOB only on ambulation and is able take only about 10-15 steps daily. He denies nausea, vomiting, diarrhea, fever,chills chest pain, wheezing, cough, dysuria, urgency and hematuria. - Current Medication List Current Medications: Active Medications Amlodipine Besylate (Norvasc -) 5 mg PO DAILY [facility] Last Admin: 10/24/19 12:29 Dose: 5 mg Documented by: Apixaban (Eliquis -) 2.5 mg PO BID [facility] Last Admin: 10/24/19 21:25 Dose: 2.5 mg Documented by: Aspirin (Ecotrin -) 81 mg PO DAILY [facility] Last Admin: 10/24/19 12:30 Dose: 81 mg Documented by: Ceftriaxone Sodium 2 gm/ (Dextrose) 100 mls @ 200 mls/hr IVPB DAILY [facility] Stop: 10/27/19 10:29 Last Admin: 10/24/19 12:30 Dose: 200 mls/hr Documented by: Sodium Chloride (Normal Saline -) 250 mls @ 3,000 mls/hr IV PRN PRN PRN Reason: Hypotension during Dialysis Stop: 10/24/19 11:57 Insulin Aspart (Novolog Vial Sliding Scale -) 1 vial SQ ACHS [facility]; Protocol Last Admin: 10/25/19 07:04 Dose: Not Given Documented by: Metoprolol Succinate (Toprol Xl -) 25 mg PO DAILY [facility] Last Admin: 10/24/19 12:30 Dose: 25 mg Documented by: - Objective Vital Signs: Vital Signs Temperature 98.2 F 10/25/19 06:00 Pulse Rate 91 H 10/25/19 06:00 Respiratory Rate 18 10/25/19 06:00 Blood Pressure 107/45 L 08/27/20 06:00 O2 Sat by Pulse Oximetry (%) 98 10/25/19 06:00 Additional Findings/Remarks: Constitutional: Yes: Well Nourished, No Distress, Calm Eyes: Yes: WNL, Conjunctiva Clear HENT: Yes: WNL, Atraumatic, Normocephalic Neck: Yes: WNL, Supple, Trachea Midline Cardiovascular: Yes: WNL, Regular Rate and Rhythm Respiratory: Yes: WNL, Regular, CTA Bilaterally Gastrointestinal: Yes: Normal Bowel Sounds, Soft, no ascites noted ...Rectal Exam: Yes: Deferred Genitourinary: Yes: WNL Breast(s): Yes: WNL Musculoskeletal: Yes: WNL Extremities: Yes: WNL, Other (left AVF) Edema: No Peripheral Pulses WNL: Yes Peripheral Pulses: Left Radial: 2+, Right Radial: 2+, Left Doralis Pedis: 2+, Right Dorsalis Pedis: 2+, Left Femoral: 2+, Right Femoral: 2+ Integumentary: Yes: WNL Neurological: Yes: WNL, Alert, Oriented ...Motor Strength: LLE, RLE (generalized weakness) Labs: INR, PTT INR 1.37 (0.83-1.09) H 10/24/19 06:25 Problem List - Problems (1) ESRD on hemodialysis Assessment/Plan: HD done yesterday HD as per renal Code(s): N18.6 - END STAGE RENAL DISEASE; Z99.2 - DEPENDENCE ON RENAL DIALYSIS (2) Abdominal pain Assessment/Plan: resolved s/p paracentesis Code(s): R10.9 - UNSPECIFIED ABDOMINAL PAIN (3) Ascites Assessment/Plan: paracentesis done fluid analysis normal GI following Code(s): R18.8 - OTHER ASCITES (4) Atrial fibrillation Assessment/Plan: rate controlled patient diagnosed with afib on last admission 06/2019 on Metoprolol and eliquis Code(s): I48.91 - UNSPECIFIED ATRIAL FIBRILLATION Qualifiers: Atrial fibrillation type: longstanding persistent Qualified Code(s): I48.11 - Longstanding persistent atrial fibrillation (5) Diabetes mellitus Assessment/Plan: [facility] AC/HS with novolog sliding scale diabetic diet BG well controlled Code(s): E11.9 - TYPE 2 DIABETES MELLITUS WITHOUT COMPLICATIONS Qualifiers: Diabetes mellitus type: type 2 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: without snf use Diabetes mellitus complication status: without complication Qualified Code(s): E11.9 - Type 2 diabetes mellitus without complications (6) Pain in left hand Assessment/Plan: right hand xray revealed metallic foreign body at web space of left hand on imaging family states no know trauma to hand seen by ortho no acute intervention pain resolved elevate and warm conmpressess Code(s): M79.642 - PAIN IN LEFT HAND (7) HTN (hypertension) Code(s): I10 - ESSENTIAL (PRIMARY) HYPERTENSION Qualifiers: Hypertension type: essential hypertension Qualified Code(s): I10 - Essential (primary) hypertension (8) NSTEMI (non-ST elevated myocardial infarction) Assessment/Plan: troponins remain elevated elevated-peaked at 17.2 given ESRD troponins will remain high patient with a history of NH with CABG Cardiology following continue on Metoprolol, aspirin, eliquis and trend troponins Monitor on tele Code(s): I21.4 - NON-ST ELEVATION (NSTEMI) MYOCARDIAL INFARCTION (9) Prophylactic measure Assessment/Plan: FEN Fluids: adequate PO intake Electrolytes: monitor & replete as needed Nutrition: renal diet DVT moderate risk c/w apixaban, asa Dispo Maintain as inpatient full code discharge planning Code(s): Z29.9 - ENCOUNTER FOR PROPHYLACTIC MEASURES, UNSPECIFIED (10) Troponin level elevated Assessment/Plan: remains elevated peaked at 17.2 cardiology following c/t trend Code(s): R79.89 - OTHER SPECIFIED ABNORMAL FINDINGS OF BLOOD CHEMISTRY (11) Foreign body Assessment/Plan: right hand xray revealed metallic foreign body at web space of left hand on imaging Ortho following no acute interventioon elevate and warm compresses pain resolved Code(s): [id number] - (12) COVID-19 ruled out by laboratory testing Assessment/Plan: negative PCR Code(s): Z03.818 - ENCNTR FOR OBS FOR SUSP EXPSR TO OTH BIOLG AGENTS RULED OUT (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 ID following to r/o parascites infections Rheum to see pt to evalute for autoimmune disorders will need bone marrow bx off eliquis as outpatient-consult placed for Dr Gebreal trend cbc Code(s): D72.1 - EOSINOPHILIA (14) Bleeding Assessment/Plan: resolved Code(s): R58 - HEMORRHAGE, NOT ELSEWHERE CLASSIFIED Visit type - Emergency Visit Emergency Visit: Yes ED Registration Date: 10/21/19 Care time: The patient presented to the Emergency Department on the above date and was hospitalized for further evaluation of their emergent condition. - New Patient This patient is new to me today: No - Critical Care Critical Care patient: No - Discharge Referral Referred to [facility] Med P.C.: No - Medication Review Med list reviewed for High Risk Meds patients 65 and older: Yes
[2019-10-25 07:32] LABS: BASO % 0.6 % (0-2.0); HEMATOCRIT 32.1 % (35.4-49); HEMOGLOBIN 10.6 GM/dL (11.7-16.9); LYMPH % 8.7 % (8-40); MCH 31.4 pg (25.7-33.7); MEAN CELL VOLUME 94.9 fl (80-96); MEAN PLT VOLUME 8.2 fl (7.5-11.1); MONO % 10.4 % (3.8-10.2); NEUT % 62.3 % (42.8-82.8); PLATELET COUNT 251 K/MM3 (134-434); RBC 3.39 M/mm3 (4.00-5.60); WHITE BLOOD COUNT 8.1 K/mm3 (4.0-10.0)
--- NOTE | 2019-10-25 07:56 | PN ---
Progress Note (short form) - Note Progress Note: Await fluid analysis Problem List - Problems (1) Ascites Code(s): R18.8 - OTHER ASCITES
[2019-10-25 08:16] LABS: ALBUMIN 2.6 g/dl (3.4-5.0); BILIRUBIN,TOTAL 0.4 mg/dL (0.2-1); BLOOD UREA NITROGEN 26.6 mg/dL (7-18); CALCIUM 8.6 mg/dL (8.5-10.1); MAGNESIUM 1.8 mg/dL (1.8-2.4); POTASSIUM 3.5 mmol/L (3.5-5.1); TOT PROT 6.8 g/dl (6.4-8.2)
[2019-10-25] MEDS ORDERED: DEXTROSE 5%-WATER 100 ML IVPB ONE (10:34)
[2019-10-25] MEDS: ASPIRIN COATED 81 MG TABLET.EC PO SCH (10:43)
[2019-10-25] MEDS: metoPROLOL SUCCINATE 25 MG TAB.SR.24H (FP) PO SCH (10:44)
[2019-10-25] MEDS: CEFTRIAXONE 2 GM in DEXTROSE 5%-WATER 100 ML IVPB SCH (10:44)
[2019-10-25] MEDS: amLODIPine BESYLATE 5 MG TABLET (FP) PO SCH (10:44)
[2019-10-25] MEDS: APIXABAN 2.5 MG TABLET PO SCH ×2 (10:44→21:59)
--- NOTE | 2019-10-25 11:54 | PN ---
Progress Note, Physician Chief Complaint: Sitting on side of bed Not in distress History of Present Illness: Patient was seen and examined. Awake. Language barrier. Chart was reviewed Had spoken with daughter previously Denies chest pain, SOB or palpitations Troponin elevation noted to 17 - Current Medication List Current Medications: Active Medications Amlodipine Besylate (Norvasc -) 5 mg PO DAILY [facility] Last Admin: 10/25/19 10:44 Dose: 5 mg Documented by: Apixaban (Eliquis -) 2.5 mg PO BID [facility] Last Admin: 10/25/19 10:44 Dose: 2.5 mg Documented by: Aspirin (Ecotrin -) 81 mg PO DAILY [facility] Last Admin: 10/25/19 10:43 Dose: 81 mg Documented by: Ceftriaxone Sodium 2 gm/ (Dextrose) 100 mls @ 200 mls/hr IVPB DAILY [facility] Stop: 10/27/19 10:29 Last Admin: 10/25/19 10:44 Dose: 200 mls/hr Documented by: Sodium Chloride (Normal Saline -) 250 mls @ 3,000 mls/hr IV PRN PRN PRN Reason: Hypotension during Dialysis Stop: 10/24/19 11:57 Insulin Aspart (Novolog Vial Sliding Scale -) 1 vial SQ ACHS [facility]; Protocol Last Admin: 10/25/19 07:04 Dose: Not Given Documented by: Metoprolol Succinate (Toprol Xl -) 25 mg PO DAILY [facility] Last Admin: 10/25/19 10:44 Dose: 25 mg Documented by: - Objective Vital Signs: Vital Signs Temperature 98.2 F 10/25/19 06:00 Pulse Rate 91 H 10/25/19 06:00 Respiratory Rate 18 10/25/19 06:00 Blood Pressure 107/45 L 10/25/19 06:00 O2 Sat by Pulse Oximetry (%) 98 10/25/19 06:00 Neck: Yes: Supple Cardiovascular: Yes: Pulse Irregular, Murmur (2/6 DANNY), S1, S2 Respiratory: Yes: CTA Bilaterally Gastrointestinal: Yes: Normal Bowel Sounds, Soft. No: Tenderness Edema: No Labs: CBC, BMP 10/25/19 05:51 10/25/19 05:51 INR, PTT INR 1.37 (0.83-1.09) H 10/24/19 06:25 Problem List - Problems (1) Ascites Code(s): R18.8 - OTHER ASCITES (2) Atrial fibrillation Code(s): I48.91 - UNSPECIFIED ATRIAL FIBRILLATION Qualifiers: Atrial fibrillation type: longstanding persistent Qualified Code(s): I48.11 - Longstanding persistent atrial fibrillation (3) Elevated troponin Code(s): R79.89 - OTHER SPECIFIED ABNORMAL FINDINGS OF BLOOD CHEMISTRY (4) HTN (hypertension) Code(s): I10 - ESSENTIAL (PRIMARY) HYPERTENSION Qualifiers: Hypertension type: essential hypertension Qualified Code(s): I10 - Essential (primary) hypertension (5) Hypothyroid Code(s): E03.9 - HYPOTHYROIDISM, UNSPECIFIED (6) NSTEMI (non-ST elevated myocardial infarction) Code(s): I21.4 - NON-ST ELEVATION (NSTEMI) MYOCARDIAL INFARCTION (7) Diabetes mellitus Code(s): E11.9 - TYPE 2 DIABETES MELLITUS WITHOUT COMPLICATIONS Qualifiers: Diabetes mellitus type: type 2 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 Coronary artery disease post coronary artery bypass grafting with evidence of NSTEMI with elevated troponin, angina pectoris 2. Diastolic left ventricular dysfunction with clinical class 0-I NYHA classification left ventricular failure, clinically compensated/euvolemic 3. Persistent atrial fibrillation [id number] score of 6 on anticoagulation therapy with DOAC/Eliquis 4. Aortic stenosis, moderate in severity 5. Mitral valve regurgitation, moderate in severity 6. Tricuspid valve regurgitation moderate to severe in severity 7. Hypertensive cardiovascular disease 8. Diabetes mellitus 9. Hypercholesterolemia 10. History of cerebrovascular disease 11. End-stage renal disease on hemodialysis 12. Anemia PLAN: 1. Continue Toprol-XL therapy and dose titration hemodynamics permitting 2. Continue Norvasc therapy 3. Ideally recommend the addition of EMILE inhibitor or angiotensin receptor luz maria therapy unless it is absolutely contraindicated 4. Continue Eliquis and ASA therapies with caution and close monitoring of hemoglobin level 5. Recommend the addition of statin therapy unless it is absolutely contraindicated 6. As outlined in yesterday's note plan is to optimize patient's medical th erapy and additional evaluation can be performed on outpatient basis with his director global medical affairs at [facility] 7. Hemodialysis as per the renal service PLAN: 1. Continue Metoprolol Succinate 25 mg QD and Amlodipine 5 mg QD 2. Eliquis 2.5 mg BID and ASA 81 mg QD 3. HD as per Renal service and monitor renal function and electrolytes 4. Trend troponin (peaked at 17.2 now 15.8) 5. Echocardiography was reviewed 6. Lipid panel during this hospitalization with low LDL, thus not on statin therapy at the moment 7. Optimize medical therapy and additional cardiac evaluation can be performed as outpatient basis by his director global medical affairs at [facility] unless patient were to be symptomatic Insole Lip Turner: Judd Hernandez MD at [facility] Roni Mack MD, FACC
[2019-10-25 12:07] LABS: BODY FLUID ALBUMIN 2.2 g/dL (Not Estab.)
[2019-10-25] MEDS ORDERED: SODIUM CHLORIDE 250 ML IV PRN (13:34)
--- NOTE | 2019-10-25 13:34 | PN ---
Progress Note, Physician History of Present Illness: Pt seen and examined at bedside. He is awake and appears comfortable. - Current Medication List Current Medications: Active Medications Amlodipine Besylate (Norvasc -) 5 mg PO DAILY [facility] Last Admin: 10/25/19 10:44 Dose: 5 mg Documented by: Apixaban (Eliquis -) 2.5 mg PO BID [facility] Last Admin: 10/25/19 10:44 Dose: 2.5 mg Documented by: Aspirin (Ecotrin -) 81 mg PO DAILY [facility] Last Admin: 10/25/19 10:43 Dose: 81 mg Documented by: Ceftriaxone Sodium 2 gm/ (Dextrose) 100 mls @ 200 mls/hr IVPB DAILY [facility] Stop: 10/27/19 10:29 Last Admin: 10/25/19 10:44 Dose: 200 mls/hr Documented by: Sodium Chloride (Normal Saline -) 250 mls @ 3,000 mls/hr IV PRN PRN PRN Reason: Hypotension during Dialysis Stop: 10/24/19 11:57 Insulin Aspart (Novolog Vial Sliding Scale -) 1 vial SQ ACHS [facility]; Protocol Last Admin: 10/25/19 11:58 Dose: 2 units Documented by: Metoprolol Succinate (Toprol Xl -) 25 mg PO DAILY [facility] Last Admin: 10/25/19 10:44 Dose: 25 mg Documented by: - Objective Vital Signs: Vital Signs Temperature 98.2 F 10/25/19 06:00 Pulse Rate 91 H 10/25/19 06:00 Respiratory Rate 18 10/25/19 06:00 Blood Pressure 107/45 L 10/25/19 06:00 O2 Sat by Pulse Oximetry (%) 99 10/25/19 09:00 Constitutional: Yes: Calm Eyes: Yes: Conjunctiva Clear HENT: Yes: Atraumatic Neck: Yes: Supple Cardiovascular: Yes: S1, S2 Respiratory: Yes: CTA Bilaterally Gastrointestinal: Yes: Soft Genitourinary: Yes: WNL Musculoskeletal: Yes: WNL Edema: No Neurological: Yes: Oriented Labs: CBC, BMP 10/25/19 05:51 10/25/19 05:51 INR, PTT INR 1.37 (0.83-1.09) H 10/24/19 06:25 Problem List - Problems (1) ESRD (end stage renal disease) Code(s): N18.6 - END STAGE RENAL DISEASE (2) Ascites Code(s): R18.8 - OTHER ASCITES Assessment/Plan Current Medications Generic Name Dose Route Start Last Admin Trade Name Dorian PRN Reason Stop Dose Admin Amlodipine Besylate 5 mg 10/22/19 10:00 10/25/19 10:44 Norvasc - PO 5 mg DAILY [facility] Administration Apixaban 2.5 mg 10/22/19 10:00 10/25/19 10:44 Eliquis - PO 2.5 mg BID [facility] Administration Aspirin 81 mg 10/22/19 10:00 10/25/19 10:43 Ecotrin - PO 81 mg DAILY [facility] Administration Ceftriaxone Sodium 2 gm/ 100 mls @ 200 mls/hr 10/22/19 17:15 10/25/19 10:44 Dextrose IVPB 10/27/19 10:29 200 mls/hr DAILY [facility] Administration Sodium Chloride 250 mls @ 3,000 mls/hr 10/23/19 11:57 Normal Saline - IV 10/24/19 11:57 PRN PRN Hypotension during Dialysis Insulin Aspart 1 vial 10/22/19 07:00 10/25/19 11:58 Novolog Vial Sliding Scale - SQ 2 units ACHS [facility] Administration Protocol Metoprolol Succinate 25 mg 10/22/19 10:00 10/25/19 10:44 Toprol Xl - PO 25 mg DAILY [facility] Administration Impression 1. esrd 2. r/o acs 3. htn 4. cad 5. a-fib 6. hx of cva 7. ascites Plan - next HD tomorrow - renal diet - cont pt - gi workup in progress - hg stable
--- NOTE | 2019-10-25 14:00 | PN ---
Progress Note, Physician History of Present Illness: no new issues comfortable - Current Medication List Current Medications: Active Medications Amlodipine Besylate (Norvasc -) 5 mg PO DAILY [facility] Last Admin: 10/25/19 10:44 Dose: 5 mg Documented by: Apixaban (Eliquis -) 2.5 mg PO BID [facility] Last Admin: 10/25/19 10:44 Dose: 2.5 mg Documented by: Aspirin (Ecotrin -) 81 mg PO DAILY [facility] Last Admin: 10/25/19 10:43 Dose: 81 mg Documented by: Ceftriaxone Sodium 2 gm/ (Dextrose) 100 mls @ 200 mls/hr IVPB DAILY [facility] Stop: 10/27/19 10:29 Last Admin: 10/25/19 10:44 Dose: 200 mls/hr Documented by: Sodium Chloride (Normal Saline -) 250 mls @ 3,000 mls/hr IV PRN PRN PRN Reason: Hypotension during Dialysis Stop: 10/24/19 11:57 Sodium Chloride (Normal Saline -) 250 mls @ 3,000 mls/hr IV PRN PRN PRN Reason: Hypotension during Dialysis Stop: 10/26/19 13:34 Insulin Aspart (Novolog Vial Sliding Scale -) 1 vial SQ ACHS [facility]; Protocol Last Admin: 10/25/19 11:58 Dose: 2 units Documented by: Metoprolol Succinate (Toprol Xl -) 25 mg PO DAILY [facility] Last Admin: 10/25/19 10:44 Dose: 25 mg Documented by: - Objective Vital Signs: Vital Signs Temperature 98.2 F 10/25/19 06:00 Pulse Rate 91 H 10/25/19 06:00 Respiratory Rate 18 10/25/19 06:00 Blood Pressure 107/45 L 10/25/19 06:00 O2 Sat by Pulse Oximetry (%) 99 10/25/19 09:00 Constitutional: Yes: No Distress, Calm Cardiovascular: Yes: S1, S2 Respiratory: Yes: Regular, CTA Bilaterally Gastrointestinal: Yes: Normal Bowel Sounds, Soft Musculoskeletal: Yes: WNL Extremities: Yes: Other Neurological: Yes: Alert Psychiatric: Yes: Other Labs: CBC, BMP 10/25/19 05:51 10/25/19 05:51 INR, PTT INR 1.37 (0.83-1.09) H 10/24/19 06:25 Assessment/Plan Problem List - Problems (1) ESRD on hemodialysis Code(s): N18.6 - END STAGE RENAL DISEASE; Z99.2 - DEPENDENCE ON RENAL DIALYSIS (2) Abdominal pain Code(s): R10.9 - UNSPECIFIED ABDOMINAL PAIN (3) Ascites Code(s): R18.8 - OTHER ASCITES (4) Atrial fibrillation Code(s): I48.91 - UNSPECIFIED ATRIAL FIBRILLATION Qualifiers: Atrial fibrillation type: longstanding persistent Qualified Code(s): I48.11 - Longstanding persistent atrial fibrillation (5) Diabetes mellitus Code(s): E11.9 - TYPE 2 DIABETES MELLITUS WITHOUT COMPLICATIONS Qualifiers: Diabetes mellitus type: type 2 Diabetes mellitus long term care pharmacist insulin use: w [facility]out [place] [facility] use Diabetes mellitus complication status: without compl ication Qualified Code(s): E11.9 - Type 2 diabetes mellitus without compl ications (6) Pain in left hand Code(s): M79.642 - PAIN IN LEFT HAND (7) HTN (hypertension) Code(s): I10 - ESSENTIAL (PRIMARY) HYPERTENSION Qualifiers: Hypertension type: essential hypertension Qualified Code(s): I10 - Essential (primary) hypertension (8) NSTEMI (non-ST elevated myocardial infarction) Code(s): I21.4 - NON-ST ELEVATION (NSTEMI) MYOCARDIAL INFARCTION plan continue current mgmt monitor
--- NOTE | 2019-10-25 14:29 | PN ---
Physical Exam: SUBJECTIVE: Patient seen and examined. No acute events overnight. Spoke with daughter who is agreeable to bone marrow biopsy. OBJECTIVE: Vital Signs Temperature 98.2 F 10/25/19 06:00 Pulse Rate 91 H 10/25/19 06:00 Respiratory Rate 18 10/25/19 06:00 Blood Pressure 107/45 L 10/25/19 06:00 O2 Sat by Pulse Oximetry (%) 99 10/25/19 09:00 GENERAL: Awake, alert, and fully oriented, in no acute distress. NECK: Normal range of motion, supple LUNGS: decreased breath sounds on bilateral bases HEART: irregularly irregular, +holosystolic murmur ABDOMEN: Soft, nontender, + distended, normoactive bowel sounds. UPPER EXTREMITIES: 2+ pulses, warm, well-perfused. LUE : +AVF with palpable thrill LOWER EXTREMITIES: 2+ pulses, warm, well-perfused. No calf tenderness. No peripheral edema. SKIN: Warm, dry, normal turgor Laboratory Results - last 24 hr 10/24/19 10/24/19 10/24/19 03:26 17:24 21:24 WBC RBC Hgb Hct MCV MCH MCHC RDW Plt Count MPV Absolute Neuts (auto) Neutrophils % Lymphocytes % Monocytes % Eosinophils % Basophils % Nucleated RBC % Sodium Potassium Chloride Carbon Dioxide Anion Gap BUN Creatinine Est GFR (CKD-EPI)AfAm Est GFR (CKD-EPI)NonAf POC Glucometer 130 159 Random Glucose Calcium Magnesium Total Bilirubin AST ALT Alkaline Phosphatase Troponin I Total Protein Albumin Fluid Glucose 150 Fluid Total Protein 4.4 Fluid Albumin 2.2 Body Fluid LDH Source 305 Fluid Amylase 33 Fluid Triglycerides 30 10/25/19 10/25/19 10/25/19 05:51 05:51 11:55 WBC 8.1 RBC 3.39 L Hgb 10.6 L Hct 32.1 L MCV 94.9 MCH 31.4 MCHC 33.0 RDW 15.0 Plt Count 251 MPV 8.2 Absolute Neuts (auto) 5.0 Neutrophils % 62.3 Lymphocytes % 8.7 D Monocytes % 10.4 H Eosinophils % 18.0 H Basophils % 0.6 Nucleated RBC % 0 Sodium 141 Potassium 3.5 Chloride 102 Carbon Dioxide 31 Anion Gap 8 BUN 26.6 H Creatinine 4.0 H Est GFR (CKD-EPI)AfAm 15.78 Est GFR (CKD-EPI)NonAf 13.62 POC Glucometer 172 Random Glucose 105 Calcium 8.6 Magnesium 1.8 Total Bilirubin 0.4 AST 15 ALT 9 L Alkaline Phosphatase 147 H Troponin I 15.80 H* Total Protein 6.8 Albumin 2.6 L Fluid Glucose Fluid Total Protein Fluid Albumin Body Fluid LDH Source Fluid Amylase Fluid Triglycerides Active Medications Generic Name Dose Route Start Last Admin Trade Name Freq PRN Reason Stop Dose Admin Amlodipine Besylate 5 mg 10/22/19 10:00 10/25/19 10:44 Norvasc - PO 5 mg DAILY [facility] Administration Apixaban 2.5 mg 10/22/19 10:00 10/25/19 10:44 Eliquis - PO 2.5 mg BID [facility] Administration Aspirin 81 mg 10/22/19 10:00 10/25/19 10:43 Ecotrin - PO 81 mg DAILY [facility] Administration Ceftriaxone Sodium 2 gm/ 100 mls @ 200 mls/hr 10/22/19 17:15 10/25/19 10:44 Dextrose IVPB 10/27/19 10:29 200 mls/hr DAILY [facility] Administration Sodium Chloride 250 mls @ 3,000 mls/hr 10/23/19 11:57 Normal Saline - IV 10/24/19 11:57 PRN PRN Hypotension during Dialysis Sodium Chloride 250 mls @ 3,000 mls/hr 10/25/19 13:34 Normal Saline - IV 10/26/19 13:34 PRN PRN Hypotension during Dialysis Insulin Aspart 1 vial 10/22/19 07:00 10/25/19 11:58 Novolog Vial Sliding Scale - SQ 2 units ACHS [facility] Administration Protocol Metoprolol Succinate 25 mg 10/22/19 10:00 10/25/19 10:44 Toprol Xl - PO 25 mg DAILY [facility] Administration ASSESSMENT/PLAN: Patient is a 74 year old male with past medical history of DM, HTN, ESRD, CAD s/p CABG, CVA, Afib, was admitted to the hospital for constipation. We were consulted for further evaluation of persistent eosinophilia. 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 Patient on eliquis, would need to be on hold prior to procedure. #Anemia -likely 2/2 anemia of chronic disease in setting of ESRD -iron studies, B12, folate, TSH normal Visit type - Emergency Visit Emergency Visit: Yes ED Registration Date: 10/21/19 Care time: The patient presented to the Emergency Department on the above date and was hospitalized for further evaluation of their emergent condition. - New Patient This patient is new to me today: No - Critical Care Critical Care patient: No - Medication Review Med list reviewed for High Risk Meds patients 65 and older: Yes ATTENDING PHYSICIAN STATEMENT I saw and evaluated the patient. I reviewed the resident's note and discussed the case with the resident. I agree with the resident's findings and plan as documented. SUBJECTIVE: OBJECTIVE: ASSESSMENT AND PLAN:
[2019-10-26] MEDS: INSULIN SLIDING SCALE (NOVOLOG) 1 VIAL SQ SCH ×3 (06:08→17:31)
--- NOTE | 2019-10-26 06:22 | PN ---
Progress Note (short form) - Note Progress Note: Chief Complaint: Events noted, notes reviewed, resting in bed, in no distress, no reported chest discomfort or dyspnea History of Present Illness: Seen and examined on telemetry. Events noted, notes reviewed, resting in bed, in no distress, no reported chest discomfort or dyspnea Echocardiography revealed normal left ventricle size and systolic function, LVEF between 55-60%, bi-atrial dilatation, moderate mitral valve regurgitation, moderate to severe tricuspid valve regurgitation, mild to moderate aortic valve stenosis with calculated aortic valve area of 0.9 cm with a mean transvalvular gradient of 15 mmHg Medications: Current Medications Generic Name Dose Route Start Last Admin Trade Name Freq PRN Reason Stop Dose Admin Amlodipine Besylate 5 mg 10/22/19 10:00 10/25/19 10:44 Norvasc - PO 5 mg DAILY [facility] Administration Apixaban 2.5 mg 10/22/19 10:00 10/25/19 21:59 Eliquis - PO 2.5 mg BID [facility] Administration Aspirin 81 mg 10/22/19 10:00 10/25/19 10:43 Ecotrin - PO 81 mg DAILY [facility] Administration Ceftriaxone Sodium 2 gm/ 100 mls @ 200 mls/hr 10/22/19 17:15 10/25/19 10:44 Dextrose IVPB 10/27/19 10:29 200 mls/hr DAILY [facility] Administration Sodium Chloride 250 mls @ 3,000 mls/hr 10/25/19 13:34 Normal Saline - IV 10/26/19 13:34 PRN PRN Hypotension during Dialysis Insulin Aspart 1 vial 10/22/19 07:00 10/26/19 06:08 Novolog Vial Sliding Scale - SQ 2 units ACHS [facility] Administration Protocol Metoprolol Succinate 25 mg 10/22/19 10:00 10/25/19 10:44 Toprol Xl - PO 25 mg DAILY [facility] Administration Review of Systems Unable to obtain/communication issue as noted in the prior notes Vital Signs: Last Vital Signs Temp Pulse Resp BP Pulse Ox 98.0 F 83 18 95/50 L 97 10/26/19 02:00 10/26/19 02:00 10/26/19 02:00 10/26/19 02:00 10/25/19 23:54 Intake & Output 10/23/19 10/24/19 10/25/19 10/26/19 23:59 23:59 23:59 23:59 Intake Total 430 1390 440 Output Total 9515 Balance 430 -4922 440 Weight 118 lb 117 lb 12.8 oz 109 lb 9.6 oz Neck: Supple Negative JVD Respiratory: Diminished Breath Sounds at the Bases Cardiovascular: S1 S2 Irregularly irregular, grade 2-3/6 systolic ejection murmur, grade 3/6 systolic apical murmur Gastrointestinal: Soft Benign Normal Bowel Sounds Ext: Negative Edema Labs: CBC, BMP 10/25/19 05:51 10/25/19 05:51 Hepatic Panel Total Bilirubin 0.4 mg/dL (0.2-1) 10/25/19 05:51 Direct Bilirubin 0.3 mg/dL (0.0-0.2) H 10/23/19 05:41 AST 15 U/L (15-37) 10/25/19 05:51 ALT 9 U/L (13-61) L 10/25/19 05:51 Alkaline Phosphatase 147 U/L (45-117) H 10/25/19 05:51 Albumin 2.6 g/dl (3.4-5.0) L 10/25/19 05:51 INR, PTT INR 1.37 (0.83-1.09) H 10/24/19 06:25 Assessment/Plan ASSESSMENT: 1. Coronary artery disease post coronary artery bypass grafting with evidence of non-ST segment elevation myocardial infarction angina pectoris 2. Diastolic left ventricular dysfunction with clinical class 0-I [place] [employer] classification left ventricular failure, clinically compensated/euvolemic 3. Persistent atrial fibrillation [id number] score of 6 on anticoagulation therapy with DOAC's/Eliquis 4. Aortic stenosis, moderate in severity 5. Mitral valve regurgitation/moderate in severity 6. Tricuspid valve regurgitation moderate to severe in severity 7. Hypertensive cardiovascular disease 8. Diabetes mellitus 9. Hypercholesterolemia 10. History of cerebrovascular disease 11. End-stage renal disease on hemodialysis 12. Anemia PLAN: 1. Continue Toprol-XL therapy and dose titration hemodynamics permitting 2. Continue Norvasc therapy 3. Ideally recommend the addition of EMILE inhibitor or angiotensin receptor luz maria therapy unless it is absolutely contraindicated, hemodynamics permitting 4. Continue Eliquis and ASA therapies with caution and close monitoring of hemoglobin level 5. As outlined in the prior notes recommend the addition of statin therapy unless it is absolutely contraindicated 6. 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 7. Hemodialysis as per the renal service Kathryn Ames MD
[2019-10-26 07:41] LABS: BASO % 0.8 % (0-2.0); EOS % 18.4 % (0-4.5); HEMATOCRIT 31.6 % (35.4-49); HEMOGLOBIN 10.7 GM/dL (11.7-16.9); LYMPH % 18.4 % (8-40); MCH 32.8 pg (25.7-33.7); MCHC 33.7 g/dl (32.0-35.9); MEAN CELL VOLUME 97.4 fl (80-96); MEAN PLT VOLUME 8.7 fl (7.5-11.1); MONO % 10.5 % (3.8-10.2); NEUT % 51.9 % (42.8-82.8); PLATELET COUNT 230 K/MM3 (134-434); RBC 3.25 M/mm3 (4.00-5.60); RDW 14.8 % (11.9-15.9); WHITE BLOOD COUNT 8.7 K/mm3 (4.0-10.0)
[2019-10-26 07:57] LABS: ALBUMIN 2.2 g/dl (3.4-5.0); BILIRUBIN,TOTAL 0.3 mg/dL (0.2-1); BLOOD UREA NITROGEN 48.1 mg/dL (7-18); CALCIUM 8.5 mg/dL (8.5-10.1); MAGNESIUM 1.8 mg/dL (1.8-2.4); POTASSIUM 3.6 mmol/L (3.5-5.1); TOT PROT 6.6 g/dl (6.4-8.2)
[2019-10-26] MEDS ORDERED: DEXTROSE 5%-WATER 100 ML IVPB ONE (10:36)
[2019-10-26] MEDS: ASPIRIN COATED 81 MG TABLET.EC PO SCH (10:48)
[2019-10-26] MEDS: APIXABAN 2.5 MG TABLET PO SCH (10:48)
[2019-10-26] MEDS: amLODIPine BESYLATE 5 MG TABLET (FP) PO SCH (10:49)
[2019-10-26] MEDS: metoPROLOL SUCCINATE 25 MG TAB.SR.24H (FP) PO SCH (10:49)
[2019-10-26] MEDS: CEFTRIAXONE 2 GM in DEXTROSE 5%-WATER 100 ML IVPB SCH (10:49)
--- NOTE | 2019-10-26 11:15 | PN ---
Progress Note, Physician History of Present Illness: stable no new issues - Current Medication List Current Medications: Active Medications Amlodipine Besylate (Norvasc -) 5 mg PO DAILY [facility] Last Admin: 10/26/19 10:49 Dose: Not Given Documented by: Apixaban (Eliquis -) 2.5 mg PO BID [facility] Last Admin: 10/26/19 10:48 Dose: 2.5 mg Documented by: Aspirin (Ecotrin -) 81 mg PO DAILY [facility] Last Admin: 10/26/19 10:48 Dose: 81 mg Documented by: Ceftriaxone Sodium 2 gm/ (Dextrose) 100 mls @ 200 mls/hr IVPB DAILY [facility] Stop: 10/27/19 10:29 Last Admin: 10/26/19 10:49 Dose: 200 mls/hr Documented by: Sodium Chloride (Normal Saline -) 250 mls @ 3,000 mls/hr IV PRN PRN PRN Reason: Hypotension during Dialysis Stop: 10/26/19 13:34 Insulin Aspart (Novolog Vial Sliding Scale -) 1 vial SQ [facility]; Protocol Last Admin: 10/26/19 06:08 Dose: 2 units Documented by: Metoprolol Succinate (Toprol Xl -) 25 mg PO DAILY [facility] Last Admin: 10/26/19 10:49 Dose: Not Given Documented by: - Objective Vital Signs: Vital Signs Temperature 98 F 10/26/19 10:54 Pulse Rate 86 10/26/19 10:54 Respiratory Rate 18 10/26/19 10:54 Blood Pressure 103/47 L 10/26/19 10:54 O2 Sat by Pulse Oximetry (%) 96 10/26/19 10:54 Constitutional: Yes: No Distress, Calm Cardiovascular: Yes: S1, S2 Respiratory: Yes: Regular, CTA Bilaterally Gastrointestinal: Yes: Normal Bowel Sounds, Soft Musculoskeletal: Yes: WNL Extremities: Yes: WNL Neurological: Yes: Alert, Oriented Psychiatric: Yes: Alert, Oriented Labs: CBC, BMP 10/26/19 06:34 10/26/19 06:34 INR, PTT INR 1.37 (0.83-1.09) H 10/24/19 06:25 Assessment/Plan Problem List - Problems (1) ESRD on hemodialysis Code(s): N18.6 - END STAGE RENAL DISEASE; Z99.2 - DEPENDENCE ON RENAL DIALYSIS (2) Abdominal pain Code(s): R10.9 - UNSPECIFIED ABDOMINAL PAIN (3) Ascites Code(s): R18.8 - OTHER ASCITES (4) Atrial fibrillation Code(s): I48.91 - UNSPECIFIED ATRIAL FIBRILLATION Qualifiers: Atrial fibrillation type: longstanding persistent Qualified Code(s): I48.11 - Longstanding persistent atrial fibrillation (5) Diabetes mellitus Code(s): E11.9 - TYPE 2 DIABETES MELLITUS WITHOUT COMPLICATIONS Qualifiers: Diabetes mellitus type: type 2 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 use: without exterminator helper termite use Diabetes mellitus complication status: without complication Qualified Code(s): E11.9 - Type 2 diabetes mellitus without complications (6) Pain in left hand Code(s): M79.642 - PAIN IN LEFT HAND (7) HTN (hypertension) Code(s): I10 - ESSENTIAL (PRIMARY) HYPERTENSION Qualifiers: Hypertension type: essential hypertension Qualified Code(s): I10 - Essential (primary) hypertension (8) NSTEMI (non-ST elevated myocardial infarction) Code(s): I21.4 - NON-ST ELEVATION (NSTEMI) MYOCARDIAL INFARCTION plan continue current mgmt monitor eosinophils still high he has been always high and fluctuating
--- NOTE | 2019-10-26 11:29 | DS ---
Physical Exam: SUBJECTIVE: Patient seen and examined Patient is a 74 year old male with a significant past medical history of diabetes, hypertension, ESRD (HD T//Tue), CAD s/p open heart surgery - 7 years ago, CVA. Patient presents to the ED on 10/21/2019 with constipation that began about one week ago. OBJECTIVE: Vital Signs Period Temp Pulse Resp BP Sys/Hicks Pulse Ox Last 24 Hr 97.7 F-98.5 F 60-86 18-20 92-118/47-61 95-97 PHYSICAL EXAM Constitutional: Yes: Well Nourished, No Distress, Calm Eyes: Yes: WNL, Conjunctiva Clear HENT: Yes: WNL, Atraumatic, Normocephalic Neck: Yes: WNL, Supple, Trachea Midline Cardiovascular: Yes: WNL, Regular Rate and Rhythm Respiratory: Yes: WNL, Regular, CTA Bilaterally Gastrointestinal: Yes: Normal Bowel Sounds, Soft, no ascites noted ...Rectal Exam: Yes: Deferred Genitourinary: Yes: WNL Breast(s): Yes: WNL Musculoskeletal: Yes: WNL Extremities: Yes: WNL, Other (left AVF) Edema: No Peripheral Pulses WNL: Yes Peripheral Pulses: Left Radial: 2+, Right Radial: 2+, Left Doralis Pedis: 2+, Right Dorsalis Pedis: 2+, Left Femoral: 2+, Right Femoral: 2+ Integumentary: Yes: WNL Neurological: Yes: WNL, Alert, Oriented ...Motor Strength: LLE, RLE (generalized weakness) LABS Laboratory Results - last 24 hr 10/24/19 10/24/19 10/25/19 03:26 06:25 11:55 WBC RBC Hgb Hct MCV MCH MCHC RDW Plt Count MPV Absolute Neuts (auto) Neutrophils % Lymphocytes % Monocytes % Eosinophils % Basophils % Nucleated RBC % Sodium Potassium Chloride Carbon Dioxide Anion Gap BUN Creatinine Est GFR (CKD-EPI)AfAm Est GFR (CKD-EPI)NonAf POC Glucometer 172 Random Glucose Calcium Magnesium Total Bilirubin AST ALT Alkaline Phosphatase Total Protein Albumin Fluid Glucose 150 Fluid Total Protein 4.4 Fluid Albumin 2.2 Body Fluid LDH Source 305 Fluid Amylase 33 Fluid Triglycerides 30 BRUCE Screen Negative 10/26/19 10/26/19 06:34 06:34 WBC 8.7 RBC 3.25 L Hgb 10.7 L Hct 31.6 L MCV 97.4 H MCH 32.8 MCHC 33.7 RDW 14.8 Plt Count 230 MPV 8.7 Absolute Neuts (auto) 4.5 Neutrophils % 51.9 Lymphocytes % 18.4 D Monocytes % 10.5 H Eosinophils % 18.4 H Basophils % 0.8 Nucleated RBC % 0 Sodium 137 Potassium 3.6 Chloride 100 Carbon Dioxide 26 Anion Gap 12 BUN 48.1 H Creatinine 6.0 H Est GFR (CKD-EPI)AfAm 9.67 Est GFR (CKD-EPI)NonAf 8.34 POC Glucometer Random Glucose 143 H Calcium 8.5 Magnesium 1.8 Total Bilirubin 0.3 AST 15 ALT 10 L Alkaline Phosphatase 176 H Total Protein 6.6 Albumin 2.2 L Fluid Glucose Fluid Total Protein Fluid Albumin Body Fluid LDH Source Fluid Amylase Fluid Triglycerides BRUCE Screen HOSPITAL COURSE: Date of Admission:10/21/19 Date of Discharge: 10/26/19 Problem List - Problems (1) ESRD on hemodialysis Assessment/Plan: HD as per renal schedule Code(s): N18.6 - END STAGE RENAL DISEASE; Z99.2 - DEPENDENCE ON RENAL DIALYSIS (2) Abdominal pain Assessment/Plan: resolved s/p paracentesis Code(s): R10.9 - UNSPECIFIED ABDOMINAL PAIN (3) Ascites Assessment/Plan: paracentesis done fluid analysis normal GI followed through stay Code(s): R18.8 - OTHER ASCITES (4) Atrial fibrillation Assessment/Plan: rate controlled patient diagnosed with afib on last admission 06/2019 on Metoprolol and eliquis Code(s): I48.91 - UNSPECIFIED ATRIAL FIBRILLATION Qualifiers: Atrial fibrillation type: longstanding persistent Qualified Code(s): I48.11 - Longstanding persistent atrial fibrillation (5) Diabetes mellitus Assessment/Plan: BGM AC/HS with novolog sliding scale diabetic diet BG well controlled Code(s): E11.9 - TYPE 2 DIABETES MELLITUS WITHOUT COMPLICATIONS Qualifiers: Diabetes mellitus type: type 2 Diabetes mellitus half-way insulin use: without half-way use Diabetes mellitus complication status: without com plication Qualified Code(s): E11.9 - Type 2 diabetes mellitus without complications (6) Pain in left hand Assessment/Plan: right hand xray revealed metallic foreign body at web space of left hand on imaging family states no know trauma to hand seen by ortho no acute intervention pain resolved elevate and warm conmpressess Code(s): M79.642 - PAIN IN LEFT HAND (7) HTN (hypertension) Code(s): I10 - ESSENTIAL (PRIMARY) HYPERTENSION Qualifiers: Hypertension type: essential hypertension Qualified Code(s): I10 - Essential (primary) hypertension (8) NSTEMI (non-ST elevated myocardial infarction) Assessment/Plan: troponins remain elevated elevated-peaked at 17.2 given ESRD troponins will remain high patient with a history of GA with CABG Cardiology following continue on Metoprolol, aspirin, eliquis and trend troponins Monitor on tele Code(s): I21.4 - NON-ST ELEVATION (NSTEMI) MYOCARDIAL INFARCTION (9) Prophylactic measure Assessment/Plan: FEN Fluids: adequate PO intake Electrolytes: monitor & replete as needed Nutrition: renal diet DVT moderate risk c/w apixaban, asa Dispo Maintain as inpatient full code discharge planning Code(s): Z29.9 - ENCOUNTER FOR PROPHYLACTIC MEASURES, UNSPECIFIED (10) Troponin level elevated Assessment/Plan: remains elevated peaked at 17.2 cardiology following c/t trend Code(s): R79.89 - OTHER SPECIFIED ABNORMAL FINDINGS OF BLOOD CHEMISTRY (11) Foreign body Assessment/Plan: right hand xray revealed metallic foreign body at web space of left hand on imaging Ortho following no acute interventioon elevate and warm compresses pain resolved Code(s): PII0123 - (12) COVID-19 ruled out by laboratory testing Assessment/Plan: negative PCR Code(s): Z03.818 - ENCNTR FOR OBS FOR SUSP EXPSR TO OTH BIOLG AGENTS RULED OUT (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 ID following to r/o parascites infections Rheum to see pt to evalute for autoimmune disorders will need bone marrow bx off eliquis as outpatient-consult placed for Dr Moses muñoz cbc Code(s): D72.1 - EOSINOPHILIA (14) Bleeding Assessment/Plan: resolved Code(s): R58 - HEMORRHAGE, NOT ELSEWHERE CLASSIFIED Medcially stable for dc to home with services Minutes to complete discharge: 45 Discharge Summary Problems reviewed: Yes Reason For Visit: ABDOMINAL ASCITES, ATRIAL FIBRILLATION, ELEVATED Current Active Problems Abdominal pain (Acute) Acquired eosinophilia (Acute) Ascites (Acute) Atrial fibrillation (Acute) Bleeding (Acute) COVID-19 ruled out by laboratory testing (Acute) Diabetes mellitus (Acute) ESRD (end stage renal disease) (Acute) ESRD on hemodialysis (Acute) Elevated troponin (Acute) Foreign body (Acute) Pain in left hand (Acute) Troponin level elevated (Acute) Condition: Stable - Instructions Diet, Activity, Other Instructions: DISCHARGE YOUR VISIT You came to the hospital because had abdominal pain and distension. You underwent a paracentesis and ascites fluid was removed . The fluid was not infected. You had an abnormal blood count and the drywall applicator saw you and recommended a bone marrow biopsy to see what the cause is. Follow with Dr Zayas on when you should have the biposy. You are on a blood thinner and will need to have it stopped before. Continue your dialsis as scheduled. Eat a diet low in protein and salt. MEDICATIONS Please continue to take your home medications as prescribed. There was no changes DIET Continue your home diet ADDITIONAL CARE Please make an appointment to see your primary care provider, 2 week from today. Someone from [facility] will call you to schedule the bone marrow biopsy. ADDITIONAL INFORMATION Please call 911 or come directly to the emergency department if you experience unusual headache, vision change, shortness of breath, chest pain, numbness, tingling, loss of alertness/awareness, loss of function, unusual bleeding or any alarming symptoms. Thank you for allowing me to care for you. Domingo Corey, ACNP, [facility] [phone] Referrals: ON STAFF,NOT [Primary Care Provider] - Disposition: VNS/HOME HEALTH CARE - Home Medications Comprehensive Discharge Medication List: Ambulatory Orders Amlodipine Besylate [Norvasc -] 5 mg PO DAILY #90 tablet 07/30/19 Apixaban [Eliquis -] 2.5 mg PO BID #90 tablet 07/30/19 Aspirin Coated [Ecotrin -] 81 mg PO DAILY #90 tablet.ec 07/30/19 Metoprolol Succinate [Toprol XL -] 25 mg PO DAILY #90 tab.sr.24h 07/30/19 Problem List - Problems (1) ESRD on hemodialysis Code(s): N18.6 - END STAGE RENAL DISEASE; Z99.2 - DEPENDENCE ON RENAL DIALYSIS (2) Abdominal pain Code(s): R10.9 - UNSPECIFIED ABDOMINAL PAIN (3) Ascites Code(s): R18.8 - OTHER ASCITES (4) Atrial fibrillation Code(s): I48.91 - UNSPECIFIED ATRIAL FIBRILLATION Qualifiers: Atrial fibrillation type: longstanding persistent Qualified Code(s): I48.11 - Longstanding persistent atrial fibrillation (5) Diabetes mellitus Code(s): E11.9 - TYPE 2 DIABETES MELLITUS WITHOUT COMPLICATIONS Qualifiers: Diabetes mellitus type: type 2 Diabetes mellitus extermination inspector insulin use: without extermination inspector use Diabetes mellitus complication status: without complication Qualified Code(s): E11.9 - Type 2 diabetes mellitus without complications (6) Pain in left hand Code(s): M79.642 - PAIN IN LEFT HAND (7) HTN (hypertension) Code(s): I10 - ESSENTIAL (PRIMARY) HYPERTENSION Qualifiers: Hypertension type: essential hypertension Qualified Code(s): I10 - Essential (primary) hypertension (8) NSTEMI (non-ST elevated myocardial infarction) Code(s): I21.4 - NON-ST ELEVATION (NSTEMI) MYOCARDIAL INFARCTION (9) Prophylactic measure Code(s): Z29.9 - ENCOUNTER FOR PROPHYLACTIC MEASURES, UNSPECIFIED (10) Troponin level elevated Code(s): R79.89 - OTHER SPECIFIED ABNORMAL FINDINGS OF BLOOD CHEMISTRY (11) Foreign body Code(s): [id number] - (12) COVID-19 ruled out by laboratory testing Code(s): Z03.818 - ENCNTR FOR OBS FOR SUSP EXPSR TO OTH BIOLG AGENTS RULED OUT (13) Acquired eosinophilia Code(s): D72.1 - EOSINOPHILIA (14) Bleeding Code(s): R58 - HEMORRHAGE, NOT ELSEWHERE CLASSIFIED This patient is new to me today: Yes Date on this admission: 10/26/19 Emergency Visit: No Critical Care patient: No - Discharge Referral Referred to [facility] Med P.C.: No
--- NOTE | 2019-10-26 11:46 | PATH ---
Cytology Non-Gynecological Report Patient Name: LELE HUSTON [facility]. Rec. #: [id number] /Age/Gender: 1945 (Age: 74) / M Account: [id number] Location: [facility] PEDS/ADOL Taken: 10/23/2019 Received: 10/24/2019 Reported: 10/26/2019 Physicians: Puja Morales Specimen(s) Received A: ABDOMINAL FLUID B: ABDOMINAL FLUID Clinical History Ascites Final Diagnosis A-B. ABDOMINAL FLUID, PARACENTESIS: SATISFACTORY FOR EVALUATION. NEGATIVE FOR MALIGNANCY. MESOTHELIAL CELLS, MACROPHAGES, AND LYMPHOCYTES PRESENT. Comment: Prior material is noted. Electronically Signed Callie Walters M.D. Gross Description A. Approximately 30 cc of yellow fluid received fixed in 50% alcohol. One cytofunnel prepared and Pap stained. One cellblock prepared. B. Approximately 5500 cc of dark yellow fluid received fresh. One cytofunnel prepared and Pap stained. One cellblock prepared.
[2019-10-26 13:44] VITALS: BP 108/54; PULSE 90; TEMP 97.5
--- NOTE | 2019-10-26 14:17 | PN ---
Progress Note (short form) - Note Progress Note: Low SAAG High Protein ascites not c/w portal HTN ? secondary to renal disease / alternate etiology Cytology neg eval per pimary team GI will sign off now Problem List - Problems (1) Ascites Code(s): R18.8 - OTHER ASCITES
--- NOTE | 2019-10-26 14:31 | PN ---
Progress Note, Physician History of Present Illness: Pt seen and examined at bedside. He is awake and alert. He tolerated HD. - Current Medication List Current Medications: Active Medications Amlodipine Besylate (Norvasc -) 5 mg PO DAILY [facility] Last Admin: 10/26/19 10:49 Dose: Not Given Documented by: Apixaban (Eliquis -) 2.5 mg PO BID [facility] Last Admin: 10/26/19 10:48 Dose: 2.5 mg Documented by: Aspirin (Ecotrin -) 81 mg PO DAILY [facility] Last Admin: 10/26/19 10:48 Dose: 81 mg Documented by: Ceftriaxone Sodium 2 gm/ (Dextrose) 100 mls @ 200 mls/hr IVPB DAILY [facility] Stop: 10/27/19 10:29 Last Admin: 10/26/19 10:49 Dose: 200 mls/hr Documented by: Sodium Chloride (Normal Saline -) 250 mls @ 3,000 mls/hr IV PRN PRN PRN Reason: Hypotension during Dialysis Stop: 10/26/19 13:34 Insulin Aspart (Novolog Vial Sliding Scale -) 1 vial SQ [facility]; Protocol Last Admin: 10/26/19 12:06 Dose: 2 units Documented by: Metoprolol Succinate (Toprol Xl -) 25 mg PO DAILY [facility] Last Admin: 10/26/19 10:49 Dose: Not Given Documented by: - Objective Vital Signs: Vital Signs Temperature 97.5 F L 10/26/19 13:42 Pulse Rate 90 10/26/19 13:42 Respiratory Rate 18 10/26/19 13:42 Blood Pressure 108/54 L 10/26/19 13:42 O2 Sat by Pulse Oximetry (%) 96 10/26/19 10:54 Constitutional: Yes: Calm Eyes: Yes: Conjunctiva Clear HENT: Yes: Atraumatic Cardiovascular: Yes: S1, S2 Respiratory: Yes: CTA Bilaterally Gastrointestinal: Yes: Normal Bowel Sounds, Soft Genitourinary: Yes: WNL Musculoskeletal: Yes: WNL Edema: No Neurological: Yes: Oriented Psychiatric: Yes: Oriented Labs: CBC, BMP 10/26/19 06:34 10/26/19 06:34 INR, PTT INR 1.37 (0.83-1.09) H 10/24/19 06:25 Problem List - Problems (1) ESRD (end stage renal disease) Code(s): N18.6 - END STAGE RENAL DISEASE (2) Ascites Code(s): R18.8 - OTHER ASCITES Assessment/Plan Current Medications Generic Name Dose Route Start Last Admin Trade Name Dorian PRN Reason Stop Dose Admin Amlodipine Besylate 5 mg 10/22/19 10:00 10/25/19 10:44 Norvasc - PO 5 mg DAILY TRUNG Administration Apixaban 2.5 mg 10/22/19 10:00 10/25/19 10:44 Eliquis - PO 2.5 mg BID TRUNG Administration Aspirin 81 mg 10/22/19 10:00 10/25/19 10:43 Ecotrin - PO 81 mg DAILY TRUNG Administration Ceftriaxone Sodium 2 gm/ 100 mls @ 200 mls/hr 10/22/19 17:15 10/25/19 10:44 Dextrose IVPB 10/27/19 10:29 200 mls/hr DAILY TRUNG Administration Sodium Chloride 250 mls @ 3,000 mls/hr 10/23/19 11:57 Normal Saline - IV 10/24/19 11:57 PRN PRN Hypotension during Dialysis Insulin Aspart 1 vial 10/22/19 07:00 10/25/19 11:58 Novolog Vial Sliding Scale - SQ 2 units ACHS TRUNG Administration Protocol Metoprolol Succinate 25 mg 10/22/19 10:00 10/25/19 10:44 Toprol Xl - PO 25 mg DAILY TRUNG Administration Impression 1. esrd 2. r/o acs 3. htn 4. cad 5. a-fib 6. hx of cva 7. ascites Plan - HD today - he has HD set up as outpt - renal diet - gi workup in progress
[2019-10-27 19:06] LABS: ATYPICAL pANCA <1:20 titer (Neg:<1:20); C-ANCA <1:20 titer (Neg:<1:20)
== END 2019-10-26 19:03 | disposition home health service (06) | DRG 280 ==
LOC: JER 16:47 → JERBED 18:45 → J4S 10-22 02:29
PROVIDERS: ADMIT Internal Medicine; ATTEND Nurse Practitioner Acute Care
PROC: 5A1D70Z Performance of Urinary Filtration, Intermittent, Less than 6 Hours Per Day (ICD-10-PCS; 2019-10-22)
PROC: 0W9G3ZX Drainage of Peritoneal Cavity, Percutaneous Approach, Diagnostic (ICD-10-PCS; principal; 2019-10-23)
PROC: 5A1D70Z Performance of Urinary Filtration, Intermittent, Less than 6 Hours Per Day (ICD-10-PCS; 2019-10-26)
DX: I21.4 Non-ST elevation (NSTEMI) myocardial infarction (principal); N18.6 End stage renal disease; R18.8 Other ascites; E46 Unspecified protein-calorie malnutrition; Z68.1 Body mass index [BMI] 19.9 or less, adult; I48.19 Other persistent atrial fibrillation; I13.2 Hypertensive heart and chronic kidney disease with heart failure and with stage 5 chronic kidney disease, or end stage renal disease; I50.32 Chronic diastolic (congestive) heart failure; E11.22 Type 2 diabetes mellitus with diabetic chronic kidney disease; I25.10 Atherosclerotic heart disease of native coronary artery without angina pectoris; I48.91 Unspecified atrial fibrillation; I08.3 Combined rheumatic disorders of mitral, aortic and tricuspid valves; D64.9 Anemia, unspecified; E88.09 Other disorders of plasma-protein metabolism, not elsewhere classified; K59.09 Other constipation; D72.1 Eosinophilia; D63.8 Anemia in other chronic diseases classified elsewhere; E03.9 Hypothyroidism, unspecified; M79.642 Pain in left hand; Z95.1 Presence of aortocoronary bypass graft; Z86.73 Personal history of transient ischemic attack (TIA), and cerebral infarction without residual deficits; Z99.2 Dependence on renal dialysis
CPT/HCPCS: 36415; 71045-TC-FY; 71046-TC-FY; 73130-TC-LT-FY; 74177-TC; 76942-TC; 80053; 80061; 80076; 82042; 82150; 82465; 82550; 82607; 82728; 82746; 82945; 82962; 83036; 83520; 83540; 83550; 83605; 83615; 83690; 83721; 83735; 83880; 84100; 84157; 84439; 84443; 84478; 84484; 85025; 85027; 85045; 85610; 85730; 86038; 86256; 86431; 86704; 86706; 86707; 86708; 86709; 86803; 87070; 87075; 87102; 87116; 87205; 87206; 87210; 87340; 88108; 88305-TC; 93005; 93010; 93306-TC; 97116-GP; 97161-GP; 99285-25; Q9967; U0003

== ENCOUNTER 2020-05-19 15:40 | Inpatient (IN) | payer OTHER ==
[2020-05-19 17:56] LABS: HEMATOCRIT 34.2 % (35.4-49); HEMOGLOBIN 11.4 GM/dL (11.7-16.9); MCH 32.1 pg (25.7-33.7); MCHC 33.5 g/dl (32.0-35.9); MEAN CELL VOLUME 95.8 fl (80-96); MEAN PLT VOLUME 8.9 fl (7.5-11.1); PLATELET COUNT 282 K/MM3 (134-434); RBC 3.57 M/mm3 (4.00-5.60); RDW 15.3 % (11.9-15.9); WHITE BLOOD COUNT 7.9 K/mm3 (4.0-10.0)
[2020-05-19 17:58] LABS: VENOUS BASE EXCESS -0.1 mmol/L (-2-2); VENOUS O2 SATURATION 64.1 % (70-80); VENOUS PH 7.363 (7.310-7.410)
[2020-05-19 18:05] LABS: INR 1.13 (0.83-1.09); PROTHROMBIN TIME (PATIENT) 13.6 SEC (9.7-13.0)
[2020-05-19 18:07] LABS: ACTIVATED PTT 35.5 SECONDS (25.2-36.5)
[2020-05-19 18:17] LABS: CHLORIDE 97 mmol/L (98-107); SODIUM 133 mmol/L (136-145)
[2020-05-19 18:19] LABS: ALBUMIN 3.2 g/dl (3.4-5.0); ANION GAP 11 MMOL/L (8-16); BLOOD UREA NITROGEN 84.2 mg/dL (7-18); CO2 26 mmol/L (21-32); GLUCOSE,RANDOM 115 mg/dL (74-106)
[2020-05-19 18:21] LABS: SGOT/AST 13 U/L (15-37); SGPT/ALT 14 U/L (13-61)
[2020-05-19 18:23] LABS: BILIRUBIN,TOTAL 0.6 mg/dL (0.2-1); TOT PROT 8.6 g/dl (6.4-8.2)
[2020-05-19 18:24] LABS: ALK PHOS 143 U/L (45-117)
[2020-05-19 18:31] LABS: CREATININE 8.2 mg/dL (0.55-1.3)
[2020-05-19] MEDS ORDERED: APIXABAN 2.5 MG TABLET ONE (21:57)
[2020-05-19] MEDS: APIXABAN 2.5 MG TABLET PO SCH (22:03)
[2020-05-20 01:58] VITALS: BMI 20.3
[2020-05-20] MEDS: INSULIN (NOVOLOG) ASPART 100 UNITS/ML 10ML VIAL SQ SCH ×4 (06:20→21:26)
[2020-05-20 09:40] LABS: HEMATOCRIT 35.7 % (35.4-49); HEMOGLOBIN 11.7 GM/dL (11.7-16.9); MCH 31.9 pg (25.7-33.7); MCHC 32.8 g/dl (32.0-35.9); MEAN CELL VOLUME 97.3 fl (80-96); MEAN PLT VOLUME 8.4 fl (7.5-11.1); PLATELET COUNT 238 K/MM3 (134-434); RBC 3.68 M/mm3 (4.00-5.60); RDW 15.5 % (11.9-15.9); WHITE BLOOD COUNT 7.6 K/mm3 (4.0-10.0)
[2020-05-20] MEDS ORDERED: metoPROLOL SUCCINATE 25 MG TAB.SR.24H (FP) PO SCH (10:00)
[2020-05-20] MEDS ORDERED: ASPIRIN COATED 81 MG TABLET.EC PO SCH (10:00)
[2020-05-20] MEDS ORDERED: amLODIPine BESYLATE 5 MG TABLET (FP) PO SCH (10:00)
[2020-05-20 10:04] LABS: CHLORIDE 99 mmol/L (98-107); SODIUM 134 mmol/L (136-145)
[2020-05-20 10:07] LABS: ANION GAP 12 MMOL/L (8-16); BLOOD UREA NITROGEN 96.6 mg/dL (7-18); CO2 23 mmol/L (21-32); GLUCOSE,RANDOM 136 mg/dL (74-106); MAGNESIUM 2.1 mg/dL (1.8-2.4)
[2020-05-20 10:10] LABS: SGOT/AST 11 U/L (15-37); SGPT/ALT 14 U/L (13-61)
[2020-05-20 10:12] LABS: BILIRUBIN,TOTAL 0.8 mg/dL (0.2-1); TOT PROT 8.1 g/dl (6.4-8.2)
[2020-05-20 10:13] LABS: ALK PHOS 134 U/L (45-117)
[2020-05-20 10:14] LABS: CREATININE 9.2 mg/dL (0.55-1.3)
[2020-05-20] MEDS: APIXABAN 2.5 MG TABLET PO SCH (10:23)
[2020-05-20] MEDS ORDERED: PT OWN MED DRAWER 7, Y5N ONE ×2 (10:32→17:50)
[2020-05-20 16:19] LABS: PHOSPHOROUS 5.9 mg/dL (2.5-4.9)
[2020-05-20] MEDS ORDERED: METOPROLOL TARTRATE 25 MG TABLET (FP) PO ONE (16:46)
[2020-05-20] MEDS: SEVELAMER CARBONATE 800 MG TAB (FP) PO SCH (17:47)
[2020-05-20] MEDS ORDERED: ATORVASTATIN CA 40 MG TABLET (FP) PO SCH (22:00)
[2020-05-21] MEDS ORDERED: SODIUM CHLORIDE 250 ML IV STA (05:57)
[2020-05-21] MEDS ORDERED: METOCLOPRAMIDE HCL INJECTION 10 MG/2 ML VIAL IVPUSH ONE (06:42)
[2020-05-21] MEDS: INSULIN (NOVOLOG) ASPART 100 UNITS/ML 10ML VIAL SQ SCH ×4 (06:50→21:00)
[2020-05-21 08:05] LABS: BASO % 0.2 % (0-2.0); HEMATOCRIT 33.2 % (35.4-49); HEMOGLOBIN 10.9 GM/dL (11.7-16.9); LYMPH % 8.1 % (8-40); MCHC 32.9 g/dl (32.0-35.9); MEAN CELL VOLUME 97.2 fl (80-96); MEAN PLT VOLUME 9.1 fl (7.5-11.1); MONO % 7.6 % (3.8-10.2); NEUT % 83.1 % (42.8-82.8); PLATELET COUNT 240 K/MM3 (134-434); RBC 3.41 M/mm3 (4.00-5.60); RDW 15.6 % (11.9-15.9); WHITE BLOOD COUNT 14.6 K/mm3 (4.0-10.0)
[2020-05-21 08:20] LABS: ALBUMIN 3.1 g/dl (3.4-5.0); CALCIUM 9.4 mg/dL (8.5-10.1)
[2020-05-21 08:21] LABS: MAGNESIUM 2.1 mg/dL (1.8-2.4)
[2020-05-21 08:23] LABS: BILIRUBIN,TOTAL 1.4 mg/dL (0.2-1); CREATININE 5.9 mg/dL (0.55-1.3)
[2020-05-21 08:24] LABS: PHOSPHOROUS 5.6 mg/dL (2.5-4.9); TOT PROT 8.1 g/dl (6.4-8.2)
[2020-05-21] MEDS: SEVELAMER CARBONATE 800 MG TAB (FP) PO SCH ×3 (09:36→17:39)
[2020-05-21] MEDS ORDERED: PATIENT'S OWN MEDICATION (NON-FORMULARY) (Omeprazole [Omeprazole] 20 MG Tablet.Dr) PO SCH (10:00)
[2020-05-21] MEDS ORDERED: PIPERACILLIN/TAZOB 2.25 GM 2.25 GM in DEXTROSE 5%-WATER - 50 ML IVPB SCH (10:15)
[2020-05-21] MEDS: PANTOPRAZOLE 40 MG TABLET PO SCH (11:07)
[2020-05-21 13:08] LABS: HEP B CORE AB, TOT Positive (Negative)
[2020-05-21] MEDS ORDERED: PT OWN MED DRAWER 7, Y5N ONE (17:48)
[2020-05-21] MEDS ORDERED: cefTRIAXone SODIUM 1 GM VIAL ONE (18:08)
[2020-05-21] MEDS ORDERED: DEXTROSE 5%-WATER - 50 ML IVPB ONE (18:08)
[2020-05-21] MEDS: CEFTRIAXONE 1 GM in DEXTROSE 5%-WATER - 50 ML IVPB SCH (18:13)
[2020-05-21 18:58] LABS: BF WBC & OTHER NUCLEATED CELLS 340 /mm3
[2020-05-21 19:26] LABS: BODY FLUID MACROPHAGES 45 %; BODY FLUID MESOTHELIAL 2 %; BODY FLUID MONOCYTE 22 %
[2020-05-21] MEDS: metoPROLOL SUCCINATE 25 MG TAB.SR.24H (FP) PO SCH (21:00)
[2020-05-22] MEDS: INSULIN (NOVOLOG) ASPART 100 UNITS/ML 10ML VIAL SQ SCH ×4 (06:05→21:39)
[2020-05-22] MEDS ORDERED: SODIUM CHLORIDE 250 ML IV PRN ×2 (07:55→07:56)
[2020-05-22 08:21] LABS: BASO % 0.4 % (0-2.0); EOS % 2.4 % (0-4.5); HEMATOCRIT 33.5 % (35.4-49); HEMOGLOBIN 11.4 GM/dL (11.7-16.9); LYMPH % 5.3 % (8-40); MCH 32.6 pg (25.7-33.7); MEAN CELL VOLUME 95.9 fl (80-96); MEAN PLT VOLUME 9.1 fl (7.5-11.1); MONO % 6.8 % (3.8-10.2); NEUT % 85.1 % (42.8-82.8); PLATELET COUNT 239 K/MM3 (134-434); RBC 3.49 M/mm3 (4.00-5.60); RDW 15.6 % (11.9-15.9)
[2020-05-22 08:37] LABS: ALBUMIN 2.6 g/dl (3.4-5.0)
[2020-05-22 08:38] LABS: BLOOD UREA NITROGEN 59.2 mg/dL (7-18); CALCIUM 8.7 mg/dL (8.5-10.1); MAGNESIUM 1.9 mg/dL (1.8-2.4)
[2020-05-22 08:40] LABS: CREATININE 6.8 mg/dL (0.55-1.3)
[2020-05-22 08:43] LABS: BILIRUBIN,TOTAL 1.3 mg/dL (0.2-1); PHOSPHOROUS 5.3 mg/dL (2.5-4.9)
[2020-05-22] MEDS: ALBUMIN HUMAN 25% 12.5 GM/50 ML VIAL IVPB SCH ×3 (10:23→11:49)
[2020-05-22] MEDS ORDERED: ALBUMIN HUMAN 25% 12.5 GM/50 ML VIAL IVPB SCH (12:15)
[2020-05-22] MEDS: SEVELAMER CARBONATE 800 MG TAB (FP) PO SCH ×3 (12:35→17:42)
[2020-05-22] MEDS ORDERED: cefTRIAXone SODIUM 1 GM VIAL ONE (12:57)
[2020-05-22] MEDS ORDERED: PT OWN MED DRAWER 7, Y5N ONE (12:57)
[2020-05-22] MEDS ORDERED: DEXTROSE 5%-WATER - 50 ML IVPB ONE (12:57)
[2020-05-22] MEDS: PANTOPRAZOLE 40 MG TABLET PO SCH (13:00)
[2020-05-22] MEDS: metoPROLOL SUCCINATE 25 MG TAB.SR.24H (FP) PO SCH ×2 (13:00→21:39)
[2020-05-22] MEDS: CEFTRIAXONE 1 GM in DEXTROSE 5%-WATER - 50 ML IVPB SCH (13:01)
[2020-05-22] MEDS: HEPARIN NA (PORCINE) 5,000 UNITS/ML 1ML VIAL SQ SCH (21:39)
[2020-05-23] MEDS: HEPARIN NA (PORCINE) 5,000 UNITS/ML 1ML VIAL SQ SCH (06:34)
[2020-05-23] MEDS: INSULIN (NOVOLOG) ASPART 100 UNITS/ML 10ML VIAL SQ SCH ×4 (06:35→21:29)
[2020-05-23 07:53] LABS: BASO % 0.6 % (0-2.0); EOS % 10.7 % (0-4.5); HEMATOCRIT 33.2 % (35.4-49); HEMOGLOBIN 11.1 GM/dL (11.7-16.9); LYMPH % 8.9 % (8-40); MCH 32.1 pg (25.7-33.7); MCHC 33.4 g/dl (32.0-35.9); MEAN CELL VOLUME 96.1 fl (80-96); MEAN PLT VOLUME 9.1 fl (7.5-11.1); MONO % 8.8 % (3.8-10.2); PLATELET COUNT 213 K/MM3 (134-434); RBC 3.46 M/mm3 (4.00-5.60); RDW 15.5 % (11.9-15.9); WHITE BLOOD COUNT 9.5 K/mm3 (4.0-10.0)
[2020-05-23 08:09] LABS: CALCIUM 9.1 mg/dL (8.5-10.1)
[2020-05-23 08:10] LABS: MAGNESIUM 2.2 mg/dL (1.8-2.4)
[2020-05-23 08:13] LABS: CREATININE 4.2 mg/dL (0.55-1.3); PHOSPHOROUS 2.7 mg/dL (2.5-4.9)
[2020-05-23 08:14] LABS: BILIRUBIN,TOTAL 0.7 mg/dL (0.2-1); TOT PROT 7.1 g/dl (6.4-8.2)
[2020-05-23 08:16] LABS: BLOOD UREA NITROGEN 27.6 mg/dL (7-18)
[2020-05-23] MEDS: SEVELAMER CARBONATE 800 MG TAB (FP) PO SCH ×3 (08:41→17:20)
[2020-05-23] MEDS ORDERED: cefTRIAXone SODIUM 1 GM VIAL ONE (09:39)
[2020-05-23] MEDS ORDERED: DEXTROSE 5%-WATER - 50 ML IVPB ONE (09:39)
[2020-05-23] MEDS: CEFTRIAXONE 1 GM in DEXTROSE 5%-WATER - 50 ML IVPB SCH (09:48)
[2020-05-23] MEDS: PANTOPRAZOLE 40 MG TABLET PO SCH (09:49)
[2020-05-23] MEDS: metoPROLOL SUCCINATE 25 MG TAB.SR.24H (FP) PO SCH ×2 (09:50→21:26)
[2020-05-23] MEDS: APIXABAN 2.5 MG TABLET PO SCH ×2 (09:58→21:26)
[2020-05-23] MEDS ORDERED: ASPIRIN COATED 81 MG TABLET.EC PO SCH (10:00)
[2020-05-23] MEDS ORDERED: APIXABAN 2.5 MG TABLET PO SCH (10:00)
[2020-05-23 13:08] LABS: BODY FLUID ALBUMIN 2.3 g/dL (Not Estab.)
[2020-05-23] MEDS ORDERED: PT OWN MED DRAWER 7, Y5N ONE (17:32)
[2020-05-24 05:52] VITALS: TEMP 98.5
[2020-05-24] MEDS: INSULIN (NOVOLOG) ASPART 100 UNITS/ML 10ML VIAL SQ SCH ×3 (06:06→17:47)
[2020-05-24 08:47] LABS: BASO % 0.4 % (0-2.0); EOS % 4.5 % (0-4.5); HEMATOCRIT 34.9 % (35.4-49); LYMPH % 8.5 % (8-40); MCH 32.8 pg (25.7-33.7); MCHC 34.3 g/dl (32.0-35.9); MEAN CELL VOLUME 95.5 fl (80-96); MEAN PLT VOLUME 9.1 fl (7.5-11.1); MONO % 5.7 % (3.8-10.2); NEUT % 80.9 % (42.8-82.8); PLATELET COUNT 227 K/MM3 (134-434); RBC 3.65 M/mm3 (4.00-5.60); RDW 15.5 % (11.9-15.9); WHITE BLOOD COUNT 10.1 K/mm3 (4.0-10.0)
[2020-05-24 09:26] LABS: CALCIUM 8.6 mg/dL (8.5-10.1)
[2020-05-24 09:27] LABS: BLOOD UREA NITROGEN 43.8 mg/dL (7-18); MAGNESIUM 1.8 mg/dL (1.8-2.4)
[2020-05-24 09:29] LABS: CREATININE 5.8 mg/dL (0.55-1.3)
[2020-05-24 09:30] LABS: PHOSPHOROUS 2.6 mg/dL (2.5-4.9)
[2020-05-24 09:31] LABS: TOT PROT 7.1 g/dl (6.4-8.2)
[2020-05-24] MEDS: APIXABAN 2.5 MG TABLET PO SCH (09:38)
[2020-05-24] MEDS: PANTOPRAZOLE 40 MG TABLET PO SCH (09:38)
[2020-05-24] MEDS: metoPROLOL SUCCINATE 25 MG TAB.SR.24H (FP) PO SCH (09:39)
[2020-05-24] MEDS: SEVELAMER CARBONATE 800 MG TAB (FP) PO SCH ×3 (09:39→17:45)
[2020-05-24] MEDS ORDERED: SODIUM CHLORIDE 250 ML IV PRN (14:00)
[2020-05-24] MEDS: ALBUMIN HUMAN 25% 12.5 GM/50 ML VIAL IVPB SCH ×2 (16:03→17:29)
[2020-05-24 17:31] VITALS: BP 112/65; PULSE 87
== END 2020-05-24 21:09 | disposition home or self-care (01) | DRG 947 ==
LOC: JER 15:40 → JERBED 21:14 → J8W 05-20 01:37
PROVIDERS: ADMIT Internal Medicine; ATTEND Internal Medicine
PROC: 0W9G3ZX Drainage of Peritoneal Cavity, Percutaneous Approach, Diagnostic (ICD-10-PCS; principal; 2020-05-21)
PROC: 5A1D70Z Performance of Urinary Filtration, Intermittent, Less than 6 Hours Per Day (ICD-10-PCS; 2020-05-24)
DX: R18.8 Other ascites (principal); N18.6 End stage renal disease; I24.8 Other forms of acute ischemic heart disease; I12.0 Hypertensive chronic kidney disease with stage 5 chronic kidney disease or end stage renal disease; I42.0 Dilated cardiomyopathy; Z99.2 Dependence on renal dialysis; E11.22 Type 2 diabetes mellitus with diabetic chronic kidney disease; E80.6 Other disorders of bilirubin metabolism; I48.91 Unspecified atrial fibrillation; D72.829 Elevated white blood cell count, unspecified; Z95.1 Presence of aortocoronary bypass graft; R74.01 Elevation of levels of liver transaminase levels; D53.9 Nutritional anemia, unspecified; I25.119 Atherosclerotic heart disease of native coronary artery with unspecified angina pectoris; I25.5 Ischemic cardiomyopathy; I35.0 Nonrheumatic aortic (valve) stenosis
CPT/HCPCS: 36415; 70450-TC; 71045-TC-FY; 74176-TC; 76700-TC; 76942-TC; 80053; 82042; 82105; 82140; 82150; 82465; 82803; 82945; 82962; 83605; 83615; 83690; 83735; 83986; 84100; 84157; 84484; 85025; 85027; 85610; 85730; 86704; 86706; 86707; 86708; 86709; 86803; 86850; 86900; 86901; 87040; 87070; 87075; 87102; 87116; 87205; 87206; 87210; 87340; 88108; 88305-TC; 93005; 93010; 93306-TC; 99285-25; C9803; J1644; P9047; U0003